=== PATIENT | female | born 1960 | race American Indian/Alaskan Native ===

== ENCOUNTER 2018-06-26 09:29 | Inpatient (IN) | payer OTHER ==
--- NOTE | 2018-06-26 09:53 | PDOC ---
History of Present Illness - General Chief Complaint: Weakness Stated Complaint: Weakness Time Seen by Provider: 06/26/18 09:53 - History of Present Illness Initial Comments: 06/26/18 12:12 Pt presents to the ED after sent in from [facility] for labile blood sugar and blood pressure and for SBP in the 90's this AM. Patient has no complaints except for feeling "tired". [facility] reports that the patient missed her last HD because she was "feeling feisty" and refused. 06/26/18 12:26 Past History - Past Medical History Allergies/Adverse Reactions: Allergies Allergy/AdvReac Type Severity Reaction Status Date / Time No Known Allergies Allergy Verified 06/26/18 09:54 Home Medications: Ambulatory Orders Acetaminophen 325 mg PO QID 06/26/18 Amlodipine Besylate 5 mg PO DAILY 06/26/18 Aspirin 81 mg PO DAILY 06/26/18 Donepezil HCl 5 mg PO HS 06/26/18 Dulaglutide [Trulicity] 0.75 mg SQ WEEKLY 06/26/18 Escitalopram Oxalate [Lexapro -] 20 mg PO DAILY 06/26/18 Famotidine 20 mg PO DAILY 06/26/18 Furosemide 80 mg PO DAILY 06/26/18 Gabapentin 100 mg PO HS 06/26/18 Gemfibrozil [Lopid] 600 mg PO BID 06/26/18 Isoniazid 300 mg PO DAILY 06/26/18 Metoprolol Tartrate 100 mg PO BID 06/26/18 Pyridoxine HCl (Vitamin B6) [Vitamin B-6] 100 mg PO DAILY 06/26/18 Quetiapine Fumarate [Seroquel -] 25 mg PO Q6H 06/26/18 Sevelamer Carbonate 800 mg PO TID 06/26/18 Thiamine Mononitrate [Vitamin B-1] 100 mg PO DAILY 06/26/18 Dementia: Yes Dialysis: Yes HTN: Yes Review of Systems - Review of Systems Able to Perform ROS?: No (dementia) Is the patient limited Citizen Of [place] proficient: No Constitutional: No: Symptoms Reported, See HPI, Chills, Diaphoresis, Fever, Loss of Appetite, Malaise, Night Sweats, Weakness, Weight Stable, Unintentional Wgt. Loss, Unexplained wgt Loss, Other Respiratory: No: Symptoms reported, See HPI, Cough, Orthopnea, Shortness of Breath, SOB with Exertion, SOB at Rest, Stridor, Wheezing, Productive cough, Hemoptysis, Other Cardiac (ROS): No: Symptoms Reported, See HPI, Chest Pain, Edema, Irregular Heart Rate, Lightheadedness, Palpitations, Syncope, Chest Tightness, Other ABD/GI: No: Symptoms Reported, See HPI, Abdominal Distended, Abd. Pain w/ defecation, Blood Streaked Bowels, Constipated, Diarrhea, Difficulty Swallowing , Nausea, Poor Appetite, Poor Fluid Intake, Rectal Bleeding, Vomiting, Indigestion, Abdominal cramping, Tarry Stools, Other : No: Symptoms Reported, See HPI, Burning, Dysuria, Discharge, Frequency, Flank Pain, Hematuria, Incontinence, Pain, Urgency, Testicular Mass, Testicular Swelling, Lesions, Testicular Pain, Other Musculoskeletal: No: Symptoms Reported, See HPI, Back Pain, Gout, Joint Pain, Joint Swelling, Muscle Pain, Muscle Weakness, Neck Pain, Joint Stiffness, Other *Physical Exam - Physical Exam General Appearance: Yes: Nourished, Appropriately Dressed HEENT: positive: Normal Voice Neck: positive: Rigid, Supple Respiratory/Chest: positive: Lungs Clear, Normal Breath Sounds Cardiovascular: positive: Regular Rhythm, Regular Rate, S1, S2 Gastrointestinal/Abdominal: positive: Normal Bowel Sounds, Flat, Soft Musculoskeletal: positive: Normal Inspection Integumentary: positive: Normal Color, Dry, Warm Neurologic: positive: charting clerk II-XII NML intact, Alert, Normal Mood/Affect ED Treatment Course - LABORATORY CBC & Chemistry Diagram: 06/26/18 11:19 06/26/18 12:54 Medical Decision Making - Medical Decision Making 06/26/18 12:33 Pt presents to the ED after sent in from [place] for labile blood pressure. Patient is demented, but has no complaints. Missed last HD. Differential includes electrolyte derrangement, dehydration. less likely ACS. Will check labs and cardiac enzymes, reassess. *DC/Admit/Observation/Transfer Diagnosis at time of Disposition: End stage renal disease - Discharge Dispostion Condition at time of disposition: Good Decision to Admit order: Yes - Referrals Referrals: Yousif Torres MD [Primary Care Provider] - - Patient Instructions - Post Discharge Activity
[2018-06-26 11:34] LABS: BASO % 0.4 % (0-2.0); EOS % 2.5 % (0-4.5); HEMATOCRIT 44.2 % (32.4-45.2); LYMPH % 22.2 % (8-40); MEAN CELL VOLUME 91.1 fl (80-96); MEAN PLT VOLUME 10.1 fl (7.5-11.1); MONO % 5.7 % (3.8-10.2); NEUT % 69.2 % (42.8-82.8); PLATELET COUNT 265 K/MM3 (134-434); RBC 4.85 M/mm3 (3.60-5.2); RDW 13.8 % (11.6-15.6); WHITE BLOOD COUNT 8.2 K/mm3 (4.0-10.0)
--- NOTE | 2018-06-26 11:56 | EKG ---
Test Reason : Blood Pressure : / mmHG Vent. Rate : 071 BPM Atrial Rate : 071 BPM P-R Int : 172 ms QRS Dur : 080 ms QT Int : 418 ms P-R-T Axes : 066 066 025 degrees QTc Int : 454 ms NORMAL SINUS RHYTHM ANTERIOR INFARCT , AGE UNDETERMINED ABNORMAL ECG NO PREVIOUS ECGS AVAILABLE Confirmed by ABIODUN PILLAI, PARAMJIT ([id number]) on 06/26/2018 11:56:34 AM Referred By: Confirmed By:PARAMJIT RASCON MD
[2018-06-26 14:23] LABS: ALBUMIN 3.2 g/dl (3.4-5.0); ALK PHOS 154 U/L (45-117); ANION GAP 17 MMOL/L (8-16); BILIRUBIN,TOTAL 0.6 mg/dL (0.2-1); CALCIUM 7.8 mg/dL (8.5-10.1); CHLORIDE 96 mmol/L (98-107); CO2 21 mmol/L (21-32); GLUCOSE,RANDOM 213 mg/dL (74-106); POTASSIUM 5.8 mmol/L (3.5-5.1); SGOT/AST 25 U/L (15-37); SGPT/ALT < 6 U/L (13-61); SODIUM 134 mmol/L (136-145); TOT PROT 6.5 g/dl (6.4-8.2)
[2018-06-26 14:43] LABS: BLOOD UREA NITROGEN 131 mg/dL (7-18)
[2018-06-26 14:44] LABS: CREATININE 13.9 mg/dL (0.55-1.3)
[2018-06-26] MEDS ORDERED: SODIUM BICARBONATE 4.2% 5 MEQ/10 ML DISP.SYRIN IVPUSH ONE ×2 (16:17→16:28)
[2018-06-26] MEDS ORDERED: INSULIN REGULAR HUMAN 100 UNITS/ML *VIAL IVPUSH ONE (16:17)
[2018-06-26] MEDS ORDERED: DEXTROSE 50%-WATER - 25 GM/50 ML VIAL IVPUSH ONE (16:17)
[2018-06-26] MEDS ORDERED: DEXTROSE 50%-WATER 25 GM/50 ML DISP.SYRIN ONE (16:26)
[2018-06-26] MEDS ORDERED: INSULIN REGULAR HUMAN 100 UNITS/ML *VIAL ONE (16:27)
--- NOTE | 2018-06-26 18:48 | CONSULT ---
Consult Consult Specialty:: Nephrology Reason for Consultation:: ESRD - History of Present Illness Chief Complaint: labile blood sugar and fatigue History of Present Illness: Pt is a 57 year old female with pmhx of ESRD who presents to the ER with labile blood sugar. She missed her last HD as she did not want to go. She says she feels well and has no complaints. The ER was actually trying to get her back to [facility] all day however she did not have a slot for HD so they then called me. She denies shortness of breath. She denies palpitations. She agrees to HD. - History Source History Provided By: Patient, Medical Record - Past Medical History Cardio/Vascular: Yes: HTN Renal/: Yes: Hemodialysis - Past Surgical History Past Surgical History: Yes: AV Fistula/Graft - Alcohol/Substance Use Hx Alcohol Use: No - Smoking History Smoking history: Unknown if ever smoked Have you smoked in the past 12 months: No Home Medications - Allergies Allergies/Adverse Reactions: Allergies Allergy/AdvReac Type Severity Reaction Status Date / Time No Known Allergies Allergy Verified 06/26/18 09:54 - Home Medications Home Medications: Ambulatory Orders Acetaminophen 325 mg PO QID 06/26/18 Amlodipine Besylate 5 mg PO DAILY 06/26/18 Aspirin 81 mg PO DAILY 06/26/18 Donepezil HCl 5 mg PO HS 06/26/18 Dulaglutide [Trulicity] 0.75 mg SQ WEEKLY 06/26/18 Escitalopram Oxalate [Lexapro -] 20 mg PO DAILY 06/26/18 Famotidine 20 mg PO DAILY 06/26/18 Furosemide 80 mg PO DAILY 06/26/18 Gabapentin 100 mg PO HS 06/26/18 Gemfibrozil [Lopid] 600 mg PO BID 06/26/18 Isoniazid 300 mg PO DAILY 06/26/18 Metoprolol Tartrate 100 mg PO BID 06/26/18 Pyridoxine HCl (Vitamin B6) [Vitamin B-6] 100 mg PO DAILY 06/26/18 Quetiapine Fumarate [Seroquel -] 25 mg PO Q6H 06/26/18 Sevelamer Carbonate 800 mg PO TID 06/26/18 Thiamine Mononitrate [Vitamin B-1] 100 mg PO DAILY 06/26/18 Family Disease History - Family Disease History Family History: Denies Review of Systems - Review of Systems Constitutional: reports: No Symptoms Eyes: reports: No Symptoms HENT: reports: No Symptoms Neck: reports: No Symptoms Cardiovascular: reports: No Symptoms Respiratory: reports: No Symptoms Gastrointestinal: reports: No Symptoms Genitourinary: reports: No Symptoms Musculoskeletal: reports: No Symptoms Integumentary: reports: No Symptoms Neurological: reports: No Symptoms Physical Exam Vital Signs: Vital Signs Temperature 97.6 F 06/26/18 09:30 Pulse Rate 70 06/26/18 14:49 Respiratory Rate 18 06/26/18 14:49 Blood Pressure 130/74 06/26/18 14:49 O2 Sat by Pulse Oximetry (%) 97 06/26/18 14:49 Constitutional: Yes: Calm Eyes: Yes: Conjunctiva Clear HENT: Yes: Atraumatic Neck: Yes: Supple Cardiovascular: Yes: S1, S2 Respiratory: Yes: CTA Bilaterally Gastrointestinal: Yes: Normal Bowel Sounds, Soft, Abdomen, Obese Renal/: Yes: WNL Musculoskeletal: Yes: WNL Extremities: Yes: Other (avf with thrill and bruit) Neurological: Yes: Oriented Psychiatric: Yes: Oriented Labs: CBC, BMP 06/26/18 11:19 06/26/18 12:54 Laboratory Tests 06/26/18 06/26/18 11:19 12:54 WBC 8.2 Hgb 15.0 Sodium 134 L Potassium 5.8 H BUN 131 H* Creatinine 13.9 H* Calcium 7.8 L Imaging - Results Chest X-ray: Report Reviewed Problem List - Problems (1) End stage renal disease Code(s): N18.6 - END STAGE RENAL DISEASE Assessment/Plan Impression 1. ESRD 2. hyperkalemia 3. HTN Plan - will arrange for HD today - bp is stable - pt agrees to HD - resume home meds - discussed with er - will follow Dr Marks
[2018-06-26] MEDS ORDERED: SODIUM CHLORIDE 250 ML IV PRN (18:51)
[2018-06-26 21:58] LABS: CREATININE 14.6 mg/dL (0.55-1.3)
[2018-06-27 00:41] LABS: CREATININE 4.5 mg/dL (0.55-1.3)
[2018-06-27] MEDS: DONEPEZIL HCL 5 MG TABLET (FP) PO SCH ×2 (07:14→21:46)
[2018-06-27] MEDS: SEVELAMER CARBONATE 800 MG TAB (FP) PO SCH ×4 (07:14→18:30)
[2018-06-27] MEDS: GEMFIBROZIL 600 MG TABLET (FP) PO SCH ×3 (07:14→16:58)
[2018-06-27] MEDS: METOPROLOL TARTRATE 50 MG TABLET (FP) PO SCH ×3 (07:14→21:45)
[2018-06-27] MEDS: ACETAMINOPHEN 325 MG TABLET (FP) PO SCH ×5 (07:15→21:46)
[2018-06-27] MEDS: QUEtiapine FUMARATE 25 MG TABLET (FP) PO SCH ×5 (07:15→21:46)
[2018-06-27] MEDS: GABAPENTIN 100 MG CAPSULE (FP) PO SCH ×2 (07:15→21:45)
[2018-06-27] MEDS ORDERED: ESCITALOPRAM OXALATE 10 MG TABLET (FP) ONE (10:24)
[2018-06-27] MEDS: amLODIPine BESYLATE 5 MG TABLET (FP) PO SCH (10:31)
[2018-06-27] MEDS: ASPIRIN 81 MG CHEWABLE TABLETS PO SCH (10:31)
[2018-06-27] MEDS: ESCITALOPRAM OXALATE 20 MG TABLET (FP) PO SCH (10:31)
[2018-06-27] MEDS: PYRIDOXINE HCL (B-6) 50 MG TABLET (FP) PO SCH (10:31)
[2018-06-27] MEDS: FUROSEMIDE 40 MG TABLET (FP) PO SCH (10:32)
[2018-06-27] MEDS: THIAMINE HCL 100 MG TABLET (FP) PO SCH (10:32)
--- NOTE | 2018-06-27 10:51 | HP ---
Admitting History and Physical - Primary Care Physician PCP: Aldair Mosquera - Admission History of Present Illness: pt seen/ examined chart reviewed er records reviewed Pt presents to the ED after sent in from skilled nursing for labile blood sugar and blood pressure and for SBP in the 90's this AM. Patient has no complaints except for feeling "tired". [facility] that [facility] her [facility] HD because she was "feeling feisty" and refused. pt admitted underwent dialysis pt seen / examined awake somewhat confused denies pain History Source: Patient, Medical Record Limitations to Obtaining History: Clinical Condition - Past Medical History Cardiovascular: Yes: HTN Renal/: Yes: Hemodialysis - Past Surgical History Past Surgical History: Yes: AV Fistula/Graft - Advance Directives Advance Directives: Yes: DNR, MOL - Smoking History Smoking history: Unknown if ever smoked Have you smoked in the past 12 months: No - Alcohol/Substance Use Hx Alcohol Use: No Home Medications - Allergies Allergies/Adverse Reactions: Allergies Allergy/AdvReac Type Severity Reaction Status Date / Time No Known Allergies Allergy Verified 06/26/18 09:54 - Home Medications Home Medications: Ambulatory Orders Acetaminophen 325 mg PO QID 06/26/18 Amlodipine Besylate 5 mg PO DAILY 06/26/18 Aspirin 81 mg PO DAILY 06/26/18 Donepezil HCl 5 mg PO HS 06/26/18 Dulaglutide [Trulicity] 0.75 mg SQ WEEKLY 06/26/18 Escitalopram Oxalate [Lexapro -] 20 mg PO DAILY 06/26/18 Famotidine 20 mg PO DAILY 06/26/18 Furosemide 80 mg PO DAILY 06/26/18 Gabapentin 100 mg PO HS 06/26/18 Gemfibrozil [Lopid] 600 mg PO BID 06/26/18 Isoniazid 300 mg PO DAILY 06/26/18 Metoprolol Tartrate 100 mg PO BID 06/26/18 Pyridoxine HCl (Vitamin B6) [Vitamin B-6] 100 mg PO DAILY 06/26/18 Quetiapine Fumarate [Seroquel -] 25 mg PO Q6H 06/26/18 Sevelamer Carbonate 800 mg PO TID 06/26/18 Thiamine Mononitrate [Vitamin B-1] 100 mg PO DAILY 06/26/18 Review of Systems Findings/Remarks: see yocha dehe Physical Examination Vital Signs: Vital Signs Temperature 98.7 F 06/27/18 00:35 Pulse Rate 63 06/27/18 08:07 Respiratory Rate 20 06/27/18 08:07 Blood Pressure 107/63 06/27/18 08:07 O2 Sat by Pulse Oximetry (%) 97 06/27/18 05:00 Constitutional: Yes: No Distress Eyes: Yes: Conjunctiva Clear Neck: Yes: Supple Cardiovascular: Yes: Regular Rate and Rhythm Respiratory: Yes: CTA Bilaterally, Diminished Gastrointestinal: Yes: Soft Edema: No Neurological: Yes: Alert, Tremors Labs: CBC, BMP 06/26/18 11:19 06/26/18 23:54 Imaging - Results Chest X-ray: Report Reviewed EKG: Report Reviewed Problem List - Problems (1) Toxic metabolic encephalopathy Code(s): G92 - TOXIC ENCEPHALOPATHY (2) Diabetes Code(s): E11.9 - TYPE 2 DIABETES MELLITUS WITHOUT COMPLICATIONS (3) ESRD (end stage renal disease) on dialysis Code(s): N18.6 - END STAGE RENAL DISEASE; Z99.2 - DEPENDENCE ON RENAL DIALYSIS Assessment/Plan Monitor today Labs ordered monitor bgm. send cultures neuro consult basic dementia work up will follow discussed with nursing staff also
[2018-06-27] MEDS: ISONIAZID 300 MG TABLET (FP) PO SCH (13:23)
[2018-06-27] MEDS ORDERED: SODIUM CHLORIDE 250 ML IV PRN (16:46)
--- NOTE | 2018-06-27 16:46 | PN ---
Progress Note, Physician History of Present Illness: Pt seen and examined at bedside. She is awake and appears comfortable. She is confused. - Current Medication List Current Medications: Active Medications Acetaminophen (Tylenol -) 325 mg PO QID [facility] Last Admin: 06/27/18 13:23 Dose: 325 mg Amlodipine Besylate (Norvasc -) 5 mg PO DAILY [facility] Last Admin: 06/27/18 10:31 Dose: 5 mg Aspirin (Asa -) 81 mg PO DAILY [facility] Last Admin: 06/27/18 10:31 Dose: 81 mg Donepezil HCl (Aricept -) 5 mg PO HS [facility] Last Admin: 06/27/18 07:14 Dose: Not Given Escitalopram Oxalate (Lexapro -) 20 mg PO DAILY [facility] Last Admin: 06/27/18 10:31 Dose: 20 mg Furosemide (Lasix -) 80 mg PO DAILY [facility] Last Admin: 06/27/18 10:32 Dose: 80 mg Gabapentin (Neurontin -) 100 mg PO HS [facility] Last Admin: 06/27/18 07:15 Dose: Not Given Gemfibrozil (Lopid -) 600 mg PO BIDAC [facility] Last Admin: 06/27/18 10:32 Dose: 600 mg Sodium Chloride (Normal Saline -) 250 mls @ 3,000 mls/hr IV PRN PRN PRN Reason: Hypotension during Dialysis Stop: 06/27/18 18:51 Insulin Aspart (Novolog Vial Sliding Scale -) 1 vial SQ BIDAC [facility]; Protocol Isoniazid (Inh -) 300 mg PO DAILY [facility] Last Admin: 06/27/18 13:23 Dose: 300 mg Metoprolol Tartrate (Lopressor -) 100 mg PO BID [facility] Last Admin: 06/27/18 10:31 Dose: 100 mg Pyridoxine HCl (Vitamin B6 -) 100 mg PO DAILY [facility] Last Admin: 06/27/18 10:31 Dose: 100 mg Quetiapine Fumarate (Seroquel -) 25 mg PO QID [facility] Last Admin: 06/27/18 13:23 Dose: 25 mg Sevelamer Carbonate (Renvela -) 800 mg PO TIDCM [facility] Last Admin: 06/27/18 13:23 Dose: 800 mg Thiamine HCl (Vitamin B1 -) 100 mg PO DAILY [facility] Last Admin: 06/27/18 10:32 Dose: 100 mg - Objective Vital Signs: Vital Signs Temperature 98.5 F 06/27/18 15:28 Pulse Rate 72 06/27/18 15:29 Respiratory Rate 20 06/27/18 15:28 Blood Pressure 114/49 L 06/27/18 15:28 O2 Sat by Pulse Oximetry (%) 95 06/27/18 09:00 Constitutional: Yes: Calm Eyes: Yes: Conjunctiva Clear HENT: Yes: Atraumatic Neck: Yes: Supple Cardiovascular: Yes: S1, S2 Respiratory: Yes: CTA Bilaterally Gastrointestinal: Yes: Normal Bowel Sounds, Soft Musculoskeletal: Yes: WNL Edema: No Neurological: Yes: Confusion Psychiatric: Yes: Oriented Labs: CBC, BMP 06/26/18 11:19 06/26/18 23:54 Problem List - Problems (1) End stage renal disease Code(s): N18.6 - END STAGE RENAL DISEASE Assessment/Plan Current Medications Generic Name Dose Route Start Last Admin Trade Name Freq PRN Reason Stop Dose Admin Acetaminophen 325 mg 06/26/18 22:00 06/27/18 13:23 Tylenol - PO 325 mg QID SARAHY Administration Amlodipine Besylate 5 mg 06/27/18 10:00 06/27/18 10:31 Norvasc - PO 5 mg DAILY SARAHY Administration Aspirin 81 mg 06/27/18 10:00 06/27/18 10:31 Asa - PO 81 mg DAILY SARAHY Administration Donepezil HCl 5 mg 06/26/18 22:00 06/27/18 07:14 Aricept - PO Not Given HS SARAHY Escitalopram Oxalate 20 mg 06/27/18 10:00 06/27/18 10:31 Lexapro - PO 20 mg DAILY SARAHY Administration Furosemide 80 mg 06/27/18 10:00 06/27/18 10:32 Lasix - PO 80 mg DAILY SARAHY Administration Gabapentin 100 mg 06/26/18 22:00 06/27/18 07:15 Neurontin - PO Not Given HS SARAHY Gemfibrozil 600 mg 06/26/18 19:15 06/27/18 10:32 Lopid - PO 600 mg BIDAC SARAHY Administration Sodium Chloride 250 mls @ 3,000 mls/hr 06/26/18 18:51 Normal Saline - IV 06/27/18 18:51 PRN PRN Hypotension during Dialysis Insulin Aspart 1 vial 06/27/18 16:30 Novolog Vial Sliding Scale - SQ BIDAC SARAHY Protocol Isoniazid 300 mg 06/27/18 10:00 06/27/18 13:23 Inh - PO 300 mg DAILY SARAHY Administration Metoprolol Tartrate 100 mg 06/26/18 22:00 06/27/18 10:31 Lopressor - PO 100 mg BID SARAHY Administration Pyridoxine HCl 100 mg 06/27/18 10:00 06/27/18 10:31 Vitamin B6 - PO 100 mg DAILY SARAHY Administration Quetiapine Fumarate 25 mg 06/26/18 22:00 06/27/18 13:23 Seroquel - PO 25 mg QID SARAHY Administration Sevelamer Carbonate 800 mg 06/26/18 19:15 06/27/18 13:23 Renvela - PO 800 mg TIDCM SARAHY Administration Thiamine HCl 100 mg 06/27/18 10:00 06/27/18 10:32 Vitamin B1 - PO 100 mg DAILY SARAHY Administration Impression 1. ESRD 2. hyperkalemia 3. HTN Plan - follow repeat labs - HD in am - discussed with medical team - resume home meds - will follow Dr Marks
[2018-06-27] MEDS: INSULIN SLIDING SCALE (NOVOLOG) 1 VIAL SQ SCH (16:50)
[2018-06-27 17:52] LABS: ANION GAP 15 MMOL/L (8-16); BLOOD UREA NITROGEN 70 mg/dL (7-18); CALCIUM 8.4 mg/dL (8.5-10.1); CHLORIDE 98 mmol/L (98-107); CO2 27 mmol/L (21-32); SODIUM 141 mmol/L (136-145)
[2018-06-27 17:55] LABS: GLUCOSE,RANDOM 45 mg/dL (74-106)
[2018-06-27 17:56] LABS: CREATININE 10.5 mg/dL (0.55-1.3)
[2018-06-28] MEDS ORDERED: GLUCAGON 1 MG KIT ONE (06:16)
[2018-06-28] MEDS ORDERED: DEXTROSE 50%-WATER 25 GM/50 ML DISP.SYRIN ONE (06:24)
[2018-06-28] MEDS ORDERED: DEXTROSE 50%-WATER - 25 GM/50 ML VIAL IVPUSH ONE ×2 (06:29→06:30)
--- NOTE | 2018-06-28 06:38 | RAPID ---
Physical Examination Vital Signs: Vital Signs Temperature 97.6 F 06/28/18 06:00 Pulse Rate 65 06/28/18 06:00 Respiratory Rate 18 06/28/18 06:00 Blood Pressure 100/60 06/28/18 06:00 O2 Sat by Pulse Oximetry (%) 95 06/27/18 21:00 rapid response was called for pt mentioned due to Glucose 32 d50 25 and 50 mg IV push was given pt became more responsive and her sugar improved to 392 bp 100/59, p 65 , AAOx3 , lungs clear, heart RRR pt is awake and respond to my questions Dr Bell and the floor team was at bed side. cbc cmp , stat Labs: CBC, BMP 06/26/18 11:19 06/27/18 15:30
[2018-06-28] MEDS: GEMFIBROZIL 600 MG TABLET (FP) PO SCH ×2 (06:41→17:01)
[2018-06-28] MEDS: INSULIN SLIDING SCALE (NOVOLOG) 1 VIAL SQ SCH ×2 (06:50→17:23)
[2018-06-28] MEDS ORDERED: GLUCAGON 1 MG KIT IM ONE (06:55)
[2018-06-28 07:51] LABS: BASO % 0.5 % (0-2.0); EOS % 4.5 % (0-4.5); HEMATOCRIT 44.5 % (32.4-45.2); HEMOGLOBIN 14.3 GM/dL (10.7-15.3); LYMPH % 32.5 % (8-40); MCH 29.6 pg (25.7-33.7); MCHC 32.2 g/dl (32.0-36.0); MEAN CELL VOLUME 92.1 fl (80-96); MEAN PLT VOLUME 9.7 fl (7.5-11.1); NEUT % 58.5 % (42.8-82.8); PLATELET COUNT 180 K/MM3 (134-434); RBC 4.83 M/mm3 (3.60-5.2); RDW 14.4 % (11.6-15.6)
[2018-06-28] MEDS ORDERED: PROCHLORPERAZINE INJECTION 10 MG/2 ML VIAL IVPB ONE (07:54)
[2018-06-28] MEDS: SEVELAMER CARBONATE 800 MG TAB (FP) PO SCH ×3 (08:33→17:00)
[2018-06-28 09:51] LABS: HEMATOCRIT 42.9 % (32.4-45.2); HEMOGLOBIN 14.6 GM/dL (10.7-15.3); MCH 30.9 pg (25.7-33.7); MEAN CELL VOLUME 90.8 fl (80-96); MEAN PLT VOLUME 9.8 fl (7.5-11.1); PLATELET COUNT 172 K/MM3 (134-434); RBC 4.72 M/mm3 (3.60-5.2); WHITE BLOOD COUNT 10.4 K/mm3 (4.0-10.0)
[2018-06-28 10:49] LABS: ANION GAP 16 MMOL/L (8-16); BLOOD UREA NITROGEN 77 mg/dL (7-18); CALCIUM 8.2 mg/dL (8.5-10.1); CHLORIDE 96 mmol/L (98-107); CO2 24 mmol/L (21-32); POTASSIUM 4.7 mmol/L (3.5-5.1); SODIUM 136 mmol/L (136-145)
[2018-06-28 10:54] LABS: CREATININE 11.6 mg/dL (0.55-1.3); GLUCOSE,RANDOM 426 mg/dL (74-106)
[2018-06-28 11:34] LABS: ANISOCYTOSIS 2+; MACROCYTOSIS 0; PLATELET ESTIMATE NORMAL
--- NOTE | 2018-06-28 12:11 | PN ---
Progress Note (short form) - Note Progress Note: pt seen/ examined during dialysis chart reviewed events noted/ discussed. episode of hypoglycemia -- pt not on diabetic meds-- i had held except coverage. Vital Signs Temp 97 F L 06/28/18 09:25 Pulse 65 06/28/18 12:01 Resp 18 06/28/18 12:01 BP 123/48 L 06/28/18 12:01 Pulse Ox 95 06/27/18 21:00 Intake & Output 06/27/18 06/28/18 06/28/18 23:59 11:59 23:59 Intake Total 100 Balance 100 Weight 129 lb 5 oz Intake: Oral 100 Other: Voiding Method Toilet # Unmeasured Voids Void 1 1 Bowel Movement No Yes # Bowel Movements 2 Weight Measurement Method Built in [facility] Active Medications Acetaminophen (Tylenol -) 325 mg PO QID [facility] Last Admin: 06/27/18 21:46 Dose: 325 mg Amlodipine Besylate (Norvasc -) 5 mg PO DAILY [facility] Last Admin: 06/27/18 10:31 Dose: 5 mg Aspirin (Asa -) 81 mg PO DAILY [facility] Last Admin: 06/27/18 10:31 Dose: 81 mg Donepezil HCl (Aricept -) 5 mg PO HS [facility] Last Admin: 06/27/18 21:46 Dose: 5 mg Escitalopram Oxalate (Lexapro -) 20 mg PO DAILY [facility] Last Admin: 06/27/18 10:31 Dose: 20 mg Furosemide (Lasix -) 80 mg PO DAILY [facility] Last Admin: 06/27/18 10:32 Dose: 80 mg Gabapentin (Neurontin -) 100 mg PO HS [facility] Last Admin: 06/27/18 21:45 Dose: 100 mg Gemfibrozil (Lopid -) 600 mg PO BIDAC [facility] Last Admin: 06/28/18 06:41 Dose: 600 mg Sodium Chloride (Normal Saline -) 250 mls @ 3,000 mls/hr IV PRN PRN PRN Reason: Hypotension during Dialysis Stop: 06/28/18 16:46 Insulin Aspart (Novolog Vial Sliding Scale -) 1 vial SQ BIDAC [facility]; Protocol Last Admin: 06/28/18 06:50 Dose: Not Given Isoniazid (Inh -) 300 mg PO DAILY [facility] Last Admin: 06/27/18 13:23 Dose: 300 mg Metoprolol Tartrate (Lopressor -) 100 mg PO BID [facility] Last Admin: 06/27/18 21:45 Dose: 100 mg Pyridoxine HCl (Vitamin B6 -) 100 mg PO DAILY [facility] Last Admin: 06/27/18 10:31 Dose: 100 mg Quetiapine Fumarate (Seroquel -) 25 mg PO QID [facility] Last Admin: 06/27/18 21:46 Dose: 25 mg Sevelamer Carbonate (Renvela -) 800 mg PO TIDCM [facility] Last Admin: 06/28/18 08:33 Dose: Not Given Thiamine HCl (Vitamin B1 -) 100 mg PO DAILY [facility] Last Admin: 06/27/18 10:32 Dose: 100 mg CBC, BMP 06/28/18 09:30 06/28/18 09:30 Physical Examination Constitutional: Yes: No Distress. comfortable Eyes: Yes: Conjunctiva Clear Neck: Yes: Supple Cardiovascular: Yes: Regular Rate and Rhythm Respiratory: Yes: CTA Bilaterally, Diminished Gastrointestinal: Yes: Soft Edema: No Neurological: Yes: Alert, Tremors Labs: Imaging - Results Chest X-ray: Report Reviewed EKG: Report Reviewed Problem List - Problems (1) Toxic metabolic encephalopathy Code(s): G92 - TOXIC ENCEPHALOPATHY (2) Diabetes Code(s): E11.9 - TYPE 2 DIABETES MELLITUS WITHOUT COMPLICATIONS (3) ESRD (end stage renal disease) on dialysis Code(s): N18.6 - END STAGE RENAL DISEASE; Z99.2 - DEPENDENCE ON RENAL DIALYSIS Assessment/Plan Monitor Labs noted monitor bgm. send cultures-- neuro consult basic dementia work up + RPR confirmatory test i/d consult will follow discussed with nursing staff also.
[2018-06-28 12:26] LABS: RPR REACTIVE 1:2 (NONREACTIVE)
[2018-06-28] MEDS ORDERED: ESCITALOPRAM OXALATE 10 MG TABLET (FP) ONE (14:58)
[2018-06-28] MEDS: METOPROLOL TARTRATE 50 MG TABLET (FP) PO SCH ×2 (15:00→22:19)
[2018-06-28] MEDS: FUROSEMIDE 40 MG TABLET (FP) PO SCH (15:00)
[2018-06-28] MEDS: THIAMINE HCL 100 MG TABLET (FP) PO SCH (15:01)
[2018-06-28] MEDS: ACETAMINOPHEN 325 MG TABLET (FP) PO SCH ×4 (15:01→22:18)
[2018-06-28] MEDS: QUEtiapine FUMARATE 25 MG TABLET (FP) PO SCH ×4 (15:01→22:18)
[2018-06-28] MEDS: PYRIDOXINE HCL (B-6) 50 MG TABLET (FP) PO SCH (15:02)
[2018-06-28] MEDS: amLODIPine BESYLATE 5 MG TABLET (FP) PO SCH (15:03)
[2018-06-28] MEDS: ASPIRIN 81 MG CHEWABLE TABLETS PO SCH (15:03)
[2018-06-28] MEDS: ESCITALOPRAM OXALATE 20 MG TABLET (FP) PO SCH (15:04)
[2018-06-28] MEDS ORDERED: PT OWN MED DRAWER 7, Y5N ONE (15:07)
--- NOTE | 2018-06-28 15:13 | CON.NEURO ---
Consult - Past Medical History Cardio/Vascular: Yes: HTN Renal/: Yes: Hemodialysis - Past Surgical History Past Surgical History: Yes: AV Fistula/Graft - Alcohol/Substance Use Hx Alcohol Use: No - Smoking History Smoking history: Unknown if ever smoked Have you smoked in the past 12 months: No Home Medications - Allergies Allergies/Adverse Reactions: Allergies Allergy/AdvReac Type Severity Reaction Status Date / Time No Known Allergies Allergy Verified 06/26/18 09:54 - Home Medications Home Medications: Ambulatory Orders Acetaminophen 325 mg PO QID 06/26/18 Amlodipine Besylate 5 mg PO DAILY 06/26/18 Aspirin 81 mg PO DAILY 06/26/18 Donepezil HCl 5 mg PO HS 06/26/18 Dulaglutide [Trulicity] 0.75 mg SQ WEEKLY 06/26/18 Escitalopram Oxalate [Lexapro -] 20 mg PO DAILY 06/26/18 Famotidine 20 mg PO DAILY 06/26/18 Furosemide 80 mg PO DAILY 06/26/18 Gabapentin 100 mg PO HS 06/26/18 Gemfibrozil [Lopid] 600 mg PO BID 06/26/18 Isoniazid 300 mg PO DAILY 06/26/18 Metoprolol Tartrate 100 mg PO BID 06/26/18 Pyridoxine HCl (Vitamin B6) [Vitamin B-6] 100 mg PO DAILY 06/26/18 Quetiapine Fumarate [Seroquel -] 25 mg PO Q6H 06/26/18 Sevelamer Carbonate 800 mg PO TID 06/26/18 Thiamine Mononitrate [Vitamin B-1] 100 mg PO DAILY 06/26/18 Physical Exam-Neuro Vital Signs: Vital Signs Temperature 97.5 F L 06/28/18 14:00 Pulse Rate 75 06/28/18 14:00 Respiratory Rate 20 06/28/18 14:00 Blood Pressure 128/74 06/28/18 14:00 O2 Sat by Pulse Oximetry (%) 95 06/27/18 21:00 Labs: CBC, BMP 06/28/18 09:30 06/28/18 09:30 Assessment/Plan cc Jerking motions HPI 57 year old female history of HTN, ESRD on HD, presented with labile sugar. patient has been having jerking motion in both hands and sometime around face. Shweta has history of depression and atypical antipsychotic medication. She has refused dialysis and is getting dialysis today. There is no headache , fever or generalized tonic clonic activity. There is no brain imaging done during admission. PMH HTN, ESRD NKDA PMH,Social History and ROS, FH, reviewd in chart Home Medicaitons Acetaminophen 325 mg PO QID 06/26/18 Amlodipine Besylate 5 mg PO DAILY 06/26/18 Aspirin 81 mg PO DAILY 06/26/18 Donepezil HCl 5 mg PO HS 06/26/18 Dulaglutide [Trulicity] 0.75 mg SQ WEEKLY 06/26/18 Escitalopram Oxalate [Lexapro -] 20 mg PO DAILY 06/26/18 Famotidine 20 mg PO DAILY 06/26/18 Furosemide 80 mg PO DAILY 06/26/18 Gabapentin 100 mg PO HS 06/26/18 Gemfibrozil [Lopid] 600 mg PO BID 06/26/18 Isoniazid 300 mg PO DAILY 06/26/18 Metoprolol Tartrate 100 mg PO BID 06/26/18 Pyridoxine HCl (Vitamin B6) [Vitamin B-6] 100 mg PO DAILY 06/26/18 Quetiapine Fumarate [Seroquel -] 25 mg PO Q6H 06/26/18 Sevelamer Carbonate 800 mg PO TID 06/26/18 Thiamine Mononitrate [Vitamin B-1] 100 mg PO DAILY 06/26/18 Neurological Examination Alert oriented x 1,follow command EOMI, Pupils reactive no face asymmetry Moving all extremity , 5/5 sensation is noraml reflex are diminisehd generalized Flapping tremors were seen as well No brain imaging during this hospital admission Assessment /Plan 1. Metabolic Encephalopathy secondary to Uremia , and Labile Sugar levels 2. Myoclonic jerks, secondary to uremia Plan: At this time , jerking seems to be not disabling and and it may subside after HD, I suggest to wait before starting Medication, suggest to do EEG and hold Keppra, if myoclonic jerking gets worse , consider starting keppra 250 mg bid. Thanking you so much Gerardo Christiansen md
--- NOTE | 2018-06-28 15:34 | PN ---
Progress Note (short form) - Note Progress Note: covering dr [place] 1. ESRD 2. hyperkalemia 3. HTN Active Medications Acetaminophen (Tylenol -) 325 mg PO QID [facility] Last Admin: 06/28/18 15:01 Dose: 325 mg Amlodipine Besylate (Norvasc -) 5 mg PO DAILY [facility] Last Admin: 06/28/18 15:03 Dose: 5 mg Aspirin (Asa -) 81 mg PO DAILY [facility] Last Admin: 06/28/18 15:03 Dose: 81 mg Donepezil HCl (Aricept -) 5 mg PO HS [facility] Last Admin: 06/27/18 21:46 Dose: 5 mg Escitalopram Oxalate (Lexapro -) 20 mg PO DAILY [facility] Last Admin: 06/28/18 15:04 Dose: 20 mg Furosemide (Lasix -) 80 mg PO DAILY [facility] Last Admin: 06/28/18 15:00 Dose: 80 mg Gabapentin (Neurontin -) 100 mg PO [facility] Last Admin: 06/27/18 21:45 Dose: 100 mg Gemfibrozil (Lopid -) 600 mg PO BIDAC [facility] Last Admin: 06/28/18 06:41 Dose: 600 mg Sodium Chloride (Normal Saline -) 250 mls @ 3,000 mls/hr IV PRN PRN PRN Reason: Hypotension during Dialysis Stop: 06/28/18 16:46 Insulin Aspart (Novolog Vial Sliding Scale -) 1 vial SQ BIDAC [facility]; Protocol Last Admin: 06/28/18 06:50 Dose: Not Given Isoniazid (Inh -) 300 mg PO DAILY [facility] Last Admin: 06/27/18 13:23 Dose: 300 mg Metoprolol Tartrate (Lopressor -) 100 mg PO BID [facility] Last Admin: 06/28/18 15:00 Dose: 100 mg Pyridoxine HCl (Vitamin B6 -) 100 mg PO DAILY [facility] Last Admin: 06/28/18 15:02 Dose: 100 mg Quetiapine Fumarate (Seroquel -) 25 mg PO QID [facility] Last Admin: 06/28/18 15:02 Dose: Not Given Sevelamer Carbonate (Renvela -) 800 mg PO TIDCM [facility] Last Admin: 06/28/18 15:03 Dose: 800 mg Thiamine HCl (Vitamin B1 -) 100 mg PO DAILY [facility] Last Admin: 06/28/18 15:01 Dose: 100 mg Last Vital Signs Temp Pulse Resp BP Pulse Ox 97.5 F L 75 20 128/74 95 06/28/18 14:00 06/28/18 14:00 06/28/18 14:00 06/28/18 14:00 06/27/18 21:00 CBC, BMP 06/28/18 09:30 06/28/18 09:30 IMP- ESRD stable on dialysis Plan - follow repeat labs - HD in am - discussed with medical team - resume home meds - will follow
[2018-06-28] MEDS: ISONIAZID 300 MG TABLET (FP) PO SCH (17:00)
[2018-06-28] MEDS: GABAPENTIN 100 MG CAPSULE (FP) PO SCH (22:18)
[2018-06-28] MEDS: DONEPEZIL HCL 5 MG TABLET (FP) PO SCH (22:18)
[2018-06-29 02:08] LABS: HBSAG SCREEN Negative (Negative); HEP A AB, IGM Negative (Negative); HEP B CORE AB, TOT Negative (Negative)
[2018-06-29] MEDS ORDERED: DEXTROSE 50%-WATER 25 GM/50 ML DISP.SYRIN ONE (06:41)
[2018-06-29] MEDS: INSULIN SLIDING SCALE (NOVOLOG) 1 VIAL SQ SCH ×2 (06:45→17:24)
[2018-06-29] MEDS: GEMFIBROZIL 600 MG TABLET (FP) PO SCH ×2 (06:58→17:24)
--- NOTE | 2018-06-29 06:58 | RAPID ---
Physical Examination Vital Signs: Vital Signs Temperature 98.6 F 06/29/18 04:19 Pulse Rate 71 06/29/18 04:19 Respiratory Rate 20 06/29/18 04:19 Blood Pressure 109/59 L 06/29/18 04:19 O2 Sat by Pulse Oximetry (%) 96 06/28/18 21:00 Labs: CBC, BMP 06/28/18 09:30 06/28/18 09:30 Rapid Response - Rapid Response Assessment: Rapid Response was called at 6:42am for Pt. found to be unresponsive in the AM. BGM were take at that time and Pt. was found to be hypoglycemic to 35. Immediate decision was made to give 1 amp d50, to good response. Pt. became more alert, eyes opened and Pt was able to move all limbs spontaneously and converse with attending, nursing staff and residents in attendance. On physical exam Pt. had normal S1, S2, RRR, Lungs were CTAB, Extremities had 2+ dorsal pedal pulses and left radial pulse. Pt. was able to life legs off bed and keep them up over 5 seconds for lower extremities and had 5/5 president practicing urologist strength bilaterally. We felt that the patient's unresponsiveness was due to hypoglycemia and no further workup was indicated at this time.
[2018-06-29] MEDS ORDERED: DEXTROSE 50%-WATER - 25 GM/50 ML VIAL IVPUSH ONE (07:34)
[2018-06-29] MEDS ORDERED: ESCITALOPRAM OXALATE 10 MG TABLET (FP) ONE (08:45)
[2018-06-29] MEDS ORDERED: PT OWN MED DRAWER 7, Y5N ONE ×2 (08:48→16:25)
[2018-06-29] MEDS: ASPIRIN 81 MG CHEWABLE TABLETS PO SCH (09:12)
[2018-06-29] MEDS: THIAMINE HCL 100 MG TABLET (FP) PO SCH (09:12)
[2018-06-29] MEDS: QUEtiapine FUMARATE 25 MG TABLET (FP) PO SCH ×4 (09:12→22:19)
[2018-06-29] MEDS: amLODIPine BESYLATE 5 MG TABLET (FP) PO SCH (09:12)
[2018-06-29] MEDS: METOPROLOL TARTRATE 50 MG TABLET (FP) PO SCH ×2 (09:12→22:18)
[2018-06-29] MEDS: FUROSEMIDE 40 MG TABLET (FP) PO SCH (09:13)
[2018-06-29] MEDS: ACETAMINOPHEN 325 MG TABLET (FP) PO SCH ×4 (09:13→22:19)
[2018-06-29] MEDS: SEVELAMER CARBONATE 800 MG TAB (FP) PO SCH ×3 (09:13→17:24)
[2018-06-29] MEDS: ISONIAZID 300 MG TABLET (FP) PO SCH (09:14)
[2018-06-29] MEDS: ESCITALOPRAM OXALATE 20 MG TABLET (FP) PO SCH (09:15)
[2018-06-29] MEDS: PYRIDOXINE HCL (B-6) 50 MG TABLET (FP) PO SCH (10:41)
[2018-06-29 11:47] LABS: TREPONEMA ANTIBODY REACTIVE (NONREACTIVE)
--- NOTE | 2018-06-29 11:48 | PN ---
Progress Note (short form) - Note Progress Note: comfortable. another episode of hypoglycemia today Vital Signs Temp 98.6 F 06/29/18 04:19 Pulse 65 06/29/18 09:19 Resp 18 06/29/18 09:19 BP 135/73 06/29/18 09:19 Pulse Ox 96 06/28/18 21:00 Intake & Output 06/28/18 06/28/18 06/29/18 11:59 23:59 11:59 Intake Total 830 0 Balance 830 0 Weight 129 lb 5 oz 132 lb 3.2 oz Intake: IVPB 50 Oral 780 0 Other: Voiding Method Incontinent Toilet Toilet # Unmeasured Voids Void 1 1 1 Bowel Movement Yes Yes # Bowel Movements 2 1 Weight Measurement Method Built in Bedscale Built in Bedscale Active Medications Acetaminophen (Tylenol -) 325 mg PO QID [facility] Last Admin: 06/29/18 09:13 Dose: 325 mg Amlodipine Besylate (Norvasc -) 5 mg PO DAILY [facility] Last Admin: 06/29/18 09:12 Dose: 5 mg Aspirin (Asa -) 81 mg PO DAILY [facility] Last Admin: 06/29/18 09:12 Dose: 81 mg Donepezil HCl (Aricept -) 5 mg PO [facility] Last Admin: 06/28/18 22:18 Dose: 5 mg Escitalopram Oxalate (Lexapro -) 20 mg PO DAILY [facility] Last Admin: 06/29/18 09:15 Dose: 20 mg Furosemide (Lasix -) 80 mg PO DAILY [facility] Last Admin: 06/29/18 09:13 Dose: 80 mg Gabapentin (Neurontin -) 100 mg PO HS [facility] Last Admin: 06/28/18 22:18 Dose: 100 mg Gemfibrozil (Lopid -) 600 mg PO BIDAC [facility] Last Admin: 06/29/18 06:58 Dose: 600 mg Sodium Chloride (Normal Saline -) 250 mls @ 3,000 mls/hr IV PRN PRN PRN Reason: Hypotension during Dialysis Stop: 06/28/18 16:46 Insulin Aspart (Novolog Vial Sliding Scale -) 1 vial SQ BIDAC [facility]; Protocol Last Admin: 06/29/18 06:45 Dose: Not Given Isoniazid (Inh -) 300 mg PO DAILY [facility] Last Admin: 06/29/18 09:14 Dose: 300 mg Metoprolol Tartrate (Lopressor -) 100 mg PO BID [facility] Last Admin: 06/29/18 09:12 Dose: 100 mg Pyridoxine HCl (Vitamin B6 -) 100 mg PO DAILY [facility] Last Admin: 06/29/18 10:41 Dose: 100 mg Quetiapine Fumarate (Seroquel -) 25 mg PO QID [facility] Last Admin: 06/29/18 09:12 Dose: 25 mg Sevelamer Carbonate (Renvela -) 800 mg PO TIDCM [facility] Last Admin: 06/29/18 09:13 Dose: 800 mg Thiamine HCl (Vitamin B1 -) 100 mg PO DAILY [facility] Last Admin: 06/29/18 09:12 Dose: 100 mg CBC, BMP 06/28/18 09:30 06/28/18 09:30 Microbiology 06/27/18 12:42 Blood Culture - Preliminary Blood - Peripheral Venous NO GROWTH OBTAINED AFTER 24 HOURS, INCUBATION TO CONTINUE FOR 4 DAYS. 06/27/18 12:42 Blood Culture - Preliminary Blood - Peripheral Venous NO GROWTH OBTAINED AFTER 24 HOURS, INCUBATION TO CONTINUE FOR 4 DAYS. Physical Examination Constitutional: Yes: No Distress. comfortable. Eyes: Yes: Conjunctiva Clear Neck: Yes: Supple Cardiovascular: Yes: Regular Rate and Rhythm Respiratory: Yes: CTA Bilaterally, Diminished Gastrointestinal: Yes: Soft Edema: No Neurological: Yes: Alert, Imaging - Results Chest X-ray: Report Reviewed EKG: Report Reviewed Problem List - Problems (1) Toxic metabolic encephalopathy Code(s): G92 - TOXIC ENCEPHALOPATHY (2) Diabetes Code(s): E11.9 - TYPE 2 DIABETES MELLITUS WITHOUT COMPLICATIONS (3) ESRD (end stage renal disease) on dialysis Code(s): N18.6 - END STAGE RENAL DISEASE; Z99.2 - DEPENDENCE ON RENAL DIALYSIS Assessment/Plan Monitor endo consult monitor bgm. send cultures-- -ve so far neuro consult noted i/d consult pending will follow discussed with nursing staff also
--- NOTE | 2018-06-29 13:05 | CONSULT ---
Consult Consult Specialty:: Endocrinology Referred by:: Dr Mosquera Reason for Consultation:: Hypoglycemia - History of Present Illness Chief Complaint: Fluctuating blood sugar History of Present Illness: This is a 57 year old female with h/o DM for many years, ESRD on HD who was transferred to ER from [facility] for "Altered mental status with jerky movements" . [facility] prison noted as 178 duirng transper. Pt was admiitted to the hospital for further management. Pt found unresponsive today morning with FS of 35 which was treated with IV Dextrose with improvement of symptoms. Had similarly hypoglycemia yesterday with FS of 32. Pt currently denies any complaints. Pt referred for evaluation of hypoglycemia. Review of [facility] medication list shows she is on Trulicity 0.75mg Q week on Wednesdays which would be 4 days ago. FS in the hospital has been fluctuating with up to 600 after D50. Review of chart and discussion with nursing staff shows that she didn 't get any Insulin since admission. Denies any polyuria, polydipsia or nocturia. Has Poor vision of rt eye. No paresthesia of feet. - History Source History Provided By: Patient, Medical Record - Past Medical History Cardio/Vascular: Yes: HTN Renal/: Yes: Hemodialysis Endocrine: Yes: Diabetes Mellitus - Past Surgical History Past Surgical History: Yes: AV Fistula/Graft - Alcohol/Substance Use Hx Alcohol Use: No - Smoking History Smoking history: Unknown if ever smoked Have you smoked in the past 12 months: No Home Medications - Allergies Allergies/Adverse Reactions: Allergies Allergy/AdvReac Type Severity Reaction Status Date / Time No Known Allergies Allergy Verified 06/26/18 09:54 - Home Medications Home Medications: Ambulatory Orders Acetaminophen 325 mg PO QID 06/26/18 Amlodipine Besylate 5 mg PO DAILY 06/26/18 Aspirin 81 mg PO DAILY 06/26/18 Donepezil HCl 5 mg PO HS 06/26/18 Dulaglutide [Trulicity] 0.75 mg SQ WEEKLY 06/26/18 Escitalopram Oxalate [Lexapro -] 20 mg PO DAILY 06/26/18 Famotidine 20 mg PO DAILY 06/26/18 Furosemide 80 mg PO DAILY 06/26/18 Gabapentin 100 mg PO HS 06/26/18 Gemfibrozil [Lopid] 600 mg PO BID 06/26/18 Isoniazid 300 mg PO DAILY 11/29/18 Metoprolol Tartrate 100 mg PO BID 06/26/18 Pyridoxine HCl (Vitamin B6) [Vitamin B-6] 100 mg PO DAILY 06/26/18 Quetiapine Fumarate [Seroquel -] 25 mg PO Q6H 06/26/18 Sevelamer Carbonate 800 mg PO TID 06/26/18 Thiamine Mononitrate [Vitamin B-1] 100 mg PO DAILY 06/26/18 Family Disease History - Family Disease History Family Disease History: Diabetes: Grandparent Review of Systems - Review of Systems Constitutional: reports: Loss of Appetite Eyes: reports: Other (Decrease vision rt eye) HENT: reports: No Symptoms Neck: reports: No Symptoms Cardiovascular: reports: No Symptoms Respiratory: reports: No Symptoms Gastrointestinal: reports: No Symptoms Genitourinary: reports: No Symptoms Musculoskeletal: reports: No Symptoms Integumentary: reports: No Symptoms Neurological: reports: Other (Alert, Oriented to year, says she is in the prison.) Physical Exam Vital Signs: Vital Signs Temperature 98.6 F 06/29/18 04:19 Pulse Rate 65 06/29/18 09:19 Respiratory Rate 18 06/29/18 09:19 Blood Pressure 135/73 06/29/18 09:19 O2 Sat by Pulse Oximetry (%) 96 06/28/18 21:00 Constitutional: Yes: No Distress, Calm Eyes: Yes: Conjunctiva Clear, EOM Intact HENT: Yes: Atraumatic, Normocephalic Neck: Yes: Supple, Trachea Midline Cardiovascular: Yes: Regular Rate and Rhythm Respiratory: Yes: Regular Gastrointestinal: Yes: Normal Bowel Sounds, Soft Extremities: Yes: WNL, Other (left elizabeth AV Fistula) Edema: No Neurological: Yes: Alert Labs: CBC, BMP 06/28/18 09:30 06/28/18 09:30 Assessment/Plan AP: T2DM Hypoglycemia: ? Secondary to Trulicity and poor food intake ESRD BGM Q4 hrs Novolog coverage BID when FS >300 for now To give snack of around 150 Kcal when FS drops to <120. T0 give half amp of D50 if pt unable or unwilling to eat Will F/U
--- NOTE | 2018-06-29 13:39 | CON.ID ---
Consult Consult Specialty:: infectious disease Referred by:: dr ny Reason for Consultation:: positive rpr - History of Present Illness Chief Complaint: 57 yo female NHR sent to ED for labile BS History of Present Illness: she is alert history of DM and ESRD/HD asked to see for +RPR patient is awake and alert no fevers knows she is in the hospital reports poor memory 2017 denies prior history of syphilis denies HIV from [facility] one son denies sexual activity since the of her denies syphilis treatment prior [facility]- reports HIV negative agreeable to retesting used to live in the [place] - History Source History Provided By: Patient, Medical Record Limitations to Obtaining History: Clinical Condition - Past Medical History Cardio/Vascular: Yes: HTN Gastrointestinal: Yes: GERD Renal/: Yes: Renal Failure, Hemodialysis Endocrine: Yes: Diabetes Mellitus - Past Surgical History Past Surgical History: Yes: AV Fistula/Graft - Alcohol/Substance Use Hx Alcohol Use: No - Smoking History Smoking history: Unknown if ever smoked Have you smoked in the past 12 months: No - Social History Usual Living Arrangement: Skilled Nursing ADL: Support Services Occupation: former [facility] Place of : Other ([facility]) History of Recent Travel: No Home Medications - Allergies Allergies/Adverse Reactions: Allergies Allergy/AdvReac Type Severity Reaction Status Date / Time No Known Allergies Allergy Verified 06/26/18 09:54 - Home Medications Home Medications: Ambulatory Orders Acetaminophen 325 mg PO QID 06/26/18 Amlodipine Besylate 5 mg PO DAILY 06/26/18 Aspirin 81 mg PO DAILY 06/26/18 Donepezil HCl 5 mg PO HS 06/26/18 Dulaglutide [Trulicity] 0.75 mg SQ WEEKLY 06/26/18 Escitalopram Oxalate [Lexapro -] 20 mg PO DAILY 06/26/18 Famotidine 20 mg PO DAILY 06/26/18 Furosemide 80 mg PO DAILY 06/26/18 Gabapentin 100 mg PO HS 06/26/18 Gemfibrozil [Lopid] 600 mg PO BID 06/26/18 Isoniazid 300 mg PO DAILY 06/26/18 Metoprolol Tartrate 100 mg PO BID 06/26/18 Pyridoxine HCl (Vitamin B6) [Vitamin B-6] 100 mg PO DAILY 06/26/18 Quetiapine Fumarate [Seroquel -] 25 mg PO Q6H 06/26/18 Sevelamer Carbonate 800 mg PO TID 06/26/18 Thiamine Mononitrate [Vitamin B-1] 100 mg PO DAILY 06/26/18 Family Disease History - Family Disease History Family Disease History: Diabetes: Grandparent Review of Systems - Review of Systems Constitutional: reports: No Symptoms Eyes: reports: No Symptoms HENT: reports: No Symptoms Neck: reports: No Symptoms Cardiovascular: reports: No Symptoms Respiratory: reports: No Symptoms Gastrointestinal: reports: No Symptoms Genitourinary: reports: No Symptoms Physical Exam Vital Signs: Vital Signs Temperature 98.6 F 06/29/18 04:19 Pulse Rate 65 06/29/18 09:19 Respiratory Rate 18 06/29/18 09:19 Blood Pressure 135/73 06/29/18 09:19 O2 Sat by Pulse Oximetry (%) 96 06/28/18 21:00 Constitutional: Yes: Well Nourished, No Distress, Calm Eyes: Yes: Conjunctiva Clear, EOM Intact HENT: Yes: Atraumatic, Normocephalic. No: Thrush Neck: Yes: Supple Cardiovascular: Yes: Regular Rate and Rhythm Respiratory: Yes: Regular, CTA Bilaterally Gastrointestinal: Yes: Normal Bowel Sounds, Soft ...Rectal Exam: Yes: Deferred Extremities: Yes: Other (left arm AVF) Edema: No Neurological: Yes: Alert Labs: CBC, BMP 06/28/18 09:30 06/28/18 09:30 Microbiology 06/27/18 12:42 Blood - Peripheral Venous Blood Culture - Preliminary NO GROWTH OBTAINED AFTER 48 HOURS, INCUBATION TO CONTINUE FOR 3 DAYS. 06/27/18 12:42 Blood - Peripheral Venous Blood Culture - Preliminary NO GROWTH OBTAINED AFTER 48 HOURS, INCUBATION TO CONTINUE FOR 3 DAYS. Problem List - Problems (1) Positive RPR test Code(s): A53.0 - LATENT SYPHILIS, UNSPECIFIED EARLY OR LATE (2) ESRD (end stage renal disease) on dialysis Code(s): N18.6 - END STAGE RENAL DISEASE; Z99.2 - DEPENDENCE ON RENAL DIALYSIS (3) Diabetes Code(s): E11.9 - TYPE 2 DIABETES MELLITUS WITHOUT COMPLICATIONS Assessment/Plan will f/u RPR with KAREY in am she consents to HIV testing will order for am
--- NOTE | 2018-06-29 19:57 | PN ---
Progress Note (short form) - Note Progress Note: covering dr [place] 1. ESRD 2. hyperkalemia 3. HTN Current Medications Acetaminophen (Tylenol -) 325 mg PO QID [facility] Last Admin: 06/29/18 18:17 Dose: 325 mg Amlodipine Besylate (Norvasc -) 5 mg PO DAILY [facility] Last Admin: 06/29/18 09:12 Dose: 5 mg Aspirin (Asa -) 81 mg PO DAILY [facility] Last Admin: 06/29/18 09:12 Dose: 81 mg Donepezil HCl (Aricept -) 5 mg PO [facility] Last Admin: 06/28/18 22:18 Dose: 5 mg Escitalopram Oxalate (Lexapro -) 20 mg PO DAILY [facility] Last Admin: 06/29/18 09:15 Dose: 20 mg Furosemide (Lasix -) 80 mg PO DAILY [facility] Last Admin: 06/29/18 09:13 Dose: 80 mg Gabapentin (Neurontin -) 100 mg PO [facility] Last Admin: 06/28/18 22:18 Dose: 100 mg Gemfibrozil (Lopid -) 600 mg PO BIDAC [facility] Last Admin: 06/29/18 17:24 Dose: 600 mg Sodium Chloride (Normal Saline -) 250 mls @ 3,000 mls/hr IV PRN PRN PRN Reason: Hypotension during Dialysis Stop: 06/28/18 16:46 Insulin Aspart (Novolog Vial Sliding Scale -) 1 vial SQ BIDAC [facility]; Protocol Last Admin: 06/29/18 17:24 Dose: 2 units Isoniazid (Inh -) 300 mg PO DAILY [facility] Last Admin: 06/29/18 09:14 Dose: 300 mg Metoprolol Tartrate (Lopressor -) 100 mg PO BID [facility] Last Admin: 06/29/18 09:12 Dose: 100 mg Pyridoxine HCl (Vitamin B6 -) 100 mg PO DAILY [facility] Last Admin: 06/29/18 10:41 Dose: 100 mg Quetiapine Fumarate (Seroquel -) 25 mg PO QID [facility] Last Admin: 06/29/18 18:17 Dose: 25 mg Sevelamer Carbonate (Renvela -) 800 mg PO TIDCM [facility] Last Admin: 06/29/18 17:24 Dose: 800 mg Thiamine HCl (Vitamin B1 -) 100 mg PO DAILY [facility] Last Admin: 06/29/18 09:12 Dose: 100 mg Last Vital Signs Temp Pulse Resp BP Pulse Ox 97.9 F 77 20 117/63 96 06/29/18 18:00 06/29/18 18:00 06/29/18 18:00 06/29/18 18:00 06/29/18 09:00 alert in nad Lungs clear Heart reg Abd soft nontender ext no edema IMP- ESRD stable on dialysis positive rpr noted ID eval noted Plan HD on Saturday
[2018-06-29] MEDS: GABAPENTIN 100 MG CAPSULE (FP) PO SCH (22:19)
[2018-06-29] MEDS: DONEPEZIL HCL 5 MG TABLET (FP) PO SCH (22:20)
[2018-06-30] MEDS ORDERED: PT OWN MED DRAWER 7, Y5N ONE ×4 (05:46→18:23)
[2018-06-30] MEDS: GEMFIBROZIL 600 MG TABLET (FP) PO SCH ×2 (06:13→18:25)
[2018-06-30] MEDS: INSULIN SLIDING SCALE (NOVOLOG) 1 VIAL SQ SCH ×2 (06:14→16:29)
[2018-06-30] MEDS: SEVELAMER CARBONATE 800 MG TAB (FP) PO SCH ×3 (07:59→18:25)
--- NOTE | 2018-06-30 11:48 | PN ---
Progress Note (short form) - Note Progress Note: Denies any complaints Apetite still poor Vital Signs Period Temp Pulse Resp BP Sys/Wesley Pulse Ox Last 24 Hr 97.9 F-98.5 F 65-77 18-20 117-126/58-66 95 PE: Awake, alert Neck: Supple, No JVD Lungs: CTA CVS: S1S2 ABD: benign Ext: no edema CMP Sodium 136 mmol/L (136-145) 06/28/18 09:30 Potassium 4.7 mmol/L (3.5-5.1) 06/28/18 09:30 Chloride 96 mmol/L (98-107) L 06/28/18 09:30 Carbon Dioxide 24 mmol/L (21-32) 06/28/18 09:30 Anion Gap 16 MMOL/L (8-16) 06/28/18 09:30 BUN 77 mg/dL (7-18) H 06/28/18 09:30 Creatinine 11.6 mg/dL (0.55-1.3) H* 06/28/18 09:30 Creat Clearance w eGFR 3.35 (>60) 06/28/18 09:30 POC Glucometer 74 UNITS (80-120) 06/30/18 10:21 Random Glucose 426 mg/dL (74-106) H* 06/28/18 09:30 Hemoglobin A1c % 7.0 % (4.2-6.3) H 06/28/18 06:40 Calcium 8.2 mg/dL (8.5-10.1) L 06/28/18 09:30 Total Bilirubin 0.6 mg/dL (0.2-1) 06/26/18 12:54 AST 25 U/L (15-37) 06/26/18 12:54 ALT < 6 U/L (13-61) L 06/26/18 12:54 Alkaline Phosphatase 154 U/L (45-117) H 06/26/18 12:54 Creatine Kinase 69 IU/L (26-192) 06/26/18 12:54 Troponin I 0.03 ng/ml (0.00-0.05) 06/26/18 12:54 Total Protein 6.5 g/dl (6.4-8.2) 06/26/18 12:54 Albumin 3.2 g/dl (3.4-5.0) L 06/26/18 12:54 TSH 1.73 uIU/ml (0.358-3.74) 06/28/18 09:30 Current Medications Generic Name Dose Route Start Last Admin Trade Name Freq PRN Reason Stop Dose Admin Acetaminophen 325 mg 06/26/18 22:00 06/29/18 22:19 Tylenol - PO 325 mg QID [facility] Administration Amlodipine Besylate 5 mg 06/27/18 10:00 06/29/18 09:12 Norvasc - PO 5 mg DAILY [facility] Administration Aspirin 81 mg 06/27/18 10:00 06/29/18 09:12 Asa - PO 81 mg DAILY [facility] Administration Donepezil HCl 5 mg 06/26/18 22:00 06/29/18 22:20 Aricept - PO 5 mg HS [facility] Administration Escitalopram Oxalate 20 mg 06/27/18 10:00 06/29/18 09:15 Lexapro - PO 20 mg DAILY [facility] Administration Furosemide 80 mg 06/27/18 10:00 06/29/18 09:13 Lasix - PO 80 mg DAILY [facility] Administration Gabapentin 100 mg 06/26/18 22:00 06/29/18 22:19 Neurontin - PO 100 mg HS [facility] Administration Gemfibrozil 600 mg 06/26/18 19:15 06/30/18 06:13 Lopid - PO 600 mg BIDAC [facility] Administration Sodium Chloride 250 mls @ 3,000 mls/hr 06/27/18 16:46 Normal Saline - IV 06/28/18 16:46 PRN PRN Hypotension during Dialysis Insulin Aspart 1 vial 06/29/18 12:55 06/30/18 06:14 Novolog Vial Sliding Scale - SQ Not Given BIDAC [facility] Protocol Isoniazid 300 mg 06/27/18 10:00 06/29/18 09:14 Inh - PO 300 mg DAILY [facility] Administration Metoprolol Tartrate 100 mg 06/26/18 22:00 06/29/18 22:18 Lopressor - PO 100 mg BID [facility] Administration Pyridoxine HCl 100 mg 06/27/18 10:00 06/29/18 10:41 Vitamin B6 - PO 100 mg DAILY [facility] Administration Quetiapine Fumarate 25 mg 06/26/18 22:00 06/29/18 22:19 Seroquel - PO 25 mg QID [facility] Administration Sevelamer Carbonate 800 mg 06/26/18 19:15 06/30/18 07:59 Renvela - PO 800 mg TIDCM [facility] Administration Thiamine HCl 100 mg 06/27/18 10:00 06/29/18 09:12 Vitamin B1 - PO 100 mg DAILY [facility] Administration AP: T2DM Hypoglycemia: ? Secondary to Trulicity and poor food intake. Blood sugar better today ESRD BGM Q4 hrs Novolog coverage BID when FS >300 for now To give snack of around 150 Kcal when FS drops to <120. T0 give half amp of D50 if pt unable or unwilling to eat Will F/U
[2018-06-30] MEDS ORDERED: ESCITALOPRAM OXALATE 10 MG TABLET (FP) ONE (12:00)
[2018-06-30] MEDS: FUROSEMIDE 40 MG TABLET (FP) PO SCH (12:04)
[2018-06-30] MEDS: ESCITALOPRAM OXALATE 20 MG TABLET (FP) PO SCH (12:05)
[2018-06-30] MEDS: QUEtiapine FUMARATE 25 MG TABLET (FP) PO SCH ×4 (12:05→21:33)
[2018-06-30] MEDS: METOPROLOL TARTRATE 50 MG TABLET (FP) PO SCH ×2 (12:05→21:33)
[2018-06-30] MEDS: amLODIPine BESYLATE 5 MG TABLET (FP) PO SCH (12:05)
[2018-06-30] MEDS: ASPIRIN 81 MG CHEWABLE TABLETS PO SCH (12:05)
[2018-06-30] MEDS: ACETAMINOPHEN 325 MG TABLET (FP) PO SCH ×4 (12:06→21:34)
[2018-06-30] MEDS: THIAMINE HCL 100 MG TABLET (FP) PO SCH (12:17)
--- NOTE | 2018-06-30 13:03 | PN ---
Progress Note (short form) - Note Progress Note: pt seen/ examined alert/awake comfortable Vital Signs Temp 98.3 F 06/30/18 06:14 Pulse 70 06/30/18 06:14 Resp 18 06/30/18 06:14 BP 126/58 L 06/30/18 06:14 Pulse Ox 95 06/29/18 21:00 Intake & Output 06/29/18 06/30/18 06/30/18 23:59 11:59 23:59 Intake Total 1300 Balance 1300 Weight 129 lb 6 oz Intake: Oral 1300 Other: Voiding Method Toilet Toilet # Unmeasured Voids Void 200 Bowel Movement No Weight Measurement Method Built in [facility] Active Medications Acetaminophen (Tylenol -) 325 mg PO QID [facility] Last Admin: 06/30/18 12:06 Dose: 325 mg Amlodipine Besylate (Norvasc -) 5 mg PO DAILY [facility] Last Admin: 06/30/18 12:05 Dose: 5 mg Aspirin (Asa -) 81 mg PO DAILY [facility] Last Admin: 06/30/18 12:05 Dose: 81 mg Donepezil HCl (Aricept -) [address] [facility] Last Admin: 06/29/18 22:20 Dose: 5 mg Escitalopram Oxalate (Lexapro -) 20 mg PO DAILY [facility] Last Admin: 06/30/18 12:05 Dose: 20 mg Furosemide (Lasix -) 80 mg PO DAILY [facility] Last Admin: 06/30/18 12:04 Dose: 80 mg Gabapentin (Neurontin -) [address] [facility] Last Admin: 06/29/18 22:19 Dose: 100 mg Gemfibrozil (Lopid -) 600 mg PO BIDAC [facility] Last Admin: 06/30/18 06:13 Dose: 600 mg Sodium Chloride (Normal Saline -) 250 mls @ 3,000 mls/hr IV PRN PRN PRN Reason: Hypotension during Dialysis Stop: 06/28/18 16:46 Insulin Aspart (Novolog Vial Sliding Scale -) 1 vial SQ BIDAC [facility]; Protocol Last Admin: 06/30/18 06:14 Dose: Not Given Isoniazid (Inh -) 300 mg PO DAILY [facility] Last Admin: 06/29/18 09:14 Dose: 300 mg Metoprolol Tartrate (Lopressor -) 100 mg PO BID [facility] Last Admin: 06/30/18 12:05 Dose: 100 mg Pyridoxine HCl (Vitamin B6 -) 100 mg PO DAILY [facility] Last Admin: 06/29/18 10:41 Dose: 100 mg Quetiapine Fumarate (Seroquel -) 25 mg PO QID [facility] Last Admin: 06/30/18 12:05 Dose: 25 mg Sevelamer Carbonate (Renvela -) 800 mg PO TIDCM [facility] Last Admin: 06/30/18 12:06 Dose: 800 mg Thiamine HCl (Vitamin B1 -) 100 mg PO DAILY [facility] Last Admin: 06/30/18 12:17 Dose: 100 mg CBC, BMP 06/28/18 09:30 06/28/18 09:30 Microbiology 06/27/18 12:42 Blood Culture - Preliminary Blood - Peripheral Venous NO GROWTH OBTAINED AFTER 48 HOURS, INCUBATION TO CONTINUE FOR 3 DAYS. 06/27/18 12:42 Blood Culture - Preliminary Blood - Peripheral Venous NO GROWTH OBTAINED AFTER 48 HOURS, INCUBATION TO CONTINUE FOR 3 DAYS. Physical Examination Constitutional: Yes: No Distress. comfortable. Eyes: Yes: Conjunctiva Clear Neck: Yes: Supple Cardiovascular: Yes: Regular Rate and Rhythm Respiratory: Yes: CTA Bilaterally, Diminished Gastrointestinal: Yes: Soft Edema: No Neurological: Yes: Alert,awake Imaging - Results Chest X-ray: Report Reviewed EKG: Report Reviewed Assessment/Plan Monitor endo consult appreciated monitor bgm. cultures negative so far discussed with ID--- regarding RPR----getting in touch with health Department will follow discussed with nursing staff also. dialysis as per renal will follow
--- NOTE | 2018-06-30 13:25 | PN ---
Progress Note, Physician History of Present Illness: Pt seen and examined at bedside. She is awake and appears comfortable. She denies shortness of breath. - Current Medication List Current Medications: Active Medications Acetaminophen (Tylenol -) 325 mg PO QID [facility] Last Admin: 06/30/18 12:06 Dose: 325 mg Amlodipine Besylate (Norvasc -) 5 mg PO DAILY [facility] Last Admin: 06/30/18 12:05 Dose: 5 mg Aspirin (Asa -) 81 mg PO DAILY [facility] Last Admin: 06/30/18 12:05 Dose: 81 mg Donepezil HCl (Aricept -) 5 mg PO HS [facility] Last Admin: 06/29/18 22:20 Dose: 5 mg Escitalopram Oxalate (Lexapro -) 20 mg PO DAILY [facility] Last Admin: 06/30/18 12:05 Dose: 20 mg Furosemide (Lasix -) 80 mg PO DAILY [facility] Last Admin: 06/30/18 12:04 Dose: 80 mg Gabapentin (Neurontin -) 100 mg PO [facility] Last Admin: 06/29/18 22:19 Dose: 100 mg Gemfibrozil (Lopid -) 600 mg PO BIDAC [facility] Last Admin: 06/30/18 06:13 Dose: 600 mg Sodium Chloride (Normal Saline -) 250 mls @ 3,000 mls/hr IV PRN PRN PRN Reason: Hypotension during Dialysis Stop: 06/28/18 16:46 Insulin Aspart (Novolog Vial Sliding Scale -) 1 vial SQ BIDAC [facility]; Protocol Last Admin: 06/30/18 06:14 Dose: Not Given Isoniazid (Inh -) 300 mg PO DAILY [facility] Last Admin: 06/29/18 09:14 Dose: 300 mg Metoprolol Tartrate (Lopressor -) 100 mg PO BID [facility] Last Admin: 06/30/18 12:05 Dose: 100 mg Pyridoxine HCl (Vitamin B6 -) 100 mg PO DAILY [facility] Last Admin: 06/29/18 10:41 Dose: 100 mg Quetiapine Fumarate (Seroquel -) 25 mg PO QID [facility] Last Admin: 06/30/18 12:05 Dose: 25 mg Sevelamer Carbonate (Renvela -) 800 mg PO TIDCM [facility] Last Admin: 06/30/18 12:06 Dose: 800 mg Thiamine HCl (Vitamin B1 -) 100 mg PO DAILY [facility] Last Admin: 06/30/18 12:17 Dose: 100 mg - Objective Vital Signs: Vital Signs Temperature 98.3 F 06/30/18 06:14 Pulse Rate 70 06/30/18 06:14 Respiratory Rate 18 06/30/18 06:14 Blood Pressure 126/58 L 06/30/18 06:14 O2 Sat by Pulse Oximetry (%) 95 06/29/18 21:00 Constitutional: Yes: Calm Eyes: Yes: Conjunctiva Clear HENT: Yes: Atraumatic Cardiovascular: Yes: S1, S2 Respiratory: Yes: CTA Bilaterally Gastrointestinal: Yes: Soft, Abdomen, Obese Musculoskeletal: Yes: WNL Edema: No Neurological: Yes: Oriented Labs: CBC, BMP 06/28/18 09:30 06/28/18 09:30 Problem List - Problems (1) End stage renal disease Code(s): N18.6 - END STAGE RENAL DISEASE Assessment/Plan Current Medications Generic Name Dose Route Start Last Admin Trade Name Freq PRN Reason Stop Dose Admin Acetaminophen 325 mg 06/26/18 22:00 06/30/18 12:06 Tylenol - PO 325 mg QID SARAHY Administration Amlodipine Besylate 5 mg 06/27/18 10:00 06/30/18 12:05 Norvasc - PO 5 mg DAILY SARAHY Administration Aspirin 81 mg 06/27/18 10:00 06/30/18 12:05 Asa - PO 81 mg DAILY SARAHY Administration Donepezil HCl 5 mg 06/26/18 22:00 06/29/18 22:20 Aricept - PO 5 mg HS SARAHY Administration Escitalopram Oxalate 20 mg 06/27/18 10:00 06/30/18 12:05 Lexapro - PO 20 mg DAILY SARAHY Administration Furosemide 80 mg 06/27/18 10:00 06/30/18 12:04 Lasix - PO 80 mg DAILY SARAHY Administration Gabapentin 100 mg 06/26/18 22:00 06/29/18 22:19 Neurontin - PO 100 mg HS SARAHY Administration Gemfibrozil 600 mg 06/26/18 19:15 06/30/18 06:13 Lopid - PO 600 mg BIDAC SARAHY Administration Sodium Chloride 250 mls @ 3,000 mls/hr 06/27/18 16:46 Normal Saline - IV 06/28/18 16:46 PRN PRN Hypotension during Dialysis Insulin Aspart 1 vial 06/29/18 12:55 06/30/18 06:14 Novolog Vial Sliding Scale - SQ Not Given BIDAC SARAHY Protocol Isoniazid 300 mg 06/27/18 10:00 06/29/18 09:14 Inh - PO 300 mg DAILY SARAHY Administration Metoprolol Tartrate 100 mg 06/26/18 22:00 06/30/18 12:05 Lopressor - PO 100 mg BID SARAHY Administration Pyridoxine HCl 100 mg 06/27/18 10:00 06/29/18 10:41 Vitamin B6 - PO 100 mg DAILY SARAHY Administration Quetiapine Fumarate 25 mg 06/26/18 22:00 06/30/18 12:05 Seroquel - PO 25 mg QID SARAHY Administration Sevelamer Carbonate 800 mg 06/26/18 19:15 06/30/18 12:06 Renvela - PO 800 mg TIDCM SARAHY Administration Thiamine HCl 100 mg 06/27/18 10:00 06/30/18 12:17 Vitamin B1 - PO 100 mg DAILY SARAHY Administration Impression 1. ESRD 2. hyperkalemia 3. HTN 4. DM 5. HLD Plan - HD in am - cont with renal diet - monitor bp - will follow Dr Marks
[2018-06-30] MEDS: ISONIAZID 300 MG TABLET (FP) PO SCH (14:08)
[2018-06-30] MEDS: PYRIDOXINE HCL (B-6) 50 MG TABLET (FP) PO SCH (14:08)
--- NOTE | 2018-06-30 15:33 | PN ---
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
[2018-06-30] MEDS: GABAPENTIN 100 MG CAPSULE (FP) PO SCH (21:33)
[2018-06-30] MEDS: DONEPEZIL HCL 5 MG TABLET (FP) PO SCH (21:37)
[2018-07-01] MEDS ORDERED: PT OWN MED DRAWER 7, Y5N ONE ×3 (05:57→18:07)
[2018-07-01] MEDS: GEMFIBROZIL 600 MG TABLET (FP) PO SCH ×2 (06:06→18:08)
[2018-07-01] MEDS: INSULIN SLIDING SCALE (NOVOLOG) 1 VIAL SQ SCH ×2 (06:06→17:37)
[2018-07-01] MEDS: SEVELAMER CARBONATE 800 MG TAB (FP) PO SCH ×3 (08:45→18:03)
[2018-07-01 08:47] LABS: HEMATOCRIT 36.8 % (32.4-45.2); HEMOGLOBIN 12.8 GM/dL (10.7-15.3); MCH 30.9 pg (25.7-33.7); MCHC 34.8 g/dl (32.0-36.0); MEAN CELL VOLUME 88.8 fl (80-96); MEAN PLT VOLUME 9.5 fl (7.5-11.1); PLATELET COUNT 157 K/MM3 (134-434); RBC 4.14 M/mm3 (3.60-5.2); RDW 13.5 % (11.6-15.6); WHITE BLOOD COUNT 6.2 K/mm3 (4.0-10.0)
--- NOTE | 2018-07-01 09:01 | PN ---
Progress Note (short form) - Note Progress Note: Denies any complaints Undergoing HD Vital Signs Period Temp Pulse Resp BP Sys/Wesley Pulse Ox Last 24 Hr 97.5 F-98.2 F 55-64 18-19 94-118/33-58 95 PE: Awake, alert Neck: Supple, No JVD Lungs: CTA CVS: S1S2 ABD: benign Ext: no edema CMP Sodium 136 mmol/L (136-145) 06/28/18 09:30 Potassium 4.7 mmol/L (3.5-5.1) 06/28/18 09:30 Chloride 96 mmol/L (98-107) L 06/28/18 09:30 Carbon Dioxide 24 mmol/L (21-32) 06/28/18 09:30 Anion Gap 16 MMOL/L (8-16) 06/28/18 09:30 BUN 77 mg/dL (7-18) H 06/28/18 09:30 Creatinine 11.6 mg/dL (0.55-1.3) H* 06/28/18 09:30 Creat Clearance w eGFR 3.35 (>60) 06/28/18 09:30 POC Glucometer 191 UNITS (80-120) 07/01/18 05:39 Random Glucose 426 mg/dL (74-106) H* 06/28/18 09:30 Hemoglobin A1c % 7.0 % (4.2-6.3) H 06/28/18 06:40 Calcium 8.2 mg/dL (8.5-10.1) L 06/28/18 09:30 Total Bilirubin 0.6 mg/dL (0.2-1) 06/26/18 12:54 AST 25 U/L (15-37) 06/26/18 12:54 ALT < 6 U/L (13-61) L 06/26/18 12:54 Alkaline Phosphatase 154 U/L (45-117) H 06/26/18 12:54 Creatine Kinase 69 IU/L (26-192) 06/26/18 12:54 Troponin I 0.03 ng/ml (0.00-0.05) 06/26/18 12:54 Total Protein 6.5 g/dl (6.4-8.2) 06/26/18 12:54 Albumin 3.2 g/dl (3.4-5.0) L 06/26/18 12:54 TSH 1.73 uIU/ml (0.358-3.74) 06/28/18 09:30 Current Medications Generic Name Dose Route Start Last Admin Trade Name Dominique PRN Reason Stop Dose Admin Acetaminophen 325 mg 06/26/18 22:00 06/30/18 21:34 Tylenol - PO 325 mg QID SARAHY Administration Amlodipine Besylate 5 mg 06/27/18 10:00 06/30/18 12:05 Norvasc - PO 5 mg DAILY SARAHY Administration Aspirin 81 mg 06/27/18 10:00 06/30/18 12:05 Asa - PO 81 mg DAILY SARAHY Administration Donepezil HCl 5 mg 06/26/18 22:00 06/30/18 21:37 Aricept - PO 5 mg HS SARAHY Administration Escitalopram Oxalate 20 mg 06/27/18 10:00 06/30/18 12:05 Lexapro - PO 20 mg DAILY SARAHY Administration Furosemide 80 mg 06/27/18 10:00 06/30/18 12:04 Lasix - PO 80 mg DAILY SARAHY Administration Gabapentin 100 mg 06/26/18 22:00 06/30/18 21:33 Neurontin - PO 100 mg HS SARAHY Administration Gemfibrozil 600 mg 06/26/18 19:15 07/01/18 06:06 Lopid - PO 600 mg BIDAC SARAHY Administration Sodium Chloride 250 mls @ 3,000 mls/hr 06/30/18 13:25 Normal Saline - IV 07/01/18 13:25 PRN PRN Hypotension during Dialysis Insulin Aspart 1 vial 06/29/18 12:55 07/01/18 06:06 Novolog Vial Sliding Scale - SQ Not Given BIDAC SARAHY Protocol Isoniazid 300 mg 06/27/18 10:00 06/30/18 14:08 Inh - PO 300 mg DAILY SARAHY Administration Metoprolol Tartrate 100 mg 06/26/18 22:00 06/30/18 21:33 Lopressor - PO 100 mg BID SARAHY Administration Pyridoxine HCl 100 mg 06/27/18 10:00 06/30/18 14:08 Vitamin B6 - PO 100 mg DAILY SARAHY Administration Quetiapine Fumarate 25 mg 06/26/18 22:00 06/30/18 21:33 Seroquel - PO 25 mg QID SARAHY Administration Sevelamer Carbonate 800 mg 06/26/18 19:15 06/30/18 18:25 Renvela - PO 800 mg TIDCM SARAHY Administration Thiamine HCl 100 mg 06/27/18 10:00 06/30/18 12:17 Vitamin B1 - PO 100 mg DAILY SARAHY Administration AP: T2DM Hypoglycemia: ? Secondary to Trulicity and poor food intake. Blood sugar better today ESRD BGM Q4 hrs Novolog coverage BID when FS >300 for now To give snack of around 150 Kcal when FS drops to <120. T0 give half amp of D50 if pt unable or unwilling to eat Pt should three regular meals with snacks between meals and at bedtime Will F/U
[2018-07-01 09:34] LABS: ANION GAP 15 MMOL/L (8-16); BLOOD UREA NITROGEN 74 mg/dL (7-18); CHLORIDE 101 mmol/L (98-107); CO2 22 mmol/L (21-32); GLUCOSE,RANDOM 90 mg/dL (74-106); POTASSIUM 4.1 mmol/L (3.5-5.1); SODIUM 138 mmol/L (136-145)
[2018-07-01 10:00] LABS: CALCIUM 6.6 mg/dL (8.5-10.1); CREATININE 11.3 mg/dL (0.55-1.3)
[2018-07-01] MEDS: ACETAMINOPHEN 325 MG TABLET (FP) PO SCH ×4 (10:00→21:57)
[2018-07-01] MEDS ORDERED: SODIUM CHLORIDE 250 ML IV PRN (10:33)
[2018-07-01] MEDS ORDERED: PARICALCITOL 5 MCG/ML VIAL IVPUSH ONE (10:45)
[2018-07-01] MEDS ORDERED: CALCIUM GLUCONATE 10% - 1,000 MG/10 ML VIAL IVPB ONE (11:15)
[2018-07-01] MEDS ORDERED: ESCITALOPRAM OXALATE 10 MG TABLET (FP) ONE (11:30)
[2018-07-01] MEDS: QUEtiapine FUMARATE 25 MG TABLET (FP) PO SCH ×4 (12:47→21:59)
[2018-07-01] MEDS: FUROSEMIDE 40 MG TABLET (FP) PO SCH (12:54)
[2018-07-01] MEDS: ISONIAZID 300 MG TABLET (FP) PO SCH (12:54)
[2018-07-01] MEDS: ASPIRIN 81 MG CHEWABLE TABLETS PO SCH (12:54)
[2018-07-01] MEDS: amLODIPine BESYLATE 5 MG TABLET (FP) PO SCH (12:55)
[2018-07-01] MEDS: CALCIUM 500MG/VIT-D 200 UNITS COMBO TABLET (FP) PO SCH (12:55)
[2018-07-01] MEDS: ESCITALOPRAM OXALATE 20 MG TABLET (FP) PO SCH (12:55)
[2018-07-01] MEDS: METOPROLOL TARTRATE 50 MG TABLET (FP) PO SCH ×2 (12:55→21:56)
[2018-07-01] MEDS: THIAMINE HCL 100 MG TABLET (FP) PO SCH (12:55)
[2018-07-01] MEDS: PYRIDOXINE HCL (B-6) 50 MG TABLET (FP) PO SCH (12:56)
[2018-07-01 13:04] LABS: PHOSPHOROUS 8.2 mg/dL (2.5-4.9)
[2018-07-01 13:22] LABS: CREATININE 2.8 mg/dL (0.55-1.3)
--- NOTE | 2018-07-01 13:24 | PN ---
Progress Note (short form) - Note Progress Note: Events noted no complaints seen in Dialysis No SOB forgetful Vital Signs - 24 hr 06/30/18 06/30/18 06/30/18 15:13 21:00 23:01 Temperature 97.7 F 97.5 F L Pulse Rate 63 64 Respiratory 18 19 19 Rate Blood Pressure 105/54 L 104/33 L O2 Sat by Pulse 95 Oximetry (%) 06/30/18 07/01/18 07/01/18 23:08 06:34 08:10 Temperature 98.2 F Pulse Rate 63 59 L 60 Respiratory 19 18 Rate Blood Pressure 102/51 L 118/58 L 99/48 L O2 Sat by Pulse Oximetry (%) 07/01/18 07/01/18 07/01/18 08:15 08:45 09:00 Temperature Pulse Rate 56 L 55 L 56 L Respiratory 18 18 18 Rate Blood Pressure 106/58 L 94/52 L 123/66 O2 Sat by Pulse 95 Oximetry (%) 07/01/18 07/01/18 07/01/18 09:15 09:45 10:15 Temperature Pulse Rate 56 L 56 L 56 L Respiratory 18 18 18 Rate Blood Pressure 112/57 L 100/61 123/66 O2 Sat by Pulse Oximetry (%) 07/01/18 07/01/18 07/01/18 10:45 11:15 11:45 Temperature Pulse Rate 56 L 62 60 Respiratory 18 18 18 Rate Blood Pressure 101/58 L 105/58 L 111/55 L O2 Sat by Pulse Oximetry (%) 07/01/18 11:50 Temperature Pulse Rate 61 Respiratory 18 Rate Blood Pressure 117/59 L O2 Sat by Pulse Oximetry (%) Current Medications Generic Name Dose Route Start Last Admin Trade Name Freq PRN Reason Stop Dose Admin Acetaminophen 325 mg 06/26/18 22:00 07/01/18 10:00 Tylenol - PO Not Given QID SARAHY Amlodipine Besylate 5 mg 06/27/18 10:00 07/01/18 12:55 Norvasc - PO 5 mg DAILY SARAHY Administration Aspirin 81 mg 06/27/18 10:00 07/01/18 12:54 Asa - PO 81 mg DAILY SARAHY Administration Calcium Carbonate/Cholecalciferol 2 tab 07/01/18 11:00 07/01/18 12:55 Os-Igor 500+D - PO 2 tab DAILY SARAHY Administration Donepezil HCl 5 mg 06/26/18 22:00 06/30/18 21:37 Aricept - PO 5 mg HS SARAHY Administration Escitalopram Oxalate 20 mg 06/27/18 10:00 07/01/18 12:55 Lexapro - PO 20 mg DAILY SARAHY Administration Furosemide 80 mg 06/27/18 10:00 07/01/18 12:54 Lasix - PO 80 mg DAILY SARAHY Administration Gabapentin 100 mg 06/26/18 22:00 06/30/18 21:33 Neurontin - PO 100 mg HS SARAHY Administration Gemfibrozil 600 mg 06/26/18 19:15 07/01/18 06:06 Lopid - PO 600 mg BIDAC SARAHY Administration Insulin Aspart 1 vial 06/29/18 12:55 07/01/18 06:06 Novolog Vial Sliding Scale - SQ Not Given BIDAC SARAHY Protocol Isoniazid 300 mg 06/27/18 10:00 07/01/18 12:54 Inh - PO 300 mg DAILY SARAHY Administration Metoprolol Tartrate 100 mg 06/26/18 22:00 07/01/18 12:55 Lopressor - PO 100 mg BID SARAHY Administration Pyridoxine HCl 100 mg 06/27/18 10:00 07/01/18 12:56 Vitamin B6 - PO Not Given DAILY SARAHY Quetiapine Fumarate 25 mg 06/26/18 22:00 07/01/18 12:47 Seroquel - PO Not Given QID SARAHY Sevelamer Carbonate 800 mg 06/26/18 19:15 07/01/18 12:53 Renvela - PO 800 mg TIDCM SARAHY Administration Thiamine HCl 100 mg 06/27/18 10:00 07/01/18 12:55 Vitamin B1 - PO 100 mg DAILY SARAHY Administration Laboratory Results - last 24 hr 06/30/18 06/30/18 06/30/18 14:11 16:28 21:28 WBC RBC Hgb Hct MCV MCH MCHC RDW Plt Count MPV Sodium Potassium Chloride Carbon Dioxide Anion Gap BUN Creatinine Creat Clearance w eGFR POC Glucometer 157 174 247 Random Glucose Calcium Phosphorus 07/01/18 07/01/18 07/01/18 01:30 04:05 05:39 WBC RBC Hgb Hct MCV MCH MCHC RDW Plt Count MPV Sodium Potassium Chloride Carbon Dioxide Anion Gap BUN Creatinine Creat Clearance w eGFR POC Glucometer 148 73 191 Random Glucose Calcium Phosphorus 07/01/18 07/01/18 07/01/18 08:44 08:44 11:45 WBC 6.2 RBC 4.14 Hgb 12.8 Hct 36.8 MCV 88.8 MCH 30.9 MCHC 34.8 RDW 13.5 Plt Count 157 MPV 9.5 Sodium 138 Potassium 4.1 Chloride 101 Carbon Dioxide 22 Anion Gap 15 BUN 74 H 13 Creatinine 11.3 H* 2.8 H Creat Clearance w eGFR 3.46 POC Glucometer Random Glucose 90 Calcium 6.6 L* Phosphorus 8.2 H 07/01/18 12:56 WBC RBC Hgb Hct MCV MCH MCHC RDW Plt Count MPV Sodium Potassium Chloride Carbon Dioxide Anion Gap BUN Creatinine Creat Clearance w eGFR POC Glucometer 65 Random Glucose Calcium Phosphorus S1 S2 RRR Lungs decreased Abd- soft, nT No edema PLAN FTA pending continue with meds has irregular BGM Endocrinology on the case ID angela noted HD per renal Problem List - Problems (1) Diabetes Code(s): E11.9 - TYPE 2 DIABETES MELLITUS WITHOUT COMPLICATIONS (2) ESRD (end stage renal disease) on dialysis Code(s): N18.6 - END STAGE RENAL DISEASE; Z99.2 - DEPENDENCE ON RENAL DIALYSIS (3) End stage renal disease Code(s): N18.6 - END STAGE RENAL DISEASE (4) Positive RPR test Code(s): A53.0 - LATENT SYPHILIS, UNSPECIFIED EARLY OR LATE (5) Toxic metabolic encephalopathy Code(s): G92 - TOXIC ENCEPHALOPATHY
--- NOTE | 2018-07-01 14:05 | PN ---
Progress Note, Physician History of Present Illness: Pt seen and examined at bedside. She is awake and alert. She denies shortness of breath. She tolerated HD today. - Current Medication List Current Medications: Active Medications Acetaminophen (Tylenol -) 325 mg PO QID [facility] Last Admin: 07/01/18 10:00 Dose: Not Given Amlodipine Besylate (Norvasc -) 5 mg PO DAILY [facility] Last Admin: 07/01/18 12:55 Dose: 5 mg Aspirin (Asa -) 81 mg PO DAILY [facility] Last Admin: 07/01/18 12:54 Dose: 81 mg Calcium Carbonate/Cholecalciferol (Os-Igor 500+D -) 2 tab PO DAILY [facility] Last Admin: 07/01/18 12:55 Dose: 2 tab Donepezil HCl (Aricept -) 5 mg PO HS [facility] Last Admin: 06/30/18 21:37 Dose: 5 mg Escitalopram Oxalate (Lexapro -) 20 mg PO DAILY [facility] Last Admin: 07/01/18 12:55 Dose: 20 mg Furosemide (Lasix -) 80 mg PO DAILY [facility] Last Admin: 07/01/18 12:54 Dose: 80 mg Gabapentin (Neurontin -) 100 mg PO HS [facility] Last Admin: 06/30/18 21:33 Dose: 100 mg Gemfibrozil (Lopid -) 600 mg PO BIDAC [facility] Last Admin: 07/01/18 06:06 Dose: 600 mg Insulin Aspart (Novolog Vial Sliding Scale -) 1 vial SQ BIDAC [facility]; Protocol Last Admin: 07/01/18 06:06 Dose: Not Given Isoniazid (Inh -) 300 mg PO DAILY [facility] Last Admin: 07/01/18 12:54 Dose: 300 mg Metoprolol Tartrate (Lopressor -) 100 mg PO BID [facility] Last Admin: 07/01/18 12:55 Dose: 100 mg Pyridoxine HCl (Vitamin B6 -) 100 mg PO DAILY [facility] Last Admin: 07/01/18 12:56 Dose: Not Given Quetiapine Fumarate (Seroquel -) 25 mg PO QID [facility] Last Admin: 07/01/18 12:47 Dose: Not Given Sevelamer Carbonate (Renvela -) 800 mg PO TIDCM [facility] Last Admin: 07/01/18 12:53 Dose: 800 mg Thiamine HCl (Vitamin B1 -) 100 mg PO DAILY [facility] Last Admin: 07/01/18 12:55 Dose: 100 mg - Objective Vital Signs: Vital Signs Temperature 98.2 F 07/01/18 08:10 Pulse Rate 61 07/01/18 11:50 Respiratory Rate 18 07/01/18 11:50 Blood Pressure 117/59 L 07/01/18 11:50 O2 Sat by Pulse Oximetry (%) 95 07/01/18 09:00 Constitutional: Yes: Calm Eyes: Yes: Conjunctiva Clear HENT: Yes: Atraumatic Neck: Yes: Supple Cardiovascular: Yes: S1, S2 Respiratory: Yes: CTA Bilaterally Gastrointestinal: Yes: Soft Genitourinary: Yes: WNL Musculoskeletal: Yes: WNL Edema: No Neurological: Yes: Oriented Psychiatric: Yes: Oriented Labs: CBC, BMP 07/01/18 08:44 07/01/18 11:45 Problem List - Problems (1) End stage renal disease Code(s): N18.6 - END STAGE RENAL DISEASE Assessment/Plan Current Medications Generic Name Dose Route Start Last Admin Trade Name Freq PRN Reason Stop Dose Admin Acetaminophen 325 mg 06/26/18 22:00 07/01/18 10:00 Tylenol - PO Not Given QID SARAHY Amlodipine Besylate 5 mg 06/27/18 10:00 07/01/18 12:55 Norvasc - PO 5 mg DAILY SARAHY Administration Aspirin 81 mg 06/27/18 10:00 07/01/18 12:54 Asa - PO 81 mg DAILY SARAHY Administration Calcium Carbonate/Cholecalciferol 2 tab 07/01/18 11:00 07/01/18 12:55 Os-Igor 500+D - PO 2 tab DAILY SARAHY Administration Donepezil HCl 5 mg 06/26/18 22:00 06/30/18 21:37 Aricept - PO 5 mg HS SARAHY Administration Escitalopram Oxalate 20 mg 06/27/18 10:00 07/01/18 12:55 Lexapro - PO 20 mg DAILY SARAHY Administration Furosemide 80 mg 06/27/18 10:00 07/01/18 12:54 Lasix - PO 80 mg DAILY SARAHY Administration Gabapentin 100 mg 06/26/18 22:00 06/30/18 21:33 Neurontin - PO 100 mg HS SARAHY Administration Gemfibrozil 600 mg 06/26/18 19:15 07/01/18 06:06 Lopid - PO 600 mg BIDAC SARAHY Administration Insulin Aspart 1 vial 12/02/18 12:55 07/01/18 06:06 Novolog Vial Sliding Scale - SQ Not Given BIDAC SARAHY Protocol Isoniazid 300 mg 06/27/18 10:00 07/01/18 12:54 Inh - PO 300 mg DAILY SARAHY Administration Metoprolol Tartrate 100 mg 06/26/18 22:00 07/01/18 12:55 Lopressor - PO 100 mg BID SARAHY Administration Pyridoxine HCl 100 mg 06/27/18 10:00 07/01/18 12:56 Vitamin B6 - PO Not Given DAILY SARAHY Quetiapine Fumarate 25 mg 06/26/18 22:00 07/01/18 12:47 Seroquel - PO Not Given QID SARAHY Sevelamer Carbonate 800 mg 06/26/18 19:15 07/01/18 12:53 Renvela - PO 800 mg TIDCM SARAHY Administration Thiamine HCl 100 mg 06/27/18 10:00 07/01/18 12:55 Vitamin B1 - PO 100 mg DAILY ASRAHY Administration Impression 1. ESRD 2. hyperkalemia 3. HTN 4. DM 5. HLD 6. hypocalcemia Plan - HD today, pt tolerated - replaced caclium IV and PO, also gave zemplar - cont with renal diet - monitor bp - repeat cmp in am to check albumin - will follow Dr Marks
[2018-07-01] MEDS: DONEPEZIL HCL 5 MG TABLET (FP) PO SCH (21:56)
[2018-07-01] MEDS: GABAPENTIN 100 MG CAPSULE (FP) PO SCH (21:57)
--- NOTE | 2018-07-01 22:03 | PN ---
Progress Note (short form) - Note Progress Note: cc Jerking motions HPI 57 year old female history of HTN, ESRD on HD, presented with labile sugar. patient has been having jerking motion in both hands and sometime around face. Patiyasmin has history of depression and atypical antipsychotic medication. She has refused dialysis and is getting dialysis today. She is feeling better, spoke to nurse, there is no myclonic jerks were seen. Neurological Examination Alert oriented x 2, EOMI, Pupils reactive no face asymmetry Moving all extremity , 5/5 sensation is noraml reflex are diminisehd generalized F No brain imaging during this hospital admission Assessment /Plan 1. Metabolic Encephalopathy secondary to Uremia , and Labile Sugar levels 2. Myoclonic jerks, secondary to uremia Plan: Myoclonic jerks has subsided, continue to observe. Please feel free to call us, if any question Thanking you so much Gerardo Christiansen md
[2018-07-02] MEDS ORDERED: PT OWN MED DRAWER 7, Y5N ONE (06:04)
[2018-07-02] MEDS: INSULIN SLIDING SCALE (NOVOLOG) 1 VIAL SQ SCH ×2 (06:05→16:06)
[2018-07-02] MEDS: GEMFIBROZIL 600 MG TABLET (FP) PO SCH ×2 (06:05→17:02)
[2018-07-02 08:07] LABS: ALBUMIN 3.7 g/dl (3.4-5.0); ALK PHOS 130 U/L (45-117); ANION GAP 13 MMOL/L (8-16); BILIRUBIN,TOTAL 0.4 mg/dL (0.2-1); BLOOD UREA NITROGEN 59 mg/dL (7-18); CHLORIDE 99 mmol/L (98-107); CO2 28 mmol/L (21-32); GLUCOSE,RANDOM 151 mg/dL (74-106); POTASSIUM 4.1 mmol/L (3.5-5.1); SGOT/AST 39 U/L (15-37); SGPT/ALT 13 U/L (13-61); SODIUM 140 mmol/L (136-145); TOT PROT 7.7 g/dl (6.4-8.2)
[2018-07-02 08:35] LABS: CREATININE 8.9 mg/dL (0.55-1.3)
[2018-07-02] MEDS ORDERED: ESCITALOPRAM OXALATE 10 MG TABLET (FP) ONE (09:43)
[2018-07-02] MEDS: FUROSEMIDE 40 MG TABLET (FP) PO SCH (10:34)
[2018-07-02] MEDS: SEVELAMER CARBONATE 800 MG TAB (FP) PO SCH ×3 (10:34→17:02)
[2018-07-02] MEDS: CALCIUM 500MG/VIT-D 200 UNITS COMBO TABLET (FP) PO SCH (10:34)
[2018-07-02] MEDS: ESCITALOPRAM OXALATE 20 MG TABLET (FP) PO SCH (10:34)
[2018-07-02] MEDS: METOPROLOL TARTRATE 50 MG TABLET (FP) PO SCH ×2 (10:34→21:36)
[2018-07-02] MEDS: ASPIRIN 81 MG CHEWABLE TABLETS PO SCH (10:34)
[2018-07-02] MEDS: ISONIAZID 300 MG TABLET (FP) PO SCH (10:34)
[2018-07-02] MEDS: amLODIPine BESYLATE 5 MG TABLET (FP) PO SCH (10:34)
[2018-07-02] MEDS: THIAMINE HCL 100 MG TABLET (FP) PO SCH (10:35)
[2018-07-02] MEDS: ACETAMINOPHEN 325 MG TABLET (FP) PO SCH ×4 (10:35→21:37)
[2018-07-02] MEDS: PYRIDOXINE HCL (B-6) 50 MG TABLET (FP) PO SCH (10:35)
[2018-07-02] MEDS: QUEtiapine FUMARATE 25 MG TABLET (FP) PO SCH ×4 (10:35→21:38)
--- NOTE | 2018-07-02 12:01 | PN ---
Progress Note (short form) - Note Progress Note: confused was agitated yesterday per staff forgetful Vital Signs - 24 hr 07/01/18 07/01/18 07/02/18 21:00 23:06 05:23 Temperature 97.0 F L 97.9 F Pulse Rate 82 73 Respiratory 20 20 21 H Rate Blood Pressure 120/70 108/53 L O2 Sat by Pulse 95 Oximetry (%) 07/02/18 07/02/18 07/02/18 09:00 10:08 16:00 Temperature 98.1 F 97.7 F Pulse Rate 65 70 Respiratory 20 18 Rate Blood Pressure 121/57 L 151/83 O2 Sat by Pulse 96 Oximetry (%) Current Medications Generic Name Dose Route Start Last Admin Trade Name Freq PRN Reason Stop Dose Admin Acetaminophen 325 mg 06/26/18 22:00 07/02/18 17:26 Tylenol - PO 325 mg QID SARAHY Administration Amlodipine Besylate 5 mg 06/27/18 10:00 07/02/18 10:34 Norvasc - PO Not Given DAILY SARAHY Aspirin 81 mg 06/27/18 10:00 07/02/18 10:34 Asa - PO Not Given DAILY SARAHY Calcium Carbonate/Cholecalciferol 2 tab 07/01/18 11:00 07/02/18 10:34 Os-Igor 500+D - PO Not Given DAILY SARAHY Donepezil HCl 5 mg 06/26/18 22:00 07/01/18 21:56 Aricept - PO 5 mg HS SARAHY Administration Escitalopram Oxalate 20 mg 06/27/18 10:00 07/02/18 10:34 Lexapro - PO Not Given DAILY SARAHY Furosemide 80 mg 06/27/18 10:00 07/02/18 10:34 Lasix - PO Not Given DAILY SARAHY Gabapentin 100 mg 06/26/18 22:00 07/01/18 21:57 Neurontin - PO 100 mg HS SARAHY Administration Gemfibrozil 600 mg 06/26/18 19:15 07/02/18 17:02 Lopid - PO 600 mg BIDAC SARAHY Administration Sodium Chloride 250 mls @ 3,000 mls/hr 07/02/18 13:04 Normal Saline - IV 07/03/18 13:04 PRN PRN Hypotension during Dialysis Insulin Aspart 1 vial 06/29/18 12:55 07/02/18 16:06 Novolog Vial Sliding Scale - SQ Not Given BIDAC [facility] Protocol Isoniazid 300 mg 06/27/18 10:00 07/02/18 10:34 Inh - PO Not Given DAILY SARAHY Metoprolol Tartrate 100 mg 06/26/18 22:00 07/02/18 10:34 Lopressor - PO Not Given BID SARAHY Pyridoxine HCl 100 mg 06/27/18 10:00 07/02/18 10:35 Vitamin B6 - PO Not Given DAILY SARAHY Quetiapine Fumarate 25 mg 06/26/18 22:00 07/02/18 17:26 Seroquel - PO 25 mg QID SARAHY Administration Sevelamer Carbonate 800 mg 06/26/18 19:15 07/02/18 17:02 Renvela - PO 800 mg TIDCM SARAHY Administration Thiamine HCl 100 mg 06/27/18 10:00 07/02/18 10:35 Vitamin B1 - PO Not Given DAILY [facility] Laboratory Results - last 24 hr 06/30/18 07/01/18 07/02/18 17:00 21:50 01:10 Sodium Potassium Chloride Carbon Dioxide Anion Gap BUN Creatinine Creat Clearance w eGFR POC Glucometer 222 195 Random Glucose Calcium Total Bilirubin AST ALT Alkaline Phosphatase Total Protein Albumin T.pallidum Ab (FTA-ABS) Non reactive 07/02/18 07/02/18 07/02/18 05:48 06:36 15:53 Sodium 140 Potassium 4.1 Chloride 99 Carbon Dioxide 28 Anion Gap 13 BUN 59 H Creatinine 8.9 H* Creat Clearance w eGFR 4.55 POC Glucometer 205 216 Random Glucose 151 H Calcium 8.0 L Total Bilirubin 0.4 AST 39 H ALT 13 Alkaline Phosphatase 130 H Total Protein 7.7 Albumin 3.7 T.pallidum Ab (FTA-ABS) S1 S2 RRR Lungs decreased Abd- soft, nT No edema PLAN FTA -ABS- negative, MHA positive, RPR positive spoke with ID-- no h/o treatment from [facility] spoke with Neurologist-- pt will need LP continue with meds has irregular BGM Endocrinology on the case ID angela noted HD per renal check INR /PT Problem List - Problems (1) Diabetes Code(s): E11.9 - TYPE 2 DIABETES MELLITUS WITHOUT COMPLICATIONS (2) ESRD (end stage renal disease) on dialysis Code(s): N18.6 - END STAGE RENAL DISEASE; Z99.2 - DEPENDENCE ON RENAL DIALYSIS (3) End stage renal disease Code(s): N18.6 - END STAGE RENAL DISEASE (4) Positive RPR test Code(s): A53.0 - LATENT SYPHILIS, UNSPECIFIED EARLY OR LATE (5) Toxic metabolic encephalopathy Code(s): G92 - TOXIC ENCEPHALOPATHY
[2018-07-02] MEDS ORDERED: SODIUM CHLORIDE 250 ML IV PRN (13:04)
--- NOTE | 2018-07-02 13:04 | PN ---
Progress Note, Physician History of Present Illness: Pt seen and examined at bedside. She is awake and alert. She is eager to go back to [facility]. She is asking for her dentures and glasses. - Current Medication List Current Medications: Active Medications Acetaminophen (Tylenol -) 325 mg PO QID [facility] Last Admin: 07/02/18 10:35 Dose: Not Given Amlodipine Besylate (Norvasc -) 5 mg PO DAILY [facility] Last Admin: 07/02/18 10:34 Dose: Not Given Aspirin (Asa -) 81 mg PO DAILY [facility] Last Admin: 07/02/18 10:34 Dose: Not Given Calcium Carbonate/Cholecalciferol (Os-Igor 500+D -) 2 tab PO DAILY [facility] Last Admin: 07/02/18 10:34 Dose: Not Given Donepezil HCl (Aricept -) 5 mg PO HS [facility] Last Admin: 07/01/18 21:56 Dose: 5 mg Escitalopram Oxalate (Lexapro -) 20 mg PO DAILY [facility] Last Admin: 07/02/18 10:34 Dose: Not Given Furosemide (Lasix -) 80 mg PO DAILY [facility] Last Admin: 07/02/18 10:34 Dose: Not Given Gabapentin (Neurontin -) 100 mg PO HS [facility] Last Admin: 07/01/18 21:57 Dose: 100 mg Gemfibrozil (Lopid -) 600 mg PO BIDAC [facility] Last Admin: 07/02/18 06:05 Dose: 600 mg Insulin Aspart (Novolog Vial Sliding Scale -) 1 vial SQ BIDAC [facility]; Protocol Last Admin: 07/02/18 06:05 Dose: Not Given Isoniazid (Inh -) 300 mg PO DAILY [facility] Last Admin: 07/02/18 10:34 Dose: Not Given Metoprolol Tartrate (Lopressor -) 100 mg PO BID [facility] Last Admin: 07/02/18 10:34 Dose: Not Given Pyridoxine HCl (Vitamin B6 -) 100 mg PO DAILY [facility] Last Admin: 07/02/18 10:35 Dose: Not Given Quetiapine Fumarate (Seroquel -) 25 mg PO QID [facility] Last Admin: 07/02/18 10:35 Dose: Not Given Sevelamer Carbonate (Renvela -) 800 mg PO TIDCM [facility] Last Admin: 07/02/18 11:36 Dose: Not Given Thiamine HCl (Vitamin B1 -) 100 mg PO DAILY [facility] Last Admin: 12/05/18 10:35 Dose: Not Given - Objective Vital Signs: Vital Signs Temperature 97.9 F 07/02/18 05:23 Pulse Rate 73 07/02/18 05:23 Respiratory Rate 21 H 07/02/18 05:23 Blood Pressure 108/53 L 07/02/18 05:23 O2 Sat by Pulse Oximetry (%) 96 07/02/18 09:00 Constitutional: Yes: Calm Eyes: Yes: Conjunctiva Clear HENT: Yes: Atraumatic Neck: Yes: Supple Cardiovascular: Yes: S1, S2 Respiratory: Yes: CTA Bilaterally Gastrointestinal: Yes: Soft Genitourinary: Yes: WNL Musculoskeletal: Yes: WNL Extremities: Yes: WNL Edema: No Neurological: Yes: Oriented Psychiatric: Yes: Oriented Labs: CBC, BMP 07/01/18 08:44 07/02/18 06:36 Problem List - Problems (1) End stage renal disease Code(s): N18.6 - END STAGE RENAL DISEASE Assessment/Plan Current Medications Generic Name Dose Route Start Last Admin Trade Name Dominique PRN Reason Stop Dose Admin Acetaminophen 325 mg 06/26/18 22:00 07/02/18 10:35 Tylenol - PO Not Given QID [facility] Amlodipine Besylate 5 mg 06/27/18 10:00 07/02/18 10:34 Norvasc - PO Not Given DAILY [facility] Aspirin 81 mg 06/27/18 10:00 07/02/18 10:34 Asa - PO Not Given DAILY [facility] Calcium Carbonate/Cholecalciferol 2 tab 07/01/18 11:00 07/02/18 10:34 Os-Igor 500+D - PO Not Given DAILY [facility] Donepezil HCl 5 mg 06/26/18 22:00 07/01/18 21:56 Aricept - PO 5 mg HS [facility] Administration Escitalopram Oxalate 20 mg 06/27/18 10:00 07/02/18 10:34 Lexapro - PO Not Given DAILY [facility] Furosemide 80 mg 06/27/18 10:00 07/02/18 10:34 Lasix - PO Not Given DAILY [facility] Gabapentin 100 mg 06/26/18 22:00 07/01/18 21:57 Neurontin - PO 100 mg HS [facility] Administration Gemfibrozil 600 mg 06/26/18 19:15 12/05/18 06:05 Lopid - PO 600 mg BIDAC [facility] Administration Insulin Aspart 1 vial 06/29/18 12:55 07/02/18 06:05 Novolog Vial Sliding Scale - SQ Not Given BIDAC [facility] Protocol Isoniazid 300 mg 06/27/18 10:00 07/02/18 10:34 Inh - PO Not Given DAILY [facility] Metoprolol Tartrate 100 mg 06/26/18 22:00 07/02/18 10:34 Lopressor - PO Not Given BID [facility] Pyridoxine HCl 100 mg 06/27/18 10:00 07/02/18 10:35 Vitamin B6 - PO Not Given DAILY [facility] Quetiapine Fumarate 25 mg 06/26/18 22:00 07/02/18 10:35 Seroquel - PO Not Given QID [facility] Sevelamer Carbonate 800 mg 06/26/18 19:15 07/02/18 11:36 Renvela - PO Not Given TIDCM [facility] Thiamine HCl 100 mg 06/27/18 10:00 07/02/18 10:35 Vitamin B1 - PO Not Given DAILY [facility] Laboratory Tests 07/02/18 06:36 Calcium 8.0 L Albumin 3.7 Impression 1. ESRD 2. hyperkalemia 3. HTN 4. DM 5. HLD 6. hypocalcemia Plan - calcium is improved from yesterday - cont supplements - HD tomorrow - repeat labs in am - pt has hd set up as outpt - renal diet - will follow Dr Marks
--- NOTE | 2018-07-02 14:09 | PN ---
Progress Note (short form) - Note Progress Note: Denies any complaints Wants to go back to [facility], says she her denture is there Vital Signs Period Temp Pulse Resp BP Sys/Wesley Pulse Ox Last 24 Hr 97.0 F-97.9 F 73-82 20-21 108-120/53-70 95-96 PE: Awake, alert Neck: Supple, No JVD Lungs: CTA CVS: S1S2 ABD: benign Ext: no edema CMP Sodium 140 mmol/L (136-145) 07/02/18 06:36 Potassium 4.1 mmol/L (3.5-5.1) 07/02/18 06:36 Chloride 99 mmol/L (98-107) 07/02/18 06:36 Carbon Dioxide 28 mmol/L (21-32) 07/02/18 06:36 Anion Gap 13 MMOL/L (8-16) 07/02/18 06:36 BUN 59 mg/dL (7-18) H 07/02/18 06:36 Creatinine 8.9 mg/dL (0.55-1.3) H* 07/02/18 06:36 Creat Clearance w eGFR 4.55 (>60) 07/02/18 06:36 POC Glucometer 205 UNITS (80-120) 07/02/18 05:48 Random Glucose 151 mg/dL (74-106) H 07/02/18 06:36 Hemoglobin A1c % 7.0 % (4.2-6.3) H 06/28/18 06:40 Calcium 8.0 mg/dL (8.5-10.1) L 07/02/18 06:36 Phosphorus 8.2 mg/dL (2.5-4.9) H 07/01/18 08:44 Total Bilirubin 0.4 mg/dL (0.2-1) 07/02/18 06:36 AST 39 U/L (15-37) H 07/02/18 06:36 ALT 13 U/L (13-61) 07/02/18 06:36 Alkaline Phosphatase 130 U/L (45-117) H 07/02/18 06:36 Creatine Kinase 69 IU/L (26-192) 06/26/18 12:54 Troponin I 0.03 ng/ml (0.00-0.05) 06/26/18 12:54 Total Protein 7.7 g/dl (6.4-8.2) 07/02/18 06:36 Albumin 3.7 g/dl (3.4-5.0) 07/02/18 06:36 TSH 1.73 uIU/ml (0.358-3.74) 06/28/18 09:30 Current Medications Generic Name Dose Route Start Last Admin Trade Name Freq PRN Reason Stop Dose Admin Acetaminophen 325 mg 06/26/18 22:00 07/02/18 10:35 Tylenol - PO Not Given QID [facility] Amlodipine Besylate 5 mg 06/27/18 10:00 07/02/18 10:34 Norvasc - PO Not Given DAILY [facility] Aspirin 81 mg 06/27/18 10:00 07/02/18 10:34 Asa - PO Not Given DAILY [facility] Calcium Carbonate/Cholecalciferol 2 tab 07/01/18 11:00 07/02/18 10:34 Os-Igor 500+D - PO Not Given DAILY [facility] Donepezil HCl 5 mg 06/26/18 22:00 07/01/18 21:56 Aricept - PO 5 mg HS [facility] Administration Escitalopram Oxalate 20 mg 06/27/18 10:00 07/02/18 10:34 Lexapro - PO Not Given DAILY [facility] Furosemide 80 mg 06/27/18 10:00 07/02/18 10:34 Lasix - PO Not Given DAILY [facility] Gabapentin 100 mg 06/26/18 22:00 07/01/18 21:57 Neurontin - PO 100 mg HS [facility] Administration Gemfibrozil 600 mg 06/26/18 19:15 07/02/18 06:05 Lopid - PO 600 mg BIDAC [facility] Administration Sodium Chloride 250 mls @ 3,000 mls/hr 07/02/18 13:04 Normal Saline - IV 07/03/18 13:04 PRN PRN Hypotension during Dialysis Insulin Aspart 1 vial 06/29/18 12:55 07/02/18 06:05 Novolog Vial Sliding Scale - SQ Not Given BIDAC [facility] Protocol Isoniazid 300 mg 06/27/18 10:00 07/02/18 10:34 Inh - PO Not Given DAILY [facility] Metoprolol Tartrate 100 mg 06/26/18 22:00 07/02/18 10:34 Lopressor - PO Not Given BID [facility] Pyridoxine HCl 100 mg 06/27/18 10:00 07/02/18 10:35 Vitamin B6 - PO Not Given DAILY [facility] Quetiapine Fumarate 25 mg 06/26/18 22:00 07/02/18 10:35 Seroquel - PO Not Given QID [facility] Sevelamer Carbonate 800 mg 06/26/18 19:15 07/02/18 11:36 Renvela - PO Not Given TIDCM [facility] Thiamine HCl 100 mg 06/27/18 10:00 07/02/18 10:35 Vitamin B1 - PO Not Given DAILY [facility] AP: T2DM Hypoglycemia: resolved ? Secondary to Trulicity and poor food intake. Blood sugar better today ESRD D/C Trulicity as outpatient Novolog SS starting at >250 will probably suffice for management of blood sugar in the [place]. If BGM is persistently high on this regimen, will consider adding basal Insulin starting at 5 units daily. BGM Q4 hrs Novolog coverage BID when FS >300 for now To give snack of around 150 Kcal when FS drops to <120. T0 give half amp of D50 if pt unable or unwilling to eat Pt should three regular meals with snacks between meals and at bedtime Will F/U
--- NOTE | 2018-07-02 14:29 | PN ---
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
[2018-07-02] MEDS: GABAPENTIN 100 MG CAPSULE (FP) PO SCH (21:37)
[2018-07-02] MEDS: DONEPEZIL HCL 5 MG TABLET (FP) PO SCH (21:38)
[2018-07-03] MEDS: INSULIN SLIDING SCALE (NOVOLOG) 1 VIAL SQ SCH ×2 (06:34→15:50)
[2018-07-03] MEDS: GEMFIBROZIL 600 MG TABLET (FP) PO SCH ×2 (06:34→15:51)
[2018-07-03] MEDS: SEVELAMER CARBONATE 800 MG TAB (FP) PO SCH ×3 (08:08→16:42)
[2018-07-03 08:35] LABS: INR 0.93 (0.83-1.09)
[2018-07-03] MEDS ORDERED: ESCITALOPRAM OXALATE 10 MG TABLET (FP) ONE (09:12)
[2018-07-03] MEDS: CALCIUM 500MG/VIT-D 200 UNITS COMBO TABLET (FP) PO SCH (09:13)
[2018-07-03] MEDS: ASPIRIN 81 MG CHEWABLE TABLETS PO SCH (09:13)
[2018-07-03] MEDS: ESCITALOPRAM OXALATE 20 MG TABLET (FP) PO SCH (09:13)
[2018-07-03] MEDS: THIAMINE HCL 100 MG TABLET (FP) PO SCH (09:13)
[2018-07-03] MEDS: amLODIPine BESYLATE 5 MG TABLET (FP) PO SCH (09:13)
[2018-07-03] MEDS: METOPROLOL TARTRATE 50 MG TABLET (FP) PO SCH ×2 (09:14→22:24)
[2018-07-03] MEDS: FUROSEMIDE 40 MG TABLET (FP) PO SCH (09:14)
[2018-07-03] MEDS: ACETAMINOPHEN 325 MG TABLET (FP) PO SCH ×4 (09:14→22:25)
[2018-07-03] MEDS: QUEtiapine FUMARATE 25 MG TABLET (FP) PO SCH ×4 (09:14→22:25)
[2018-07-03] MEDS: ISONIAZID 300 MG TABLET (FP) PO SCH (09:15)
[2018-07-03] MEDS: PYRIDOXINE HCL (B-6) 50 MG TABLET (FP) PO SCH (09:15)
--- NOTE | 2018-07-03 09:25 | PN ---
Progress Note (short form) - Note Progress Note: Denies any complaints Apetite good Vital Signs Period Temp Pulse Resp BP Sys/Wesley Pulse Ox Last 24 Hr 97.7 F-98.7 F 65-77 17-21 121-151/56-83 94 PE: Awake, alert Neck: Supple, No JVD Lungs: CTA CVS: S1S2 ABD: benign Ext: no edema CMP Sodium 140 mmol/L (136-145) 07/02/18 06:36 Potassium 4.1 mmol/L (3.5-5.1) 07/02/18 06:36 Chloride 99 mmol/L (98-107) 07/02/18 06:36 Carbon Dioxide 28 mmol/L (21-32) 07/02/18 06:36 Anion Gap 13 MMOL/L (8-16) 07/02/18 06:36 BUN 59 mg/dL (7-18) H 07/02/18 06:36 Creatinine 8.9 mg/dL (0.55-1.3) H* 07/02/18 06:36 Creat Clearance w eGFR 4.55 (>60) 07/02/18 06:36 POC Glucometer 169 UNITS (80-120) 07/03/18 05:14 Random Glucose 151 mg/dL (74-106) H 07/02/18 06:36 Hemoglobin A1c % 7.0 % (4.2-6.3) H 06/28/18 06:40 Calcium 8.0 mg/dL (8.5-10.1) L 07/02/18 06:36 Phosphorus 8.2 mg/dL (2.5-4.9) H 07/01/18 08:44 Total Bilirubin 0.4 mg/dL (0.2-1) 07/02/18 06:36 AST 39 U/L (15-37) H 07/02/18 06:36 ALT 13 U/L (13-61) 07/02/18 06:36 Alkaline Phosphatase 130 U/L (45-117) H 07/02/18 06:36 Creatine Kinase 69 IU/L (26-192) 06/26/18 12:54 Troponin I 0.03 ng/ml (0.00-0.05) 06/26/18 12:54 Total Protein 7.7 g/dl (6.4-8.2) 07/02/18 06:36 Albumin 3.7 g/dl (3.4-5.0) 07/02/18 06:36 TSH 1.73 uIU/ml (0.358-3.74) 06/28/18 09:30 Current Medications Generic Name Dose Route Start Last Admin Trade Name Freq PRN Reason Stop Dose Admin Acetaminophen 325 mg 06/26/18 22:00 07/03/18 09:14 Tylenol - PO 325 mg QID [facility] Administration Amlodipine Besylate 5 mg 06/27/18 10:00 07/03/18 09:13 Norvasc - PO 5 mg DAILY [facility] Administration Aspirin 81 mg 06/27/18 10:00 07/03/18 09:13 Asa - PO 81 mg DAILY [facility] Administration Calcium Carbonate/Cholecalciferol 2 tab 07/01/18 11:00 07/03/18 09:13 Os-Igor 500+D - PO 2 tab DAILY [facility] Administration Donepezil HCl 5 mg 06/26/18 22:00 07/02/18 21:38 Aricept - PO 5 mg HS [facility] Administration Escitalopram Oxalate 20 mg 06/27/18 10:00 07/03/18 09:13 Lexapro - PO 20 mg DAILY [facility] Administration Furosemide 80 mg 06/27/18 10:00 07/03/18 09:14 Lasix - PO 80 mg DAILY [facility] Administration Gabapentin 100 mg 06/26/18 22:00 07/02/18 21:37 Neurontin - PO 100 mg HS [facility] Administration Gemfibrozil 600 mg 06/26/18 19:15 07/03/18 06:34 Lopid - PO 600 mg BIDAC [facility] Administration Sodium Chloride 250 mls @ 3,000 mls/hr 07/02/18 13:04 Normal Saline - IV 07/03/18 13:04 PRN PRN Hypotension during Dialysis Insulin Aspart 1 vial 06/29/18 12:55 07/03/18 06:34 Novolog Vial Sliding Scale - SQ Not Given BIDAC [facility] Protocol Isoniazid 300 mg 06/27/18 10:00 07/03/18 09:15 Inh - PO 300 mg DAILY [facility] Administration Metoprolol Tartrate 100 mg 06/26/18 22:00 07/03/18 09:14 Lopressor - PO 100 mg BID [facility] Administration Pyridoxine HCl 100 mg 06/27/18 10:00 07/03/18 09:15 Vitamin B6 - PO 100 mg DAILY [facility] Administration Quetiapine Fumarate 25 mg 06/26/18 22:00 07/03/18 09:14 Seroquel - PO 25 mg QID [facility] Administration Sevelamer Carbonate 800 mg 06/26/18 19:15 07/03/18 08:08 Renvela - PO 800 mg TIDCM [facility] Administration Thiamine HCl 100 mg 06/27/18 10:00 07/03/18 09:13 Vitamin B1 - PO 100 mg DAILY [facility] Administration AP: T2DM Hypoglycemia: resolved ? Secondary to Trulicity and poor food intake. Blood sugar better today ESRD D/C Trulicity as outpatient Novolog SS starting at >250 will probably suffice for management of blood sugar in the [place]. If BGM is persistently high on this regimen, will consider adding basal Insulin starting at 5 units daily. BGM Q4 hrs Novolog coverage BID when FS >200 for now To give snack of around 150 Kcal when FS drops to <120. T0 give half amp of D50 if pt unable or unwilling to eat Pt should get three regular meals with snacks between meals and at bedtime Will F/U
[2018-07-03 11:53] LABS: HEMATOCRIT 36.7 % (32.4-45.2); HEMOGLOBIN 11.7 GM/dL (10.7-15.3); MCH 28.9 pg (25.7-33.7); MCHC 31.8 g/dl (32.0-36.0); MEAN CELL VOLUME 90.7 fl (80-96); MEAN PLT VOLUME 9.8 fl (7.5-11.1); PLATELET COUNT 149 K/MM3 (134-434); RBC 4.05 M/mm3 (3.60-5.2); RDW 13.5 % (11.6-15.6); WHITE BLOOD COUNT 7.5 K/mm3 (4.0-10.0)
--- NOTE | 2018-07-03 12:22 | PN ---
Progress Note (short form) - Note Progress Note: confused pt examined in HD no complaints says that she has a son-- who has not come here to visit her Vital Signs - 24 hr 07/02/18 07/02/18 07/02/18 16:00 20:51 21:00 Temperature 97.7 F 98.2 F Pulse Rate 70 74 Respiratory 18 20 17 Rate Blood Pressure 151/83 146/80 O2 Sat by Pulse 94 L Oximetry (%) 07/02/18 07/03/18 07/03/18 21:33 07:51 11:10 Temperature 98.4 F 98.7 F 97.5 F L Pulse Rate 77 72 67 Respiratory 17 21 H 18 Rate Blood Pressure 121/56 L 146/68 129/79 O2 Sat by Pulse Oximetry (%) 07/03/18 07/03/18 07/03/18 11:12 11:20 11:25 Temperature Pulse Rate 60 Respiratory 18 18 Rate Blood Pressure 136/67 O2 Sat by Pulse 95 Oximetry (%) 07/03/18 11:50 Temperature Pulse Rate 60 Respiratory 16 Rate Blood Pressure 93/52 L O2 Sat by Pulse Oximetry (%) Current Medications Generic Name Dose Route Start Last Admin Trade Name Freq PRN Reason Stop Dose Admin Acetaminophen 325 mg 06/26/18 22:00 07/03/18 09:14 Tylenol - PO 325 mg QID [facility] Administration Amlodipine Besylate 5 mg 06/27/18 10:00 07/03/18 09:13 Norvasc - PO 5 mg DAILY [facility] Administration Aspirin 81 mg 06/27/18 10:00 07/03/18 09:13 Asa - PO 81 mg DAILY [facility] Administration Calcium Carbonate/Cholecalciferol 2 tab 07/01/18 11:00 07/03/18 09:13 Os-Igor 500+D - PO 2 tab DAILY [facility] Administration Donepezil HCl 5 mg 06/26/18 22:00 07/02/18 21:38 Aricept - PO 5 mg HS [facility]Y Administration Escitalopram Oxalate 20 mg 06/27/18 10:00 07/03/18 09:13 Lexapro - PO 20 mg DAILY [facility] Administration Furosemide 80 mg 06/27/18 10:00 07/03/18 09:14 Lasix - PO 80 mg DAILY [facility] Administration Gabapentin 100 mg 06/26/18 22:00 07/02/18 21:37 Neurontin - PO 100 mg HS [facility]Y Administration Gemfibrozil 600 mg 06/26/18 19:15 07/03/18 06:34 Lopid - PO 600 mg BIDAC [facility] Administration Sodium Chloride 250 mls @ 3,000 mls/hr 07/02/18 13:04 Normal Saline - IV 07/03/18 13:04 PRN PRN Hypotension during Dialysis Insulin Aspart 1 vial 07/03/18 09:26 Novolog Vial Sliding Scale - SQ BIDAC [facility] Protocol Isoniazid 300 mg 06/27/18 10:00 07/03/18 09:15 Inh - PO 300 mg DAILY [facility] Administration Metoprolol Tartrate 100 mg 06/26/18 22:00 07/03/18 09:14 Lopressor - PO 100 mg BID [facility] Administration Pyridoxine HCl 100 mg 06/27/18 10:00 07/03/18 09:15 Vitamin B6 - PO 100 mg DAILY [facility] Administration Quetiapine Fumarate 25 mg 06/26/18 22:00 07/03/18 09:14 Seroquel - PO 25 mg QID [facility] Administration Sevelamer Carbonate 800 mg 06/26/18 19:15 07/03/18 12:00 Renvela - PO Not Given TIDCM [facility] Thiamine HCl 100 mg 06/27/18 10:00 07/03/18 09:13 Vitamin B1 - PO 100 mg DAILY [facility] Administration Laboratory Results - last 24 hr 06/30/18 07/02/18 07/02/18 17:00 15:53 20:47 WBC RBC Hgb Hct MCV MCH MCHC RDW Plt Count MPV PT with INR INR POC Glucometer 216 283 T.pallidum Ab (FTA-ABS) Non reactive 07/03/18 07/03/18 07/03/18 05:14 06:00 11:15 WBC 7.5 RBC 4.05 Hgb 11.7 Hct 36.7 MCV 90.7 MCH 28.9 MCHC 31.8 L RDW 13.5 Plt Count 149 MPV 9.8 PT with INR 11.00 INR 0.93 POC Glucometer 169 T.pallidum Ab (FTA-ABS) S1 S2 RRR Lungs decreased Abd- soft, nT No edema PLAN FTA -ABS- negative, MHA positive, RPR positive spoke with ID-- no h/o treatment from [facility] spoke with Neurologist-- pt will need LP dc ASA continue with meds has irregular BGM- no further hypoglycemic episodes Endocrinology on the case ID angela noted HD per renal Problem List - Problems (1) Diabetes Code(s): E11.9 - TYPE 2 DIABETES MELLITUS WITHOUT COMPLICATIONS (2) ESRD (end stage renal disease) on dialysis Code(s): N18.6 - END STAGE RENAL DISEASE; Z99.2 - DEPENDENCE ON RENAL DIALYSIS (3) End stage renal disease Code(s): N18.6 - END STAGE RENAL DISEASE (4) Positive RPR test Code(s): A53.0 - LATENT SYPHILIS, UNSPECIFIED EARLY OR LATE (5) Toxic metabolic encephalopathy Code(s): G92 - TOXIC ENCEPHALOPATHY
[2018-07-03 12:26] LABS: ALBUMIN 3.3 g/dl (3.4-5.0); ALK PHOS 104 U/L (45-117); ANION GAP 16 MMOL/L (8-16); BILIRUBIN,TOTAL 0.3 mg/dL (0.2-1); BLOOD UREA NITROGEN 91 mg/dL (7-18); CALCIUM 7.7 mg/dL (8.5-10.1); CHLORIDE 97 mmol/L (98-107); CO2 23 mmol/L (21-32); GLUCOSE,RANDOM 261 mg/dL (74-106); PHOSPHOROUS 6.1 mg/dL (2.5-4.9); POTASSIUM 4.5 mmol/L (3.5-5.1); SGOT/AST 30 U/L (15-37); SGPT/ALT 11 U/L (13-61); SODIUM 136 mmol/L (136-145)
[2018-07-03 12:33] LABS: CREATININE 10.4 mg/dL (0.55-1.3)
[2018-07-03] MEDS ORDERED: CALCIUM GLUCONATE 10% - 1,000 MG/10 ML VIAL IVPUSH ONE (14:30)
--- NOTE | 2018-07-03 15:32 | PN ---
Progress Note (short form) - Note Progress Note: cc Jerking motions HPI 57 year old female history of HTN, ESRD on HD, presented with labile sugar. patient has been having jerking motion in both hands and sometime around face. Patietn has history of depression and atypical antipsychotic medication. She has refused dialysis and is getting dialysis today. She is feeling better, confused though. her rpr was positive and fta-abs is negative. Neurological Examination Alert oriented x 2, EOMI, Pupils reactive no face asymmetry Moving all extremity , 5/5 sensation is noraml reflex are diminisehd generalized F No brain imaging during this hospital admission Assessment /Plan 1. Metabolic Encephalopathy secondary to Uremia , and Labile Sugar levels, she has improved and still confused . 2. Myoclonic jerks, secondary to uremia, improved markedly, no further treatment necessary 3. RPR positive, and FTA-ABS was negative, would speak to ID regarding spinal tap . Edward did get aspirin today and she is getting dialysis without heparin. It is not contraindication for spinal tap with baby aspirin. I will speak to Dr arevalo. Thanking you so much Gerardo Christiansen MD
[2018-07-03] MEDS ORDERED: CALCIUM GLUCONATE 10% - 1,000 MG/10 ML VIAL IVPB ONE (15:45)
[2018-07-03] MEDS ORDERED: CALCIUM (OYSTER SHELL) 500 MG TABLET (FP) PO ONE (15:47)
--- NOTE | 2018-07-03 15:50 | PN ---
Progress Note, Physician History of Present Illness: Pt seen and examined at bedside. She tolerated HD today. She denies shortness of breath. - Current Medication List Current Medications: Active Medications Acetaminophen (Tylenol -) 325 mg PO QID [facility] Last Admin: 07/03/18 14:19 Dose: Not Given Amlodipine Besylate (Norvasc -) 5 mg PO DAILY [facility] Last Admin: 07/03/18 09:13 Dose: 5 mg Calcium Carbonate/Cholecalciferol (Os-Igor 500+D -) 2 tab PO DAILY [facility] Last Admin: 07/03/18 09:13 Dose: 2 tab Donepezil HCl (Aricept -) 5 mg PO HS [facility] Last Admin: 07/02/18 21:38 Dose: 5 mg Escitalopram Oxalate (Lexapro -) 20 mg PO DAILY [facility] Last Admin: 07/03/18 09:13 Dose: 20 mg Furosemide (Lasix -) 80 mg PO DAILY [facility] Last Admin: 07/03/18 09:14 Dose: 80 mg Gabapentin (Neurontin -) 100 mg PO HS [facility] Last Admin: 07/02/18 21:37 Dose: 100 mg Gemfibrozil (Lopid -) 600 mg PO BIDAC [facility] Last Admin: 07/03/18 06:34 Dose: 600 mg Insulin Aspart (Novolog Vial Sliding Scale -) 1 vial SQ BIDAC [facility]; Protocol Isoniazid (Inh -) 300 mg PO DAILY [facility] Last Admin: 07/03/18 09:15 Dose: 300 mg Metoprolol Tartrate (Lopressor -) 100 mg PO BID [facility] Last Admin: 07/03/18 09:14 Dose: 100 mg Pyridoxine HCl (Vitamin B6 -) 100 mg PO DAILY [facility] Last Admin: 07/03/18 09:15 Dose: 100 mg Quetiapine Fumarate (Seroquel -) 25 mg PO QID [facility] Last Admin: 07/03/18 14:19 Dose: Not Given Sevelamer Carbonate (Renvela -) 800 mg PO TIDCM [facility] Last Admin: 07/03/18 12:00 Dose: Not Given Thiamine HCl (Vitamin B1 -) 100 mg PO DAILY [facility] Last Admin: 07/03/18 09:13 Dose: 100 mg - Objective Vital Signs: Vital Signs Temperature 98.1 F 07/03/18 14:50 Pulse Rate 62 07/03/18 15:00 Respiratory Rate 16 07/03/18 15:00 Blood Pressure 132/61 07/03/18 15:00 O2 Sat by Pulse Oximetry (%) 95 07/03/18 11:12 Constitutional: Yes: Calm Eyes: Yes: Conjunctiva Clear HENT: Yes: Atraumatic Cardiovascular: Yes: S1, S2 Respiratory: Yes: CTA Bilaterally Gastrointestinal: Yes: Normal Bowel Sounds, Soft Genitourinary: Yes: WNL Musculoskeletal: Yes: WNL Edema: No Neurological: Yes: Oriented Psychiatric: Yes: Oriented Labs: CBC, BMP 07/03/18 11:15 07/03/18 11:15 INR, PTT INR 0.93 (0.83-1.09) 07/03/18 06:00 Problem List - Problems (1) End stage renal disease Code(s): N18.6 - END STAGE RENAL DISEASE Assessment/Plan Current Medications Generic Name Dose Route Start Last Admin Trade Name Freq PRN Reason Stop Dose Admin Acetaminophen 325 mg 06/26/18 22:00 07/03/18 14:19 Tylenol - PO Not Given QID [facility] Amlodipine Besylate 5 mg 06/27/18 10:00 07/03/18 09:13 Norvasc - PO 5 mg DAILY [facility] Administration Calcium Carbonate 1,000 mg 07/03/18 15:47 Os-Igor 500mg - PO 07/03/18 15:48 ONCE ONE Calcium Carbonate/Cholecalciferol 2 tab 07/01/18 11:00 07/03/18 09:13 Os-Igor 500+D - PO 2 tab DAILY [facility] Administration Donepezil HCl 5 mg 06/26/18 22:00 07/02/18 21:38 Aricept - PO 5 mg HS [facility] Administration Escitalopram Oxalate 20 mg 06/27/18 10:00 07/03/18 09:13 Lexapro - PO 20 mg DAILY [facility] Administration Furosemide 80 mg 06/27/18 10:00 07/03/18 09:14 Lasix - PO 80 mg DAILY [facility] Administration Gabapentin 100 mg 06/26/18 22:00 07/02/18 21:37 Neurontin - PO 100 mg HS [facility] Administration Gemfibrozil 600 mg 06/26/18 19:15 07/03/18 06:34 Lopid - PO 600 mg BIDAC [facility] Administration Insulin Aspart 1 vial 07/03/18 09:26 Novolog Vial Sliding Scale - SQ BIDAC [facility] Protocol Isoniazid 300 mg 06/27/18 10:00 07/03/18 09:15 Inh - PO 300 mg DAILY [facility] Administration Metoprolol Tartrate 100 mg 06/26/18 22:00 07/03/18 09:14 Lopressor - PO 100 mg BID [facility] Administration Pyridoxine HCl 100 mg 06/27/18 10:00 07/03/18 09:15 Vitamin B6 - PO 100 mg DAILY [facility] Administration Quetiapine Fumarate 25 mg 06/26/18 22:00 07/03/18 14:19 Seroquel - PO Not Given QID [facility] Sevelamer Carbonate 800 mg 06/26/18 19:15 07/03/18 12:00 Renvela - PO Not Given TIDCM [facility] Thiamine HCl 100 mg 06/27/18 10:00 07/03/18 09:13 Vitamin B1 - PO 100 mg DAILY [facility] Administration Impression 1. ESRD 2. hyperkalemia 3. HTN 4. DM 5. HLD 6. hypocalcemia Plan - HD today - replace calcium and cont supplements - renal diet - next HD on Sat - pt has hd set up as outpt - will follow Dr Marks
[2018-07-03] MEDS: GABAPENTIN 100 MG CAPSULE (FP) PO SCH (22:24)
[2018-07-03] MEDS: DONEPEZIL HCL 5 MG TABLET (FP) PO SCH (22:25)
[2018-07-04] MEDS ORDERED: PT OWN MED DRAWER 7, Y5N ONE ×3 (05:40→16:29)
[2018-07-04] MEDS: INSULIN SLIDING SCALE (NOVOLOG) 1 VIAL SQ SCH ×2 (06:08→17:21)
[2018-07-04] MEDS: GEMFIBROZIL 600 MG TABLET (FP) PO SCH ×2 (06:40→16:35)
[2018-07-04] MEDS: SEVELAMER CARBONATE 800 MG TAB (FP) PO SCH ×3 (08:15→16:34)
[2018-07-04 08:37] LABS: ALBUMIN 3.3 g/dl (3.4-5.0); ALK PHOS 102 U/L (45-117); ANION GAP 12 MMOL/L (8-16); BILIRUBIN,TOTAL 0.4 mg/dL (0.2-1); BLOOD UREA NITROGEN 63 mg/dL (7-18); CALCIUM 8.4 mg/dL (8.5-10.1); CHLORIDE 100 mmol/L (98-107); CO2 26 mmol/L (21-32); GLUCOSE,RANDOM 156 mg/dL (74-106); POTASSIUM 4.3 mmol/L (3.5-5.1); SGOT/AST 29 U/L (15-37); SGPT/ALT 13 U/L (13-61); SODIUM 138 mmol/L (136-145)
[2018-07-04] MEDS ORDERED: ESCITALOPRAM OXALATE 10 MG TABLET (FP) ONE (09:33)
[2018-07-04] MEDS: FUROSEMIDE 40 MG TABLET (FP) PO SCH (09:55)
[2018-07-04] MEDS: CALCIUM 500MG/VIT-D 200 UNITS COMBO TABLET (FP) PO SCH (09:55)
[2018-07-04] MEDS: amLODIPine BESYLATE 5 MG TABLET (FP) PO SCH (09:56)
[2018-07-04] MEDS: QUEtiapine FUMARATE 25 MG TABLET (FP) PO SCH ×4 (09:56→21:29)
[2018-07-04] MEDS: THIAMINE HCL 100 MG TABLET (FP) PO SCH (09:56)
[2018-07-04] MEDS: ESCITALOPRAM OXALATE 20 MG TABLET (FP) PO SCH (09:57)
[2018-07-04] MEDS: ACETAMINOPHEN 325 MG TABLET (FP) PO SCH ×4 (09:57→21:30)
[2018-07-04] MEDS: ISONIAZID 300 MG TABLET (FP) PO SCH (10:00)
[2018-07-04] MEDS: PYRIDOXINE HCL (B-6) 50 MG TABLET (FP) PO SCH (10:01)
[2018-07-04] MEDS: METOPROLOL TARTRATE 50 MG TABLET (FP) PO SCH ×2 (10:05→21:29)
--- NOTE | 2018-07-04 10:50 | PN ---
Progress Note, Physician History of Present Illness: pt seen/ examined all f/u noted/ chart reviewed alert/ awake ambulating in [address] denies pain afebrile. - Current Medication List Current Medications: Active Medications Acetaminophen (Tylenol -) 325 mg PO QID [facility] Last Admin: 07/04/18 09:57 Dose: 325 mg Amlodipine Besylate (Norvasc -) 5 mg PO DAILY [facility] Last Admin: 07/04/18 09:56 Dose: 5 mg Calcium Carbonate/Cholecalciferol (Os-Igor 500+D -) 2 tab PO DAILY [facility] Last Admin: 07/04/18 09:55 Dose: 2 tab Donepezil HCl (Aricept -) 5 mg PO HS [facility] Last Admin: 07/03/18 22:25 Dose: 5 mg Escitalopram Oxalate (Lexapro -) 20 mg PO DAILY [facility] Last Admin: 07/04/18 09:57 Dose: 20 mg Furosemide (Lasix -) 80 mg PO DAILY [facility] Last Admin: 07/04/18 09:55 Dose: 80 mg Gabapentin (Neurontin -) 100 mg PO HS [facility] Last Admin: 07/03/18 22:24 Dose: 100 mg Gemfibrozil (Lopid -) 600 mg PO BIDAC [facility] Last Admin: 07/04/18 06:40 Dose: 600 mg Insulin Aspart (Novolog Vial Sliding Scale -) 1 vial SQ BIDAC [facility]; Protocol Last Admin: 07/04/18 06:08 Dose: Not Given Isoniazid (Inh -) 300 mg PO DAILY [facility] Last Admin: 07/04/18 10:00 Dose: 300 mg Metoprolol Tartrate (Lopressor -) 100 mg PO BID [facility] Last Admin: 07/04/18 10:05 Dose: 100 mg Pyridoxine HCl (Vitamin B6 -) 100 mg PO DAILY [facility] Last Admin: 07/04/18 10:01 Dose: 100 mg Quetiapine Fumarate (Seroquel -) 25 mg PO QID [facility] Last Admin: 07/04/18 09:56 Dose: 25 mg Sevelamer Carbonate (Renvela -) 800 mg PO TIDCM [facility] Last Admin: 07/04/18 08:15 Dose: 800 mg Thiamine HCl (Vitamin B1 -) 100 mg PO DAILY [facility] Last Admin: 07/04/18 09:56 Dose: 100 mg - Objective Vital Signs: Vital Signs Temperature 98 F 07/04/18 06:00 Pulse Rate 68 07/04/18 06:00 Respiratory Rate 20 07/04/18 08:57 Blood Pressure 144/68 07/04/18 06:00 O2 Sat by Pulse Oximetry (%) 95 07/04/18 08:57 Constitutional: Yes: No Distress, Calm Eyes: Yes: Conjunctiva Clear Neck: Yes: Supple Cardiovascular: Yes: Regular Rate and Rhythm Respiratory: Yes: CTA Bilaterally Gastrointestinal: Yes: Soft Edema: No Neurological: Yes: Alert Psychiatric: Yes: Alert Labs: CBC, BMP 07/03/18 11:15 07/04/18 07:00 INR, PTT INR 0.93 (0.83-1.09) 07/03/18 06:00 Problem List - Problems (1) Diabetes Code(s): E11.9 - TYPE 2 DIABETES MELLITUS WITHOUT COMPLICATIONS (2) ESRD (end stage renal disease) on dialysis Code(s): N18.6 - END STAGE RENAL DISEASE; Z99.2 - DEPENDENCE ON RENAL DIALYSIS (3) Positive RPR test Code(s): A53.0 - LATENT SYPHILIS, UNSPECIFIED EARLY OR LATE Assessment/Plan stable bgm ok mood stable neurology to follow-- Lp planned dialysis per renal will follow
[2018-07-04] MEDS ORDERED: INSULIN (NOVOLOG) ASPART 100 UNITS/ML 10ML VIAL ONE (12:19)
--- NOTE | 2018-07-04 17:15 | PN ---
Progress Note, Physician History of Present Illness: Pt seen and examined at bedside. She denies shortness of breath. - Current Medication List Current Medications: Active Medications Acetaminophen (Tylenol -) 325 mg PO QID [facility] Last Admin: 07/04/18 13:35 Dose: 325 mg Amlodipine Besylate (Norvasc -) 5 mg PO DAILY [facility] Last Admin: 07/04/18 09:56 Dose: 5 mg Calcium Carbonate/Cholecalciferol (Os-Igor 500+D -) 2 tab PO DAILY [facility] Last Admin: 07/04/18 09:55 Dose: 2 tab Donepezil HCl (Aricept -) 5 mg PO HS [facility] Last Admin: 07/03/18 22:25 Dose: 5 mg Escitalopram Oxalate (Lexapro -) 20 mg PO DAILY [facility] Last Admin: 07/04/18 09:57 Dose: 20 mg Furosemide (Lasix -) 80 mg PO DAILY [facility] Last Admin: 07/04/18 09:55 Dose: 80 mg Gabapentin (Neurontin -) 100 mg PO [facility] Last Admin: 07/03/18 22:24 Dose: 100 mg Gemfibrozil (Lopid -) 600 mg PO BIDAC [facility] Last Admin: 07/04/18 16:35 Dose: 600 mg Insulin Aspart (Novolog Vial Sliding Scale -) 1 vial SQ BIDAC [facility]; Protocol Last Admin: 07/04/18 06:08 Dose: Not Given Isoniazid (Inh -) 300 mg PO DAILY [facility] Last Admin: 07/04/18 10:00 Dose: 300 mg Metoprolol Tartrate (Lopressor -) 100 mg PO BID [facility] Last Admin: 07/04/18 10:05 Dose: 100 mg Pyridoxine HCl (Vitamin B6 -) 100 mg PO DAILY [facility] Last Admin: 07/04/18 10:01 Dose: 100 mg Quetiapine Fumarate (Seroquel -) 25 mg PO QID [facility] Last Admin: 07/04/18 13:35 Dose: 25 mg Sevelamer Carbonate (Renvela -) 800 mg PO TIDCM [facility] Last Admin: 07/04/18 16:34 Dose: 800 mg Thiamine HCl (Vitamin B1 -) 100 mg PO DAILY [facility] Last Admin: 07/04/18 09:56 Dose: 100 mg - Objective Vital Signs: Vital Signs Temperature 98.4 F 07/04/18 14:33 Pulse Rate 64 07/04/18 14:33 Respiratory Rate 18 07/04/18 14:33 Blood Pressure 130/73 07/04/18 14:33 O2 Sat by Pulse Oximetry (%) 95 07/04/18 08:57 Constitutional: Yes: Calm Eyes: Yes: Conjunctiva Clear HENT: Yes: Atraumatic Neck: Yes: Supple Cardiovascular: Yes: S1, S2 Respiratory: Yes: CTA Bilaterally Gastrointestinal: Yes: Soft Genitourinary: Yes: WNL Musculoskeletal: Yes: WNL Edema: No Neurological: Yes: Oriented Psychiatric: Yes: Oriented Labs: CBC, BMP 07/03/18 11:15 07/04/18 07:00 INR, PTT INR 0.93 (0.83-1.09) 07/03/18 06:00 Problem List - Problems (1) End stage renal disease Code(s): N18.6 - END STAGE RENAL DISEASE Assessment/Plan Current Medications Generic Name Dose Route Start Last Admin Trade Name Freq PRN Reason Stop Dose Admin Acetaminophen 325 mg 06/26/18 22:00 07/04/18 13:35 Tylenol - PO 325 mg QID [facility] Administration Amlodipine Besylate 5 mg 06/27/18 10:00 07/04/18 09:56 Norvasc - PO 5 mg DAILY [facility] Administration Calcium Carbonate/Cholecalciferol 2 tab 07/01/18 11:00 07/04/18 09:55 Os-Igor 500+D - PO 2 tab DAILY [facility] Administration Donepezil HCl 5 mg 06/26/18 22:00 07/03/18 22:25 Aricept - PO 5 mg HS [facility] Administration Escitalopram Oxalate 20 mg 06/27/18 10:00 07/04/18 09:57 Lexapro - PO 20 mg DAILY [facility] Administration Furosemide 80 mg 06/27/18 10:00 07/04/18 09:55 Lasix - PO 80 mg DAILY [facility] Administration Gabapentin 100 mg 06/26/18 22:00 07/03/18 22:24 Neurontin - PO 100 mg HS [facility] Administration Gemfibrozil 600 mg 06/26/18 19:15 07/04/18 16:35 Lopid - PO 600 mg BIDAC [facility] Administration Insulin Aspart 1 vial 07/03/18 09:26 07/04/18 06:08 Novolog Vial Sliding Scale - SQ Not Given BIDAC [facility] Protocol Isoniazid 300 mg 06/27/18 10:00 07/04/18 10:00 Inh - PO 300 mg DAILY [facility] Administration Metoprolol Tartrate 100 mg 06/26/18 22:00 07/04/18 10:05 Lopressor - PO 100 mg BID [facility] Administration Pyridoxine HCl 100 mg 06/27/18 10:00 07/04/18 10:01 Vitamin B6 - PO 100 mg DAILY [facility] Administration Quetiapine Fumarate 25 mg 06/26/18 22:00 07/04/18 13:35 Seroquel - PO 25 mg QID [facility] Administration Sevelamer Carbonate 800 mg 06/26/18 19:15 07/04/18 16:34 Renvela - PO 800 mg TIDCM [facility] Administration Thiamine HCl 100 mg 06/27/18 10:00 07/04/18 09:56 Vitamin B1 - PO 100 mg DAILY [facility] Administration Impression 1. ESRD 2. hyperkalemia 3. HTN 4. DM 5. HLD 6. hypocalcemia Plan - HD in am - orders written - cont calcium supplements - check phos - will add phoslo as last phos is 6.1 - renal diet - will follow Dr Marks
[2018-07-04] MEDS: CALCIUM ACETATE 667 MG CAPSULE (FP) PO SCH (19:08)
[2018-07-04] MEDS: GABAPENTIN 100 MG CAPSULE (FP) PO SCH (21:29)
[2018-07-04] MEDS: DONEPEZIL HCL 5 MG TABLET (FP) PO SCH (21:30)
[2018-07-05] MEDS ORDERED: PT OWN MED DRAWER 7, Y5N ONE (05:59)
[2018-07-05] MEDS: INSULIN SLIDING SCALE (NOVOLOG) 1 VIAL SQ SCH ×2 (06:19→16:04)
[2018-07-05] MEDS: GEMFIBROZIL 600 MG TABLET (FP) PO SCH ×2 (06:19→16:04)
[2018-07-05] MEDS ORDERED: SODIUM CHLORIDE 250 ML IV PRN (06:57)
[2018-07-05] MEDS: SEVELAMER CARBONATE 800 MG TAB (FP) PO SCH ×3 (08:30→17:47)
[2018-07-05] MEDS: CALCIUM ACETATE 667 MG CAPSULE (FP) PO SCH ×3 (08:30→17:47)
[2018-07-05] MEDS ORDERED: PARICALCITOL 5 MCG/ML VIAL IVPUSH ONE (09:00)
[2018-07-05 09:07] LABS: HEMATOCRIT 33.4 % (32.4-45.2); HEMOGLOBIN 11.5 GM/dL (10.7-15.3); MCH 30.7 pg (25.7-33.7); MCHC 34.5 g/dl (32.0-36.0); MEAN CELL VOLUME 88.7 fl (80-96); MEAN PLT VOLUME 9.9 fl (7.5-11.1); PLATELET COUNT 176 K/MM3 (134-434); RBC 3.76 M/mm3 (3.60-5.2); RDW 13.4 % (11.6-15.6); WHITE BLOOD COUNT 6.2 K/mm3 (4.0-10.0)
[2018-07-05 09:55] LABS: ANION GAP 15 MMOL/L (8-16); BLOOD UREA NITROGEN 80 mg/dL (7-18); CALCIUM 8.2 mg/dL (8.5-10.1); CHLORIDE 98 mmol/L (98-107); CO2 23 mmol/L (21-32); GLUCOSE,RANDOM 233 mg/dL (74-106); PHOSPHOROUS 5.1 mg/dL (2.5-4.9); POTASSIUM 4.7 mmol/L (3.5-5.1); SODIUM 136 mmol/L (136-145)
[2018-07-05 10:16] LABS: CREATININE 9.2 mg/dL (0.55-1.3)
[2018-07-05] MEDS ORDERED: ESCITALOPRAM OXALATE 10 MG TABLET (FP) ONE (12:42)
[2018-07-05] MEDS: FUROSEMIDE 40 MG TABLET (FP) PO SCH (12:47)
[2018-07-05] MEDS: CALCIUM 500MG/VIT-D 200 UNITS COMBO TABLET (FP) PO SCH (12:47)
[2018-07-05] MEDS: THIAMINE HCL 100 MG TABLET (FP) PO SCH (12:47)
[2018-07-05] MEDS: METOPROLOL TARTRATE 50 MG TABLET (FP) PO SCH ×2 (12:47→22:36)
[2018-07-05] MEDS: QUEtiapine FUMARATE 25 MG TABLET (FP) PO SCH ×4 (12:47→22:36)
[2018-07-05] MEDS: ISONIAZID 300 MG TABLET (FP) PO SCH (12:48)
[2018-07-05] MEDS: ESCITALOPRAM OXALATE 20 MG TABLET (FP) PO SCH (12:48)
[2018-07-05] MEDS: ACETAMINOPHEN 325 MG TABLET (FP) PO SCH ×4 (12:49→22:35)
[2018-07-05] MEDS: amLODIPine BESYLATE 5 MG TABLET (FP) PO SCH (12:51)
[2018-07-05] MEDS: PYRIDOXINE HCL (B-6) 50 MG TABLET (FP) PO SCH (12:51)
[2018-07-05] MEDS ORDERED: LIDOCAINE HCL 1%, 10 MG/ML (20ML VIAL) ONE (13:13)
--- NOTE | 2018-07-05 14:09 | PN ---
Progress Note (short form) - Note Progress Note: \57 year old female history of HTN, ESRD on HD, presented with labile sugar. patient has been having jerking motion in both hands and sometime around face. Patietn has history of depression and atypical antipsychotic medication. She is feeling better, confused though. her rpr was positive and fta-abs is negative. Spoke to Dr Azar coronado as one time titre were positive and given her young age , decided to do Spinal tap. Neurological Examination Alert oriented x 2, EOMI, Pupils reactive no face asymmetry Moving all extremity , 5/5 sensation is noraml reflex are diminisehd generalized \ No brain imaging during this hospital admission Assessment /Plan 1. Metabolic Encephalopathy secondary to Uremia , and Labile Sugar levels, she has improved and still confused . 2. Myoclonic jerks, secondary to uremia, improved markedly, no further treatment necessary 3. RPR positive, and FTA-ABS was negative, spoke to Dr Stovall on saturday, would proceed with spinal tap. Consent left at chart, and Dr Sherrie Hua to sign and would do spinal tap tomorrow Thanking you so much Gerardo Christiansen MD
--- NOTE | 2018-07-05 14:54 | PN ---
Progress Note (short form) - Note Progress Note: confused pt examined in HD no complaints 2 Vital Signs - 24 hr 07/04/18 07/04/18 07/05/18 18:30 21:00 05:55 Temperature 98.5 F 98.1 F Pulse Rate 71 63 Respiratory 18 18 17 Rate Blood Pressure 109/65 129/51 L O2 Sat by Pulse 96 Oximetry (%) 07/05/18 07/05/18 07/05/18 08:30 08:35 08:40 Temperature 98.0 F 98.4 F Pulse Rate 64 65 67 Respiratory 20 18 18 Rate Blood Pressure 139/70 143/63 125/70 O2 Sat by Pulse 95 Oximetry (%) 07/05/18 07/05/18 07/05/18 09:10 09:40 10:10 Temperature Pulse Rate 65 63 65 Respiratory 18 18 18 Rate Blood Pressure 126/64 118/66 130/63 O2 Sat by Pulse Oximetry (%) 07/05/18 07/05/18 07/05/18 10:40 11:10 11:40 Temperature Pulse Rate 67 66 70 Respiratory 18 18 18 Rate Blood Pressure 121/67 122/63 114/46 L O2 Sat by Pulse Oximetry (%) 07/05/18 07/05/18 07/05/18 11:55 12:00 12:57 Temperature Pulse Rate 75 61 82 Respiratory 18 18 Rate Blood Pressure 114/65 128/79 132/77 O2 Sat by Pulse Oximetry (%) Current Medications Generic Name Dose Route Start Last Admin Trade Name Freq PRN Reason Stop Dose Admin Acetaminophen 325 mg 06/26/18 22:00 07/05/18 14:02 Tylenol - PO Not Given QID [facility] Amlodipine Besylate 5 mg 06/27/18 10:00 07/05/18 12:51 Norvasc - PO 5 mg DAILY [facility] Administration Calcium Acetate 667 mg 07/04/18 17:30 07/05/18 12:47 Phoslo - PO 667 mg TIDCM [facility] Administration Calcium Carbonate/Cholecalciferol 2 tab 07/01/18 11:00 07/05/18 12:47 Os-Igor 500+D - PO 2 tab DAILY [facility] Administration Donepezil HCl 5 mg 06/26/18 22:00 07/04/18 21:30 Aricept - PO 5 mg HS [facility] Administration Escitalopram Oxalate 20 mg 06/27/18 10:00 07/05/18 12:48 Lexapro - PO 20 mg DAILY [facility] Administration Furosemide 80 mg 06/27/18 10:00 07/05/18 12:47 Lasix - PO 80 mg DAILY [facility] Administration Gabapentin 100 mg 06/26/18 22:00 07/04/18 21:29 Neurontin - PO 100 mg HS [facility] Administration Gemfibrozil 600 mg 06/26/18 19:15 07/05/18 06:19 Lopid - PO 600 mg BIDAC [facility] Administration Sodium Chloride 250 mls @ 3,000 mls/hr 07/05/18 06:57 Normal Saline - IV 07/05/18 19:00 PRN PRN Hypotension during Dialysis Insulin Aspart 1 vial 07/03/18 09:26 07/05/18 06:19 Novolog Vial Sliding Scale - SQ Not Given BIDAC [facility] Protocol Isoniazid 300 mg 06/27/18 10:00 07/05/18 12:48 Inh - PO 300 mg DAILY [facility] Administration Metoprolol Tartrate 100 mg 06/26/18 22:00 07/05/18 12:47 Lopressor - PO 100 mg BID [facility] Administration Pyridoxine HCl 100 mg 06/27/18 10:00 07/05/18 12:51 Vitamin B6 - PO 100 mg DAILY [facility] Administration Quetiapine Fumarate 25 mg 06/26/18 22:00 07/05/18 14:02 Seroquel - PO Not Given QID [facility] Sevelamer Carbonate 800 mg 06/26/18 19:15 07/05/18 12:47 Renvela - PO 800 mg TIDCM [facility] Administration Thiamine HCl 100 mg 06/27/18 10:00 07/05/18 12:47 Vitamin B1 - PO 100 mg DAILY [facility] Administration Laboratory Results - last 24 hr 07/04/18 07/04/18 07/05/18 17:08 21:28 01:31 WBC RBC Hgb Hct MCV MCH MCHC RDW Plt Count MPV Sodium Potassium Chloride Carbon Dioxide Anion Gap BUN Creatinine Creat Clearance w eGFR POC Glucometer 123 275 272 Random Glucose Calcium Phosphorus 07/05/18 07/05/18 07/05/18 06:13 08:40 08:40 WBC 6.2 RBC 3.76 Hgb 11.5 Hct 33.4 MCV 88.7 MCH 30.7 MCHC 34.5 RDW 13.4 Plt Count 176 MPV 9.9 Sodium 136 Potassium 4.7 Chloride 98 Carbon Dioxide 23 Anion Gap 15 BUN 80 H Creatinine 9.2 H* Creat Clearance w eGFR 4.38 POC Glucometer 168 Random Glucose 233 H Calcium 8.2 L Phosphorus 5.1 H S1 S2 RRR Lungs decreased Abd- soft, nT No edema PLAN FTA -ABS- negative, MHA positive, RPR positive spoke with ID-- no h/o treatment from [facility] spoke with Neurologist-- pt will need LP dc ASA continue with meds has irregular BGM- no further hypoglycemic episodes for LP on Saturday HD per renal Problem List - Problems (1) Diabetes Code(s): E11.9 - TYPE 2 DIABETES MELLITUS WITHOUT COMPLICATIONS (2) ESRD (end stage renal disease) on dialysis Code(s): N18.6 - END STAGE RENAL DISEASE; Z99.2 - DEPENDENCE ON RENAL DIALYSIS (3) End stage renal disease Code(s): N18.6 - END STAGE RENAL DISEASE (4) Positive RPR test Code(s): A53.0 - LATENT SYPHILIS, UNSPECIFIED EARLY OR LATE (5) Toxic metabolic encephalopathy Code(s): G92 - TOXIC ENCEPHALOPATHY
--- NOTE | 2018-07-05 19:58 | PN ---
Progress Note, Physician History of Present Illness: Pt seen and examined at bedside. She is awake and alert. She denies shortness of breath. She tolerated HD. - Current Medication List Current Medications: Active Medications Acetaminophen (Tylenol -) 325 mg PO QID [facility] Last Admin: 07/05/18 17:50 Dose: 325 mg Amlodipine Besylate (Norvasc -) 5 mg PO DAILY [facility] Last Admin: 07/05/18 12:51 Dose: 5 mg Calcium Acetate (Phoslo -) 667 mg PO TIDCM [facility] Last Admin: 07/05/18 17:47 Dose: 667 mg Calcium Carbonate/Cholecalciferol (Os-Igor 500+D -) 2 tab PO DAILY [facility] Last Admin: 07/05/18 12:47 Dose: 2 tab Donepezil HCl (Aricept -) 5 mg PO HS [facility] Last Admin: 07/04/18 21:30 Dose: 5 mg Escitalopram Oxalate (Lexapro -) 20 mg PO DAILY [facility] Last Admin: 07/05/18 12:48 Dose: 20 mg Furosemide (Lasix -) 80 mg PO DAILY [facility] Last Admin: 07/05/18 12:47 Dose: 80 mg Gabapentin (Neurontin -) 100 mg PO HS [facility] Last Admin: 07/04/18 21:29 Dose: 100 mg Gemfibrozil (Lopid -) 600 mg PO BIDAC [facility] Last Admin: 07/05/18 16:04 Dose: Not Given Insulin Aspart (Novolog Vial Sliding Scale -) 1 vial SQ BIDAC [facility]; Protocol Last Admin: 07/05/18 16:04 Dose: Not Given Isoniazid (Inh -) 300 mg PO DAILY [facility] Last Admin: 07/05/18 12:48 Dose: 300 mg Metoprolol Tartrate (Lopressor -) 100 mg PO BID [facility] Last Admin: 07/05/18 12:47 Dose: 100 mg Pyridoxine HCl (Vitamin B6 -) 100 mg PO DAILY [facility] Last Admin: 07/05/18 12:51 Dose: 100 mg Quetiapine Fumarate (Seroquel -) 25 mg PO QID [facility] Last Admin: 07/05/18 17:50 Dose: 25 mg Sevelamer Carbonate (Renvela -) 800 mg PO TIDCM [facility] Last Admin: 07/05/18 17:47 Dose: 800 mg Thiamine HCl (Vitamin B1 -) 100 mg PO DAILY [facility] Last Admin: 07/05/18 12:47 Dose: 100 mg - Objective Vital Signs: Vital Signs Temperature 98.6 F 07/05/18 15:35 Pulse Rate 80 07/05/18 15:35 Respiratory Rate 18 07/05/18 15:35 Blood Pressure 117/63 07/05/18 15:35 O2 Sat by Pulse Oximetry (%) 95 07/05/18 08:30 Constitutional: Yes: Calm Eyes: Yes: Conjunctiva Clear HENT: Yes: Atraumatic Neck: Yes: Supple Cardiovascular: Yes: S1, S2 Respiratory: Yes: CTA Bilaterally Gastrointestinal: Yes: Soft Genitourinary: Yes: WNL Musculoskeletal: Yes: WNL Edema: No Neurological: Yes: Oriented Psychiatric: Yes: Oriented Labs: CBC, BMP 07/05/18 08:40 07/05/18 08:40 INR, PTT INR 0.93 (0.83-1.09) 07/03/18 06:00 Problem List - Problems (1) End stage renal disease Code(s): N18.6 - END STAGE RENAL DISEASE Assessment/Plan Current Medications Generic Name Dose Route Start Last Admin Trade Name Dominique PRN Reason Stop Dose Admin Acetaminophen 325 mg 06/26/18 22:00 07/05/18 17:50 Tylenol - PO 325 mg QID [facility] Administration Amlodipine Besylate 5 mg 06/27/18 10:00 07/05/18 12:51 Norvasc - PO 5 mg DAILY [facility] Administration Calcium Acetate 667 mg 07/04/18 17:30 07/05/18 17:47 Phoslo - PO 667 mg TIDCM [facility] Administration Calcium Carbonate/Cholecalciferol 2 tab 07/01/18 11:00 07/05/18 12:47 Os-Igor 500+D - PO 2 tab DAILY [facility] Administration Donepezil HCl 5 mg 06/26/18 22:00 07/04/18 21:30 Aricept - PO 5 mg HS [facility] Administration Escitalopram Oxalate 20 mg 06/27/18 10:00 07/05/18 12:48 Lexapro - PO 20 mg DAILY [facility] Administration Furosemide 80 mg 06/27/18 10:00 07/05/18 12:47 Lasix - PO 80 mg DAILY [facility] Administration Gabapentin 100 mg 06/26/18 22:00 07/04/18 21:29 Neurontin - PO 100 mg HS [facility] Administration Gemfibrozil 600 mg 06/26/18 19:15 07/05/18 16:04 Lopid - PO Not Given BIDAC [facility] Insulin Aspart 1 vial 07/03/18 09:26 07/05/18 16:04 Novolog Vial Sliding Scale - SQ Not Given BIDAC [facility] Protocol Isoniazid 300 mg 06/27/18 10:00 07/05/18 12:48 Inh - PO 300 mg DAILY [facility] Administration Metoprolol Tartrate 100 mg 06/26/18 22:00 07/05/18 12:47 Lopressor - PO 100 mg BID [facility] Administration Pyridoxine HCl 100 mg 06/27/18 10:00 07/05/18 12:51 Vitamin B6 - PO 100 mg DAILY [facility] Administration Quetiapine Fumarate 25 mg 06/26/18 22:00 07/05/18 17:50 Seroquel - PO 25 mg QID [facility] Administration Sevelamer Carbonate 800 mg 06/26/18 19:15 07/05/18 17:47 Renvela - PO 800 mg TIDCM [facility] Administration Thiamine HCl 100 mg 06/27/18 10:00 07/05/18 12:47 Vitamin B1 - PO 100 mg DAILY [facility] Administration Laboratory Tests 07/05/18 08:40 Phosphorus 5.1 H Impression 1. ESRD 2. hyperkalemia 3. HTN 4. DM 5. HLD 6. hypocalcemia Plan - HD today - cont phos binders - renal diet - cont calcium supplements - will follow Dr Marks
[2018-07-05] MEDS: DONEPEZIL HCL 5 MG TABLET (FP) PO SCH (22:36)
[2018-07-05] MEDS: GABAPENTIN 100 MG CAPSULE (FP) PO SCH (22:36)
[2018-07-06] MEDS ORDERED: PT OWN MED DRAWER 7, Y5N ONE (06:06)
[2018-07-06] MEDS: INSULIN SLIDING SCALE (NOVOLOG) 1 VIAL SQ SCH ×2 (06:37→16:21)
[2018-07-06] MEDS: GEMFIBROZIL 600 MG TABLET (FP) PO SCH ×2 (06:38→16:22)
[2018-07-06] MEDS: CALCIUM ACETATE 667 MG CAPSULE (FP) PO SCH ×3 (07:49→17:28)
[2018-07-06] MEDS: SEVELAMER CARBONATE 800 MG TAB (FP) PO SCH ×3 (07:49→17:28)
--- NOTE | 2018-07-06 09:36 | PN ---
Progress Note (short form) - Note Progress Note: confused pt examined no complaints Vital Signs - 24 hr 07/05/18 07/06/18 07/06/18 21:00 05:43 09:00 Temperature 98.2 F Pulse Rate 66 Respiratory 20 Rate Blood Pressure 131/67 O2 Sat by Pulse 97 95 Oximetry (%) Current Medications Generic Name Dose Route Start Last Admin Trade Name Estevanq PRN Reason Stop Dose Admin Acetaminophen 325 mg 06/26/18 22:00 07/06/18 13:42 Tylenol - PO 325 mg QID [facility] Administration Amlodipine Besylate 5 mg 06/27/18 10:00 07/06/18 10:18 Norvasc - PO 5 mg DAILY [facility] Administration Calcium Acetate 667 mg 07/04/18 17:30 07/06/18 12:23 Phoslo - PO 667 mg TIDCM [facility] Administration Calcium Carbonate/Cholecalciferol 2 tab 07/01/18 11:00 07/06/18 10:17 Os-Igor 500+D - PO 2 tab DAILY [facility] Administration Donepezil HCl 5 mg 06/26/18 22:00 07/05/18 22:36 Aricept - PO 5 mg HS [facility] Administration Escitalopram Oxalate 20 mg 06/27/18 10:00 07/06/18 10:18 Lexapro - PO 20 mg DAILY [facility] Administration Furosemide 80 mg 06/27/18 10:00 07/06/18 10:18 Lasix - PO 80 mg DAILY [facility] Administration Gabapentin 100 mg 06/26/18 22:00 07/05/18 22:36 Neurontin - PO 100 mg HS [facility] Administration Gemfibrozil 600 mg 06/26/18 19:15 07/06/18 16:22 Lopid - PO 600 mg BIDAC [facility] Administration Insulin Aspart 1 vial 07/03/18 09:26 07/06/18 16:21 Novolog Vial Sliding Scale - SQ Not Given BIDAC [facility] Protocol Isoniazid 300 mg 06/27/18 10:00 07/06/18 10:19 Inh - PO 300 mg DAILY [facility] Administration Metoprolol Tartrate 100 mg 06/26/18 22:00 07/06/18 10:18 Lopressor - PO 100 mg BID [facility] Administration Pyridoxine HCl 100 mg 06/27/18 10:00 07/06/18 10:20 Vitamin B6 - PO 100 mg DAILY [facility] Administration Quetiapine Fumarate 25 mg 06/26/18 22:00 07/06/18 13:42 Seroquel - PO 25 mg QID [facility] Administration Sevelamer Carbonate 800 mg 06/26/18 19:15 07/06/18 12:23 Renvela - PO 800 mg TIDCM [facility] Administration Thiamine HCl 100 mg 06/27/18 10:00 07/06/18 10:18 Vitamin B1 - PO 100 mg DAILY [facility] Administration S1 S2 RRR Lungs decreased Abd- soft, nT No edema PLAN FTA -ABS- negative, MHA positive, RPR positive spoke with ID-- no h/o treatment from [facility] spoke with Neurologist-- pt will need LP - today pt has an aunt- Malcolm Robins- spoke to Neurologist to contact her as well dc ASA continue with meds 2 physician consent signed for LP has irregular BGM- no further hypoglycemic episodes HD per renal Problem List - Problems (1) Diabetes Code(s): E11.9 - TYPE 2 DIABETES MELLITUS WITHOUT COMPLICATIONS (2) ESRD (end stage renal disease) on dialysis Code(s): N18.6 - END STAGE RENAL DISEASE; Z99.2 - DEPENDENCE ON RENAL DIALYSIS (3) End stage renal disease Code(s): N18.6 - END STAGE RENAL DISEASE (4) Positive RPR test Code(s): A53.0 - LATENT SYPHILIS, UNSPECIFIED EARLY OR LATE (5) Toxic metabolic encephalopathy Code(s): G92 - TOXIC ENCEPHALOPATHY
--- NOTE | 2018-07-06 09:47 | PN ---
Progress Note (short form) - Note Progress Note: 57 year old female history of HTN, ESRD on HD, presented with labile sugar. patient has been having jerking motion in both hands and sometime around face. Patietn has history of depression and atypical antipsychotic medication. She is feeling better, confused though. her rpr was positive and fta-abs is negative. Patient condition is unchanged, and she remains confused, I trie to call her aunt-baby haniff [phone] Neurological Examination Alert oriented x 2, EOMI, Pupils reactive no face asymmetry Moving all extremity , 5/5 sensation is noraml reflex are diminisehd generalized \ No brain imaging during this hospital admission Assessment /Plan 1. Metabolic Encephalopathy secondary to Uremia , and Labile Sugar levels, she has improved and still confused . 2. Myoclonic jerks, secondary to uremia, resolved 3. RPR positive, and FTA-ABS was negative, spoke to Dr Stovall on saturday, will proceed with spinal tap Thanking you so much Gerardo Christiansen MD
[2018-07-06] MEDS: CALCIUM 500MG/VIT-D 200 UNITS COMBO TABLET (FP) PO SCH (10:17)
[2018-07-06] MEDS ORDERED: ESCITALOPRAM OXALATE 10 MG TABLET (FP) ONE (10:17)
[2018-07-06] MEDS: QUEtiapine FUMARATE 25 MG TABLET (FP) PO SCH ×4 (10:18→21:18)
[2018-07-06] MEDS: THIAMINE HCL 100 MG TABLET (FP) PO SCH (10:18)
[2018-07-06] MEDS: ESCITALOPRAM OXALATE 20 MG TABLET (FP) PO SCH (10:18)
[2018-07-06] MEDS: METOPROLOL TARTRATE 50 MG TABLET (FP) PO SCH ×2 (10:18→21:18)
[2018-07-06] MEDS: amLODIPine BESYLATE 5 MG TABLET (FP) PO SCH (10:18)
[2018-07-06] MEDS: FUROSEMIDE 40 MG TABLET (FP) PO SCH (10:18)
[2018-07-06] MEDS: ACETAMINOPHEN 325 MG TABLET (FP) PO SCH ×4 (10:19→21:18)
[2018-07-06] MEDS: ISONIAZID 300 MG TABLET (FP) PO SCH (10:19)
[2018-07-06] MEDS: PYRIDOXINE HCL (B-6) 50 MG TABLET (FP) PO SCH (10:20)
[2018-07-06 11:12] LABS: CSF APPEARANCE CLEAR; CSF COLOR COLORLESS; CSF WBC 1
[2018-07-06 11:35] LABS: BF GLUCOSE (CSF ONLY) 113 mg/dL (40-70)
--- NOTE | 2018-07-06 16:45 | PN ---
Progress Note, Physician History of Present Illness: Pt seen and examined at bedside. She is awake and alert. She denies shortness of breath. - Current Medication List Current Medications: Active Medications Acetaminophen (Tylenol -) 325 mg PO QID [facility] Last Admin: 07/06/18 13:42 Dose: 325 mg Amlodipine Besylate (Norvasc -) 5 mg PO DAILY [facility] Last Admin: 07/06/18 10:18 Dose: 5 mg Calcium Acetate (Phoslo -) 667 mg PO TIDCM [facility] Last Admin: 07/06/18 12:23 Dose: 667 mg Calcium Carbonate/Cholecalciferol (Os-Igor 500+D -) 2 tab PO DAILY [facility] Last Admin: 07/06/18 10:17 Dose: 2 tab Donepezil HCl (Aricept -) 5 mg PO HS [facility] Last Admin: 07/05/18 22:36 Dose: 5 mg Escitalopram Oxalate (Lexapro -) 20 mg PO DAILY [facility] Last Admin: 07/06/18 10:18 Dose: 20 mg Furosemide (Lasix -) 80 mg PO DAILY [facility] Last Admin: 07/06/18 10:18 Dose: 80 mg Gabapentin (Neurontin -) 100 mg PO HS [facility] Last Admin: 07/05/18 22:36 Dose: 100 mg Gemfibrozil (Lopid -) 600 mg PO BIDAC [facility] Last Admin: 07/06/18 16:22 Dose: 600 mg Insulin Aspart (Novolog Vial Sliding Scale -) 1 vial SQ BIDAC [facility]; Protocol Last Admin: 07/06/18 16:21 Dose: Not Given Isoniazid (Inh -) 300 mg PO DAILY [facility] Last Admin: 07/06/18 10:19 Dose: 300 mg Metoprolol Tartrate (Lopressor -) 100 mg PO BID [facility] Last Admin: 07/06/18 10:18 Dose: 100 mg Pyridoxine HCl (Vitamin B6 -) 100 mg PO DAILY [facility] Last Admin: 07/06/18 10:20 Dose: 100 mg Quetiapine Fumarate (Seroquel -) 25 mg PO QID [facility] Last Admin: 07/06/18 13:42 Dose: 25 mg Sevelamer Carbonate (Renvela -) 800 mg PO TIDCM [facility] Last Admin: 07/06/18 12:23 Dose: 800 mg Thiamine HCl (Vitamin B1 -) 100 mg PO DAILY [facility] Last Admin: 07/06/18 10:18 Dose: 100 mg - Objective Vital Signs: Vital Signs Temperature 98.2 F 07/06/18 15:16 Pulse Rate 64 07/06/18 15:16 Respiratory Rate 20 07/06/18 15:16 Blood Pressure 121/68 07/06/18 15:16 O2 Sat by Pulse Oximetry (%) 95 07/06/18 09:00 Constitutional: Yes: Calm Eyes: Yes: Conjunctiva Clear HENT: Yes: Atraumatic Cardiovascular: Yes: S1, S2 Respiratory: Yes: CTA Bilaterally Gastrointestinal: Yes: Soft Genitourinary: Yes: WNL Breast(s): Yes: WNL Extremities: Yes: WNL Edema: No Neurological: Yes: Oriented Psychiatric: Yes: Oriented Labs: CBC, BMP 07/05/18 08:40 07/05/18 08:40 INR, PTT INR 0.93 (0.83-1.09) 07/03/18 06:00 Problem List - Problems (1) End stage renal disease Code(s): N18.6 - END STAGE RENAL DISEASE Assessment/Plan Current Medications Generic Name Dose Route Start Last Admin Trade Name Dominique PRN Reason Stop Dose Admin Acetaminophen 325 mg 06/26/18 22:00 07/06/18 13:42 Tylenol - PO 325 mg QID [facility] Administration Amlodipine Besylate 5 mg 06/27/18 10:00 07/06/18 10:18 Norvasc - PO 5 mg DAILY [facility] Administration Calcium Acetate 667 mg 07/04/18 17:30 07/06/18 12:23 Phoslo - PO 667 mg TIDCM [facility] Administration Calcium Carbonate/Cholecalciferol 2 tab 07/01/18 11:00 07/06/18 10:17 Os-Igor 500+D - PO 2 tab DAILY [facility] Administration Donepezil HCl 5 mg 06/26/18 22:00 07/05/18 22:36 Aricept - PO 5 mg HS [facility] Administration Escitalopram Oxalate 20 mg 06/27/18 10:00 07/06/18 10:18 Lexapro - PO 20 mg DAILY [facility] Administration Furosemide 80 mg 06/27/18 10:00 07/06/18 10:18 Lasix - PO 80 mg DAILY [facility] Administration Gabapentin 100 mg 06/26/18 22:00 07/05/18 22:36 Neurontin - PO 100 mg HS [facility] Administration Gemfibrozil 600 mg 06/26/18 19:15 07/06/18 16:22 Lopid - PO 600 mg BIDAC [facility] Administration Insulin Aspart 1 vial 07/03/18 09:26 07/06/18 16:21 Novolog Vial Sliding Scale - SQ Not Given BIDAC [facility] Protocol Isoniazid 300 mg 06/27/18 10:00 07/06/18 10:19 Inh - PO 300 mg DAILY [facility] Administration Metoprolol Tartrate 100 mg 06/26/18 22:00 07/06/18 10:18 Lopressor - PO 100 mg BID [facility] Administration Pyridoxine HCl 100 mg 06/27/18 10:00 07/06/18 10:20 Vitamin B6 - PO 100 mg DAILY [facility] Administration Quetiapine Fumarate 25 mg 06/26/18 22:00 07/06/18 13:42 Seroquel - PO 25 mg QID [facility] Administration Sevelamer Carbonate 800 mg 06/26/18 19:15 07/06/18 12:23 Renvela - PO 800 mg TIDCM [facility] Administration Thiamine HCl 100 mg 06/27/18 10:00 07/06/18 10:18 Vitamin B1 - PO 100 mg DAILY [facility] Administration Impression 1. ESRD 2. hyperkalemia 3. HTN 4. DM 5. HLD 6. hypocalcemia Plan - cont calcium supplements - cont phos binders - next hd on Saturday - renal diet - neuro follow up - will follow Dr Marks
[2018-07-06] MEDS: DONEPEZIL HCL 5 MG TABLET (FP) PO SCH (21:17)
[2018-07-06] MEDS: GABAPENTIN 100 MG CAPSULE (FP) PO SCH (21:18)
[2018-07-07] MEDS ORDERED: PT OWN MED DRAWER 7, Y5N ONE ×2 (05:55→17:05)
[2018-07-07] MEDS: INSULIN SLIDING SCALE (NOVOLOG) 1 VIAL SQ SCH ×2 (06:13→17:10)
[2018-07-07] MEDS: GEMFIBROZIL 600 MG TABLET (FP) PO SCH ×2 (06:13→17:09)
[2018-07-07] MEDS: CALCIUM ACETATE 667 MG CAPSULE (FP) PO SCH ×3 (08:45→17:09)
[2018-07-07] MEDS: SEVELAMER CARBONATE 800 MG TAB (FP) PO SCH ×3 (08:45→17:09)
--- NOTE | 2018-07-07 09:15 | PN ---
Progress Note (short form) - Note Progress Note: 57 year old female history of HTN, ESRD on HD, presented with labile sugar. patient has been having jerking motion in both hands and sometime around face. Patietn has history of depression and atypical antipsychotic medication. She is feeling better, confused though. her rpr was positive and fta-abs is negative. Patient is sitting in chair and denies any headache or any new symptoms Neurological Examination Alert oriented x 2, EOMI, Pupils reactive no face asymmetry Moving all extremity , 5/5 sensation is noraml reflex are diminisehd generalized \ No brain imaging during this hospital admission csf wbc 1 and protein is 89 Assessment /Plan 1. Metabolic Encephalopathy secondary to Uremia , and Labile Sugar levels, she has improved and still confused . 2. Myoclonic jerks, secondary to uremia, resolved 3. RPR positive, and FTA-ABS was negative, , csf has been benign so far, waiting for csf vdrl Thanking you so much Gerardo Christiansen MD
[2018-07-07] MEDS ORDERED: ESCITALOPRAM OXALATE 10 MG TABLET (FP) ONE (09:53)
[2018-07-07] MEDS: ACETAMINOPHEN 325 MG TABLET (FP) PO SCH ×4 (10:11→21:22)
[2018-07-07] MEDS: FUROSEMIDE 40 MG TABLET (FP) PO SCH (10:13)
[2018-07-07] MEDS: ESCITALOPRAM OXALATE 20 MG TABLET (FP) PO SCH (10:13)
[2018-07-07] MEDS: THIAMINE HCL 100 MG TABLET (FP) PO SCH (10:13)
[2018-07-07] MEDS: PYRIDOXINE HCL (B-6) 50 MG TABLET (FP) PO SCH (10:14)
[2018-07-07] MEDS: METOPROLOL TARTRATE 50 MG TABLET (FP) PO SCH ×2 (10:14→21:21)
[2018-07-07] MEDS: amLODIPine BESYLATE 5 MG TABLET (FP) PO SCH (10:15)
[2018-07-07] MEDS: CALCIUM 500MG/VIT-D 200 UNITS COMBO TABLET (FP) PO SCH (10:15)
[2018-07-07] MEDS: QUEtiapine FUMARATE 25 MG TABLET (FP) PO SCH ×4 (10:15→21:21)
[2018-07-07] MEDS: ISONIAZID 300 MG TABLET (FP) PO SCH (10:27)
--- NOTE | 2018-07-07 12:10 | PN ---
Progress Note (short form) - Note Progress Note: pt seen/ examined all f/u noted no complains feels ok forgetful s/p LP denies pain Vital Signs Temp 98.3 F 07/07/18 10:09 Pulse 65 07/07/18 10:09 Resp 20 07/07/18 10:09 BP 127/75 07/07/18 10:09 Pulse Ox 97 07/06/18 21:00 Intake & Output 07/06/18 07/07/18 07/07/18 23:59 11:59 23:59 Intake Total 600 100 Balance 600 100 Weight 134 lb 6 oz Intake: Oral 600 100 Other: Voiding Method Toilet # Unmeasured Voids Void 1 1 Bowel Movement Yes # Bowel Movements 1 Weight Measurement Method Built in [facility] Active Medications Acetaminophen (Tylenol -) 325 mg PO QID [facility] Last Admin: 07/07/18 10:11 Dose: 325 mg Amlodipine Besylate (Norvasc -) 5 mg PO DAILY [facility] Last Admin: 07/07/18 10:15 Dose: 5 mg Calcium Acetate (Phoslo -) 667 mg PO TIDCM [facility] Last Admin: 07/07/18 08:45 Dose: 667 mg Calcium Carbonate/Cholecalciferol (Os-Igor 500+D -) 2 tab PO DAILY [facility] Last Admin: 07/07/18 10:15 Dose: 2 tab Donepezil HCl (Aricept -) 5 mg PO HS [facility] Last Admin: 07/06/18 21:17 Dose: 5 mg Escitalopram Oxalate (Lexapro -) 20 mg PO DAILY [facility] Last Admin: 07/07/18 10:13 Dose: 20 mg Furosemide (Lasix -) 80 mg PO DAILY [facility] Last Admin: 07/07/18 10:13 Dose: 80 mg Gabapentin (Neurontin -) 100 mg PO HS [facility] Last Admin: 07/06/18 21:18 Dose: 100 mg Gemfibrozil (Lopid -) 600 mg PO BIDAC [facility] Last Admin: 07/07/18 06:13 Dose: 600 mg Insulin Aspart (Novolog Vial Sliding Scale -) 1 vial SQ BIDAC [facility]; Protocol Last Admin: 07/07/18 06:13 Dose: Not Given Isoniazid (Inh -) 300 mg PO DAILY [facility] Last Admin: 07/07/18 10:27 Dose: 300 mg Metoprolol Tartrate (Lopressor -) 100 mg PO BID [facility] Last Admin: 07/07/18 10:14 Dose: 100 mg Pyridoxine HCl (Vitamin B6 -) 100 mg PO DAILY [facility] Last Admin: 07/07/18 10:14 Dose: 100 mg Quetiapine Fumarate (Seroquel -) 25 mg PO QID [facility] Last Admin: 07/07/18 10:15 Dose: 25 mg Sevelamer Carbonate (Renvela -) 800 mg PO TIDCM [facility] Last Admin: 07/07/18 08:45 Dose: 800 mg Thiamine HCl (Vitamin B1 -) 100 mg PO DAILY [facility] Last Admin: 07/07/18 10:13 Dose: 100 mg CBC, BMP 07/05/18 08:40 07/05/18 08:40 Microbiology 07/06/18 10:18 Gram Stain - Final Cerebral Spinal Fluid - Lumbar Puncture CSF Culture - Preliminary Physical Exam. Constitutional: Yes: No Distress, Comfortable Eyes: Yes: Conjunctiva Clear Neck: Yes: Supple Cardiovascular: Yes: Regular Rate and Rhythm Respiratory: Yes: CTA Bilaterally Gastrointestinal: Yes: Soft/ non tender . bs + Edema: No Neurological: Yes: Alert Psychiatric: Yes: Alert but forgetful Assessment/Plan stable bgm ok mood stable neurology f/u noted Awaiting CSF studies will order ct head also dialysis per renal will follow Problem List - Problems (1) Diabetes Code(s): E11.9 - TYPE 2 DIABETES MELLITUS WITHOUT COMPLICATIONS (2) ESRD (end stage renal disease) on dialysis Code(s): N18.6 - END STAGE RENAL DISEASE; Z99.2 - DEPENDENCE ON RENAL DIALYSIS (3) Positive RPR test Code(s): A53.0 - LATENT SYPHILIS, UNSPECIFIED EARLY OR LATE
--- NOTE | 2018-07-07 14:48 | PN ---
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
[2018-07-07] MEDS ORDERED: SODIUM CHLORIDE 250 ML IV PRN (15:57)
--- NOTE | 2018-07-07 15:58 | PN ---
Progress Note, Physician History of Present Illness: Pt seen and examined at bedside. She is awake and alert. She denies shortness of breath. - Current Medication List Current Medications: Active Medications Acetaminophen (Tylenol -) 325 mg PO QID [facility] Last Admin: 07/07/18 14:17 Dose: Not Given Amlodipine Besylate (Norvasc -) 5 mg PO DAILY [facility] Last Admin: 07/07/18 10:15 Dose: 5 mg Calcium Acetate (Phoslo -) 667 mg PO TIDCM [facility] Last Admin: 07/07/18 12:12 Dose: 667 mg Calcium Carbonate/Cholecalciferol (Os-Igor 500+D -) 2 tab PO DAILY [facility] Last Admin: 07/07/18 10:15 Dose: 2 tab Donepezil HCl (Aricept -) 5 mg PO HS [facility] Last Admin: 07/06/18 21:17 Dose: 5 mg Escitalopram Oxalate (Lexapro -) 20 mg PO DAILY [facility] Last Admin: 07/07/18 10:13 Dose: 20 mg Furosemide (Lasix -) 80 mg PO DAILY [facility] Last Admin: 07/07/18 10:13 Dose: 80 mg Gabapentin (Neurontin -) 100 mg PO HS [facility] Last Admin: 07/06/18 21:18 Dose: 100 mg Gemfibrozil (Lopid -) 600 mg PO BIDAC [facility] Last Admin: 07/07/18 06:13 Dose: 600 mg Insulin Aspart (Novolog Vial Sliding Scale -) 1 vial SQ BIDAC [facility]; Protocol Last Admin: 07/07/18 06:13 Dose: Not Given Isoniazid (Inh -) 300 mg PO DAILY [facility] Last Admin: 07/07/18 10:27 Dose: 300 mg Metoprolol Tartrate (Lopressor -) 100 mg PO BID [facility] Last Admin: 07/07/18 10:14 Dose: 100 mg Pyridoxine HCl (Vitamin B6 -) 100 mg PO DAILY [facility] Last Admin: 07/07/18 10:14 Dose: 100 mg Quetiapine Fumarate (Seroquel -) 25 mg PO QID [facility] Last Admin: 07/07/18 14:17 Dose: 25 mg Sevelamer Carbonate (Renvela -) 800 mg PO TIDCM [facility] Last Admin: 07/07/18 12:11 Dose: 800 mg Thiamine HCl (Vitamin B1 -) 100 mg PO DAILY [facility] Last Admin: 07/07/18 10:13 Dose: 100 mg - Objective Vital Signs: Vital Signs Temperature 98.3 F 07/07/18 10:09 Pulse Rate 65 07/07/18 10:09 Respiratory Rate 20 07/07/18 10:09 Blood Pressure 127/75 07/07/18 10:09 O2 Sat by Pulse Oximetry (%) 97 07/07/18 09:00 Constitutional: Yes: Calm Eyes: Yes: Conjunctiva Clear HENT: Yes: Atraumatic Neck: Yes: Supple Cardiovascular: Yes: S1, S2 Respiratory: Yes: CTA Bilaterally Gastrointestinal: Yes: Normal Bowel Sounds, Soft Genitourinary: Yes: WNL Musculoskeletal: Yes: WNL Edema: No Neurological: Yes: Oriented Psychiatric: Yes: Oriented Labs: CBC, BMP 07/05/18 08:40 07/05/18 08:40 INR, PTT INR 0.93 (0.83-1.09) 07/03/18 06:00 Problem List - Problems (1) End stage renal disease Code(s): N18.6 - END STAGE RENAL DISEASE Assessment/Plan Current Medications Generic Name Dose Route Start Last Admin Trade Name Dominique PRN Reason Stop Dose Admin Acetaminophen 325 mg 06/26/18 22:00 07/07/18 14:17 Tylenol - PO Not Given QID [facility] Amlodipine Besylate 5 mg 06/27/18 10:00 07/07/18 10:15 Norvasc - PO 5 mg DAILY [facility] Administration Calcium Acetate 667 mg 07/04/18 17:30 07/07/18 12:12 Phoslo - PO 667 mg TIDCM [facility] Administration Calcium Carbonate/Cholecalciferol 2 tab 07/01/18 11:00 07/07/18 10:15 Os-Igor 500+D - PO 2 tab DAILY [facility] Administration Donepezil HCl 5 mg 06/26/18 22:00 07/06/18 21:17 Aricept - PO 5 mg HS [facility] Administration Escitalopram Oxalate 20 mg 06/27/18 10:00 07/07/18 10:13 Lexapro - PO 20 mg DAILY [facility] Administration Furosemide 80 mg 06/27/18 10:00 07/07/18 10:13 Lasix - PO 80 mg DAILY [facility] Administration Gabapentin 100 mg 06/26/18 22:00 07/06/18 21:18 Neurontin - PO 100 mg HS [facility] Administration Gemfibrozil 600 mg 06/26/18 19:15 07/07/18 06:13 Lopid - PO 600 mg BIDAC [facility] Administration Insulin Aspart 1 vial 07/03/18 09:26 07/07/18 06:13 Novolog Vial Sliding Scale - SQ Not Given BIDAC [facility] Protocol Isoniazid 300 mg 06/27/18 10:00 07/07/18 10:27 Inh - PO 300 mg DAILY [facility] Administration Metoprolol Tartrate 100 mg 06/26/18 22:00 07/07/18 10:14 Lopressor - PO 100 mg BID [facility] Administration Pyridoxine HCl 100 mg 06/27/18 10:00 07/07/18 10:14 Vitamin B6 - PO 100 mg DAILY [facility] Administration Quetiapine Fumarate 25 mg 06/26/18 22:00 07/07/18 14:17 Seroquel - PO 25 mg QID [facility] Administration Sevelamer Carbonate 800 mg 06/26/18 19:15 07/07/18 12:11 Renvela - PO 800 mg TIDCM [facility] Administration Thiamine HCl 100 mg 06/27/18 10:00 07/07/18 10:13 Vitamin B1 - PO 100 mg DAILY [facility] Administration Impression 1. ESRD 2. hyperkalemia 3. HTN 4. DM 5. HLD 6. hypocalcemia 7. positive rpr Plan - HD in am - ID input appreciated - cont calcium supplements - cont phos binders - renal diet - will follow Dr Marks
[2018-07-07] MEDS: DONEPEZIL HCL 5 MG TABLET (FP) PO SCH (21:21)
[2018-07-07] MEDS: GABAPENTIN 100 MG CAPSULE (FP) PO SCH (21:22)
[2018-07-08] MEDS ORDERED: PT OWN MED DRAWER 7, Y5N ONE (05:39)
[2018-07-08] MEDS: GEMFIBROZIL 600 MG TABLET (FP) PO SCH ×2 (06:07→17:27)
[2018-07-08] MEDS: INSULIN SLIDING SCALE (NOVOLOG) 1 VIAL SQ SCH ×2 (06:07→17:28)
[2018-07-08 08:08] LABS: HEMATOCRIT 33.1 % (32.4-45.2); HEMOGLOBIN 11.4 GM/dL (10.7-15.3); MCH 30.4 pg (25.7-33.7); MCHC 34.4 g/dl (32.0-36.0); MEAN CELL VOLUME 88.4 fl (80-96); MEAN PLT VOLUME 9.3 fl (7.5-11.1); PLATELET COUNT 201 K/MM3 (134-434); RBC 3.74 M/mm3 (3.60-5.2); RDW 13.3 % (11.6-15.6); WHITE BLOOD COUNT 7.3 K/mm3 (4.0-10.0)
[2018-07-08 08:30] LABS: ALBUMIN 3.4 g/dl (3.4-5.0); ALK PHOS 134 U/L (45-117); ANION GAP 14 MMOL/L (8-16); BILIRUBIN,TOTAL 0.3 mg/dL (0.2-1); BLOOD UREA NITROGEN 100 mg/dL (7-18); CALCIUM 8.2 mg/dL (8.5-10.1); CHLORIDE 96 mmol/L (98-107); CO2 22 mmol/L (21-32); GLUCOSE,RANDOM 264 mg/dL (74-106); MAGNESIUM 3.2 mg/dL (1.8-2.4); PHOSPHOROUS 5.6 mg/dL (2.5-4.9); POTASSIUM 5.1 mmol/L (3.5-5.1); SGOT/AST 32 U/L (15-37); SGPT/ALT 10 U/L (13-61); SODIUM 132 mmol/L (136-145); TOT PROT 6.9 g/dl (6.4-8.2)
[2018-07-08] MEDS: SEVELAMER CARBONATE 800 MG TAB (FP) PO SCH ×3 (08:45→17:27)
[2018-07-08] MEDS: CALCIUM ACETATE 667 MG CAPSULE (FP) PO SCH ×3 (08:45→17:27)
[2018-07-08] MEDS ORDERED: PARICALCITOL 5 MCG/ML VIAL IVPUSH ONE (10:00)
--- NOTE | 2018-07-08 11:25 | PN ---
Progress Note (short form) - Note Progress Note: confused pt examined in HD no complaints Selected Entries 07/08/18 09:05 Temperature 97.4 F L Pulse Rate 68 Respiratory 18 Rate Blood Pressure 148/70 Laboratory Tests 07/08/18 07/08/18 07:43 07:43 WBC 7.3 RBC 3.74 Hgb 11.4 Hct 33.1 MCV 88.4 MCH 30.4 MCHC 34.4 RDW 13.3 Plt Count 201 Sodium 132 L Potassium 5.1 Chloride 96 L Carbon Dioxide 22 Anion Gap 14 BUN 100 H Creatinine 10.0 H* Random Glucose 264 H Calcium 8.2 L Phosphorus 5.6 H AST 32 Alkaline Phosphatase 134 H Total Protein 6.9 Albumin 3.4 S1 S2 RRR Lungs decreased Abd- soft, nT No edema PLAN FTA -ABS- negative, MHA positive, RPR positive spoke with ID-- no h/o treatment from [facility] CSF VDRL pending continue with meds HD per renal Problem List - Problems (1) Diabetes Code(s): E11.9 - TYPE 2 DIABETES MELLITUS WITHOUT COMPLICATIONS (2) ESRD (end stage renal disease) on dialysis Code(s): N18.6 - END STAGE RENAL DISEASE; Z99.2 - DEPENDENCE ON RENAL DIALYSIS (3) End stage renal disease Code(s): N18.6 - END STAGE RENAL DISEASE (4) Positive RPR test Code(s): A53.0 - LATENT SYPHILIS, UNSPECIFIED EARLY OR LATE (5) Toxic metabolic encephalopathy Code(s): G92 - TOXIC ENCEPHALOPATHY
--- NOTE | 2018-07-08 13:40 | PN ---
Progress Note, Physician History of Present Illness: Pt seen and examined at bedside. She tolerated HD. She feels well today. - Current Medication List Current Medications: Active Medications Acetaminophen (Tylenol -) 325 mg PO QID [facility] Last Admin: 07/07/18 21:22 Dose: 325 mg Amlodipine Besylate (Norvasc -) 5 mg PO DAILY [facility] Last Admin: 07/07/18 10:15 Dose: 5 mg Calcium Acetate (Phoslo -) 667 mg PO TIDCM [facility] Last Admin: 07/08/18 08:45 Dose: 667 mg Calcium Carbonate/Cholecalciferol (Os-Igor 500+D -) 2 tab PO DAILY [facility] Last Admin: 07/07/18 10:15 Dose: 2 tab Donepezil HCl (Aricept -) 5 mg PO HS [facility] Last Admin: 07/07/18 21:21 Dose: 5 mg Escitalopram Oxalate (Lexapro -) 20 mg PO DAILY [facility] Last Admin: 07/07/18 10:13 Dose: 20 mg Furosemide (Lasix -) 80 mg PO DAILY [facility] Last Admin: 07/07/18 10:13 Dose: 80 mg Gabapentin (Neurontin -) 100 mg PO HS [facility] Last Admin: 07/07/18 21:22 Dose: 100 mg Gemfibrozil (Lopid -) 600 mg PO BIDAC [facility] Last Admin: 07/08/18 06:07 Dose: 600 mg Sodium Chloride (Normal Saline -) 250 mls @ 3,000 mls/hr IV PRN PRN PRN Reason: Hypotension during Dialysis Stop: 07/08/18 15:58 Insulin Aspart (Novolog Vial Sliding Scale -) 1 vial SQ BIDAC [facility]; Protocol Last Admin: 07/08/18 06:07 Dose: Not Given Isoniazid (Inh -) 300 mg PO DAILY [facility] Last Admin: 07/07/18 10:27 Dose: 300 mg Metoprolol Tartrate (Lopressor -) 100 mg PO BID [facility] Last Admin: 07/07/18 21:21 Dose: 100 mg Pyridoxine HCl (Vitamin B6 -) 100 mg PO DAILY [facility] Last Admin: 07/07/18 10:14 Dose: 100 mg Quetiapine Fumarate (Seroquel -) 25 mg PO QID [facility] Last Admin: 07/07/18 21:21 Dose: 25 mg Sevelamer Carbonate (Renvela -) 800 mg PO TIDCM [facility] Last Admin: 07/08/18 08:45 Dose: 800 mg Thiamine HCl (Vitamin B1 -) 100 mg PO DAILY [facility] Last Admin: 07/07/18 10:13 Dose: 100 mg - Objective Vital Signs: Vital Signs Temperature 97.4 F L 07/08/18 09:05 Pulse Rate 80 07/08/18 12:49 Respiratory Rate 18 07/08/18 12:49 Blood Pressure 145/72 07/08/18 12:49 O2 Sat by Pulse Oximetry (%) 96 07/08/18 09:00 Constitutional: Yes: Calm Eyes: Yes: Conjunctiva Clear HENT: Yes: Atraumatic Neck: Yes: Supple Cardiovascular: Yes: S1, S2 Respiratory: Yes: CTA Bilaterally Gastrointestinal: Yes: Soft Genitourinary: Yes: WNL Musculoskeletal: Yes: WNL Edema: No Neurological: Yes: Oriented Psychiatric: Yes: Oriented Labs: CBC, BMP 07/08/18 07:43 07/08/18 07:43 INR, PTT INR 0.93 (0.83-1.09) 07/03/18 06:00 Problem List - Problems (1) End stage renal disease Code(s): N18.6 - END STAGE RENAL DISEASE Assessment/Plan Current Medications Generic Name Dose Route Start Last Admin Trade Name Estevanq PRN Reason Stop Dose Admin Acetaminophen 325 mg 06/26/18 22:00 07/07/18 21:22 Tylenol - PO 325 mg QID [facility] Administration Amlodipine Besylate 5 mg 06/27/18 10:00 07/07/18 10:15 Norvasc - PO 5 mg DAILY [facility] Administration Calcium Acetate 667 mg 07/04/18 17:30 07/08/18 08:45 Phoslo - PO 667 mg TIDCM [facility] Administration Calcium Carbonate/Cholecalciferol 2 tab 07/01/18 11:00 07/07/18 10:15 Os-Igor 500+D - PO 2 tab DAILY [facility] Administration Donepezil HCl 5 mg 06/26/18 22:00 07/07/18 21:21 Aricept - PO 5 mg HS [facility] Administration Escitalopram Oxalate 20 mg 06/27/18 10:00 07/07/18 10:13 Lexapro - PO 20 mg DAILY [facility] Administration Furosemide 80 mg 06/27/18 10:00 07/07/18 10:13 Lasix - PO 80 mg DAILY [facility] Administration Gabapentin 100 mg 06/26/18 22:00 07/07/18 21:22 Neurontin - PO 100 mg HS [facility] Administration Gemfibrozil 600 mg 06/26/18 19:15 07/08/18 06:07 Lopid - PO 600 mg BIDAC [facility] Administration Sodium Chloride 250 mls @ 3,000 mls/hr 07/07/18 15:57 Normal Saline - IV 07/08/18 15:58 PRN PRN Hypotension during Dialysis Insulin Aspart 1 vial 07/03/18 09:26 07/08/18 06:07 Novolog Vial Sliding Scale - SQ Not Given BIDAC [facility] Protocol Isoniazid 300 mg 06/27/18 10:00 07/07/18 10:27 Inh - PO 300 mg DAILY [facility] Administration Metoprolol Tartrate 100 mg 06/26/18 22:00 07/07/18 21:21 Lopressor - PO 100 mg BID [facility] Administration Pyridoxine HCl 100 mg 06/27/18 10:00 07/07/18 10:14 Vitamin B6 - PO 100 mg DAILY [facility] Administration Quetiapine Fumarate 25 mg 06/26/18 22:00 07/07/18 21:21 Seroquel - PO 25 mg QID [facility] Administration Sevelamer Carbonate 800 mg 06/26/18 19:15 07/08/18 08:45 Renvela - PO 800 mg TIDCM [facility] Administration Thiamine HCl 100 mg 06/27/18 10:00 07/07/18 10:13 Vitamin B1 - PO 100 mg DAILY [facility] Administration Impression 1. ESRD 2. hyperkalemia 3. HTN 4. DM 5. HLD 6. hypocalcemia 7. positive rpr Plan - HD today - cont calcium supplements - HD in am - cont phos binders - renal diet - will follow Dr Marks
[2018-07-08] MEDS: ESCITALOPRAM OXALATE 20 MG TABLET (FP) PO SCH (14:18)
[2018-07-08] MEDS: QUEtiapine FUMARATE 25 MG TABLET (FP) PO SCH ×4 (14:18→21:40)
[2018-07-08] MEDS: ISONIAZID 300 MG TABLET (FP) PO SCH (14:18)
[2018-07-08] MEDS: ACETAMINOPHEN 325 MG TABLET (FP) PO SCH ×4 (14:20→21:40)
[2018-07-08] MEDS ORDERED: ESCITALOPRAM OXALATE 10 MG TABLET (FP) ONE (14:23)
[2018-07-08] MEDS: METOPROLOL TARTRATE 50 MG TABLET (FP) PO SCH ×2 (14:25→21:40)
[2018-07-08] MEDS: FUROSEMIDE 40 MG TABLET (FP) PO SCH (14:25)
[2018-07-08] MEDS: amLODIPine BESYLATE 5 MG TABLET (FP) PO SCH (14:26)
[2018-07-08] MEDS: CALCIUM 500MG/VIT-D 200 UNITS COMBO TABLET (FP) PO SCH (14:26)
[2018-07-08] MEDS: PYRIDOXINE HCL (B-6) 50 MG TABLET (FP) PO SCH (14:27)
[2018-07-08] MEDS: THIAMINE HCL 100 MG TABLET (FP) PO SCH (14:27)
--- NOTE | 2018-07-08 15:23 | PN ---
Progress Note (short form) - Note Progress Note: Denies any complaints Feels good Eager to go back to [place] Apetite good Vital Signs Period Temp Pulse Resp BP Sys/Wesley Pulse Ox Last 24 Hr 97.4 F-98.3 F 62-88 16-22 102-155/52-82 96-97 PE: Awake, alert Neck: Supple, No JVD Lungs: CTA CVS: S1S2 ABD: benign Ext: no edema CMP Sodium 132 mmol/L (136-145) L 07/08/18 07:43 Potassium 5.1 mmol/L (3.5-5.1) 07/08/18 07:43 Chloride 96 mmol/L (98-107) L 07/08/18 07:43 Carbon Dioxide 22 mmol/L (21-32) 07/08/18 07:43 Anion Gap 14 MMOL/L (8-16) 07/08/18 07:43 BUN 100 mg/dL (7-18) H 07/08/18 07:43 Creatinine 10.0 mg/dL (0.55-1.3) H* 07/08/18 07:43 Creat Clearance w eGFR 3.98 (>60) 07/08/18 07:43 POC Glucometer 166 UNITS (80-120) 07/08/18 05:30 Random Glucose 264 mg/dL (74-106) H 07/08/18 07:43 Hemoglobin A1c % 7.0 % (4.2-6.3) H 06/28/18 06:40 Calcium 8.2 mg/dL (8.5-10.1) L 07/08/18 07:43 Phosphorus 5.6 mg/dL (2.5-4.9) H 07/08/18 07:43 Magnesium 3.2 mg/dL (1.8-2.4) H 07/08/18 07:43 Total Bilirubin 0.3 mg/dL (0.2-1) 07/08/18 07:43 AST 32 U/L (15-37) 07/08/18 07:43 ALT 10 U/L (13-61) L 07/08/18 07:43 Alkaline Phosphatase 134 U/L (45-117) H 07/08/18 07:43 Creatine Kinase 69 IU/L (26-192) 06/26/18 12:54 Troponin I 0.03 ng/ml (0.00-0.05) 06/26/18 12:54 Total Protein 6.9 g/dl (6.4-8.2) 07/08/18 07:43 Albumin 3.4 g/dl (3.4-5.0) 07/08/18 07:43 TSH 1.73 uIU/ml (0.358-3.74) 06/28/18 09:30 Current Medications Generic Name Dose Route Start Last Admin Trade Name Freq PRN Reason Stop Dose Admin Acetaminophen 325 mg 06/26/18 22:00 07/08/18 14:21 Tylenol - PO Not Given QID [facility] Amlodipine Besylate 5 mg 06/27/18 10:00 07/08/18 14:26 Norvasc - PO 5 mg DAILY [facility] Administration Calcium Acetate 667 mg 07/04/18 17:30 07/08/18 14:21 Phoslo - PO Not Given TIDCM [facility] Calcium Carbonate/Cholecalciferol 2 tab 07/01/18 11:00 07/08/18 14:26 Os-Igor 500+D - PO 2 tab DAILY [facility] Administration Donepezil HCl 5 mg 06/26/18 22:00 07/07/18 21:21 Aricept - PO 5 mg HS [facility] Administration Escitalopram Oxalate 20 mg 06/27/18 10:00 07/08/18 14:18 Lexapro - PO 20 mg DAILY [facility] Administration Furosemide 80 mg 06/27/18 10:00 07/08/18 14:25 Lasix - PO 80 mg DAILY [facility] Administration Gabapentin 100 mg 06/26/18 22:00 07/07/18 21:22 Neurontin - PO 100 mg HS [facility] Administration Gemfibrozil 600 mg 06/26/18 19:15 07/08/18 06:07 Lopid - PO 600 mg BIDAC [facility] Administration Sodium Chloride 250 mls @ 3,000 mls/hr 07/07/18 15:57 Normal Saline - IV 07/08/18 15:58 PRN PRN Hypotension during Dialysis Insulin Aspart 1 vial 07/03/18 09:26 07/08/18 06:07 Novolog Vial Sliding Scale - SQ Not Given BIDAC SARAHY Protocol Isoniazid 300 mg 06/27/18 10:00 07/08/18 14:18 Inh - PO 300 mg DAILY SARAHY Administration Metoprolol Tartrate 100 mg 06/26/18 22:00 07/08/18 14:25 Lopressor - PO 100 mg BID SARAHY Administration Pyridoxine HCl 100 mg 06/27/18 10:00 07/08/18 14:27 Vitamin B6 - PO 100 mg DAILY SARAHY Administration Quetiapine Fumarate 25 mg 06/26/18 22:00 07/08/18 14:19 Seroquel - PO Not Given QID SARAHY Sevelamer Carbonate 800 mg 06/26/18 19:15 07/08/18 14:19 Renvela - PO Not Given TIDCM SARAHY Thiamine HCl 100 mg 06/27/18 10:00 07/08/18 14:27 Vitamin B1 - PO 100 mg DAILY SARAHY Administration AP: T2DM Hypoglycemia: resolved ? Secondary to Trulicity and poor food intake. Blood sugar better today ESRD D/C Trulicity as outpatient Novolog SS starting at >150 TID BGM QACHS To give snack of around 150 Kcal when FS drops to <120. T0 give half amp of D50 if pt unable or unwilling to eat Pt should get three regular meals with snacks between meals and at bedtime Will F/U
[2018-07-08] MEDS: DONEPEZIL HCL 5 MG TABLET (FP) PO SCH (21:40)
[2018-07-08] MEDS: GABAPENTIN 100 MG CAPSULE (FP) PO SCH (21:40)
[2018-07-08 22:42] VITALS: BMI 26.5
[2018-07-09] MEDS ORDERED: PT OWN MED DRAWER 7, Y5N ONE (05:57)
[2018-07-09] MEDS: GEMFIBROZIL 600 MG TABLET (FP) PO SCH ×2 (06:10→17:18)
[2018-07-09] MEDS: INSULIN SLIDING SCALE (NOVOLOG) 1 VIAL SQ SCH ×3 (06:11→17:18)
[2018-07-09] MEDS ORDERED: ESCITALOPRAM OXALATE 10 MG TABLET (FP) ONE (08:41)
[2018-07-09] MEDS: SEVELAMER CARBONATE 800 MG TAB (FP) PO SCH ×3 (08:58→17:18)
[2018-07-09] MEDS: CALCIUM ACETATE 667 MG CAPSULE (FP) PO SCH ×3 (08:58→17:17)
[2018-07-09] MEDS: QUEtiapine FUMARATE 25 MG TABLET (FP) PO SCH ×4 (09:04→21:55)
[2018-07-09] MEDS: PYRIDOXINE HCL (B-6) 50 MG TABLET (FP) PO SCH (09:04)
[2018-07-09] MEDS: METOPROLOL TARTRATE 50 MG TABLET (FP) PO SCH ×2 (09:04→21:55)
[2018-07-09] MEDS: THIAMINE HCL 100 MG TABLET (FP) PO SCH (09:04)
[2018-07-09] MEDS: FUROSEMIDE 40 MG TABLET (FP) PO SCH (09:05)
[2018-07-09] MEDS: amLODIPine BESYLATE 5 MG TABLET (FP) PO SCH (09:05)
[2018-07-09] MEDS: CALCIUM 500MG/VIT-D 200 UNITS COMBO TABLET (FP) PO SCH (09:05)
[2018-07-09] MEDS: ESCITALOPRAM OXALATE 20 MG TABLET (FP) PO SCH (09:05)
[2018-07-09] MEDS: ACETAMINOPHEN 325 MG TABLET (FP) PO SCH ×4 (09:06→21:55)
[2018-07-09] MEDS: ISONIAZID 300 MG TABLET (FP) PO SCH (09:06)
[2018-07-09] MEDS ORDERED: PENICILLIN G POTASSIUM 20,000,000 (20Mm) UNITS VIAL IVPB SCH (11:00)
--- NOTE | 2018-07-09 11:37 | PN ---
Progress Note (short form) - Note Progress Note: no complaints Vital Signs Period Temp Pulse Resp BP Sys/Wesley Pulse Ox Last 24 Hr 98.2 F-98.8 F 64-88 17-22 111-147/52-82 96-99 cor-rrr lungs clear abd soft,nt ext no edema CBC, BMP 07/08/18 07:43 07/08/18 07:43 Microbiology 07/06/18 10:18 Cerebral Spinal Fluid - Lumbar Puncture Gram Stain - Final 07/06/18 10:18 Cerebral Spinal Fluid - Lumbar Puncture CSF Culture - Final 06/27/18 12:42 Blood - Peripheral Venous Blood Culture - Final NO GROWTH AFTER 5 DAYS INCUBATION 06/27/18 12:42 Blood - Peripheral Venous Blood Culture - Final NO GROWTH AFTER 5 DAYS INCUBATION a/p spoke with KAREY 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:1, fta Negative 02/2011 rpr 1:1, MHAtp negative 2012 rpr 1:2, fta negative has never been treated for syphilis-now with 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 s/p LP with elevated csf protein, csf vdrl still pending given her confusion- ?dementia and abnl csf with +MHATP and +RPR would treat for neurosyphilis with penicillin 2 million units every 6 hours iv for 14 days she should have her volume status and electrolytes monitored carefully while on the penicillin doses have been adjusted for ESRD/HD Problem List - Problems (1) Positive RPR test Code(s): A53.0 - LATENT SYPHILIS, UNSPECIFIED EARLY OR LATE (2) ESRD (end stage renal disease) on dialysis Code(s): N18.6 - END STAGE RENAL DISEASE; Z99.2 - DEPENDENCE ON RENAL DIALYSIS (3) Diabetes Code(s): E11.9 - TYPE 2 DIABETES MELLITUS WITHOUT COMPLICATIONS
--- NOTE | 2018-07-09 12:12 | PN ---
Progress Note, Physician History of Present Illness: Pt seen and examined at bedside. She is awake and alert. She denies shortness of breath. - Current Medication List Current Medications: Active Medications Acetaminophen (Tylenol -) 325 mg PO QID [facility] Last Admin: 07/09/18 09:06 Dose: 325 mg Amlodipine Besylate (Norvasc -) 5 mg PO DAILY [facility] Last Admin: 07/09/18 09:05 Dose: 5 mg Calcium Acetate (Phoslo -) 667 mg PO TIDCM [facility] Last Admin: 07/09/18 08:58 Dose: 667 mg Calcium Carbonate/Cholecalciferol (Os-Igor 500+D -) 2 tab PO DAILY [facility] Last Admin: 07/09/18 09:05 Dose: 2 tab Donepezil HCl (Aricept -) 5 mg PO HS [facility] Last Admin: 07/08/18 21:40 Dose: 5 mg Escitalopram Oxalate (Lexapro -) 20 mg PO DAILY [facility] Last Admin: 07/09/18 09:05 Dose: 20 mg Furosemide (Lasix -) 80 mg PO DAILY [facility] Last Admin: 07/09/18 09:05 Dose: 80 mg Gabapentin (Neurontin -) 100 mg PO HS [facility] Last Admin: 07/08/18 21:40 Dose: 100 mg Gemfibrozil (Lopid -) 600 mg PO BIDAC [facility] Last Admin: 07/09/18 06:10 Dose: Not Given Penicillin G Potassium 2,000, (000 unit/ Dextrose) 100 mls @ 100 mls/hr IVPB Q6H [facility] Insulin Aspart (Novolog Vial Sliding Scale -) 1 vial SQ TIDAC [facility]; Protocol Last Admin: 07/09/18 06:11 Dose: Not Given Isoniazid (Inh -) 300 mg PO DAILY [facility] Last Admin: 07/09/18 09:06 Dose: 300 mg Metoprolol Tartrate (Lopressor -) 100 mg PO BID [facility] Last Admin: 07/09/18 09:04 Dose: 100 mg Pyridoxine HCl (Vitamin B6 -) 100 mg PO DAILY [facility] Last Admin: 07/09/18 09:04 Dose: 100 mg Quetiapine Fumarate (Seroquel -) 25 mg PO QID [facility] Last Admin: 07/09/18 09:04 Dose: 25 mg Sevelamer Carbonate (Renvela -) 800 mg PO TIDCM [facility] Last Admin: 07/09/18 08:58 Dose: 800 mg Thiamine HCl (Vitamin B1 -) 100 mg PO DAILY [facility] Last Admin: 07/09/18 09:04 Dose: 100 mg - Objective Vital Signs: Vital Signs Temperature 98.2 F 07/09/18 06:00 Pulse Rate 64 07/09/18 06:00 Respiratory Rate 17 07/09/18 09:00 Blood Pressure 111/56 L 07/09/18 06:00 O2 Sat by Pulse Oximetry (%) 99 07/09/18 09:00 Constitutional: Yes: Calm Eyes: Yes: Conjunctiva Clear HENT: Yes: Atraumatic Neck: Yes: Supple Cardiovascular: Yes: S1, S2 Respiratory: Yes: CTA Bilaterally Gastrointestinal: Yes: Normal Bowel Sounds, Soft, Abdomen, Obese Genitourinary: Yes: WNL Musculoskeletal: Yes: WNL Edema: No Neurological: Yes: Oriented Psychiatric: Yes: Oriented Labs: CBC, BMP 07/08/18 07:43 07/08/18 07:43 INR, PTT INR 0.93 (0.83-1.09) 07/03/18 06:00 Problem List - Problems (1) End stage renal disease Code(s): N18.6 - END STAGE RENAL DISEASE Assessment/Plan Current Medications Generic Name Dose Route Start Last Admin Trade Name Dominique PRN Reason Stop Dose Admin Acetaminophen 325 mg 06/26/18 22:00 07/09/18 09:06 Tylenol - PO 325 mg QID [facility] Administration Amlodipine Besylate 5 mg 06/27/18 10:00 07/09/18 09:05 Norvasc - PO 5 mg DAILY [facility] Administration Calcium Acetate 667 mg 07/04/18 17:30 07/09/18 08:58 Phoslo - PO 667 mg TIDCM [facility] Administration Calcium Carbonate/Cholecalciferol 2 tab 07/01/18 11:00 07/09/18 09:05 Os-Igor 500+D - PO 2 tab DAILY [facility] Administration Donepezil HCl 5 mg 06/26/18 22:00 07/08/18 21:40 Aricept - PO 5 mg HS [facility] Administration Escitalopram Oxalate 20 mg 06/27/18 10:00 07/09/18 09:05 Lexapro - PO 20 mg DAILY [facility] Administration Furosemide 80 mg 06/27/18 10:00 07/09/18 09:05 Lasix - PO 80 mg DAILY [facility] Administration Gabapentin 100 mg 06/26/18 22:00 07/08/18 21:40 Neurontin - PO 100 mg HS [facility] Administration Gemfibrozil 600 mg 06/26/18 19:15 07/09/18 06:10 Lopid - PO Not Given BIDAC [facility] Penicillin G Potassium 2,000, 100 mls @ 100 mls/hr 07/09/18 11:30 000 unit/ Dextrose IVPB Q6H [facility] Insulin Aspart 1 vial 07/09/18 07:00 07/09/18 06:11 Novolog Vial Sliding Scale - SQ Not Given TIDAC [facility] Protocol Isoniazid 300 mg 06/27/18 10:00 07/09/18 09:06 Inh - PO 300 mg DAILY [facility] Administration Metoprolol Tartrate 100 mg 06/26/18 22:00 07/09/18 09:04 Lopressor - PO 100 mg BID [facility] Administration Pyridoxine HCl 100 mg 06/27/18 10:00 07/09/18 09:04 Vitamin B6 - PO 100 mg DAILY [facility] Administration Quetiapine Fumarate 25 mg 06/26/18 22:00 07/09/18 09:04 Seroquel - PO 25 mg QID [facility] Administration Sevelamer Carbonate 800 mg 06/26/18 19:15 07/09/18 08:58 Renvela - PO 800 mg TIDCM [facility] Administration Thiamine HCl 100 mg 06/27/18 10:00 07/09/18 09:04 Vitamin B1 - PO 100 mg DAILY [facility] Administration Impression 1. ESRD 2. hyperkalemia 3. HTN 4. DM 5. HLD 6. hypocalcemia 7. positive rpr Plan - pt to start pcn - will increase hd time to 3 45 - monitor potassium levels and cont renal diet - of K elevated will increase time further - HD in am - cont calcium supplements - cont phos binders - will follow Dr Marks
[2018-07-09] MEDS ORDERED: INSULIN (NOVOLOG) ASPART 100 UNITS/ML 10ML VIAL ONE (12:13)
[2018-07-09] MEDS: DEXTROSE 5% IVPB SCH ×2 (12:16→18:41)
[2018-07-09] MEDS: WATER IVPB SCH ×2 (12:16→18:41)
[2018-07-09] MEDS: PENICILLIN POTASSIUM IVPB SCH ×2 (12:16→18:41)
--- NOTE | 2018-07-09 12:24 | DS ---
Physical Examination Vital Signs: Vital Signs Temperature 98.2 F 07/09/18 06:00 Pulse Rate 64 07/09/18 06:00 Respiratory Rate 17 07/09/18 09:00 Blood Pressure 111/56 L 07/09/18 06:00 O2 Sat by Pulse Oximetry (%) 99 07/09/18 09:00 Constitutional: Yes: No Distress, Calm Cardiovascular: Yes: Regular Rate and Rhythm Respiratory: Yes: CTA Bilaterally Gastrointestinal: Yes: Normal Bowel Sounds, Soft. No: Tenderness Edema: No Labs: CBC, BMP 07/08/18 07:43 07/08/18 07:43 Discharge Summary Reason For Visit: UREMIC ENCEPHALOPATHY/END STAGE RENAL DISEASE Current Active Problems Diabetes (Acute) ESRD (end stage renal disease) on dialysis (Acute) End stage renal disease (Acute) Positive RPR test (Acute) Toxic metabolic encephalopathy (Acute) Hospital Course: Admitted for AMS, volume overload Seen by Renal ,Neurology , ID as RPR was positive Pt has dementia pt worked up for Neurosyphillis LP done-- CSF VDRL pending , but has elevated protein - decision made to treat her with IV penicillin for 14 days tunneled catheter to be placed for iv antibiotics HD per renal no further interventions after completion of antibiotics Condition: Good - Instructions Diet, Activity, Other Instructions: 14 days of Penicillin 2 million units iv Q6H Referrals: Yousif Torres MD [Primary Care Provider] - Disposition: [facility] FACILITY - Home Medications Comprehensive Discharge Medication List: Ambulatory Orders Acetaminophen 325 mg PO QID 06/26/18 Amlodipine Besylate 5 mg PO DAILY 06/26/18 Aspirin 81 mg PO DAILY 06/26/18 Donepezil HCl 5 mg PO HS 06/26/18 Dulaglutide [Trulicity] 0.75 mg SQ WEEKLY 06/26/18 Escitalopram Oxalate [Lexapro -] 20 mg PO DAILY 06/26/18 Famotidine 20 mg PO DAILY 06/26/18 Furosemide 80 mg PO DAILY 06/26/18 Gabapentin 100 mg PO HS 06/26/18 Gemfibrozil [Lopid] 600 mg PO BID 06/26/18 Isoniazid 300 mg PO DAILY 06/26/18 Metoprolol Tartrate 100 mg PO BID 06/26/18 Pyridoxine HCl (Vitamin B6) [Vitamin B-6] 100 mg PO DAILY 06/26/18 Quetiapine Fumarate [Seroquel -] 25 mg PO Q6H 06/26/18 Sevelamer Carbonate 800 mg PO TID 06/26/18 Thiamine Mononitrate [Vitamin B-1] 100 mg PO DAILY 06/26/18 Penicillin G Potassium [Pfizerpen -] 2,000,000 unit IVPB Q6H 14 Days vial 07/09
[2018-07-09] MEDS: DONEPEZIL HCL 5 MG TABLET (FP) PO SCH (21:55)
[2018-07-09] MEDS: GABAPENTIN 100 MG CAPSULE (FP) PO SCH (21:55)
[2018-07-10] MEDS: WATER IVPB SCH ×3 (00:51→11:15)
[2018-07-10] MEDS: DEXTROSE 5% IVPB SCH ×3 (00:51→11:15)
[2018-07-10] MEDS: PENICILLIN POTASSIUM IVPB SCH ×3 (00:51→11:15)
[2018-07-10] MEDS: GEMFIBROZIL 600 MG TABLET (FP) PO SCH ×2 (06:12→17:17)
[2018-07-10] MEDS: INSULIN SLIDING SCALE (NOVOLOG) 1 VIAL SQ SCH ×3 (06:12→17:26)
[2018-07-10] MEDS ORDERED: PT OWN MED DRAWER 7, Y5N ONE (07:25)
[2018-07-10] MEDS: SEVELAMER CARBONATE 800 MG TAB (FP) PO SCH ×3 (08:00→17:16)
[2018-07-10] MEDS: CALCIUM ACETATE 667 MG CAPSULE (FP) PO SCH ×3 (08:00→17:16)
[2018-07-10] MEDS ORDERED: PARICALCITOL 5 MCG/ML VIAL IVPUSH ONE (08:15)
[2018-07-10 08:53] LABS: HEMATOCRIT 34.4 % (32.4-45.2); HEMOGLOBIN 11.9 GM/dL (10.7-15.3); MCH 30.6 pg (25.7-33.7); MCHC 34.6 g/dl (32.0-36.0); MEAN CELL VOLUME 88.3 fl (80-96); MEAN PLT VOLUME 9.3 fl (7.5-11.1); PLATELET COUNT 209 K/MM3 (134-434); RBC 3.89 M/mm3 (3.60-5.2); RDW 13.4 % (11.6-15.6); WHITE BLOOD COUNT 6.6 K/mm3 (4.0-10.0)
[2018-07-10] MEDS ORDERED: SODIUM CHLORIDE 250 ML IV PRN (09:00)
[2018-07-10] MEDS ORDERED: ESCITALOPRAM OXALATE 10 MG TABLET (FP) ONE (09:04)
[2018-07-10] MEDS: FUROSEMIDE 40 MG TABLET (FP) PO SCH (09:22)
[2018-07-10] MEDS: amLODIPine BESYLATE 5 MG TABLET (FP) PO SCH (09:22)
[2018-07-10] MEDS: CALCIUM 500MG/VIT-D 200 UNITS COMBO TABLET (FP) PO SCH (09:22)
[2018-07-10] MEDS: ACETAMINOPHEN 325 MG TABLET (FP) PO SCH ×4 (09:22→21:59)
[2018-07-10] MEDS: QUEtiapine FUMARATE 25 MG TABLET (FP) PO SCH ×4 (09:22→21:59)
[2018-07-10] MEDS: METOPROLOL TARTRATE 50 MG TABLET (FP) PO SCH ×2 (09:22→21:59)
[2018-07-10] MEDS: ESCITALOPRAM OXALATE 20 MG TABLET (FP) PO SCH (09:23)
[2018-07-10] MEDS: ISONIAZID 300 MG TABLET (FP) PO SCH (09:23)
[2018-07-10] MEDS: THIAMINE HCL 100 MG TABLET (FP) PO SCH (09:24)
[2018-07-10] MEDS: PYRIDOXINE HCL (B-6) 50 MG TABLET (FP) PO SCH (09:24)
[2018-07-10 09:57] LABS: ALBUMIN 3.4 g/dl (3.4-5.0); ALK PHOS 151 U/L (45-117); ANION GAP 13 MMOL/L (8-16); BILIRUBIN,TOTAL 0.4 mg/dL (0.2-1); BLOOD UREA NITROGEN 89 mg/dL (7-18); CALCIUM 8.3 mg/dL (8.5-10.1); CHLORIDE 96 mmol/L (98-107); CO2 23 mmol/L (21-32); GLUCOSE,RANDOM 213 mg/dL (74-106); PHOSPHOROUS 6.5 mg/dL (2.5-4.9); POTASSIUM 5.7 mmol/L (3.5-5.1); SGOT/AST 43 U/L (15-37); SGPT/ALT 11 U/L (13-61); SODIUM 133 mmol/L (136-145); TOT PROT 7.4 g/dl (6.4-8.2)
[2018-07-10 10:00] LABS: CREATININE 8.9 mg/dL (0.55-1.3)
[2018-07-10] MEDS ORDERED: INSULIN (NOVOLOG) ASPART 100 UNITS/ML 10ML VIAL ONE (11:09)
--- NOTE | 2018-07-10 11:45 | PN ---
Progress Note (short form) - Note Progress Note: calm and pleasant refusing to go to HD today but willing for tunneled catheter placement Vital Signs - 24 hr 07/09/18 07/09/18 07/09/18 16:08 18:00 21:00 Temperature 97.8 F 98.4 F Pulse Rate 74 67 Respiratory 20 20 20 Rate Blood Pressure 770/73 H 154/86 O2 Sat by Pulse 99 Oximetry (%) 07/10/18 07/10/18 07/10/18 05:54 09:00 10:00 Temperature 97.8 F 98.1 F Pulse Rate 64 62 Respiratory 20 18 Rate Blood Pressure 119/75 132/67 O2 Sat by Pulse 95 Oximetry (%) Current Medications Generic Name Dose Route Start Last Admin Trade Name Freq PRN Reason Stop Dose Admin Acetaminophen 325 mg 06/26/18 22:00 07/10/18 09:22 Tylenol - PO 325 mg QID [facility] Administration Amlodipine Besylate 5 mg 06/27/18 10:00 07/10/18 09:22 Norvasc - PO 5 mg DAILY [facility] Administration Calcium Acetate 667 mg 07/04/18 17:30 07/10/18 08:00 Phoslo - PO 667 mg TIDCM [facility] Administration Calcium Carbonate/Cholecalciferol 2 tab 07/01/18 11:00 07/10/18 09:22 Os-Igor 500+D - PO 2 tab DAILY [facility] Administration Donepezil HCl 5 mg 06/26/18 22:00 07/09/18 21:55 Aricept - PO 5 mg HS [facility] Administration Escitalopram Oxalate 20 mg 06/27/18 10:00 07/10/18 09:23 Lexapro - PO 20 mg DAILY [facility] Administration Furosemide 80 mg 06/27/18 10:00 07/10/18 09:22 Lasix - PO 80 mg DAILY [facility] Administration Gabapentin 100 mg 06/26/18 22:00 07/09/18 21:55 Neurontin - PO 100 mg HS [facility] Administration Gemfibrozil 600 mg 06/26/18 19:15 07/10/18 06:12 Lopid - PO 600 mg BIDAC [facility] Administration Penicillin G Potassium 2,000, 100 mls @ 100 mls/hr 07/09/18 11:30 07/10/18 11 :15 000 unit/ Dextrose IVPB 100 mls/hr Q6H [facility] Administration Insulin Aspart 1 vial 07/09/18 07:00 07/10/18 11:13 Novolog Vial Sliding Scale - SQ 3 units TIDAC [facility] Administration Protocol Isoniazid 300 mg 06/27/18 10:00 07/10/18 09:23 Inh - PO 300 mg DAILY [facility] Administration Metoprolol Tartrate 100 mg 06/26/18 22:00 07/10/18 09:22 Lopressor - PO 100 mg BID [facility] Administration Pyridoxine HCl 100 mg 06/27/18 10:00 07/10/18 09:24 Vitamin B6 - PO 100 mg DAILY [facility] Administration Quetiapine Fumarate 25 mg 06/26/18 22:00 07/10/18 09:22 Seroquel - PO 25 mg QID [facility] Administration Sevelamer Carbonate 800 mg 06/26/18 19:15 07/10/18 08:00 Renvela - PO 800 mg TIDCM [facility] Administration Thiamine HCl 100 mg 06/27/18 10:00 07/10/18 09:24 Vitamin B1 - PO 100 mg DAILY [facility] Administration Laboratory Results - last 24 hr 07/06/18 07/09/18 07/09/18 10:18 12:11 17:16 WBC RBC Hgb Hct MCV MCH MCHC RDW Plt Count MPV Sodium Potassium Chloride Carbon Dioxide Anion Gap BUN Creatinine Creat Clearance w eGFR POC Glucometer 285 125 Random Glucose Calcium Phosphorus Total Bilirubin AST ALT Alkaline Phosphatase Total Protein Albumin CSF VDRL Non reactive 07/09/18 07/10/18 07/10/18 21:54 06:11 08:40 WBC 6.6 RBC 3.89 Hgb 11.9 Hct 34.4 MCV 88.3 MCH 30.6 MCHC 34.6 RDW 13.4 Plt Count 209 MPV 9.3 Sodium Potassium Chloride Carbon Dioxide Anion Gap BUN Creatinine Creat Clearance w eGFR POC Glucometer 195 122 Random Glucose Calcium Phosphorus Total Bilirubin AST ALT Alkaline Phosphatase Total Protein Albumin CSF VDRL 07/10/18 07/10/18 08:40 11:03 WBC RBC Hgb Hct MCV MCH MCHC RDW Plt Count MPV Sodium 133 L Potassium 5.7 H Chloride 96 L Carbon Dioxide 23 Anion Gap 13 BUN 89 H Creatinine 8.9 H* Creat Clearance w eGFR 4.55 POC Glucometer 346 Random Glucose 213 H Calcium 8.3 L Phosphorus 6.5 H Total Bilirubin 0.4 AST 43 H ALT 11 L Alkaline Phosphatase 151 H Total Protein 7.4 Albumin 3.4 CSF VDRL S1 S2 RRR Lungs decreased Abd- soft, nT No edema PLAN FTA -ABS- negative, MHA positive, RPR positive spoke with ID-- no h/o treatment from [facility] CSF VDRL nonreactive continue with meds HD per renal Problem List - Problems (1) Diabetes Code(s): E11.9 - TYPE 2 DIABETES MELLITUS WITHOUT COMPLICATIONS (2) ESRD (end stage renal disease) on dialysis Code(s): N18.6 - END STAGE RENAL DISEASE; Z99.2 - DEPENDENCE ON RENAL DIALYSIS (3) End stage renal disease Code(s): N18.6 - END STAGE RENAL DISEASE (4) Positive RPR test Code(s): A53.0 - LATENT SYPHILIS, UNSPECIFIED EARLY OR LATE (5) Toxic metabolic encephalopathy Code(s): G92 - TOXIC ENCEPHALOPATHY
--- NOTE | 2018-07-10 14:05 | PN ---
Progress Note, Physician History of Present Illness: Pt seen and examined at bedside. She refused to go to HD this morning. She now agrees to go to HD. - Current Medication List Current Medications: Active Medications Acetaminophen (Tylenol -) 325 mg PO QID [facility] Last Admin: 07/10/18 13:44 Dose: Not Given Amlodipine Besylate (Norvasc -) 5 mg PO DAILY [facility] Last Admin: 07/10/18 09:22 Dose: 5 mg Calcium Acetate (Phoslo -) 667 mg PO TIDCM [facility] Last Admin: 07/10/18 12:42 Dose: Not Given Calcium Carbonate/Cholecalciferol (Os-Igor 500+D -) 2 tab PO DAILY [facility] Last Admin: 07/10/18 09:22 Dose: 2 tab Donepezil HCl (Aricept -) 5 mg PO HS [facility] Last Admin: 07/09/18 21:55 Dose: 5 mg Escitalopram Oxalate (Lexapro -) 20 mg PO DAILY [facility] Last Admin: 07/10/18 09:23 Dose: 20 mg Furosemide (Lasix -) 80 mg PO DAILY [facility] Last Admin: 07/10/18 09:22 Dose: 80 mg Gabapentin (Neurontin -) 100 mg PO HS [facility] Last Admin: 07/09/18 21:55 Dose: 100 mg Gemfibrozil (Lopid -) 600 mg PO BIDAC [facility] Last Admin: 07/10/18 06:12 Dose: 600 mg Penicillin G Potassium 2,000, (000 unit/ Dextrose) 100 mls @ 100 mls/hr IVPB Q6H [facility] Last Admin: 07/10/18 11:15 Dose: 100 mls/hr Insulin Aspart (Novolog Vial Sliding Scale -) 1 vial SQ TIDAC [facility]; Protocol Last Admin: 07/10/18 11:13 Dose: 3 units Isoniazid (Inh -) 300 mg PO DAILY [facility] Last Admin: 07/10/18 09:23 Dose: 300 mg Metoprolol Tartrate (Lopressor -) 100 mg PO BID [facility] Last Admin: 07/10/18 09:22 Dose: 100 mg Pyridoxine HCl (Vitamin B6 -) 100 mg PO DAILY [facility] Last Admin: 07/10/18 09:24 Dose: 100 mg Quetiapine Fumarate (Seroquel -) 25 mg PO QID [facility] Last Admin: 07/10/18 13:44 Dose: Not Given Sevelamer Carbonate (Renvela -) 800 mg PO TIDCM [facility] Last Admin: 07/10/18 12:42 Dose: Not Given Thiamine HCl (Vitamin B1 -) 100 mg PO DAILY [facility] Last Admin: 07/10/18 09:24 Dose: 100 mg - Objective Vital Signs: Vital Signs Temperature 98.1 F 07/10/18 10:00 Pulse Rate 60 07/10/18 13:20 Respiratory Rate 18 07/10/18 13:20 Blood Pressure 139/73 07/10/18 13:20 O2 Sat by Pulse Oximetry (%) 95 07/10/18 09:00 Constitutional: Yes: Calm Eyes: Yes: Conjunctiva Clear HENT: Yes: Atraumatic Cardiovascular: Yes: S1, S2 Respiratory: Yes: CTA Bilaterally Gastrointestinal: Yes: Normal Bowel Sounds, Soft Genitourinary: Yes: WNL Musculoskeletal: Yes: WNL Edema: No Neurological: Yes: Oriented Psychiatric: Yes: Oriented Labs: CBC, BMP 07/10/18 08:40 07/10/18 08:40 INR, PTT INR 0.93 (0.83-1.09) 07/03/18 06:00 Problem List - Problems (1) End stage renal disease Code(s): N18.6 - END STAGE RENAL DISEASE Assessment/Plan Current Medications Generic Name Dose Route Start Last Admin Trade Name Dominique PRN Reason Stop Dose Admin Acetaminophen 325 mg 06/26/18 22:00 07/10/18 13:44 Tylenol - PO Not Given QID [facility] Amlodipine Besylate 5 mg 06/27/18 10:00 07/10/18 09:22 Norvasc - PO 5 mg DAILY [facility] Administration Calcium Acetate 667 mg 07/04/18 17:30 07/10/18 12:42 Phoslo - PO Not Given TIDCM [facility] Calcium Carbonate/Cholecalciferol 2 tab 07/01/18 11:00 07/10/18 09:22 Os-Igor 500+D - PO 2 tab DAILY [facility] Administration Donepezil HCl 5 mg 06/26/18 22:00 07/09/18 21:55 Aricept - PO 5 mg HS [facility] Administration Escitalopram Oxalate 20 mg 06/27/18 10:00 07/10/18 09:23 Lexapro - PO 20 mg DAILY [facility] Administration Furosemide 80 mg 06/27/18 10:00 07/10/18 09:22 Lasix - PO 80 mg DAILY [facility] Administration Gabapentin 100 mg 06/26/18 22:00 07/09/18 21:55 Neurontin - PO 100 mg HS [facility] Administration Gemfibrozil 600 mg 06/26/18 19:15 07/10/18 06:12 Lopid - PO 600 mg BIDAC [facility] Administration Penicillin G Potassium 2,000, 100 mls @ 100 mls/hr 07/09/18 11:30 07/10/18 11 :15 000 unit/ Dextrose IVPB 100 mls/hr Q6H [facility] Administration Insulin Aspart 1 vial 07/09/18 07:00 07/10/18 11:13 Novolog Vial Sliding Scale - SQ 3 units TIDAC [facility] Administration Protocol Isoniazid 300 mg 06/27/18 10:00 07/10/18 09:23 Inh - PO 300 mg DAILY [facility] Administration Metoprolol Tartrate 100 mg 06/26/18 22:00 07/10/18 09:22 Lopressor - PO 100 mg BID [facility] Administration Pyridoxine HCl 100 mg 06/27/18 10:00 07/10/18 09:24 Vitamin B6 - PO 100 mg DAILY [facility] Administration Quetiapine Fumarate 25 mg 06/26/18 22:00 07/10/18 13:44 Seroquel - PO Not Given QID [facility] Sevelamer Carbonate 800 mg 06/26/18 19:15 07/10/18 12:42 Renvela - PO Not Given TIDCM [facility] Thiamine HCl 100 mg 06/27/18 10:00 07/10/18 09:24 Vitamin B1 - PO 100 mg DAILY [facility] Administration Impression 1. ESRD 2. hyperkalemia 3. HTN 4. DM 5. HLD 6. hypocalcemia 7. positive rpr Plan - potassium has been elevated - discussed with ID, will recommend choosing an alternate agent as pcn is delivering a high potassium load - she refused increased HD time to help with hyperkalemia - cont calcium supplements - cont phos binders - will follow Dr Marks
--- NOTE | 2018-07-10 15:59 | PN ---
Progress Note (short form) - Note Progress Note: no complaints on HD Vital Signs Period Temp Pulse Resp BP Sys/Wesley Pulse Ox Last 24 Hr 97.8 F-98.4 F 60-74 18-20 119-770/67-86 95-99 cor-rrr lungs- clear abd soft, nt ext- no edema CBC, BMP 07/10/18 08:40 07/10/18 08:40 a/p spoke with KAREY 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:1, fta Negative 02/2011 rpr 1:1, MHAtp negative 2012 rpr 1:2, fta negative has never been treated for syphilis-now with 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 s/p LP with elevated csf protein, csf vdrl still pending given her confusion- ?dementia and abnl csf with +MHATP and +RPR 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
[2018-07-10] MEDS ORDERED: DEXTROSE 5%-WATER 100 ML IVPB ONE (17:16)
[2018-07-10] MEDS: CEFTRIAXONE 2 GM in DEXTROSE 5%-WATER 100 ML IVPB SCH (17:17)
[2018-07-10] MEDS: GABAPENTIN 100 MG CAPSULE (FP) PO SCH (21:59)
[2018-07-10] MEDS: DONEPEZIL HCL 5 MG TABLET (FP) PO SCH (22:00)
[2018-07-11] MEDS ORDERED: PT OWN MED DRAWER 7, Y5N ONE ×4 (05:58→09:34)
[2018-07-11 06:09] LABS: ALBUMIN 3.2 g/dl (3.4-5.0); ALK PHOS 144 U/L (45-117); ANION GAP 11 MMOL/L (8-16); BILIRUBIN,TOTAL 0.3 mg/dL (0.2-1); BLOOD UREA NITROGEN 61 mg/dL (7-18); CALCIUM 8.1 mg/dL (8.5-10.1); CHLORIDE 99 mmol/L (98-107); CO2 25 mmol/L (21-32); CREATININE 6.8 mg/dL (0.55-1.3); GLUCOSE,RANDOM 127 mg/dL (74-106); POTASSIUM 4.7 mmol/L (3.5-5.1); SGOT/AST 34 U/L (15-37); SGPT/ALT 11 U/L (13-61); SODIUM 135 mmol/L (136-145)
[2018-07-11] MEDS: INSULIN SLIDING SCALE (NOVOLOG) 1 VIAL SQ SCH ×2 (06:21→12:14)
[2018-07-11] MEDS: GEMFIBROZIL 600 MG TABLET (FP) PO SCH (06:29)
[2018-07-11 06:34] VITALS: TEMP 98.4
[2018-07-11] MEDS: SEVELAMER CARBONATE 800 MG TAB (FP) PO SCH ×2 (08:13→12:41)
[2018-07-11] MEDS: CALCIUM ACETATE 667 MG CAPSULE (FP) PO SCH ×2 (08:13→12:00)
[2018-07-11] MEDS ORDERED: ESCITALOPRAM OXALATE 10 MG TABLET (FP) ONE (09:33)
[2018-07-11] MEDS: FUROSEMIDE 40 MG TABLET (FP) PO SCH (09:37)
[2018-07-11] MEDS: THIAMINE HCL 100 MG TABLET (FP) PO SCH (09:37)
[2018-07-11] MEDS: amLODIPine BESYLATE 5 MG TABLET (FP) PO SCH (09:37)
[2018-07-11] MEDS: METOPROLOL TARTRATE 50 MG TABLET (FP) PO SCH (09:37)
[2018-07-11] MEDS: QUEtiapine FUMARATE 25 MG TABLET (FP) PO SCH ×2 (09:38→14:06)
[2018-07-11] MEDS: CALCIUM 500MG/VIT-D 200 UNITS COMBO TABLET (FP) PO SCH (09:38)
[2018-07-11] MEDS: ISONIAZID 300 MG TABLET (FP) PO SCH (09:38)
[2018-07-11] MEDS: PYRIDOXINE HCL (B-6) 50 MG TABLET (FP) PO SCH (09:39)
[2018-07-11] MEDS: ACETAMINOPHEN 325 MG TABLET (FP) PO SCH ×2 (09:39→14:05)
[2018-07-11] MEDS: ESCITALOPRAM OXALATE 20 MG TABLET (FP) PO SCH (09:40)
--- NOTE | 2018-07-11 11:15 | PN ---
Progress Note (short form) - Note Progress Note: pt seen/ examined chart reviewed just came back from catheter insertion comfortable Vital Signs Temp 98.4 F 07/11/18 06:00 Pulse 62 07/11/18 11:14 Resp 12 07/11/18 11:14 BP 150/72 07/11/18 11:14 Pulse Ox 100 07/11/18 11:14 Intake & Output 07/10/18 07/10/18 07/11/18 11:59 23:59 11:59 Intake Total 200 700 Balance 200 700 Weight 135 lb 4 oz 132 lb 6.4 oz Intake: IV 200 s/l 200 IVPB 100 Oral 600 Other: Voiding Method Toilet Toilet # Unmeasured Voids Void 0 Bowel Movement No # Bowel Movements 0 Weight Measurement Method Built in Bedscale Built in Bedscale Active Medications Acetaminophen (Tylenol -) 325 mg PO QID [facility] Last Admin: 07/11/18 09:39 Dose: 325 mg Amlodipine Besylate (Norvasc -) 5 mg PO DAILY [facility] Last Admin: 07/11/18 09:37 Dose: 5 mg Calcium Acetate (Phoslo -) 667 mg PO TIDCM [facility] Last Admin: 07/11/18 08:13 Dose: 667 mg Calcium Carbonate/Cholecalciferol (Os-Igor 500+D -) 2 tab PO DAILY [facility] Last Admin: 07/11/18 09:38 Dose: 2 tab Donepezil HCl (Aricept -) 5 mg PO HS [facility] Last Admin: 07/10/18 22:00 Dose: 5 mg Escitalopram Oxalate (Lexapro -) 20 mg PO DAILY [facility] Last Admin: 07/11/18 09:40 Dose: 20 mg Furosemide (Lasix -) 80 mg PO DAILY [facility] Last Admin: 07/11/18 09:37 Dose: 80 mg Gabapentin (Neurontin -) 100 mg PO HS [facility] Last Admin: 07/10/18 21:59 Dose: 100 mg Gemfibrozil (Lopid -) 600 mg PO BIDAC [facility] Last Admin: 07/11/18 06:29 Dose: 600 mg Ceftriaxone Sodium 2 gm/ (Dextrose) 100 mls @ 200 mls/hr IVPB DAILY [facility]; Protocol Last Admin: 07/10/18 17:17 Dose: 200 mls/hr Insulin Aspart (Novolog Vial Sliding Scale -) 1 vial SQ TIDAC [facility]; Protocol Last Admin: 07/11/18 06:21 Dose: Not Given Isoniazid (Inh -) 300 mg PO DAILY [facility] Last Admin: 07/11/18 09:38 Dose: 300 mg Metoprolol Tartrate (Lopressor -) 100 mg PO BID [facility] Last Admin: 07/11/18 09:37 Dose: 100 mg Pyridoxine HCl (Vitamin B6 -) 100 mg PO DAILY [facility] Last Admin: 07/11/18 09:39 Dose: 100 mg Quetiapine Fumarate (Seroquel -) 25 mg PO QID [facility] Last Admin: 07/11/18 09:38 Dose: 25 mg Sevelamer Carbonate (Renvela -) 800 mg PO TIDCM [facility] Last Admin: 07/11/18 08:13 Dose: 800 mg Thiamine HCl (Vitamin B1 -) 100 mg PO DAILY [facility] Last Admin: 07/11/18 09:37 Dose: 100 mg CBC, BMP 07/10/18 08:40 07/11/18 05:20 Physical S1 S2 RRR Lungs decreased Abd- soft, No edema alert/ awake a/p stable d/c today Abx -- recephin 2 gm daily x 14 days discussed with [employer] as well as Dr. Lin also today Problem List - Problems (1) Diabetes Code(s): E11.9 - TYPE 2 DIABETES MELLITUS WITHOUT COMPLICATIONS (2) ESRD (end stage renal disease) on dialysis Code(s): N18.6 - END STAGE RENAL DISEASE; Z99.2 - DEPENDENCE ON RENAL DIALYSIS (3) Positive RPR test Code(s): A53.0 - LATENT SYPHILIS, UNSPECIFIED EARLY OR LATE
[2018-07-11 11:19] VITALS: BP 163/79; PULSE 65
[2018-07-11] MEDS ORDERED: SODIUM CHLORIDE 250 ML IV PRN (11:35)
--- NOTE | 2018-07-11 11:35 | PN ---
Progress Note, Physician History of Present Illness: Pt seen and examined at bedside. She is being discharged today. She has no complaints. - Current Medication List Current Medications: Active Medications Acetaminophen (Tylenol -) 325 mg PO QID [facility] Last Admin: 07/11/18 09:39 Dose: 325 mg Amlodipine Besylate (Norvasc -) 5 mg PO DAILY [facility] Last Admin: 07/11/18 09:37 Dose: 5 mg Calcium Acetate (Phoslo -) 667 mg PO TIDCM [facility] Last Admin: 07/11/18 08:13 Dose: 667 mg Calcium Carbonate/Cholecalciferol (Os-Igor 500+D -) 2 tab PO DAILY [facility] Last Admin: 07/11/18 09:38 Dose: 2 tab Donepezil HCl (Aricept -) 5 mg PO HS [facility] Last Admin: 07/10/18 22:00 Dose: 5 mg Escitalopram Oxalate (Lexapro -) 20 mg PO DAILY [facility] Last Admin: 07/11/18 09:40 Dose: 20 mg Furosemide (Lasix -) 80 mg PO DAILY [facility] Last Admin: 07/11/18 09:37 Dose: 80 mg Gabapentin (Neurontin -) 100 mg PO HS [facility] Last Admin: 07/10/18 21:59 Dose: 100 mg Gemfibrozil (Lopid -) 600 mg PO BIDAC [facility] Last Admin: 07/11/18 06:29 Dose: 600 mg Ceftriaxone Sodium 2 gm/ (Dextrose) 100 mls @ 200 mls/hr IVPB DAILY [facility]; Protocol Last Admin: 07/10/18 17:17 Dose: 200 mls/hr Insulin Aspart (Novolog Vial Sliding Scale -) 1 vial SQ TIDAC [facility]; Protocol Last Admin: 07/11/18 06:21 Dose: Not Given Isoniazid (Inh -) 300 mg PO DAILY [facility] Last Admin: 07/11/18 09:38 Dose: 300 mg Metoprolol Tartrate (Lopressor -) 100 mg PO BID [facility] Last Admin: 07/11/18 09:37 Dose: 100 mg Pyridoxine HCl (Vitamin B6 -) 100 mg PO DAILY [facility] Last Admin: 07/11/18 09:39 Dose: 100 mg Quetiapine Fumarate (Seroquel -) 25 mg PO QID [facility] Last Admin: 07/11/18 09:38 Dose: 25 mg Sevelamer Carbonate (Renvela -) 800 mg PO TIDCM [facility] Last Admin: 07/11/18 08:13 Dose: 800 mg Thiamine HCl (Vitamin B1 -) 100 mg PO DAILY [facility] Last Admin: 07/11/18 09:37 Dose: 100 mg - Objective Vital Signs: Vital Signs Temperature 98.4 F 07/11/18 06:00 Pulse Rate 65 07/11/18 11:18 Respiratory Rate 12 07/11/18 11:18 Blood Pressure 163/79 07/11/18 11:18 O2 Sat by Pulse Oximetry (%) 100 07/11/18 11:18 Constitutional: Yes: Calm Eyes: Yes: Conjunctiva Clear HENT: Yes: Atraumatic Cardiovascular: Yes: S1, S2 Respiratory: Yes: CTA Bilaterally Gastrointestinal: Yes: Normal Bowel Sounds, Soft Musculoskeletal: Yes: WNL Edema: No Neurological: Yes: Oriented Psychiatric: Yes: Oriented Labs: CBC, BMP 07/10/18 08:40 07/11/18 05:20 INR, PTT INR 0.93 (0.83-1.09) 07/03/18 06:00 Problem List - Problems (1) End stage renal disease Code(s): N18.6 - END STAGE RENAL DISEASE Assessment/Plan Current Medications Generic Name Dose Route Start Last Admin Trade Name Freq PRN Reason Stop Dose Admin Acetaminophen 325 mg 06/26/18 22:00 07/11/18 09:39 Tylenol - PO 325 mg QID [facility] Administration Amlodipine Besylate 5 mg 06/27/18 10:00 07/11/18 09:37 Norvasc - PO 5 mg DAILY [facility] Administration Calcium Acetate 667 mg 07/04/18 17:30 07/11/18 08:13 Phoslo - PO 667 mg TIDCM [facility] Administration Calcium Carbonate/Cholecalciferol 2 tab 07/01/18 11:00 07/11/18 09:38 Os-Igor 500+D - PO 2 tab DAILY [facility] Administration Donepezil HCl 5 mg 06/26/18 22:00 07/10/18 22:00 Aricept - PO 5 mg HS [facility] Administration Escitalopram Oxalate 20 mg 06/27/18 10:00 07/11/18 09:40 Lexapro - PO 20 mg DAILY [facility] Administration Furosemide 80 mg 06/27/18 10:00 07/11/18 09:37 Lasix - PO 80 mg DAILY [facility] Administration Gabapentin 100 mg 06/26/18 22:00 07/10/18 21:59 Neurontin - PO 100 mg HS [facility] Administration Gemfibrozil 600 mg 06/26/18 19:15 07/11/18 06:29 Lopid - PO 600 mg BIDAC [facility] Administration Ceftriaxone Sodium 2 gm/ 100 mls @ 200 mls/hr 07/10/18 16:30 07/10/18 17:17 Dextrose IVPB 200 mls/hr DAILY [facility] Administration Protocol Insulin Aspart 1 vial 07/09/18 07:00 07/11/18 06:21 Novolog Vial Sliding Scale - SQ Not Given TIDAC [facility] Protocol Isoniazid 300 mg 06/27/18 10:00 07/11/18 09:38 Inh - PO 300 mg DAILY [facility] Administration Metoprolol Tartrate 100 mg 06/26/18 22:00 07/11/18 09:37 Lopressor - PO 100 mg BID [facility] Administration Pyridoxine HCl 100 mg 06/27/18 10:00 07/11/18 09:39 Vitamin B6 - PO 100 mg DAILY [facility] Administration Quetiapine Fumarate 25 mg 06/26/18 22:00 07/11/18 09:38 Seroquel - PO 25 mg QID [facility] Administration Sevelamer Carbonate 800 mg 06/26/18 19:15 07/11/18 08:13 Renvela - PO 800 mg TIDCM [facility] Administration Thiamine HCl 100 mg 06/27/18 10:00 07/11/18 09:37 Vitamin B1 - PO 100 mg DAILY [facility] Administration Impression 1. ESRD 2. hyperkalemia 3. HTN 4. DM 5. HLD 6. hypocalcemia 7. positive rpr Plan - pt has HD set up as outpt - abx changed to ceftriaxone - potassium stabilized - discussed with medical team - cont calcium supplements - cont phos binders - will follow Dr Marks
[2018-07-11] MEDS ORDERED: DEXTROSE 5%-WATER 100 ML IVPB ONE ×2 (11:46→11:47)
[2018-07-11] MEDS: CEFTRIAXONE 2 GM in DEXTROSE 5%-WATER 100 ML IVPB SCH (11:58)
== END 2018-07-11 15:45 | DRG 673 ==
LOC: JER 09:29 → JERBED 16:08 → J6S 23:51
PROVIDERS: ADMIT Internal Medicine; ATTEND Internal Medicine
PROC: 0JH63XZ Insertion of Tunneled Vascular Access Device into Chest Subcutaneous Tissue and Fascia, Percutaneous Approach (ICD-10-PCS; principal; 2018-06-26)
PROC: 5A1D70Z Performance of Urinary Filtration, Intermittent, Less than 6 Hours Per Day (ICD-10-PCS; 2018-06-26)
PROC: 5A1D70Z Performance of Urinary Filtration, Intermittent, Less than 6 Hours Per Day (ICD-10-PCS; 2018-07-01)
PROC: 009U3ZX Drainage of Spinal Canal, Percutaneous Approach, Diagnostic (ICD-10-PCS; 2018-07-06)
DX: I12.0 Hypertensive chronic kidney disease with stage 5 chronic kidney disease or end stage renal disease (principal); N18.6 End stage renal disease; G92 Toxic encephalopathy; E11.649 Type 2 diabetes mellitus with hypoglycemia without coma; E87.5 Hyperkalemia; Z66 Do not resuscitate; Z99.2 Dependence on renal dialysis; A53.0 Latent syphilis, unspecified as early or late
CPT/HCPCS: 36415; 36558; 70450-TC; 71045-TC-FY; 77001-TC-FY; 80048; 80053; 82550; 82565; 82945; 82962; 83036; 83735; 84100; 84157; 84443; 84484; 84520; 85025; 85027; 85610; 86592; 86593; 86704; 86706; 86708; 86780; 86803; 87040; 87070; 87205; 87340; 87389; 93005; 93010; 95816; 99285-25; C1751

== ENCOUNTER 2018-08-01 15:45 | Inpatient (IN) | payer OTHER ==
--- NOTE | 2018-08-01 15:58 | PDOC ---
History of Present Illness - General Chief Complaint: Lethargy Stated Complaint: AMS Time Seen by Provider: 08/01/18 15:49 History Source: Unavil. due to pt. cond. Exam Limitations: Clinical Condition - History of Present Illness Initial Comments: 08/01/18 16:08 Patient is a 57 year old female with a PMHx of HTN, ESRD on Dialysis, Depression /Anxiety, NIDDMII, HLD, recent diagnosis of neurosyphillis completed 14 days of ceftriaxone who was BIBEMS from [facility] for altered mental status. According to nursing records, patient has baseline AMS but today she was more lethargic than usual. Patient refused dialysis this morning and therefore missed her Saturday session. Patient unable to provide history due to clinical condition. PMHx: HTN ESRD on Dialysis Depression NIDDMII HLD Recent diagnosis of neurosyphillis PSHx: Unable to obtain Social Hx: Unable to obtain Past History - Past Medical History Allergies/Adverse Reactions: Allergies Allergy/AdvReac Type Severity Reaction Status Date / Time No Known Allergies Allergy Verified 08/01/18 17:37 Home Medications: Ambulatory Orders Acetaminophen 325 mg PO QID 06/26/18 Amlodipine Besylate 5 mg PO DAILY 06/26/18 Aspirin 81 mg PO DAILY 06/26/18 Donepezil HCl 10 mg PO HS 06/26/18 Dulaglutide [Trulicity] 0.75 mg SQ WEEKLY 06/26/18 Escitalopram Oxalate [Lexapro -] 20 mg PO DAILY 06/26/18 Famotidine 20 mg PO DAILY 06/26/18 Furosemide 80 mg PO DAILY 06/26/18 Gabapentin 100 mg PO HS 06/26/18 Gemfibrozil [Lopid] 600 mg PO BID 06/26/18 Isoniazid 300 mg PO DAILY 06/26/18 Metoprolol Tartrate 100 mg PO BID 06/26/18 Pyridoxine HCl (Vitamin B6) [Vitamin B-6] 100 mg PO DAILY 06/26/18 Quetiapine Fumarate [Seroquel -] 25 mg PO TID 06/26/18 Sevelamer Carbonate 800 mg PO TID 06/26/18 Thiamine Mononitrate [Vitamin B-1] 100 mg PO DAILY 06/26/18 Ceftriaxone 2 gm-D5w Bag 2 gm IV DAILY #14 dose 07/10/18 Dulaglutide [Trulicity] 0.75 mg SQ WEEKLY 08/01/18 COPD: No CHF: No Dementia: Yes Diabetes: Yes Dialysis: Yes GI Disorders: Yes (gerd) Disorders: Yes (end stage renal ds dialysis) HTN: Yes Hypercholesterolemia: Yes - Suicide/Smoking/Psychosocial Hx Smoking History: Unknown if ever smoked Have you smoked in the past 12 months: No Hx Alcohol Use: No Drug/Substance Use Hx: No Substance Use Type: None Review of Systems - Review of Systems Able to Perform ROS?: No *Physical Exam - Vital Signs Last Vital Signs Temp Pulse Resp BP Pulse Ox 98.7 F 78 12 163/86 99 08/01/18 15:54 08/01/18 15:54 08/01/18 15:54 08/01/18 15:54 08/01/18 15:54 - Physical Exam General Appearance: Yes: Other (Awake, responds to name, altered ) HEENT: positive: Other (Moist mucous membranes. (+) Anisocoria but both reactive to light ) Neck: negative: Carotid bruit, Decreased range of motion, Lymphadenopathy (R), Lymphadenopathy (L) Respiratory/Chest: positive: Lungs Clear, Normal Breath Sounds. negative: Respiratory Distress, Accessory Muscle Use, Crackles, Rhonchi, Wheezing Cardiovascular: positive: Regular Rhythm, Regular Rate, S1, S2. negative: Edema , JVD Vascular Pulses: Dorsalis-Pedis (R): 2+, Doralis-Pedis (L): 2+ Gastrointestinal/Abdominal: positive: Other (Soft, nontender, nondistended, normoactive bowel sounds ) Extremity: positive: Normal Range of Motion. negative: Normal Capillary Refill , Normal Inspection Integumentary: positive: Normal Color, Dry, Warm Neurologic: positive: Responsive, Confused, Disoriented, Other (Patient uncooperative. No asterixis) Moderate Sedation - Procedure Monitoring Vital Signs: Procedure Monitoring Vital Signs Temperature 98.7 F 08/01/18 15:54 Pulse Rate 78 08/01/18 15:54 Respiratory Rate 12 08/01/18 15:54 Blood Pressure 163/86 08/01/18 15:54 O2 Sat by Pulse Oximetry (%) 99 08/01/18 15:54 ED Treatment Course - LABORATORY CBC & Chemistry Diagram: 08/01/18 16:00 08/01/18 16:00 - RADIOLOGY Radiology Studies Ordered: Category Date Time Status HEAD CT WITHOUT CONTRAST [CT] Stat CT Scan 08/01/18 15:54 Ordered Medical Decision Making - Medical Decision Making 08/01/18 16:51 Patient is a 57 year old female who presented here for lethargy and AMS. Differential diagnosis include but not limited to Neurological etiology including stroke and sezures, ACS, infectious etiology, metabolic derangement -CBC, CMP, Ammonia, Cardiac profile -Head CT, EKG, CXR -U/A and urine culture 08/01/18 17:36 -Lactulose 115 -CMP revealed Potassium 5.7 with Creatinine >10 -Lactulose ordered 08/01/18 18:14 -Spoke to [address], Dr. Marks, who wants to dialyze patient -Head CT revealed no acute pathology -Microblog sent out to hospitalist 08/01/18 18:33 -Patient accepted by [facility] and will have dialysis *DC/Admit/Observation/Transfer Diagnosis at time of Disposition: Toxic metabolic encephalopathy, End stage renal disease - Discharge Dispostion Decision to Admit order: Yes - Referrals - Patient Instructions - Post Discharge Activity
[2018-08-01 16:30] LABS: BASO % 1.3 % (0-2.0); EOS % 3.7 % (0-4.5); HEMOGLOBIN 11.4 GM/dL (10.7-15.3); LYMPH % 25.4 % (8-40); MCH 30.7 pg (25.7-33.7); MCHC 35.5 g/dl (32.0-36.0); MEAN CELL VOLUME 86.5 fl (80-96); MEAN PLT VOLUME 8.4 fl (7.5-11.1); MONO % 8.4 % (3.8-10.2); NEUT % 61.2 % (42.8-82.8); PLATELET COUNT 297 K/MM3 (134-434); RDW 14.4 % (11.6-15.6); WHITE BLOOD COUNT 6.5 K/mm3 (4.0-10.0)
[2018-08-01 16:42] LABS: ARTERIAL BLD GAS O2 SATURATION 95.6 % (90-98.9); ARTERIAL BLOOD GAS BASE EXCESS -2.1 meq/l (-2-2); ARTERIAL BLOOD GAS PCO2 40.7 mmHg (35-45); ARTERIAL BLOOD GAS pH 7.36 (7.35-7.45)
[2018-08-01 16:57] LABS: INR 1.26 (0.83-1.09); PROTHROMBIN TIME (PATIENT) 14.9 SEC (9.7-13.0)
--- NOTE | 2018-08-01 17:00 | CONSULT ---
Consult Consult Specialty:: Nephrology Reason for Consultation:: ESRD - History of Present Illness Chief Complaint: change in mental status History of Present Illness: Pt is a 57 year old female with pmhx of ESRD, HTN, DM, HLD, depression and recently treated neurosyphillis who presents to the ER with a change in mental status. She is lethargic and not able to give much history. She was due for HD today however did not get dialyzed. She is not answering questions. I was able to wake her up with difficulty. Chart was reviewed and I discussed her case with ER team. Called her HD unit at [facility] and she was last dialyzed on Saturday. 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 Cardio/Vascular: Yes: HTN Gastrointestinal: Yes: GERD Renal/: Yes: Hemodialysis Endocrine: Yes: Diabetes Mellitus - Past Surgical History Past Surgical History: Yes: AV Fistula/Graft - Alcohol/Substance Use Hx Alcohol Use: No - Smoking History Smoking history: Unknown if ever smoked Have you smoked in the past 12 months: No - Social History Usual Living Arrangement: Senior Living ADL: Support Services Occupation: former [employer] History of Recent Travel: No Home Medications - Allergies Allergies/Adverse Reactions: Allergies Allergy/AdvReac Type Severity Reaction Status Date / Time No Known Allergies Allergy Verified 06/26/18 09:54 - Home Medications Home Medications: Ambulatory Orders Acetaminophen 325 mg PO QID 06/26/18 Amlodipine Besylate 5 mg PO DAILY 06/26/18 Aspirin 81 mg PO DAILY 06/26/18 Donepezil HCl 10 mg PO HS 06/26/18 Dulaglutide [Trulicity] 0.75 mg SQ WEEKLY 06/26/18 Escitalopram Oxalate [Lexapro -] 20 mg PO DAILY 06/26/18 Famotidine 20 mg PO DAILY 06/26/18 Furosemide 80 mg PO DAILY 06/26/18 Gabapentin 100 mg PO HS 06/26/18 Gemfibrozil [Lopid] 600 mg PO BID 06/26/18 Isoniazid 300 mg PO DAILY 06/26/18 Metoprolol Tartrate 100 mg PO BID 06/26/18 Pyridoxine HCl (Vitamin B6) [Vitamin B-6] 100 mg PO DAILY 06/26/18 Quetiapine Fumarate [Seroquel -] 25 mg PO TID 06/26/18 Sevelamer Carbonate 800 mg PO TID 06/26/18 Thiamine Mononitrate [Vitamin B-1] 100 mg PO DAILY 06/26/18 Ceftriaxone 2 gm-D5w Bag 2 gm IV DAILY #14 dose 07/10/18 Dulaglutide [Trulicity] 0.75 mg SQ WEEKLY 08/01/18 Family Disease History - Family Disease History Family Disease History: Diabetes: Grandparent Review of Systems Unable to obtain ROS, reason: pt lethargic Findings/Remarks: pt is lethargic and unable to answer questions Physical Exam Vital Signs: Vital Signs Temperature 98.7 F 08/01/18 15:54 Pulse Rate 78 08/01/18 15:54 Respiratory Rate 12 08/01/18 15:54 Blood Pressure 163/86 08/01/18 15:54 O2 Sat by Pulse Oximetry (%) 99 08/01/18 15:54 Constitutional: Yes: No Distress, Calm Eyes: Yes: Conjunctiva Clear HENT: Yes: Atraumatic Cardiovascular: Yes: S1, S2 Respiratory: Yes: CTA Bilaterally Gastrointestinal: Yes: Soft Renal/: Yes: WNL Musculoskeletal: Yes: Muscle Weakness Edema: No Neurological: Yes: Lethargy Labs: CBC, BMP 08/01/18 16:00 Imaging - Results Chest X-ray: Report Reviewed Problem List - Problems (1) Diabetes Code(s): E11.9 - TYPE 2 DIABETES MELLITUS WITHOUT COMPLICATIONS (2) ESRD (end stage renal disease) on dialysis Code(s): N18.6 - END STAGE RENAL DISEASE; Z99.2 - DEPENDENCE ON RENAL DIALYSIS (3) End stage renal disease Code(s): N18.6 - END STAGE RENAL DISEASE (4) Positive RPR test Code(s): A53.0 - LATENT SYPHILIS, UNSPECIFIED EARLY OR LATE Assessment/Plan Impression 1. ESRD 2. change in mental status 3. HTN 4. DM 5. HLD 6. hypocalcemia 7. positive rpr s/p treatment with ceftriaxone 8. hyperkalemia Plan - will arrange for HD - will hold heparin - perhaps HD may help with mental status - volume status is stable - AVF, 3:30, 2 k bath, heparin 1000 bolus and 500 maintenance, abf 450 - discussed with ER - will follow Dr Marks
[2018-08-01 17:05] LABS: URINE APPEARANCE CLEAR; URINE BILIRUBIN NEGATIVE (<2.0 mg/dL); URINE COLOR STRAW; URINE GLUCOSE (UA) NEGATIVE (NEGATIVE); URINE KETONE NEGATIVE (NEGATIVE); URINE LEUK ESTERASE NEGATIVE (NEGATIVE); URINE NITRITE NEGATIVE (NEGATIVE); URINE PROTEIN 2+ (NEGATIVE); URINE UROBILINOGEN NEGATIVE mg/dL (0.2-1.0)
[2018-08-01 17:09] LABS: URINE HYALINE CAST 1 /lpf; URINE MUCUS RARE
[2018-08-01 17:30] LABS: ALBUMIN 3.3 g/dl (3.4-5.0); ALK PHOS 205 U/L (45-117); ANION GAP 13 MMOL/L (8-16); BILIRUBIN,TOTAL 0.3 mg/dL (0.2-1); BLOOD UREA NITROGEN 56 mg/dL (7-18); CALCIUM 8.5 mg/dL (8.5-10.1); CHLORIDE 98 mmol/L (98-107); CO2 23 mmol/L (21-32); GLUCOSE,RANDOM 150 mg/dL (74-106); PHOSPHOROUS 6.1 mg/dL (2.5-4.9); POTASSIUM 5.7 mmol/L (3.5-5.1); SGOT/AST 11 U/L (15-37); SGPT/ALT 8 U/L (13-61); SODIUM 134 mmol/L (136-145); TOT PROT 7.5 g/dl (6.4-8.2)
[2018-08-01 17:32] LABS: CREATININE 10.3 mg/dL (0.55-1.3)
[2018-08-01] MEDS ORDERED: LACTULOSE 20 GM/30 ML UDC (FOR RECTAL USE ONLY) PR ONE (17:32)
--- NOTE | 2018-08-01 18:12 | PDOC ---
Attending Attestation - Resident Resident Name: Stefany Schultz - ED Attending Attestation I have performed the following: I have examined & evaluated the patient, The case was reviewed & discussed with the resident, I agree w/resident's findings & plan, Exceptions are as noted - Physicial Exam PE: 08/01/18 18:12 Patient is awake, nonresponsive, withdraws to pain; patient is afebrile and normotensive. Normocephalic, atraumatic Mild anisocoria with a right pupil measuring 2 mm and a left pupil measuring 3.5 mm; the reactive bilaterally; No JVD CTA RRR abd-soft, nt, nd pelvis is stable withdraws to painfull stimuli - Medical Decision Making 08/01/18 18:17 Patient is a 57-year-old female with multiple comorbidities, end-stage renal disease (on hemodialysis Saturday/Saturday/Saturday) brought in from [facility] for altered mental status with agitation and decreased level of alertness. Patient missed her dialysis. In the ER, patient is awake but nonverbal, does not follow commands and withdraws to pain. Patient is afebrile and normotensive. CT of head shows no evidence of acute intracranial pathology. Chronic findings and noted. Chest x-ray reveals no evidence of infiltrate or effusion. CBC is unchanged without evidence of leukocytosis. CMP reveals significant hyperamonimia Likely responsible for the patient's metabolic encephalopathy. will administer lactulose. will consult renal. will obtain emergenct hd. will admit. <Gerald Cortez - Last Filed: 08/01/18 18:12> - HPI HPI: 08/01/18 18:21 The patient is a 57 year old female with a past medical history significant for baseline AMS, hypertension, ESRD on Dialysis, Depression/Anxiety, NIDDM II, hyperlipidemia, recently completed 14 days of ceftriaxone for recent diagnosis of neurosyphilis, who presents to the emergency department via ems from [facility] for increase of altered mental status and lethargy today as per nursing staff. Allergies: NKDA Documentation prepared by Traci Arechiga, acting as back office medical assistant for Gerald Cortez MD <Traci Arechiga - Last Filed: 08/01/18 18:22>
[2018-08-01] MEDS ORDERED: SODIUM CHLORIDE 250 ML IV PRN (19:13)
--- NOTE | 2018-08-01 19:40 | HP ---
Admitting History and Physical - Primary Care Physician PCP: Aldair Mosquera - Admission Chief Complaint: AMS, Lethargy History of Present Illness: This is a 57 y/o woman from [facility] with a past medical history of ESRD (HD- M/W/F), HTN< NIDDM, Neurosyphilis (completed Ceftriaxone, 14 days), Depression, Anxiety. Who presents to the ED for AMS and lethargy. Per the ED records, the DC staff noted patient to be altered not at baseline, patient refused her dialysis treatment today. Patient's labs: BUN 56, Cr 10.3, Ammonia 115- Lactulose given in ED, K 5.7. Patient will be admitted to M/S for Acute Metabolic Encephalopathy and receive dialysis tonight. 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: Yes: Dementia Cardiovascular: Yes: HTN Gastrointestinal: Yes: GERD Renal/: Yes: Hemodialysis Endocrine: Yes: Diabetes Mellitus - Past Surgical History Past Surgical History: Yes: AV Fistula/Graft - Advance Directives Advance Directives: Yes: DNR (DNI), MOLST - Smoking History Smoking history: Unknown if ever smoked Have you smoked in the past 12 months: No - Alcohol/Substance Use Hx Alcohol Use: No History of Substance Use: reports: None - Social History Usual Living Arrangement: Yes: Senior Living ADL: Support Services Occupation: former [employer] History of Recent Travel: No Home Medications - Allergies Allergies/Adverse Reactions: Allergies Allergy/AdvReac Type Severity Reaction Status Date / Time No Known Allergies Allergy Verified 08/01/18 17:37 - Home Medications Home Medications: Ambulatory Orders Acetaminophen 325 mg PO QID 06/26/18 Amlodipine Besylate 5 mg PO DAILY 06/26/18 Aspirin 81 mg PO DAILY 06/26/18 Donepezil HCl 10 mg PO HS 06/26/18 Dulaglutide [Trulicity] 0.75 mg SQ WEEKLY 06/26/18 Escitalopram Oxalate [Lexapro -] 20 mg PO DAILY 06/26/18 Famotidine 20 mg PO DAILY 06/26/18 Furosemide 80 mg PO DAILY 06/26/18 Gabapentin 100 mg PO HS 06/26/18 Gemfibrozil [Lopid] 600 mg PO BID 06/26/18 Isoniazid 300 mg PO DAILY 06/26/18 Metoprolol Tartrate 100 mg PO BID 06/26/18 Pyridoxine HCl (Vitamin B6) [Vitamin B-6] 100 mg PO DAILY 06/26/18 Quetiapine Fumarate [Seroquel -] 25 mg PO TID 06/26/18 Sevelamer Carbonate 800 mg PO TID 06/26/18 Thiamine Mononitrate [Vitamin B-1] 100 mg PO DAILY 06/26/18 Ceftriaxone 2 gm-D5w Bag 2 gm IV DAILY #14 dose 07/10/18 Dulaglutide [Trulicity] 0.75 mg SQ WEEKLY 08/01/18 Family Disease History - Family Disease History Family Disease History: Diabetes: Grandparent Review of Systems Unable to obtain ROS, reason: Dementia Physical Examination Vital Signs: Vital Signs Temperature 98.5 F 08/01/18 18:15 Pulse Rate 68 08/01/18 18:50 Respiratory Rate 18 08/01/18 18:50 Blood Pressure 160/62 08/01/18 18:50 O2 Sat by Pulse Oximetry (%) 100 08/01/18 17:39 Constitutional: Yes: No Distress, Calm Eyes: Yes: WNL, Conjunctiva Clear, EOM Intact, PERRL HENT: Yes: WNL, Atraumatic, Normocephalic Neck: Yes: WNL, Supple, Trachea Midline Cardiovascular: Yes: WNL, Regular Rate and Rhythm, S1, S2, Other (single port cath to RCW) Respiratory: Yes: WNL, Regular, CTA Bilaterally Gastrointestinal: Yes: WNL, Normal Bowel Sounds, Soft Breast(s): Yes: WNL Musculoskeletal: Yes: WNL Extremities: Yes: WNL, Other (AV Fistula to LUE- +bruit/thrill) Edema: No Peripheral Pulses WNL: Yes Neurological: Yes: Confusion, Lethargy Labs: CBC, BMP 08/01/18 16:00 08/01/18 16:00 Laboratory Results - last 24 hr 08/01/18 08/01/18 08/01/18 16:00 16:00 16:00 WBC 6.5 RBC 3.70 Hgb 11.4 Hct 32.0 L MCV 86.5 MCH 30.7 MCHC 35.5 RDW 14.4 Plt Count 297 D MPV 8.4 Absolute Neuts (auto) 4.0 Neutrophils % 61.2 Lymphocytes % 25.4 D Monocytes % 8.4 D Eosinophils % 3.7 Basophils % 1.3 Nucleated RBC % 0 PT with INR INR Anticoagulation Therapy No Result Required. Puncture Site No Result Required. ABG pH 7.36 ABG pCO2 at Pt Temp 40.7 ABG pO2 at Pt Temp 105.0 H ABG HCO3 22.6 ABG O2 Sat (Measured) 95.6 ABG O2 Content 15.4 ABG Base Excess -2.1 L David Test No Result Required. Carboxyhemoglobin 0.0 L Methemoglobin 0.1 L O2 Delivery Device No Result Required. Oxygen Flow Rate No Result Required. Vent Mode No Result Required. Vent Rate No Result Required. Mechanical Rate No Result Required. Pressure Support Vent No Result Required. Sodium 134 L Potassium 5.7 H Chloride 98 Carbon Dioxide 23 Anion Gap 13 BUN 56 H Creatinine 10.3 H* Creat Clearance w eGFR 3.85 POC Glucometer Random Glucose 150 H Lactic Acid Calcium 8.5 Phosphorus 6.1 H Magnesium 3.0 H Total Bilirubin 0.3 AST 11 L ALT 8 L Alkaline Phosphatase 205 H Ammonia Creatine Kinase 44 Troponin I < 0.02 Total Protein 7.5 Albumin 3.3 L TSH 1.35 Urine Color Urine Appearance Urine pH Ur Specific [place] Urine Protein Urine Glucose (UA) Urine Ketones Urine Blood Urine Nitrite Urine Bilirubin Urine Urobilinogen Ur Leukocyte Esterase Urine WBC (Auto) Urine RBC (Auto) Hyaline Casts Urine Mucus 08/01/18 08/01/18 08/01/18 16:00 16:00 16:00 WBC RBC Hgb Hct MCV MCH MCHC RDW Plt Count MPV Absolute Neuts (auto) Neutrophils % Lymphocytes % Monocytes % Eosinophils % Basophils % Nucleated RBC % PT with INR 14.90 H INR 1.26 H Anticoagulation Therapy Puncture Site ABG pH ABG pCO2 at Pt Temp ABG pO2 at Pt Temp ABG HCO3 ABG O2 Sat (Measured) ABG O2 Content ABG Base Excess David Test Carboxyhemoglobin Methemoglobin O2 Delivery Device Oxygen Flow Rate Vent Mode Vent Rate Mechanical Rate Pressure Support Vent Sodium Potassium Chloride Carbon Dioxide Anion Gap BUN Creatinine Creat Clearance w eGFR POC Glucometer Random Glucose Lactic Acid 2.0 Calcium Phosphorus Magnesium Total Bilirubin AST ALT Alkaline Phosphatase Ammonia 115.40 H Creatine Kinase Troponin I Total Protein Albumin TSH Urine Color Urine Appearance Urine pH Ur Specific [place] Urine Protein Urine Glucose (UA) Urine Ketones Urine Blood Urine Nitrite Urine Bilirubin Urine Urobilinogen Ur Leukocyte Esterase Urine WBC (Auto) Urine RBC (Auto) Hyaline Casts Urine Mucus 08/01/18 08/01/18 16:23 16:40 WBC RBC Hgb Hct MCV MCH MCHC RDW Plt Count MPV Absolute Neuts (auto) Neutrophils % Lymphocytes % Monocytes % Eosinophils % Basophils % Nucleated RBC % PT with INR INR Anticoagulation Therapy Puncture Site ABG pH ABG pCO2 at Pt Temp ABG pO2 at Pt Temp ABG HCO3 ABG O2 Sat (Measured) ABG O2 Content ABG Base Excess David Test Carboxyhemoglobin Methemoglobin O2 Delivery Device Oxygen Flow Rate Vent Mode Vent Rate Mechanical Rate Pressure Support Vent Sodium Potassium Chloride Carbon Dioxide Anion Gap BUN Creatinine Creat Clearance w eGFR POC Glucometer [id number] Random Glucose Lactic Acid Calcium Phosphorus Magnesium Total Bilirubin AST ALT Alkaline Phosphatase Ammonia Creatine Kinase Troponin I Total Protein Albumin TSH Urine Color Straw Urine Appearance Clear Urine pH 7.0 Ur Specific [place] 1.008 L Urine Protein 2+ H Urine Glucose (UA) Negative Urine Ketones Negative Urine Blood Negative Urine Nitrite Negative Urine Bilirubin Negative Urine Urobilinogen Negative Ur Leukocyte Esterase Negative Urine WBC (Auto) <1 Urine RBC (Auto) <1 Hyaline Casts 1 Urine Mucus Rare Intake & Output 07/29/18 07/30/18 07/31/18 08/01/18 23:59 23:59 23:59 23:59 Weight 58.151 kg Imaging - Results Chest X-ray: Report Reviewed, Image Reviewed Cat Scan: Report Reviewed, Image Reviewed EKG: Pending Problem List - Problems (1) Toxic metabolic encephalopathy Assessment/Plan: Likely secondary to Hyperammonemia Ammonia level [address]- no ICH, chronic right cerbellar infarct Neuro checks Fall precautions Code(s): G92 - TOXIC ENCEPHALOPATHY (2) Hyperammonemia Assessment/Plan: Ammonia level 115 Lactulose given in ED Continue neurochecks Monitor vitals Fall Precautions Seizure Precautions Code(s): E72.20 - DISORDER OF UREA CYCLE METABOLISM, UNSPECIFIED (3) ESRD (end stage renal disease) on dialysis Assessment/Plan: HD (M,W,F) Nephrology following Dialysis tonight Continue home meds when more alert to baseline Code(s): N18.6 - END STAGE RENAL DISEASE; Z99.2 - DEPENDENCE ON RENAL DIALYSIS (4) HTN (hypertension) Assessment/Plan: suboptimal Monitor BP Will continue home meds when patient is more alert to baseline Consider BB IV if unable to tolerate PO meds Code(s): I10 - ESSENTIAL (PRIMARY) HYPERTENSION (5) GERD (gastroesophageal reflux disease) Assessment/Plan: stable Continue PPI Code(s): K21.9 - GASTRO-ESOPHAGEAL REFLUX DISEASE WITHOUT ESOPHAGITIS (6) Anxiety and depression Assessment/Plan: Will continue to monitor and treat with interventions accordingly Will hold meds for now secondary to lethargy and AMS Code(s): F41.9 - ANXIETY DISORDER, UNSPECIFIED; F32.9 - MAJOR DEPRESSIVE DISORDER, SINGLE EPISODE, UNSPECIFIED (7) Diabetes Assessment/Plan: Stable BGMs ISS, when diet resumed Code(s): E11.9 - TYPE 2 DIABETES MELLITUS WITHOUT COMPLICATIONS Assessment/Plan This is a 57 y/o woman admitted for Acute Metabolic Encephalopathy, Hyperammonemia, ESRD for further evaluation of their emergent condition. Plan: FEN Fluid Restriction 1L Replete lytes prn NPO DVT ppx OOB SCDs Heparin SQ Code Status: DNR/DNI, MOLST Dispo: Requires Inpatient Care Visit type - Emergency Visit Emergency Visit: Yes ED Registration Date: 08/01/18 Care time: The patient presented to the Emergency Department on the above date and was hospitalized for further evaluation of their emergent condition. - New Patient This patient is new to me today: Yes Date on this admission: 08/01/18 - Critical Care Critical Care patient: No
[2018-08-01 23:03] VITALS: BMI 25.9
[2018-08-02 06:45] LABS: BASO % 2.2 % (0-2.0); EOS % 4.2 % (0-4.5); HEMATOCRIT 31.5 % (32.4-45.2); LYMPH % 39.3 % (8-40); MCH 30.4 pg (25.7-33.7); MCHC 34.9 g/dl (32.0-36.0); MEAN PLT VOLUME 8.8 fl (7.5-11.1); MONO % 9.6 % (3.8-10.2); NEUT % 44.7 % (42.8-82.8); PLATELET COUNT 277 K/MM3 (134-434); RBC 3.62 M/mm3 (3.60-5.2); RDW 14.3 % (11.6-15.6); WHITE BLOOD COUNT 6.2 K/mm3 (4.0-10.0)
[2018-08-02 07:37] LABS: ALK PHOS 193 U/L (45-117); ANION GAP 12 MMOL/L (8-16); BILIRUBIN,TOTAL 0.4 mg/dL (0.2-1); BLOOD UREA NITROGEN 44 mg/dL (7-18); CALCIUM 8.3 mg/dL (8.5-10.1); CHLORIDE 100 mmol/L (98-107); CO2 25 mmol/L (21-32); GLUCOSE,RANDOM 86 mg/dL (74-106); POTASSIUM 4.9 mmol/L (3.5-5.1); SGOT/AST 13 U/L (15-37); SGPT/ALT 6 U/L (13-61); SODIUM 137 mmol/L (136-145)
[2018-08-02 08:45] LABS: CREATININE 8.7 mg/dL (0.55-1.3)
[2018-08-02] MEDS ORDERED: LACTULOSE 20 GM/30 ML UDC (FOR ORAL USE ONLY) PO PRN (11:49)
--- NOTE | 2018-08-02 12:02 | PN ---
Progress Note (short form) - Note Progress Note: Pt seen/ examined chart reviewed. awake/ confused denies pain afebrile Vital Signs Temp 98.6 F 08/02/18 09:49 Pulse 72 08/02/18 09:49 Resp 18 08/02/18 09:49 BP 117/65 08/02/18 09:49 Pulse Ox 100 08/01/18 22:43 Intake & Output 08/01/18 08/02/18 08/02/18 23:59 11:59 23:59 Weight 133 lb 133 lb Other: Voiding Method Diaper Incontinent Bowel Movement Yes No Height 5 ft Body Mass Index (BMI) 25.9 Weight Measurement Method Patient Lift Scale Standing Scale Active Medications Amlodipine Besylate (Norvasc -) 5 mg PO DAILY [facility] Aspirin (Asa -) 81 mg PO DAILY [facility] Donepezil HCl (Aricept -) 10 mg PO HS [facility] Escitalopram Oxalate (Lexapro -) 20 mg PO DAILY [facility] Gemfibrozil (Lopid -) 600 mg PO BIDAC [facility] Sodium Chloride (Normal Saline -) 250 mls @ 3,000 mls/hr IV PRN PRN PRN Reason: Hypotension during Dialysis Stop: 08/02/18 19:12 Lactulose (Cephulac (Oral Use)) 20 gm PO Q8H PRN PRN Reason: constipation Metoprolol Tartrate (Lopressor -) 100 mg PO BID [facility] Non-Formulary Medication (Thiamine Mononitrate [Vitamin B-1]) 100 mg PO DAILY [facility] Pyridoxine HCl (Vitamin B6 -) 100 mg PO DAILY [facility] Quetiapine Fumarate (Seroquel -) 25 mg PO TID [facility] Sevelamer Carbonate (Renvela -) 800 mg PO TID [facility] CBC, BMP 08/02/18 06:20 08/02/18 06:20 CBC,CMP WBC 6.2 K/mm3 (4.0-10.0) 08/02/18 06:20 RBC 3.62 M/mm3 (3.60-5.2) 08/02/18 06:20 Hgb 11.0 GM/dL (10.7-15.3) 08/02/18 06:20 Hct 31.5 % (32.4-45.2) L 08/02/18 06:20 MCV 87.0 fl (80-96) 08/02/18 06:20 MCH 30.4 pg (25.7-33.7) 08/02/18 06:20 MCHC 34.9 g/dl (32.0-36.0) 08/02/18 06:20 RDW 14.3 % (11.6-15.6) 08/02/18 06:20 Plt Count 277 K/MM3 (134-434) 08/02/18 06:20 MPV 8.8 fl (7.5-11.1) 08/02/18 06:20 Absolute Neuts (auto) 2.8 K/mm3 (1.5-8.0) 08/02/18 06:20 Neutrophils % 44.7 % (42.8-82.8) D 08/02/18 06:20 Lymphocytes % 39.3 % (8-40) D 08/02/18 06:20 Monocytes % 9.6 % (3.8-10.2) 08/02/18 06:20 Eosinophils % 4.2 % (0-4.5) 08/02/18 06:20 Basophils % 2.2 % (0-2.0) H 08/02/18 06:20 Nucleated RBC % 0 % (0-0) 08/02/18 06:20 Sodium 137 mmol/L (136-145) 08/02/18 06:20 Potassium 4.9 mmol/L (3.5-5.1) 08/02/18 06:20 Chloride 100 mmol/L (98-107) 08/02/18 06:20 Carbon Dioxide 25 mmol/L (21-32) 08/02/18 06:20 Anion Gap 12 MMOL/L (8-16) 08/02/18 06:20 BUN 44 mg/dL (7-18) H 08/02/18 06:20 Creatinine 8.7 mg/dL (0.55-1.3) H* 08/02/18 06:20 Creat Clearance w eGFR 4.67 (>60) 08/02/18 06:20 POC Glucometer 92 UNITS (80-120) 08/02/18 11:09 Random Glucose 86 mg/dL (74-106) 08/02/18 06:20 Lactic Acid 2.0 mmol/L (0.4-2.0) 08/01/18 16:00 Calcium 8.3 mg/dL (8.5-10.1) L 08/02/18 06:20 Phosphorus 6.1 mg/dL (2.5-4.9) H 08/01/18 16:00 Magnesium 3.0 mg/dL (1.8-2.4) H 08/01/18 16:00 Total Bilirubin 0.4 mg/dL (0.2-1) 08/02/18 06:20 AST 13 U/L (15-37) L 08/02/18 06:20 ALT 6 U/L (13-61) L 08/02/18 06:20 Alkaline Phosphatase 193 U/L (45-117) H 08/02/18 06:20 Ammonia 115.40 umol/L (11-32) H 08/01/18 16:00 Creatine Kinase 44 IU/L (26-192) 08/01/18 16:00 Troponin I < 0.02 ng/ml (0.00-0.05) 08/01/18 16:00 Total Protein 7.0 g/dl (6.4-8.2) 08/02/18 06:20 Albumin 3.0 g/dl (3.4-5.0) L 08/02/18 06:20 TSH 1.35 uIU/ml (0.358-3.74) 08/01/18 16:00 Abnormal Lab Results 08/01/18 08/01/18 08/01/18 16:00 16:00 16:00 Hct 32.0 L Basophils % PT with INR INR ABG pO2 at Pt Temp 105.0 H ABG Base Excess -2.1 L Carboxyhemoglobin 0.0 L Methemoglobin 0.1 L Sodium 134 L Potassium 5.7 H BUN 56 H Creatinine 10.3 H* Random Glucose 150 H Calcium Phosphorus 6.1 H Magnesium 3.0 H AST 11 L ALT 8 L Alkaline Phosphatase 205 H Ammonia Albumin 3.3 L Ur Specific [place] Urine Protein 08/01/18 08/01/18 08/01/18 16:00 16:00 16:40 Hct Basophils % PT with INR 14.90 H INR 1.26 H ABG pO2 at Pt Temp ABG Base Excess Carboxyhemoglobin Methemoglobin Sodium Potassium BUN Creatinine Random Glucose Calcium Phosphorus Magnesium AST ALT Alkaline Phosphatase Ammonia 115.40 H Albumin Ur Specific [place] 1.008 L Urine Protein 2+ H 08/02/18 08/02/18 06:20 06:20 Hct 31.5 L Basophils % 2.2 H PT with INR INR ABG pO2 at Pt Temp ABG Base Excess Carboxyhemoglobin Methemoglobin Sodium Potassium BUN 44 H Creatinine 8.7 H* Random Glucose Calcium 8.3 L Phosphorus Magnesium AST 13 L ALT 6 L Alkaline Phosphatase 193 H Ammonia Albumin 3.0 L Ur Specific [place] Urine Protein Physical Exam Awake/ confused heent- no jvd Lungs- Cleat cvs- s1, s2 rrr Abd - soft ext- no edema neuro- awake/ confused/ non focal a/p ams metabolic encephalopathy esrd- hd elevated ammonia level lactulose monitor ammonia level check u/s liver continue other meds orders written s/p treatment for + rpr discussed with nursing staff will follow Problem List - Problems (1) Toxic metabolic encephalopathy Code(s): G92 - TOXIC ENCEPHALOPATHY (2) Diabetes Code(s): E11.9 - TYPE 2 DIABETES MELLITUS WITHOUT COMPLICATIONS (3) ESRD (end stage renal disease) on dialysis Code(s): N18.6 - END STAGE RENAL DISEASE; Z99.2 - DEPENDENCE ON RENAL DIALYSIS
--- NOTE | 2018-08-02 12:52 | EKG ---
Test Reason : Blood Pressure : / mmHG Vent. Rate : 073 BPM Atrial Rate : 073 BPM P-R Int : 168 ms QRS Dur : 078 ms QT Int : 396 ms P-R-T Axes : 048 040 071 degrees QTc Int : 436 ms NORMAL SINUS RHYTHM WITH SINUS ARRHYTHMIA LEFT ATRIAL ENLARGEMENT POSSIBLE ANTERIOR INFARCT (CITED ON OR BEFORE 26-JUN-2018) ABNORMAL ECG Confirmed by MD FROILAN, ANYI ([id number]) on 08/02/2018 12:52:01 PM Referred By: Confirmed By:ANYI MCGOVERN MD
[2018-08-02] MEDS ORDERED: PNEUMOC 13-VAL CONJ-DIP CRM/PF 0.5 ML DISP.SYRIN IM ONE (14:44)
[2018-08-02] MEDS: QUEtiapine FUMARATE 25 MG TABLET (FP) PO SCH ×2 (15:07→21:49)
[2018-08-02] MEDS: GEMFIBROZIL 600 MG TABLET (FP) PO SCH (17:00)
[2018-08-02] MEDS ORDERED: PT OWN MED DRAWER 7, Y5N ONE (17:10)
[2018-08-02] MEDS: SEVELAMER CARBONATE 800 MG TAB (FP) PO SCH (17:46)
--- NOTE | 2018-08-02 19:13 | PN ---
Progress Note (short form) - Note Progress Note: feels weak poor appetite affect is down started on nepro Problems 1. ESRD 2. change in mental status 3. HTN 4. DM 5. HLD 6. hypocalcemia 7. positive rpr s/p treatment with ceftriaxone 8. hyperkalemia Current Medications Amlodipine Besylate (Norvasc -) 5 mg PO DAILY [facility] Aspirin (Asa -) 81 mg PO DAILY [facility] Donepezil HCl (Aricept -) 10 mg PO HS [facility] Escitalopram Oxalate (Lexapro -) 20 mg PO DAILY [facility] Furosemide (Lasix -) 80 mg PO DAILY [facility] Gemfibrozil (Lopid -) 600 mg PO BIDAC [facility] Last Admin: 08/02/18 17:00 Dose: 600 mg Isoniazid (Inh -) 300 mg PO DAILY [facility] Lactulose (Cephulac (Oral Use)) 20 gm PO Q8H PRN PRN Reason: constipation Metoprolol Tartrate (Lopressor -) 100 mg PO BID [facility] Pyridoxine HCl (Vitamin B6 -) 100 mg PO DAILY [facility] Quetiapine Fumarate (Seroquel -) 25 mg PO TID [facility] Last Admin: 08/02/18 15:07 Dose: 25 mg Ranitidine HCl (Zantac -) 150 mg PO DAILY [facility] Sevelamer Carbonate (Renvela -) 800 mg PO TIDCM [facility] Last Admin: 08/02/18 17:46 Dose: 800 mg Thiamine HCl (Vitamin B1 -) 100 mg PO DAILY [facility] Last Vital Signs Temp Pulse Resp BP Pulse Ox 98.5 F 75 20 127/67 95 08/02/18 14:22 08/02/18 14:22 08/02/18 14:22 08/02/18 14:22 08/02/18 09:00 Lungs clear heart reg abd soft nontender ext no edema CBC, BMP 08/02/18 06:20 08/02/18 06:20 Imp 1. ESRD 2. change in mental status 3. HTN 4. DM 5. HLD 6. hypocalcemia 7. positive rpr s/p treatment with ceftriaxone 8. hyperkalemia of note, she made a lot of urine earlier will monitor renal function to r/o any sign of renal recovery
[2018-08-02] MEDS: DONEPEZIL HCL 5 MG TABLET (FP) PO SCH (21:49)
[2018-08-02] MEDS: METOPROLOL TARTRATE 50 MG TABLET (FP) PO SCH (21:49)
[2018-08-03] MEDS: QUEtiapine FUMARATE 25 MG TABLET (FP) PO SCH ×3 (07:08→21:46)
[2018-08-03] MEDS: GEMFIBROZIL 600 MG TABLET (FP) PO SCH ×2 (07:08→17:34)
[2018-08-03] MEDS ORDERED: PT OWN MED DRAWER 7, Y5N ONE (08:20)
[2018-08-03] MEDS: SEVELAMER CARBONATE 800 MG TAB (FP) PO SCH ×3 (09:21→17:34)
[2018-08-03] MEDS: ESCITALOPRAM OXALATE 20 MG TABLET (FP) PO SCH (10:10)
[2018-08-03] MEDS: ASPIRIN 81 MG CHEWABLE TABLETS PO SCH (10:11)
[2018-08-03] MEDS: FUROSEMIDE 40 MG TABLET (FP) PO SCH (10:11)
[2018-08-03] MEDS: amLODIPine BESYLATE 5 MG TABLET (FP) PO SCH (10:12)
[2018-08-03] MEDS: RANITIDINE HCL 150 MG TABLET (FP) PO SCH (10:12)
[2018-08-03] MEDS: THIAMINE HCL 100 MG TABLET (FP) PO SCH (10:12)
[2018-08-03] MEDS: ISONIAZID 300 MG TABLET (FP) PO SCH (10:13)
[2018-08-03] MEDS: METOPROLOL TARTRATE 50 MG TABLET (FP) PO SCH ×2 (10:13→21:46)
[2018-08-03] MEDS: PYRIDOXINE HCL (B-6) 50 MG TABLET (FP) PO SCH (10:14)
--- NOTE | 2018-08-03 11:24 | PN ---
Progress Note (short form) - Note Progress Note: pt seen/ examined awake/ comfortable more alert/ awake Ammonia level coming down Vital Signs Temp 98.2 F 08/03/18 06:00 Pulse 90 08/03/18 06:00 Resp 20 08/03/18 06:00 BP 117/70 08/03/18 06:00 Pulse Ox 96 08/02/18 21:00 Intake & Output 08/02/18 08/02/18 08/03/18 11:59 23:59 11:59 Intake Total 700 100 Balance 700 100 Weight 133 lb Intake: Oral 700 100 Other: Voiding Method Incontinent Toilet # Unmeasured Voids Void 3 2 Bowel Movement No Yes Yes # Bowel Movements 1 1 Weight Measurement Method Standing Scale Active Medications Amlodipine Besylate (Norvasc -) 5 mg PO DAILY [facility] Last Admin: 08/03/18 10:12 Dose: 5 mg Aspirin (Asa -) 81 mg PO DAILY [facility] Last Admin: 08/03/18 10:11 Dose: 81 mg Donepezil HCl (Aricept -) 10 mg PO HS [facility] Last Admin: 08/02/18 21:49 Dose: 10 mg Escitalopram Oxalate (Lexapro -) 20 mg PO DAILY [facility] Last Admin: 08/03/18 10:10 Dose: 20 mg Furosemide (Lasix -) 80 mg PO DAILY [facility] Last Admin: 08/03/18 10:11 Dose: 80 mg Gemfibrozil (Lopid -) 600 mg PO BIDAC [facility] Last Admin: 08/03/18 07:08 Dose: 600 mg Isoniazid (Inh -) 300 mg PO DAILY [facility] Last Admin: 08/03/18 10:13 Dose: 300 mg Lactulose (Cephulac (Oral Use)) 20 gm PO Q8H PRN PRN Reason: constipation Metoprolol Tartrate (Lopressor -) 100 mg PO BID [facility] Last Admin: 08/03/18 10:13 Dose: 100 mg Pyridoxine HCl (Vitamin B6 -) 100 mg PO DAILY [facility] Last Admin: 08/03/18 10:14 Dose: 100 mg Quetiapine Fumarate (Seroquel -) 25 mg PO TID [facility] Last Admin: 08/03/18 07:08 Dose: 25 mg Ranitidine HCl (Zantac -) 150 mg PO DAILY [facility] Last Admin: 08/03/18 10:12 Dose: 150 mg Sevelamer Carbonate (Renvela -) 800 mg PO TIDCM [facility] Last Admin: 08/03/18 09:21 Dose: 800 mg Thiamine HCl (Vitamin B1 -) 100 mg PO DAILY [facility] Last Admin: 08/03/18 10:12 Dose: 100 mg CBC,CMP WBC 6.2 K/mm3 (4.0-10.0) 08/02/18 06:20 RBC 3.62 M/mm3 (3.60-5.2) 08/02/18 06:20 Hgb 11.0 GM/dL (10.7-15.3) 08/02/18 06:20 Hct 31.5 % (32.4-45.2) L 08/02/18 06:20 MCV 87.0 fl (80-96) 08/02/18 06:20 MCH 30.4 pg (25.7-33.7) 08/02/18 06:20 MCHC 34.9 g/dl (32.0-36.0) 08/02/18 06:20 RDW 14.3 % (11.6-15.6) 08/02/18 06:20 Plt Count 277 K/MM3 (134-434) 08/02/18 06:20 MPV 8.8 fl (7.5-11.1) 08/02/18 06:20 Absolute Neuts (auto) 2.8 K/mm3 (1.5-8.0) 08/02/18 06:20 Neutrophils % 44.7 % (42.8-82.8) D 08/02/18 06:20 Lymphocytes % 39.3 % (8-40) D 08/02/18 06:20 Monocytes % 9.6 % (3.8-10.2) 08/02/18 06:20 Eosinophils % 4.2 % (0-4.5) 08/02/18 06:20 Basophils % 2.2 % (0-2.0) H 08/02/18 06:20 Nucleated RBC % 0 % (0-0) 08/02/18 06:20 Sodium 137 mmol/L (136-145) 08/02/18 06:20 Potassium 4.9 mmol/L (3.5-5.1) 08/02/18 06:20 Chloride 100 mmol/L (98-107) 08/02/18 06:20 Carbon Dioxide 25 mmol/L (21-32) 08/02/18 06:20 Anion Gap 12 MMOL/L (8-16) 08/02/18 06:20 BUN 44 mg/dL (7-18) H 08/02/18 06:20 Creatinine 8.7 mg/dL (0.55-1.3) H* 08/02/18 06:20 Creat Clearance w eGFR 4.67 (>60) 08/02/18 06:20 POC Glucometer 111 UNITS (80-120) 08/03/18 07:11 Random Glucose 86 mg/dL (74-106) 08/02/18 06:20 Lactic Acid 2.0 mmol/L (0.4-2.0) 08/01/18 16:00 Calcium 8.3 mg/dL (8.5-10.1) L 08/02/18 06:20 Phosphorus 6.1 mg/dL (2.5-4.9) H 08/01/18 16:00 Magnesium 3.0 mg/dL (1.8-2.4) H 08/01/18 16:00 Total Bilirubin 0.4 mg/dL (0.2-1) 08/02/18 06:20 GGT Cancelled 08/03/18 06:35 AST 13 U/L (15-37) L 08/02/18 06:20 ALT 6 U/L (13-61) L 08/02/18 06:20 Alkaline Phosphatase 193 U/L (45-117) H 08/02/18 06:20 Ammonia 64.7 umol/L (11-32) H 08/03/18 07:38 Creatine Kinase 44 IU/L (26-192) 08/01/18 16:00 Troponin I < 0.02 ng/ml (0.00-0.05) 08/01/18 16:00 Total Protein 7.0 g/dl (6.4-8.2) 08/02/18 06:20 Albumin 3.0 g/dl (3.4-5.0) L 08/02/18 06:20 TSH 1.35 uIU/ml (0.358-3.74) 08/01/18 16:00 u/s -- liver - noted Physical Exam Awake/ comfortable heent- no jvd Lungs- Clear cvs- s1, s2 rrr Abd - soft ext- no edema neuro- awake/ a/p ams-- better metabolic encephalopathy esrd- hd elevated ammonia level lactulose monitor ammonia level- better check u/s liver- continue other meds orders written s/p treatment for + rpr discussed with nursing staff also will consult gi also will follow Problem List - Problems (1) Toxic metabolic encephalopathy Code(s): G92 - TOXIC ENCEPHALOPATHY (2) Diabetes Code(s): E11.9 - TYPE 2 DIABETES MELLITUS WITHOUT COMPLICATIONS (3) ESRD (end stage renal disease) on dialysis Code(s): N18.6 - END STAGE RENAL DISEASE; Z99.2 - DEPENDENCE ON RENAL DIALYSIS
[2018-08-03 12:32] LABS: ALBUMIN 3.2 g/dl (3.4-5.0); ALK PHOS 217 U/L (45-117); ANION GAP 15 MMOL/L (8-16); BILIRUBIN,TOTAL 0.4 mg/dL (0.2-1); BLOOD UREA NITROGEN 62 mg/dL (7-18); CALCIUM 8.4 mg/dL (8.5-10.1); CHLORIDE 102 mmol/L (98-107); CO2 22 mmol/L (21-32); GLUCOSE,RANDOM 104 mg/dL (74-106); POTASSIUM 5.1 mmol/L (3.5-5.1); SGOT/AST 11 U/L (15-37); SGPT/ALT < 6 U/L (13-61); SODIUM 139 mmol/L (136-145); TOT PROT 7.3 g/dl (6.4-8.2)
[2018-08-03 13:33] LABS: CREATININE 11.3 mg/dL (0.55-1.3)
[2018-08-03 14:01] LABS: BASO % 1.1 % (0-2.0); EOS % 1.9 % (0-4.5); HEMATOCRIT 36.3 % (32.4-45.2); HEMOGLOBIN 11.4 GM/dL (10.7-15.3); LYMPH % 20.4 % (8-40); MCHC 31.4 g/dl (32.0-36.0); MEAN CELL VOLUME 89.3 fl (80-96); MONO % 6.9 % (3.8-10.2); NEUT % 69.7 % (42.8-82.8); PLATELET COUNT 286 K/MM3 (134-434); RBC 4.06 M/mm3 (3.60-5.2); RDW 14.5 % (11.6-15.6); WHITE BLOOD COUNT 12.1 K/mm3 (4.0-10.0)
[2018-08-03 15:04] LABS: GAMMA GLUTAMYL TRANSPEPTIDASE 23 U/L (5-85)
[2018-08-03] MEDS ORDERED: INSULIN (NOVOLOG) ASPART 100 UNITS/ML 10ML VIAL SQ STA (17:24)
--- NOTE | 2018-08-03 21:39 | PN ---
Progress Note (short form) - Note Progress Note: feels weak poor appetite affect is down started on nepro Problems 1. ESRD 2. change in mental status 3. HTN 4. DM 5. HLD 6. hypocalcemia 7. positive rpr s/p treatment with ceftriaxone 8. hyperkalemia Current Medications Amlodipine Besylate (Norvasc -) 5 mg PO DAILY [facility] Last Admin: 08/03/18 10:12 Dose: 5 mg Aspirin (Asa -) 81 mg PO DAILY [facility] Last Admin: 08/03/18 10:11 Dose: 81 mg Donepezil HCl (Aricept -) 10 mg PO HS [facility] Last Admin: 08/02/18 21:49 Dose: 10 mg Escitalopram Oxalate (Lexapro -) 20 mg PO DAILY [facility] Last Admin: 08/03/18 10:10 Dose: 20 mg Furosemide (Lasix -) 80 mg PO DAILY [facility] Last Admin: 08/03/18 10:11 Dose: 80 mg Gemfibrozil (Lopid -) 600 mg PO BIDAC [facility] Last Admin: 08/03/18 17:34 Dose: 600 mg Isoniazid (Inh -) 300 mg PO DAILY [facility] Last Admin: 08/03/18 10:13 Dose: 300 mg Lactulose (Cephulac (Oral Use)) 20 gm PO Q8H PRN PRN Reason: constipation Metoprolol Tartrate (Lopressor -) 100 mg PO BID [facility] Last Admin: 08/03/18 10:13 Dose: 100 mg Pyridoxine HCl (Vitamin B6 -) 100 mg PO DAILY [facility] Last Admin: 08/03/18 10:14 Dose: 100 mg Quetiapine Fumarate (Seroquel -) 25 mg PO TID [facility] Last Admin: 08/03/18 14:53 Dose: 25 mg Ranitidine HCl (Zantac -) 150 mg PO DAILY [facility] Last Admin: 08/03/18 10:12 Dose: 150 mg Sevelamer Carbonate (Renvela -) 800 mg PO TIDCM [facility] Last Admin: 08/03/18 17:34 Dose: 800 mg Thiamine HCl (Vitamin B1 -) 100 mg PO DAILY [facility] Last Admin: 08/03/18 10:12 Dose: 100 mg Last Vital Signs Temp Pulse Resp BP Pulse Ox 99.1 F 83 20 126/69 96 08/03/18 18:00 08/03/18 18:00 08/03/18 18:00 08/03/18 18:00 08/03/18 09:00 Lungs clear heart reg abd soft nontender ext no edema CBC, BMP 08/03/18 06:35 08/03/18 06:35 Imp 1. ESRD 2. change in mental status 3. HTN 4. DM 5. HLD 6. hypocalcemia 7. positive rpr s/p treatment with ceftriaxone 8. hyperkalemia of note, she made a lot of urine earlier will monitor renal function to r/o any sign of renal recovery
[2018-08-03] MEDS ORDERED: SODIUM CHLORIDE 250 ML IV PRN (21:41)
[2018-08-03] MEDS: DONEPEZIL HCL 5 MG TABLET (FP) PO SCH (21:47)
[2018-08-04] MEDS: GEMFIBROZIL 600 MG TABLET (FP) PO SCH ×2 (06:39→17:06)
[2018-08-04] MEDS: QUEtiapine FUMARATE 25 MG TABLET (FP) PO SCH ×2 (06:39→14:24)
[2018-08-04] MEDS: SEVELAMER CARBONATE 800 MG TAB (FP) PO SCH ×3 (09:11→17:06)
--- NOTE | 2018-08-04 12:01 | PN ---
Progress Note (short form) - Note Progress Note: pt seen/ examined in dialysis awake/ comfortable. no complains Vital Signs Temp 98.2 F 08/04/18 09:10 Pulse 86 08/04/18 11:15 Resp 18 08/04/18 11:15 BP 100/59 L 08/04/18 11:15 Pulse Ox 95 08/03/18 21:00 Intake & Output 08/03/18 08/04/18 08/04/18 23:59 11:59 23:59 Intake Total 1335 0 Balance 1335 0 Weight 133 lb 2 oz Intake: Oral 1335 0 Other: Voiding Method Toilet Toilet # Unmeasured Voids Void 2 0 Bowel Movement Yes Yes # Bowel Movements 2 Weight Measurement Method Patient Lift Scale Active Medications Amlodipine Besylate (Norvasc -) 5 mg PO DAILY [facility] Last Admin: 08/03/18 10:12 Dose: 5 mg Aspirin (Asa -) 81 mg PO DAILY [facility] Last Admin: 08/03/18 10:11 Dose: 81 mg Donepezil HCl (Aricept -) 10 mg PO HS [facility] Last Admin: 08/03/18 21:47 Dose: 10 mg Escitalopram Oxalate (Lexapro -) 20 mg PO DAILY [facility] Last Admin: 08/03/18 10:10 Dose: 20 mg Furosemide (Lasix -) 80 mg PO DAILY [facility] Last Admin: 08/03/18 10:11 Dose: 80 mg Gemfibrozil (Lopid -) 600 mg PO BIDAC [facility] Last Admin: 08/04/18 06:39 Dose: 600 mg Sodium Chloride (Normal Saline -) 250 mls @ 3,000 mls/hr IV PRN PRN PRN Reason: Hypotension during Dialysis Stop: 08/04/18 21:41 Isoniazid (Inh -) 300 mg PO DAILY [facility] Last Admin: 08/03/18 10:13 Dose: 300 mg Lactulose (Cephulac (Oral Use)) 20 gm PO Q8H PRN PRN Reason: constipation Metoprolol Tartrate (Lopressor -) 100 mg PO BID [facility] Last Admin: 08/03/18 21:46 Dose: 100 mg Pyridoxine HCl (Vitamin B6 -) 100 mg PO DAILY [facility] Last Admin: 08/03/18 10:14 Dose: 100 mg Quetiapine Fumarate (Seroquel -) 25 mg PO TID [facility] Last Admin: 08/04/18 06:39 Dose: 25 mg Ranitidine HCl (Zantac -) 150 mg PO DAILY [facility] Last Admin: 08/03/18 10:12 Dose: 150 mg Sevelamer Carbonate (Renvela -) 800 mg PO TIDCM [facility] Last Admin: 08/04/18 09:11 Dose: Not Given Thiamine HCl (Vitamin B1 -) 100 mg PO DAILY [facility] Last Admin: 08/03/18 10:12 Dose: 100 mg CBC, BMP 08/03/18 06:35 08/03/18 06:35 Abnormal Lab Results 08/03/18 08/03/18 08/03/18 06:35 06:35 07:38 WBC 12.1 H MCHC 31.4 L Absolute Neuts (auto) 8.4 H BUN 62 H Creatinine 11.3 H* Calcium 8.4 L AST 11 L ALT < 6 L Alkaline Phosphatase 217 H Ammonia 64.70 H Albumin 3.2 L Ammonia level- Ordered. Physical Exam Awake/ comfortable heent- no jvd Lungs- Clear cvs- s1, s2 rrr Abd - soft ext- no edema neuro- awake/ a/p ams-- better metabolic encephalopathy esrd- hd elevated ammonia level lactulose monitor ammonia level- ordered for today overal better Attempt to decrease Hepatotoxic meds-- orders written s/p treatment for + rpr discussed with nursing staff also gi consult pending overall stable-- anticipate d/c later today or tomorrow will follow Problem List - Problems (1) Toxic metabolic encephalopathy Code(s): G92 - TOXIC ENCEPHALOPATHY (2) Diabetes Code(s): E11.9 - TYPE 2 DIABETES MELLITUS WITHOUT COMPLICATIONS (3) ESRD (end stage renal disease) on dialysis Code(s): N18.6 - END STAGE RENAL DISEASE; Z99.2 - DEPENDENCE ON RENAL DIALYSIS
[2018-08-04] MEDS ORDERED: PT OWN MED DRAWER 7, Y5N ONE (13:07)
--- NOTE | 2018-08-04 13:09 | PN ---
Progress Note, Physician History of Present Illness: Pt seen and examined at bedside. She is tolerating HD. She denies shortness of breath. - Current Medication List Current Medications: Active Medications Amlodipine Besylate (Norvasc -) 5 mg PO DAILY [facility] Last Admin: 08/03/18 10:12 Dose: 5 mg Aspirin (Asa -) 81 mg PO DAILY [facility] Last Admin: 08/03/18 10:11 Dose: 81 mg Donepezil HCl (Aricept -) 10 mg PO HS [facility] Last Admin: 08/03/18 21:47 Dose: 10 mg Escitalopram Oxalate (Lexapro -) 20 mg PO DAILY [facility] Last Admin: 08/03/18 10:10 Dose: 20 mg Furosemide (Lasix -) 80 mg PO DAILY [facility] Last Admin: 08/03/18 10:11 Dose: 80 mg Gemfibrozil (Lopid -) 600 mg PO BIDAC [facility] Last Admin: 08/04/18 06:39 Dose: 600 mg Sodium Chloride (Normal Saline -) 250 mls @ 3,000 mls/hr IV PRN PRN PRN Reason: Hypotension during Dialysis Stop: 08/04/18 21:41 Isoniazid (Inh -) 300 mg PO DAILY [facility] Last Admin: 08/03/18 10:13 Dose: 300 mg Lactulose (Cephulac (Oral Use)) 20 gm PO Q8H PRN PRN Reason: constipation Metoprolol Tartrate (Lopressor -) 100 mg PO BID [facility] Last Admin: 08/03/18 21:46 Dose: 100 mg Pyridoxine HCl (Vitamin B6 -) 100 mg PO DAILY [facility] Last Admin: 08/03/18 10:14 Dose: 100 mg Quetiapine Fumarate (Seroquel -) 25 mg PO TID [facility] Last Admin: 08/04/18 06:39 Dose: 25 mg Ranitidine HCl (Zantac -) 150 mg PO DAILY [facility] Last Admin: 08/03/18 10:12 Dose: 150 mg Sevelamer Carbonate (Renvela -) 800 mg PO TIDCM [facility] Last Admin: 08/04/18 09:11 Dose: Not Given Thiamine HCl (Vitamin B1 -) 100 mg PO DAILY [facility] Last Admin: 08/03/18 10:12 Dose: 100 mg - Objective Vital Signs: Vital Signs Temperature 98.2 F 08/04/18 09:10 Pulse Rate 86 08/04/18 11:15 Respiratory Rate 18 08/04/18 11:15 Blood Pressure 100/59 L 08/04/18 11:15 O2 Sat by Pulse Oximetry (%) 95 08/03/18 21:00 Constitutional: Yes: Calm Eyes: Yes: Conjunctiva Clear HENT: Yes: Atraumatic Cardiovascular: Yes: S1, S2 Respiratory: Yes: CTA Bilaterally Gastrointestinal: Yes: Soft Genitourinary: Yes: WNL Musculoskeletal: Yes: WNL Edema: No Neurological: Yes: Oriented Psychiatric: Yes: Oriented Labs: CBC, BMP 08/03/18 06:35 08/03/18 06:35 INR, PTT INR 1.26 (0.83-1.09) H 08/01/18 16:00 Problem List - Problems (1) Diabetes Code(s): E11.9 - TYPE 2 DIABETES MELLITUS WITHOUT COMPLICATIONS (2) ESRD (end stage renal disease) on dialysis Code(s): N18.6 - END STAGE RENAL DISEASE; Z99.2 - DEPENDENCE ON RENAL DIALYSIS (3) End stage renal disease Code(s): N18.6 - END STAGE RENAL DISEASE (4) Positive RPR test Code(s): A53.0 - LATENT SYPHILIS, UNSPECIFIED EARLY OR LATE Assessment/Plan Current Medications Generic Name Dose Route Start Last Admin Trade Name Dominique PRN Reason Stop Dose Admin Amlodipine Besylate 5 mg 08/03/18 10:00 08/03/18 10:12 Norvasc - PO 5 mg DAILY [facility] Administration Aspirin 81 mg 08/03/18 10:00 08/03/18 10:11 Asa - PO 81 mg DAILY [facility] Administration Donepezil HCl 10 mg 08/02/18 22:00 08/03/18 21:47 Aricept - PO 10 mg HS [facility] Administration Escitalopram Oxalate 20 mg 08/03/18 10:00 08/03/18 10:10 Lexapro - PO 20 mg DAILY [facility] Administration Furosemide 80 mg 08/03/18 10:00 08/03/18 10:11 Lasix - PO 80 mg DAILY [facility] Administration Gemfibrozil 600 mg 08/02/18 16:30 08/04/18 06:39 Lopid - PO 600 mg BIDAC [facility] Administration Sodium Chloride 250 mls @ 3,000 mls/hr 08/03/18 21:41 Normal Saline - IV 08/04/18 21:41 PRN PRN Hypotension during Dialysis Isoniazid 300 mg 08/03/18 10:00 08/03/18 10:13 Inh - PO 300 mg DAILY [facility] Administration Lactulose 20 gm 08/02/18 11:49 Cephulac (Oral Use) PO Q8H PRN constipation Metoprolol Tartrate 100 mg 08/02/18 22:00 08/03/18 21:46 Lopressor - PO 100 mg BID [facility] Administration Pyridoxine HCl 100 mg 08/03/18 10:00 08/03/18 10:14 Vitamin B6 - PO 100 mg DAILY [facility] Administration Quetiapine Fumarate 25 mg 08/02/18 14:00 08/04/18 06:39 Seroquel - PO 25 mg TID [facility] Administration Ranitidine HCl 150 mg 08/03/18 10:00 08/03/18 10:12 Zantac - PO 150 mg DAILY [facility] Administration Sevelamer Carbonate 800 mg 08/02/18 17:30 08/04/18 09:11 Renvela - PO Not Given TIDCM [facility] Thiamine HCl 100 mg 08/03/18 10:00 08/03/18 10:12 Vitamin B1 - PO 100 mg DAILY [facility] Administration Impression 1. ESRD 2. change in mental status 3. HTN 4. DM 5. HLD 6. hypocalcemia 7. positive rpr s/p treatment with ceftriaxone 8. hyperkalemia Plan - pt tolerating HD today - her mental status is improved, she says that she remembered all the events that occurred on Saturday however just "didnt feel like talking" - volume status is stable - AVF, 3:30, 2 k bath, heparin 1000 bolus and 500 maintenance, abf 450 - will follow Dr Marks
--- NOTE | 2018-08-04 14:02 | CON.GI ---
Consult Consult Specialty:: GI Referred by:: medicine Reason for Consultation:: high ammonia - History of Present Illness Chief Complaint: AMS History of Present Illness: 57F with h/o ESRD on HD, neurosyphilis, presenting for evaluation of AMS. Refused HD prior to admission. GI consulted for high ammonia level. Seen while on HD. No known history of liver disease. Patient denies h/o liver disease. Denies ETOH use. Denies h/o cirrhosis complications - no abdominal swelling, hematemesis, day/ night sleep reversal. Denies abdominal pain. No N/V. Moving bowels. - History Source History Provided By: Patient Limitations to Obtaining History: Poor Historian - Past Medical History CURBER: Yes: Dementia Cardio/Vascular: Yes: HTN Gastrointestinal: Yes: GERD Renal/: Yes: Hemodialysis ...: No Endocrine: Yes: Diabetes Mellitus - Past Surgical History Past Surgical History: Yes: AV Fistula/Graft - Alcohol/Substance Use Hx Alcohol Use: No History of Substance Use: reports: None - Smoking History Smoking history: Unknown if ever smoked Have you smoked in the past 12 months: No - Social History Usual Living Arrangement: Care Home ADL: Support Services Occupation: former [employer] History of Recent Travel: No Home Medications - Allergies Allergies/Adverse Reactions: Allergies Allergy/AdvReac Type Severity Reaction Status Date / Time No Known Allergies Allergy Verified 08/01/18 17:37 - Home Medications Home Medications: Ambulatory Orders Acetaminophen 325 mg PO QID 06/26/18 Amlodipine Besylate 5 mg PO DAILY 06/26/18 Aspirin 81 mg PO DAILY 06/26/18 Donepezil HCl 10 mg PO HS 06/26/18 Dulaglutide [Trulicity] 0.75 mg SQ WEEKLY 06/26/18 Escitalopram Oxalate [Lexapro -] 20 mg PO DAILY 06/26/18 Famotidine 20 mg PO DAILY 06/26/18 Furosemide 80 mg PO DAILY 06/26/18 Gabapentin 100 mg PO HS 06/26/18 Gemfibrozil [Lopid] 600 mg PO BID 06/26/18 Isoniazid 300 mg PO DAILY 06/26/18 Metoprolol Tartrate 100 mg PO BID 06/26/18 Pyridoxine HCl (Vitamin B6) [Vitamin B-6] 100 mg PO DAILY 06/26/18 Quetiapine Fumarate [Seroquel -] 25 mg PO TID 06/26/18 Sevelamer Carbonate 800 mg PO TID 06/26/18 Thiamine Mononitrate [Vitamin B-1] 100 mg PO DAILY 06/26/18 Ceftriaxone 2 gm-D5w Bag 2 gm IV DAILY #14 dose 07/10/18 Dulaglutide [Trulicity] 0.75 mg SQ WEEKLY 08/01/18 Family Disease History - Family Disease History Family Disease History: Diabetes: Grandparent Review of Systems - Review of Systems Constitutional: reports: No Symptoms Eyes: reports: No Symptoms HENT: reports: No Symptoms Cardiovascular: reports: No Symptoms Respiratory: reports: No Symptoms Gastrointestinal: reports: No Symptoms Musculoskeletal: reports: No Symptoms Neurological: reports: No Symptoms Psychiatric: reports: No Symptoms Physical Exam-GI Vital Signs: Vital Signs Temperature 98.2 F 08/04/18 09:10 Pulse Rate 81 08/04/18 12:15 Respiratory Rate 18 08/04/18 12:15 Blood Pressure 101/63 08/04/18 12:15 O2 Sat by Pulse Oximetry (%) 95 08/03/18 21:00 Constitutional: Yes: Well Nourished, No Distress, Calm Eyes: Yes: WNL Cardiovascular: Yes: Regular Rate and Rhythm Respiratory: Yes: CTA Bilaterally ...Auscultate: Yes: Normoactive Bowel Sounds ...Palpate: Yes: Soft, Tenderness ...Rectal Exam: Yes: Deferred Extremities: Yes: WNL Neurological: Yes: WNL Labs: CBC, BMP 08/03/18 06:35 08/03/18 06:35 INR, PTT INR 1.26 (0.83-1.09) H 08/01/18 16:00 Imaging - Results Ultrasound: Report Reviewed (Gallstones 6mm CBD slightly coarse echotexture) Assessment/Plan Hyperammonemia - in and of itself, is not an indicator of decompensated liver disease. In a patient with compromised renal function, would suspect more related to impaired excretion. Normal liver tests and no evidence of portal hypertension based on labs or imaging. Very unlikely to be an inborn error of metabolism in the liver at this age. Would defer further work up at this time.
[2018-08-04] MEDS: FUROSEMIDE 40 MG TABLET (FP) PO SCH (14:21)
[2018-08-04] MEDS: amLODIPine BESYLATE 5 MG TABLET (FP) PO SCH (14:22)
[2018-08-04] MEDS: METOPROLOL TARTRATE 50 MG TABLET (FP) PO SCH (14:22)
[2018-08-04] MEDS: ASPIRIN 81 MG CHEWABLE TABLETS PO SCH (14:22)
[2018-08-04] MEDS: THIAMINE HCL 100 MG TABLET (FP) PO SCH (14:22)
[2018-08-04] MEDS: ESCITALOPRAM OXALATE 20 MG TABLET (FP) PO SCH (14:23)
[2018-08-04] MEDS: ISONIAZID 300 MG TABLET (FP) PO SCH (14:23)
[2018-08-04] MEDS: PYRIDOXINE HCL (B-6) 50 MG TABLET (FP) PO SCH (14:23)
[2018-08-04] MEDS: RANITIDINE HCL 150 MG TABLET (FP) PO SCH (14:26)
--- NOTE | 2018-08-04 15:49 | DS ---
Physical Examination Vital Signs: Vital Signs Temperature 98.1 F 08/04/18 14:01 Pulse Rate 81 08/04/18 14:01 Respiratory Rate 18 08/04/18 14:01 Blood Pressure 137/63 08/04/18 14:01 O2 Sat by Pulse Oximetry (%) 95 08/03/18 21:00 Findings/Remarks: see today's progress note Labs: CBC, BMP 08/03/18 06:35 08/03/18 06:35 Discharge Summary Reason For Visit: TOXIC METABOLIC ENCEPHALOPATHY Current Active Problems Anxiety and depression (Acute) End stage renal disease (Acute) GERD (gastroesophageal reflux disease) (Acute) HTN (hypertension) (Acute) Hyperammonemia (Acute) Toxic metabolic encephalopathy (Acute) Hospital Course: patient admitted for altered mental status Workup significant for elevated ammonia level Ultrasound liver also done- GI consultation also taken Started on left to low-dose Much better Stable for discharge back to longterm Avoid hepatotoxic medications --as much as possible Discussed with nursing staff - Instructions Referrals: [facility] [Outside] Aldair Mosquera MD [Staff Physician] - Disposition: CARE HOME FACILITY - Home Medications Comprehensive Discharge Medication List: Ambulatory Orders Amlodipine Besylate 5 mg PO DAILY 06/26/18 Aspirin 81 mg PO DAILY 06/26/18 Donepezil HCl 10 mg PO HS 06/26/18 Dulaglutide [Trulicity] 0.75 mg SQ WEEKLY 06/26/18 Escitalopram Oxalate [Lexapro -] 20 mg PO DAILY 06/26/18 Famotidine 20 mg PO DAILY 06/26/18 Furosemide 80 mg PO DAILY 06/26/18 Gabapentin 100 mg PO HS 06/26/18 Gemfibrozil [Lopid] 600 mg PO BID 06/26/18 Isoniazid 300 mg PO DAILY 06/26/18 Metoprolol Tartrate 100 mg PO BID 06/26/18 Pyridoxine HCl (Vitamin B6) [Vitamin B-6] 100 mg PO DAILY 06/26/18 Quetiapine Fumarate [Seroquel -] 25 mg PO TID 06/26/18 Sevelamer Carbonate 800 mg PO TID 06/26/18 Thiamine Mononitrate [Vitamin B-1] 100 mg PO DAILY 06/26/18 Lactulose (Oral Use) [Cephulac -] 20 gm PO Q8H PRN udc 08/04/18
[2018-08-04 17:03] VITALS: BP 103/57; PULSE 80; TEMP 98.3
[2018-08-05 22:08] LABS: HBSAG SCREEN Negative (Negative); HEP A AB, IGM Negative (Negative); HEP B CORE AB, TOT Positive (Negative)
== END 2018-08-04 18:41 | DRG 91 ==
LOC: JER 15:45 → JERBED 18:33 → J5S 21:39
PROVIDERS: ADMIT Internal Medicine; ATTEND Internal Medicine
PROC: 5A1D70Z Performance of Urinary Filtration, Intermittent, Less than 6 Hours Per Day (ICD-10-PCS; principal; 2018-08-01)
DX: G92 Toxic encephalopathy (principal); N18.6 End stage renal disease; I12.0 Hypertensive chronic kidney disease with stage 5 chronic kidney disease or end stage renal disease; E72.20 Disorder of urea cycle metabolism, unspecified; E11.22 Type 2 diabetes mellitus with diabetic chronic kidney disease; Z99.2 Dependence on renal dialysis; F32.9 Major depressive disorder, single episode, unspecified; F41.9 Anxiety disorder, unspecified; E78.5 Hyperlipidemia, unspecified; E83.51 Hypocalcemia; E87.5 Hyperkalemia; K21.9 Gastro-esophageal reflux disease without esophagitis; Z66 Do not resuscitate; A53.0 Latent syphilis, unspecified as early or late
CPT/HCPCS: 36415; 36600; 70450-TC; 71045-TC-FY; 76705-TC; 80053; 81003; 81015; 82140; 82375; 82550; 82803; 82962; 82977; 83050; 83605; 83735; 84100; 84443; 84484; 85025; 85610; 86704; 86706; 86708; 86803; 87086; 87340; 90670; 93005; 93010; 99284-25

== ENCOUNTER 2018-08-13 15:10 | Inpatient (IN) | payer OTHER ==
--- NOTE | 2018-08-13 16:40 | PDOC ---
Attending Attestation - Physicial Exam PE: Ext: LUE av fistula, right permacath 08/13/18 19:28 <Char Flores - Last Filed: 08/13/18 19:28> - Resident Resident Name: Moshe Vidales - ED Attending Attestation I have performed the following: I have examined & evaluated the patient, The case was reviewed & discussed with the resident, I agree w/resident's findings & plan, Exceptions are as noted - HPI HPI: 08/13/18 17:03 57yo female from HD for eval of altered MS and hypotension. Pt is confused to time and date. Pt alert to person and place. Pt unable to explain why she was sent from HD. Pt with hx of toxic metabolic encephalopathy, hx of uremia, is ESRD on HD m/w/. Pt had a full HD today. Pt unable to provide a complete hx. Pt with recent hyperammonemia. Now at a NH. - Physicial Exam PE: 08/13/18 17:05 gen: awake, alert, oriented to person and place. confused on date and reason for visit heent: EOMI, PERRL, mmm neck: supple, no jvd heart: +s1s2 reg lungs: cta b/l abd: soft, nt/nd +bs ext: no c/c/e, no rash neuro: cn ii-xii grossly intact, confused, disoriented, altered - Medical Decision Making 08/13/18 16:40 I, Dr. Terra Neves, DO, attest that this document has been prepared under my direction and personally reviewed by me in its entirety. I further attest, that it accurately reflects all work, treatment, procedures and medical decision -making performed by me. 08/13/18 17:07 a/p: 57yo female from HD for eval of altered MS and hypotension -suspect electrolyte abnl vs increased ammonia, vs infectious, vs intracranial hemorrhage -will send labs, ekg, cxr, ua, cultures, ammonia, lactate, head ct -will place on clinical research monitor -will need admission -will straight cath for UA -will continue to monitor 08/13/18 18:[address] without acute findings 08/13/18 18:27 labs reviewed ammonia normal bun/cr elevated, but no elevated K pending ua 08/13/18 21:28 pt with elevated lactate pt with uti abx ordered will repeat lactate ivf hydraiton running resident discussed the case with NAVEED who accepts pt to service <Terra Neves - Last Filed: 08/13/18 21:29> Heart Score/ECG Review - ECG Intrepretation Comment:: 08/13/18 17:07 sinus at 70, nl axis, poor r wave progression, low voltage, no acute st/t wave findings, abnl ekg <Terra Neves - Last Filed: 08/13/18 21:29>
[2018-08-13 17:35] LABS: BASO % 1.3 % (0-2.0); EOS % 3.2 % (0-4.5); HEMATOCRIT 31.9 % (32.4-45.2); LYMPH % 24.6 % (8-40); MCH 30.2 pg (25.7-33.7); MCHC 34.4 g/dl (32.0-36.0); MEAN CELL VOLUME 87.7 fl (80-96); MEAN PLT VOLUME 9.1 fl (7.5-11.1); MONO % 5.4 % (3.8-10.2); NEUT % 65.5 % (42.8-82.8); PLATELET COUNT 346 K/MM3 (134-434); RBC 3.63 M/mm3 (3.60-5.2); RDW 14.7 % (11.6-15.6); WHITE BLOOD COUNT 8.2 K/mm3 (4.0-10.0)
--- NOTE | 2018-08-13 17:36 | PDOC ---
History of Present Illness - General Chief Complaint: Altered Mental Status Stated Complaint: Altered Mental Status Time Seen by Provider: 08/13/18 16:07 History Source: Patient Exam Limitations: Clinical Condition - History of Present Illness Initial Comments: 08/13/18 20:20 57 yo F with a hx of IDDM, neurosyphillis, ESRD (MWF), and recent admission with elevated ammonia and AMS presents to the emergency department from [facility] for AMS and low potassium. Per the patient, she is unaware as to why she is in the department. She states she has no pain complaints and denies the following: fevers, chills, nausea, vomiting, chest pain, SOB, abdominal pain, dysuria, hematuria, diarrhea, and leg pain/swelling. Past History - Past Medical History Allergies/Adverse Reactions: Allergies Allergy/AdvReac Type Severity Reaction Status Date / Time No Known Allergies Allergy Verified 08/01/18 17:37 Home Medications: Ambulatory Orders Amlodipine Besylate 5 mg PO DAILY 06/26/18 Aspirin 81 mg PO DAILY 06/26/18 Donepezil HCl 10 mg PO HS 06/26/18 Dulaglutide [Trulicity] 0.75 mg SQ WEEKLY 06/26/18 Escitalopram Oxalate [Lexapro -] 20 mg PO DAILY 06/26/18 Famotidine 20 mg PO DAILY 06/26/18 Furosemide 80 mg PO DAILY 06/26/18 Gabapentin 100 mg PO HS 06/26/18 Gemfibrozil [Lopid] 600 mg PO BID 06/26/18 Isoniazid 300 mg PO DAILY 06/26/18 Metoprolol Tartrate 100 mg PO BID 06/26/18 Pyridoxine HCl (Vitamin B6) [Vitamin B-6] 100 mg PO DAILY 06/26/18 Quetiapine Fumarate [Seroquel -] 25 mg PO TID 06/26/18 Sevelamer Carbonate 800 mg PO TID 06/26/18 Thiamine Mononitrate [Vitamin B-1] 100 mg PO DAILY 06/26/18 Lactulose (Oral Use) [Cephulac -] 20 gm PO Q8H PRN udc 08/04/18 Anemia: No Asthma: No Cancer: No Cardiac Disorders: No CVA: No COPD: No CHF: No Dementia: Yes Diabetes: Yes Dialysis: Yes GI Disorders: Yes (gerd) Disorders: Yes (end stage renal ds dialysis) HTN: Yes Hypercholesterolemia: Yes Liver Disease: No Seizures: No Thyroid Disease: No - Suicide/Smoking/Psychosocial Hx Smoking History: Unknown if ever smoked Have you smoked in the past 12 months: No Hx Alcohol Use: No Drug/Substance Use Hx: No Substance Use Type: None Hx Substance Use Treatment: No Review of Systems - Review of Systems Able to Perform ROS?: No (AMS) *Physical Exam - Vital Signs Last Vital Signs Temp Pulse Resp BP Pulse Ox 98.1 F 71 14 96/61 100 08/13/18 15:26 08/13/18 17:05 08/13/18 17:28 08/13/18 17:05 08/13/18 17:28 - Physical Exam General Appearance: Yes: Nourished, Appropriately Dressed, Other. No: Apparent Distress, Intoxicated HEENT: positive: EOMI, FABIÁN, Normal Voice, Symmetrical, Hearing Grossly Normal. negative: Pale Conjunctivae, Scleral Icterus (R), Scleral Icterus (L), Muffled /Hoarse voice, Nasal Congestion, Rhinorrhea, Sinus Tenderness, Excessive drooling Neck: positive: Trachea midline, Supple. negative: Tender, Lymphadenopathy (R) , Lymphadenopathy (L), Tender lateral, Tender midline Respiratory/Chest: positive: Lungs Clear, Normal Breath Sounds. negative: Chest Tender, Respiratory Distress, Accessory Muscle Use, Crackles, Rales, Rhonchi, Stridor, Wheezing Cardiovascular: positive: Regular Rhythm, Regular Rate, S1, S2. negative: Systolic Murmur Gastrointestinal/Abdominal: positive: Normal Bowel Sounds, Flat, Soft. negative : Tender, Distended, Guarding, Hernia Lymphatic: negative: Adenopathy Musculoskeletal: positive: Normal Inspection. negative: CVA Tenderness (R), CVA Tenderness (L), Vertebral Tenderness Extremity: positive: Normal Capillary Refill, Normal Range of Motion, Other (AV fistula present on left arm). negative: Normal Inspection, Tender Integumentary: positive: Normal Color, Dry, Warm. negative: Rash, Swelling Neurologic: positive: hand straightener II-XII NML intact, Alert, Normal Mood/Affect, Motor Strength 5/5. negative: Fully Oriented (oriented to self only. not to place and date), Normal Response (confused), EOM Palsy, Facial Droop, Sensory Deficit Moderate Sedation - Procedure Monitoring Vital Signs: Procedure Monitoring Vital Signs Temperature 98.1 F 08/13/18 15:26 Pulse Rate 71 08/13/18 17:05 Respiratory Rate 14 08/13/18 17:28 Blood Pressure 96/61 08/13/18 17:05 O2 Sat by Pulse Oximetry (%) 100 08/13/18 17:28 Heart Score/ECG Review - ECG Intrepretation Comment:: ventricular rate is 70. no acute ST elevations or depressions. Sinus rhythm. low voltage and poor R wave progression. ED Treatment Course - LABORATORY CBC & Chemistry Diagram: 08/14/18 08:37 08/13/18 16:58 - RADIOLOGY Radiology Studies Ordered: Category Date Time Status HEAD CT WITHOUT CONTRAST [CT] Stat CT Scan 08/13/18 17:09 Ordered CHEST X-RAY PORTABLE* [RAD] Stat Radiology 08/13/18 16:51 Ordered Medical Decision Making - Medical Decision Making 57 yo F with a hx of IDDM, neurosyphillis, ESRD (MWF), and recent admission with elevated ammonia and AMS presents to the emergency department from [facility] for AMS and low potassium. Initial vitals: Initial Vital Signs Temp Pulse Resp BP Pulse Ox 98.1 F 74 20 84/65 L 97 08/13/18 15:26 08/13/18 15:26 08/13/18 15:26 08/13/18 15:26 08/13/18 15:26 Work up ddx: AMS etiology (infectious vs ammonia vs intracranial vs electrolyte abnormality) cbc, cmp, ammonia, blood cultures, ua, urine culture, trops, lactate, head ct, CXR Laboratory Tests 08/13/18 08/13/18 08/13/18 16:58 16:58 16:58 WBC 8.2 RBC 3.63 Hgb 11.0 Hct 31.9 L MCV 87.7 MCH 30.2 MCHC 34.4 RDW 14.7 Plt Count 346 D MPV 9.1 Absolute Neuts (auto) 5.4 Neutrophils % 65.5 Neutrophils % (Manual) 69.0 Lymphocytes % 24.6 D Lymphocytes % (Manual) 22.0 Monocytes % 5.4 Monocytes % (Manual) 7 Eosinophils % 3.2 Eosinophils % (Manual) 2.0 Basophils % 1.3 Nucleated RBC % 0 Hypochromia 1+ Platelet Estimate Adequate Platelet Comment No clumping noted VBG pH 7.35 POC VBG pCO2 47.0 POC VBG pO2 24.0 L Mixed VBG HCO3 25.2 H Sodium 137 Potassium 5.0 Chloride 95 L Carbon Dioxide 26 Anion Gap 17 H BUN 45 H Creatinine 9.1 H* Creat Clearance w eGFR 4.44 Random Glucose 111 H Lactic Acid Calcium 9.2 Total Bilirubin 0.3 AST 15 ALT < 6 L Alkaline Phosphatase 231 H Ammonia Creatine Kinase 77 Troponin I < 0.02 Total Protein 8.9 H Albumin 3.7 Urine Color Urine Appearance Urine pH Ur Specific [place] Urine Protein Urine Glucose (UA) Urine Ketones Urine Blood Urine Nitrite Urine Bilirubin Urine Urobilinogen Ur Leukocyte Esterase Urine WBC (Auto) Urine RBC (Auto) Blood Type Antibody Screen Antibody Identification Antigen Identification 08/13/18 08/13/18 08/13/18 16:58 17:13 17:13 WBC RBC Hgb Hct MCV MCH MCHC RDW Plt Count MPV Absolute Neuts (auto) Neutrophils % Neutrophils % (Manual) Lymphocytes % Lymphocytes % (Manual) Monocytes % Monocytes % (Manual) Eosinophils % Eosinophils % (Manual) Basophils % Nucleated RBC % Hypochromia Platelet Estimate Platelet Comment VBG pH POC VBG pCO2 POC VBG pO2 Mixed VBG HCO3 Sodium Potassium Chloride Carbon Dioxide Anion Gap BUN Creatinine Creat Clearance w eGFR Random Glucose Lactic Acid 3.7 H* Calcium Total Bilirubin AST ALT Alkaline Phosphatase Ammonia 18.47 Creatine Kinase Troponin I Total Protein Albumin Urine Color Urine Appearance Urine pH Ur Specific [place] Urine Protein Urine Glucose (UA) Urine Ketones Urine Blood Urine Nitrite Urine Bilirubin Urine Urobilinogen Ur Leukocyte Esterase Urine WBC (Auto) Urine RBC (Auto) Blood Type A NEGATIVE Antibody Screen Positive H Antibody Identification Anti-d Antigen Identification No Result Required. 08/13/18 19:42 WBC RBC Hgb Hct MCV MCH MCHC RDW Plt Count MPV Absolute Neuts (auto) Neutrophils % Neutrophils % (Manual) Lymphocytes % Lymphocytes % (Manual) Monocytes % Monocytes % (Manual) Eosinophils % Eosinophils % (Manual) Basophils % Nucleated RBC % Hypochromia Platelet Estimate Platelet Comment VBG pH POC VBG pCO2 POC VBG pO2 Mixed VBG HCO3 Sodium Potassium Chloride Carbon Dioxide Anion Gap BUN Creatinine Creat Clearance w eGFR Random Glucose Lactic Acid Calcium Total Bilirubin AST ALT Alkaline Phosphatase Ammonia Creatine Kinase Troponin I Total Protein Albumin Urine Color Yellow Urine Appearance Turbid Urine pH 6.0 Ur Specific [place] 1.013 Urine Protein 2+ H Urine Glucose (UA) Negative Urine Ketones Negative Urine Blood 1+ H Urine Nitrite Negative Urine Bilirubin Negative Urine Urobilinogen Negative Ur Leukocyte Esterase 2+ H Urine WBC (Auto) 3898 Urine RBC (Auto) 6 Blood Type Antibody Screen Antibody Identification Antigen Identification labs show elevated lactic acid, with normal wbc and ammonia. UA shows 2+ leuk esterase with [address] was negative, cxr was negative for acute processes. started the patient on 500 cc NS bolus with ceftriaxone 1 gram. patient was accepted for admission for ams/UTI. Dispo: Admit *DC/Admit/Observation/Transfer Diagnosis at time of Disposition: ESRD (end stage renal disease) on dialysis Altered mental status Qualifiers: Altered mental status type: unspecified Qualified Code(s): R41.82 - Altered mental status, unspecified UTI (urinary tract infection) Qualifiers: Urinary tract infection type: site unspecified Hematuria presence: without hematuria Qualified Code(s): N39.0 - Urinary tract infection, site not specified - Referrals - Patient Instructions - Post Discharge Activity
[2018-08-13 18:13] LABS: VENOUS PH 7.35 (7.32-7.42)
[2018-08-13 18:21] LABS: ALBUMIN 3.7 g/dl (3.4-5.0); ALK PHOS 231 U/L (45-117); ANION GAP 17 MMOL/L (8-16); BILIRUBIN,TOTAL 0.3 mg/dL (0.2-1); BLOOD UREA NITROGEN 45 mg/dL (7-18); CALCIUM 9.2 mg/dL (8.5-10.1); CHLORIDE 95 mmol/L (98-107); CO2 26 mmol/L (21-32); GLUCOSE,RANDOM 111 mg/dL (74-106); SGOT/AST 15 U/L (15-37); SGPT/ALT < 6 U/L (13-61); SODIUM 137 mmol/L (136-145); TOT PROT 8.9 g/dl (6.4-8.2)
[2018-08-13 18:24] LABS: CREATININE 9.1 mg/dL (0.55-1.3)
[2018-08-13 18:45] LABS: PLATELET ESTIMATE ADEQUATE
[2018-08-13] MEDS ORDERED: SODIUM CHLORIDE 0.9% 1000 ML INFUS.BAG IV ONE (19:06)
[2018-08-13 19:57] LABS: URINE APPEARANCE TURBID; URINE BILIRUBIN NEGATIVE (<2.0 mg/dL); URINE COLOR YELLOW; URINE GLUCOSE (UA) NEGATIVE (NEGATIVE); URINE KETONE NEGATIVE (NEGATIVE); URINE LEUK ESTERASE 2+ (NEGATIVE); URINE NITRITE NEGATIVE (NEGATIVE); URINE PROTEIN 2+ (NEGATIVE); URINE UROBILINOGEN NEGATIVE mg/dL (0.2-1.0)
[2018-08-13] MEDS ORDERED: CEFTRIAXONE 1,000 MG in DEXTROSE 5%-WATER - 50 ML IVPB ONE (20:16)
[2018-08-13] MEDS ORDERED: CEFTRIAXONE 1 GM/50 ML BAG ONE (20:40)
[2018-08-13] MEDS ORDERED: LACTULOSE 20 GM/30 ML UDC (FOR ORAL USE ONLY) PO PRN (21:41)
--- NOTE | 2018-08-13 21:43 | HP ---
CHIEF COMPLAINT: altered mental status PCP: Dr. Vidales HISTORY OF PRESENT ILLNESS: 57 year old female with history of ESRD on hemodialysis M-W-F, last dialyzed today(nephrology -Dr. Cortes), IDDM and neurosphyllis who presented with an altered mental status. She was found to have mild hyperkalemia, elevated lactic acid of 3.7, normal WBC and urinalysis was abnormal with 2+ leukoesterase and WBC's 39,000 . She was given one dosage of IV Rocephin and IV fluids as she was hypotensive on presentation which has improved with systolic bp of 96. She is currently afebrile. Patient is a poor historian and unable to obtain an accurate history. Recent Travel:Denies PAST MEDICAL HISTORY: ESRD IDDM Neurosphyllis PAST SURGICAL HISTORY: Social History: Smoking:Denies Alcohol:Denies Drugs: Denies Family History: Allergies No Known Allergies Allergy (Verified 08/01/18 17:37) HOME MEDICATIONS: Home Medications Medication Instructions Recorded Amlodipine Besylate 5 mg PO DAILY 06/26/18 Aspirin 81 mg PO DAILY 06/26/18 Donepezil HCl 10 mg PO HS 06/26/18 Dulaglutide [Trulicity] 0.75 mg SQ WEEKLY 06/26/18 Escitalopram Oxalate [Lexapro -] 20 mg PO DAILY 06/26/18 Famotidine 20 mg PO DAILY 06/26/18 Furosemide 80 mg PO DAILY 06/26/18 Gabapentin 100 mg PO HS 06/26/18 Gemfibrozil [Lopid] 600 mg PO BID 06/26/18 Isoniazid 300 mg PO DAILY 06/26/18 Metoprolol Tartrate 100 mg PO BID 06/26/18 Pyridoxine HCl (Vitamin B6) 100 mg PO DAILY 06/26/18 [Vitamin B-6] Quetiapine Fumarate [Seroquel -] 25 mg PO TID 06/26/18 Sevelamer Carbonate 800 mg PO TID 06/26/18 Thiamine Mononitrate [Vitamin B-1] 100 mg PO DAILY 06/26/18 Lactulose (Oral Use) [Cephulac -] 20 gm PO Q8H PRN udc 08/04/18 REVIEW OF SYSTEMS CONSTITUTIONAL: Absent: fever, chills, diaphoresis, generalized weakness, malaise, loss of appetite, weight change, altered mental status HEENT: Absent: rhinorrhea, nasal congestion, throat pain, throat swelling, difficulty swallowing, mouth swelling, ear pain, eye pain, visual changes CARDIOVASCULAR: Absent: chest pain, syncope, palpitations, irregular heart rate, lightheadedness , peripheral edema RESPIRATORY: Absent: cough, shortness of breath, dyspnea with exertion, orthopnea, wheezing, stridor, hemoptysis GASTROINTESTINAL: Absent: abdominal pain, abdominal distension, nausea, vomiting, diarrhea, constipation, melena, hematochezia GENITOURINARY: Absent: dysuria, frequency, urgency, hesitancy, hematuria, flank pain, genital pain MUSCULOSKELETAL: Absent: myalgia, arthralgia, joint swelling, back pain, neck pain SKIN: Absent: rash, itching, pallor HEMATOLOGIC/IMMUNOLOGIC: Absent: easy bleeding, easy bruising, lymphadenopathy, frequent infections ENDOCRINE: Absent: unexplained weight gain, unexplained weight loss, heat intolerance, cold intolerance NEUROLOGIC: Absent: headache, focal weakness or paresthesias, dizziness, unsteady gait, seizure, mental status changes, bladder or bowel incontinence PSYCHIATRIC: Absent: anxiety, depression, suicidal or homicidal ideation, hallucinations. PHYSICAL EXAMINATION Vital Signs - 24 hr 08/13/18 08/13/18 08/13/18 15:26 15:33 17:05 Temperature 98.1 F Pulse Rate 74 Pulse Rate [ 70 71 Apical] Respiratory 20 14 14 Rate Blood Pressure 84/65 L Blood Pressure 85/61 L 96/61 [Right Arm] O2 Sat by Pulse 97 100 100 Oximetry (%) 08/13/18 17:28 Temperature Pulse Rate Pulse Rate [ Apical] Respiratory 14 Rate Blood Pressure Blood Pressure [Right Arm] O2 Sat by Pulse 100 Oximetry (%) GENERAL: Awake, alert, and fully oriented, in no acute distress. HEAD: Normal with no signs of trauma. EYES: Pupils equal, round and reactive to light, extraocular movements intact, sclera anicteric, conjunctiva clear. No lid lag. EARS, NOSE, THROAT: Ears normal, nares patent, oropharynx clear without exudates. Moist mucous membranes. NECK: Normal range of motion, supple without lymphadenopathy, JVD, or masses. LUNGS: Breath sounds equal, clear to auscultation bilaterally. No wheezes, and no crackles. No accessory muscle use. HEART: Regular rate and rhythm, normal S1 and S2 without murmur, rub or gallop. ABDOMEN: Soft, nontender, not distended, normoactive bowel sounds, no guarding, no rebound, no masses. MUSCULOSKELETAL: Normal range of motion at all joints. No bony deformities or tenderness. No CVA tenderness. UPPER EXTREMITIES: 2+ pulses, warm, well-perfused. No cyanosis. No clubbing. No peripheral edema, left upper extremity AV fistula LOWER EXTREMITIES: 2+ pulses, warm, well-perfused. No calf tenderness. No peripheral edema. NEUROLOGICAL: Normal speech. Normal gait. PSYCHIATRIC: Cooperative. Good eye contact. Appropriate mood and affect. SKIN: Warm, dry, normal turgor, no rashes or lesions noted, normal capillary refill. Laboratory Results - last 24 hr 08/13/18 08/13/18 08/13/18 16:58 16:58 16:58 WBC 8.2 RBC 3.63 Hgb 11.0 Hct 31.9 L MCV 87.7 MCH 30.2 MCHC 34.4 RDW 14.7 Plt Count 346 D MPV 9.1 Absolute Neuts (auto) 5.4 Neutrophils % 65.5 Neutrophils % (Manual) 69.0 Lymphocytes % 24.6 D Lymphocytes % (Manual) 22.0 Monocytes % 5.4 Monocytes % (Manual) 7 Eosinophils % 3.2 Eosinophils % (Manual) 2.0 Basophils % 1.3 Nucleated RBC % 0 Hypochromia 1+ Platelet Estimate Adequate Platelet Comment No clumping noted VBG pH 7.35 POC VBG pCO2 47.0 POC VBG pO2 24.0 L Mixed VBG HCO3 25.2 H Sodium 137 Potassium 5.0 Chloride 95 L Carbon Dioxide 26 Anion Gap 17 H BUN 45 H Creatinine 9.1 H* Creat Clearance w eGFR 4.44 Random Glucose 111 H Lactic Acid Calcium 9.2 Total Bilirubin 0.3 AST 15 ALT < 6 L Alkaline Phosphatase 231 H Ammonia Creatine Kinase 77 Troponin I < 0.02 Total Protein 8.9 H Albumin 3.7 Urine Color Urine Appearance Urine pH Ur Specific [place] Urine Protein Urine Glucose (UA) Urine Ketones Urine Blood Urine Nitrite Urine Bilirubin Urine Urobilinogen Ur Leukocyte Esterase Urine WBC (Auto) Urine RBC (Auto) Blood Type Antibody Screen 08/13/18 08/13/18 08/13/18 16:58 17:13 17:13 WBC RBC Hgb Hct MCV MCH MCHC RDW Plt Count MPV Absolute Neuts (auto) Neutrophils % Neutrophils % (Manual) Lymphocytes % Lymphocytes % (Manual) Monocytes % Monocytes % (Manual) Eosinophils % Eosinophils % (Manual) Basophils % Nucleated RBC % Hypochromia Platelet Estimate Platelet Comment VBG pH POC VBG pCO2 POC VBG pO2 Mixed VBG HCO3 Sodium Potassium Chloride Carbon Dioxide Anion Gap BUN Creatinine Creat Clearance w eGFR Random Glucose Lactic Acid 3.7 H* Calcium Total Bilirubin AST ALT Alkaline Phosphatase Ammonia 18.47 Creatine Kinase Troponin I Total Protein Albumin Urine Color Urine Appearance Urine pH Ur Specific [place] Urine Protein Urine Glucose (UA) Urine Ketones Urine Blood Urine Nitrite Urine Bilirubin Urine Urobilinogen Ur Leukocyte Esterase Urine WBC (Auto) Urine RBC (Auto) Blood Type A NEGATIVE Antibody Screen Positive H 08/13/18 19:42 WBC RBC Hgb Hct MCV MCH MCHC RDW Plt Count MPV Absolute Neuts (auto) Neutrophils % Neutrophils % (Manual) Lymphocytes % Lymphocytes % (Manual) Monocytes % Monocytes % (Manual) Eosinophils % Eosinophils % (Manual) Basophils % Nucleated RBC % Hypochromia Platelet Estimate Platelet Comment VBG pH POC VBG pCO2 POC VBG pO2 Mixed VBG HCO3 Sodium Potassium Chloride Carbon Dioxide Anion Gap BUN Creatinine Creat Clearance w eGFR Random Glucose Lactic Acid Calcium Total Bilirubin AST ALT Alkaline Phosphatase Ammonia Creatine Kinase Troponin I Total Protein Albumin Urine Color Yellow Urine Appearance Turbid Urine pH 6.0 Ur Specific [place] 1.013 Urine Protein 2+ H Urine Glucose (UA) Negative Urine Ketones Negative Urine Blood 1+ H Urine Nitrite Negative Urine Bilirubin Negative Urine Urobilinogen Negative Ur Leukocyte Esterase 2+ H Urine WBC (Auto) 3898 Urine RBC (Auto) 6 Blood Type Antibody Screen ASSESSMENT/PLAN: [facility] *LIVE* History&Physical-Symphony(tmp) Patient Name: ELIEZER PINEDO Date of : 1960 Patient Status: Inpatient Attending Provider: Aldair Mosquera Date: 08/13/18 21:43 Initialization Date: 08/13/18 21:43 CHIEF COMPLAINT: altered mental status PCP: Dr. Vidales HISTORY OF PRESENT ILLNESS: 57 year old female with history of ESRD on hemodialysis M-W-, last dialyzed today(nephrology -Dr. Cortes), IDDM, hypertension, hyperlipidemia, and neurosphyllis who presented from a [place] with an altered mental status. She was found to have mild hyperkalemia, an elevated lactic acid of 3.7, normal WBC and urinalysis was abnormal with 2+ leukoesterase and WBC's 39,000 . She was given one dosage of IV Rocephin and IV fluids as she was hypotensive on presentation which has improved with systolic bp of 96. She is currently afebrile. Patient is a poor historian and unable to obtain an accurate history. Recent Travel:Denies PAST MEDICAL HISTORY: ESRD IDDM Neurosphyllis PAST SURGICAL HISTORY: Social History: Smoking:Denies Alcohol:Denies Drugs: Denies Family History: Allergies No Known Allergies Allergy (Verified 08/01/18 17:37) HOME MEDICATIONS: Home Medications Medication Instructions Recorded Amlodipine Besylate 5 mg PO DAILY 06/26/18 Aspirin 81 mg PO DAILY 06/26/18 Donepezil HCl 10 mg PO HS 06/26/18 Dulaglutide [Trulicity] 0.75 mg SQ WEEKLY 06/26/18 Escitalopram Oxalate [Lexapro -] 20 mg PO DAILY 06/26/18 Famotidine 20 mg PO DAILY 06/26/18 Furosemide 80 mg PO DAILY 06/26/18 Gabapentin 100 mg PO HS 06/26/18 Gemfibrozil [Lopid] 600 mg PO BID 06/26/18 Isoniazid 300 mg PO DAILY 06/26/18 Metoprolol Tartrate 100 mg PO BID 06/26/18 Pyridoxine HCl (Vitamin B6) 100 mg PO DAILY 06/26/18 [Vitamin B-6] Quetiapine Fumarate [Seroquel -] 25 mg PO TID 06/26/18 Sevelamer Carbonate 800 mg PO TID 06/26/18 Thiamine Mononitrate [Vitamin B-1] 100 mg PO DAILY 06/26/18 Lactulose (Oral Use) [Cephulac -] 20 gm PO Q8H PRN udc 08/04/18 REVIEW OF SYSTEMS CONSTITUTIONAL: Absent: fever, chills, diaphoresis, generalized weakness, malaise, loss of appetite, weight change, altered mental status HEENT: Absent: rhinorrhea, nasal congestion, throat pain, throat swelling, difficulty swallowing, mouth swelling, ear pain, eye pain, visual changes CARDIOVASCULAR: Absent: chest pain, syncope, palpitations, irregular heart rate, lightheadedness , peripheral edema RESPIRATORY: Absent: cough, shortness of breath, dyspnea with exertion, orthopnea, wheezing, stridor, hemoptysis GASTROINTESTINAL: Absent: abdominal pain, abdominal distension, nausea, vomiting, diarrhea, constipation, melena, hematochezia GENITOURINARY: Absent: dysuria, frequency, urgency, hesitancy, hematuria, flank pain, genital pain MUSCULOSKELETAL: Absent: myalgia, arthralgia, joint swelling, back pain, neck pain SKIN: Absent: rash, itching, pallor HEMATOLOGIC/IMMUNOLOGIC: Absent: easy bleeding, easy bruising, lymphadenopathy, frequent infections ENDOCRINE: Absent: unexplained weight gain, unexplained weight loss, heat intolerance, cold intolerance NEUROLOGIC: Absent: headache, focal weakness or paresthesias, dizziness, unsteady gait, seizure, mental status changes, bladder or bowel incontinence PSYCHIATRIC: Absent: anxiety, depression, suicidal or homicidal ideation, hallucinations. PHYSICAL EXAMINATION Vital Signs - 24 hr 08/13/18 08/13/18 08/13/18 15:26 15:33 17:05 Temperature 98.1 F Pulse Rate 74 Pulse Rate [ 70 71 Apical] Respiratory 20 14 14 Rate Blood Pressure 84/65 L Blood Pressure 85/61 L 96/61 [Right Arm] O2 Sat by Pulse 97 100 100 Oximetry (%) 08/13/18 17:28 Temperature Pulse Rate Pulse Rate [ Apical] Respiratory 14 Rate Blood Pressure Blood Pressure [Right Arm] O2 Sat by Pulse 100 Oximetry (%) GENERAL: Awake, alert, and fully oriented, in no acute distress. HEAD: Normal with no signs of trauma. EYES: Pupils equal, round and reactive to light, extraocular movements intact, sclera anicteric, conjunctiva clear. No lid lag. EARS, NOSE, THROAT: Ears normal, nares patent, oropharynx clear without exudates. Moist mucous membranes. NECK: Normal range of motion, supple without lymphadenopathy, JVD, or masses. LUNGS: Breath sounds equal, clear to auscultation bilaterally. No wheezes, and no crackles. No accessory muscle use. HEART: Regular rate and rhythm, normal S1 and S2 without murmur, rub or gallop. ABDOMEN: Soft, nontender, not distended, normoactive bowel sounds, no guarding, no rebound, no masses. MUSCULOSKELETAL: Normal range of motion at all joints. No bony deformities or tenderness. No CVA tenderness. UPPER EXTREMITIES: 2+ pulses, warm, well-perfused. No cyanosis. No clubbing. No peripheral edema, left upper extremity AV fistula LOWER EXTREMITIES: 2+ pulses, warm, well-perfused. No calf tenderness. No peripheral edema. NEUROLOGICAL: Normal speech. Normal gait. PSYCHIATRIC: Cooperative. Good eye contact. Appropriate mood and affect. SKIN: Warm, dry, normal turgor, no rashes or lesions noted, normal capillary refill. Laboratory Results - last 24 hr 08/13/18 08/13/18 08/13/18 16:58 16:58 16:58 WBC 8.2 RBC 3.63 Hgb 11.0 Hct 31.9 L MCV 87.7 MCH 30.2 MCHC 34.4 RDW 14.7 Plt Count 346 D MPV 9.1 Absolute Neuts (auto) 5.4 Neutrophils % 65.5 Neutrophils % (Manual) 69.0 Lymphocytes % 24.6 D Lymphocytes % (Manual) 22.0 Monocytes % 5.4 Monocytes % (Manual) 7 Eosinophils % 3.2 Eosinophils % (Manual) 2.0 Basophils % 1.3 Nucleated RBC % 0 Hypochromia 1+ Platelet Estimate Adequate Platelet Comment No clumping noted VBG pH 7.35 POC VBG pCO2 47.0 POC VBG pO2 24.0 L Mixed VBG HCO3 25.2 H Sodium 137 Potassium 5.0 Chloride 95 L Carbon Dioxide 26 Anion Gap 17 H BUN 45 H Creatinine 9.1 H* Creat Clearance w eGFR 4.44 Random Glucose 111 H Lactic Acid Calcium 9.2 Total Bilirubin 0.3 AST 15 ALT < 6 L Alkaline Phosphatase 231 H Ammonia Creatine Kinase 77 Troponin I < 0.02 Total Protein 8.9 H Albumin 3.7 Urine Color Urine Appearance Urine pH Ur Specific [place] Urine Protein Urine Glucose (UA) Urine Ketones Urine Blood Urine Nitrite Urine Bilirubin Urine Urobilinogen Ur Leukocyte Esterase Urine WBC (Auto) Urine RBC (Auto) Blood Type Antibody Screen 08/13/18 08/13/18 08/13/18 16:58 17:13 17:13 WBC RBC Hgb Hct MCV MCH MCHC RDW Plt Count MPV Absolute Neuts (auto) Neutrophils % Neutrophils % (Manual) Lymphocytes % Lymphocytes % (Manual) Monocytes % Monocytes % (Manual) Eosinophils % Eosinophils % (Manual) Basophils % Nucleated RBC % Hypochromia Platelet Estimate Platelet Comment VBG pH POC VBG pCO2 POC VBG pO2 Mixed VBG HCO3 Sodium Potassium Chloride Carbon Dioxide Anion Gap BUN Creatinine Creat Clearance w eGFR Random Glucose Lactic Acid 3.7 H* Calcium Total Bilirubin AST ALT Alkaline Phosphatase Ammonia 18.47 Creatine Kinase Troponin I Total Protein Albumin Urine Color Urine Appearance Urine pH Ur Specific [place] Urine Protein Urine Glucose (UA) Urine Ketones Urine Blood Urine Nitrite Urine Bilirubin Urine Urobilinogen Ur Leukocyte Esterase Urine WBC (Auto) Urine RBC (Auto) Blood Type A NEGATIVE Antibody Screen Positive H 08/13/18 19:42 WBC RBC Hgb Hct MCV MCH MCHC RDW Plt Count MPV Absolute Neuts (auto) Neutrophils % Neutrophils % (Manual) Lymphocytes % Lymphocytes % (Manual) Monocytes % Monocytes % (Manual) Eosinophils % Eosinophils % (Manual) Basophils % Nucleated RBC % Hypochromia Platelet Estimate Platelet Comment VBG pH POC VBG pCO2 POC VBG pO2 Mixed VBG HCO3 Sodium Potassium Chloride Carbon Dioxide Anion Gap BUN Creatinine Creat Clearance w eGFR Random Glucose Lactic Acid Calcium Total Bilirubin AST ALT Alkaline Phosphatase Ammonia Creatine Kinase Troponin I Total Protein Albumin Urine Color Yellow Urine Appearance Turbid Urine pH 6.0 Ur Specific [place] 1.013 Urine Protein 2+ H Urine Glucose (UA) Negative Urine Ketones Negative Urine Blood 1+ H Urine Nitrite Negative Urine Bilirubin Negative Urine Urobilinogen Negative Ur Leukocyte Esterase 2+ H Urine WBC (Auto) 3898 Urine RBC (Auto) 6 Blood Type Antibody Screen ASSESSMENT/PLAN: [facility] *LIVE* History&Physical-Symphony(tmp) Patient Name: ELIEZER PINEDO Date of : 1960 Patient Status: Inpatient Attending Provider: Aldair Mosquera Date: 08/13/18 21:43 Initialization Date: 08/13/18 21:43 CHIEF COMPLAINT: altered mental status PCP: Dr. Vidales HISTORY OF PRESENT ILLNESS: 57 year old female with history of ESRD on hemodialysis , last dialyzed today, IDDM and neurosphyllis who presented with an altered mental status. She was found to have mild hyperkalemia, elevated lactic acid of 3.7, normal WBC and urinalysis was abnormal with 2+ leukoesterase and WBC's 39,000 . She was given one dosage of IV Rocephin and IV fluids as she was hypotensive on presentation with SBP in the 80's which has improved a bit with systolic bp of 96. She is currently afebrile. Patient is a poor historian and unable to obtain an accurate history. Recent Travel:Denies PAST MEDICAL HISTORY: ESRD IDDM Neurosphyllis PAST SURGICAL HISTORY: Social History: Smoking:Denies Alcohol:Denies Drugs: Denies Family History: Allergies No Known Allergies Allergy (Verified 08/01/18 17:37) HOME MEDICATIONS: Home Medications Medication Instructions Recorded Amlodipine Besylate 5 mg PO DAILY 06/26/18 Aspirin 81 mg PO DAILY 06/26/18 Donepezil HCl 10 mg PO HS 06/26/18 Dulaglutide [Trulicity] 0.75 mg SQ WEEKLY 06/26/18 Escitalopram Oxalate [Lexapro -] 20 mg PO DAILY 06/26/18 Famotidine 20 mg PO DAILY 06/26/18 Furosemide 80 mg PO DAILY 06/26/18 Gabapentin 100 mg PO HS 06/26/18 Gemfibrozil [Lopid] 600 mg PO BID 06/26/18 Isoniazid 300 mg PO DAILY 06/26/18 Metoprolol Tartrate 100 mg PO BID 06/26/18 Pyridoxine HCl (Vitamin B6) 100 mg PO DAILY 06/26/18 [Vitamin B-6] Quetiapine Fumarate [Seroquel -] 25 mg PO TID 06/26/18 Sevelamer Carbonate 800 mg PO TID 06/26/18 Thiamine Mononitrate [Vitamin B-1] 100 mg PO DAILY 06/26/18 Lactulose (Oral Use) [Cephulac -] 20 gm PO Q8H PRN udc 08/04/18 REVIEW OF SYSTEMS Unable to accurate accurate ROS due to patient mental status. CONSTITUTIONAL: Absent: fever, chills, diaphoresis, generalized weakness, malaise, loss of appetite, weight change, altered mental status HEENT: Absent: rhinorrhea, nasal congestion, throat pain, throat swelling, difficulty swallowing, mouth swelling, ear pain, eye pain, visual changes CARDIOVASCULAR: Absent: chest pain, syncope, palpitations, irregular heart rate, lightheadedness , peripheral edema RESPIRATORY: Absent: cough, shortness of breath, dyspnea with exertion, orthopnea, wheezing, stridor, hemoptysis GASTROINTESTINAL: Absent: abdominal pain, abdominal distension, nausea, vomiting, diarrhea, constipation, melena, hematochezia GENITOURINARY: Absent: dysuria, frequency, urgency, hesitancy, hematuria, flank pain, genital pain MUSCULOSKELETAL: Absent: myalgia, arthralgia, joint swelling, back pain, neck pain SKIN: Absent: rash, itching, pallor HEMATOLOGIC/IMMUNOLOGIC: Absent: easy bleeding, easy bruising, lymphadenopathy, frequent infections ENDOCRINE: Absent: unexplained weight gain, unexplained weight loss, heat intolerance, cold intolerance NEUROLOGIC: Absent: headache, focal weakness or paresthesias, dizziness, unsteady gait, seizure, mental status changes, bladder or bowel incontinence PSYCHIATRIC: Absent: anxiety, depression, suicidal or homicidal ideation, hallucinations. PHYSICAL EXAMINATION Vital Signs - 24 hr 08/13/18 08/13/18 08/13/18 15:26 15:33 17:05 Temperature 98.1 F Pulse Rate 74 Pulse Rate [ 70 71 Apical] Respiratory 20 14 14 Rate Blood Pressure 84/65 L Blood Pressure 85/61 L 96/61 [Right Arm] O2 Sat by Pulse 97 100 100 Oximetry (%) 08/13/18 17:28 Temperature Pulse Rate Pulse Rate [ Apical] Respiratory 14 Rate Blood Pressure Blood Pressure [Right Arm] O2 Sat by Pulse 100 Oximetry (%) GENERAL: Awake, alert, and able to tell me where she is HEAD: Normal with no signs of trauma. EYES: Pupils equal, round and reactive to light Moist mucous membranes. NECK: supple LUNGS: Breath sounds equal, clear to auscultation bilaterally. No wheezes, and no crackles. No accessory muscle use HEART: Regular rate and rhythm, normal S1 and S2 without murmur ABDOMEN: Soft, nontender, not distended, normoactive bowel sounds, no guarding, no rebound, no masses. MUSCULOSKELETAL: No bony deformities or tenderness. UPPER EXTREMITIES: 2+ pulses, warm, well-perfused. No cyanosis. No peripheral edema, left upper extremity AV fistula LOWER EXTREMITIES: 2+ pulses, warm, well-perfused. No calf tenderness. No peripheral edema. NEUROLOGICAL: Normal speech. Normal gait. PSYCHIATRIC: Cooperative. SKIN: Warm, dry, normal turgor, no rashes or lesions noted, normal capillary refill. Laboratory Results - last 24 hr 08/13/18 08/13/18 08/13/18 16:58 16:58 16:58 WBC 8.2 RBC 3.63 Hgb 11.0 Hct 31.9 L MCV 87.7 MCH 30.2 MCHC 34.4 RDW 14.7 Plt Count 346 D MPV 9.1 Absolute Neuts (auto) 5.4 Neutrophils % 65.5 Neutrophils % (Manual) 69.0 Lymphocytes % 24.6 D Lymphocytes % (Manual) 22.0 Monocytes % 5.4 Monocytes % (Manual) 7 Eosinophils % 3.2 Eosinophils % (Manual) 2.0 Basophils % 1.3 Nucleated RBC % 0 Hypochromia 1+ Platelet Estimate Adequate Platelet Comment No clumping noted VBG pH 7.35 POC VBG pCO2 47.0 POC VBG pO2 24.0 L Mixed VBG HCO3 25.2 H Sodium 137 Potassium 5.0 Chloride 95 L Carbon Dioxide 26 Anion Gap 17 H BUN 45 H Creatinine 9.1 H* Creat Clearance w eGFR 4.44 Random Glucose 111 H Lactic Acid Calcium 9.2 Total Bilirubin 0.3 AST 15 ALT < 6 L Alkaline Phosphatase 231 H Ammonia Creatine Kinase 77 Troponin I < 0.02 Total Protein 8.9 H Albumin 3.7 Urine Color Urine Appearance Urine pH Ur Specific [place] Urine Protein Urine Glucose (UA) Urine Ketones Urine Blood Urine Nitrite Urine Bilirubin Urine Urobilinogen Ur Leukocyte Esterase Urine WBC (Auto) Urine RBC (Auto) Blood Type Antibody Screen 08/13/18 08/13/18 08/13/18 16:58 17:13 17:13 WBC RBC Hgb Hct MCV MCH MCHC RDW Plt Count MPV Absolute Neuts (auto) Neutrophils % Neutrophils % (Manual) Lymphocytes % Lymphocytes % (Manual) Monocytes % Monocytes % (Manual) Eosinophils % Eosinophils % (Manual) Basophils % Nucleated RBC % Hypochromia Platelet Estimate Platelet Comment VBG pH POC VBG pCO2 POC VBG pO2 Mixed VBG HCO3 Sodium Potassium Chloride Carbon Dioxide Anion Gap BUN Creatinine Creat Clearance w eGFR Random Glucose Lactic Acid 3.7 H* Calcium Total Bilirubin AST ALT Alkaline Phosphatase Ammonia 18.47 Creatine Kinase Troponin I Total Protein Albumin Urine Color Urine Appearance Urine pH Ur Specific [place] Urine Protein Urine Glucose (UA) Urine Ketones Urine Blood Urine Nitrite Urine Bilirubin Urine Urobilinogen Ur Leukocyte Esterase Urine WBC (Auto) Urine RBC (Auto) Blood Type A NEGATIVE Antibody Screen Positive H 08/13/18 19:42 WBC RBC Hgb Hct MCV MCH MCHC RDW Plt Count MPV Absolute Neuts (auto) Neutrophils % Neutrophils % (Manual) Lymphocytes % Lymphocytes % (Manual) Monocytes % Monocytes % (Manual) Eosinophils % Eosinophils % (Manual) Basophils % Nucleated RBC % Hypochromia Platelet Estimate Platelet Comment VBG pH POC VBG pCO2 POC VBG pO2 Mixed VBG HCO3 Sodium Potassium Chloride Carbon Dioxide Anion Gap BUN Creatinine Creat Clearance w eGFR Random Glucose Lactic Acid Calcium Total Bilirubin AST ALT Alkaline Phosphatase Ammonia Creatine Kinase Troponin I Total Protein Albumin Urine Color Yellow Urine Appearance Turbid Urine pH 6.0 Ur Specific [place] 1.013 Urine Protein 2+ H Urine Glucose (UA) Negative Urine Ketones Negative Urine Blood 1+ H Urine Nitrite Negative Urine Bilirubin Negative Urine Urobilinogen Negative Ur Leukocyte Esterase 2+ H Urine WBC (Auto) 3898 Urine RBC (Auto) 6 Blood Type Antibody Screen ASSESSMENT/PLAN: 57 year old female with history of ESRD on HD, IDDM and neurosphyllis who presented with an altered mental status, mild hyperkalemia .UA is abnormal and has an elevated lactic acid level of 3.7. Altered Mental Status in setting of UTI UA with negative nitrite, + leukoesterase and WBC 's almost 39,000. She received one dosage of Rocephin IV on admission. She is currently afebrile and WBC is normal. She has an elevated lactic acid level.May need additional IV antibiotics and ID consulted, pending urine culture and sensitivity. Repeat lactic acid elevated at 2.7. Ammonia level is normal. Continue lactulose. ESRD/Mild Hyperkalmeia Continue with hemodialysis as per schedule. Check BMP in am. IDDM Accucheks before meals and at bedtime. Hypertension Continue amlodipine and metoprolol if blood pressure tolerates. FEN Renal, low sodium diet, monitor electrolytes closely. Visit type - Emergency Visit Emergency Visit: Yes ED Registration Date: 08/13/18 Care time: The patient presented to the Emergency Department on the above date and was hospitalized for further evaluation of their emergent condition. - New Patient This patient is new to me today: Yes Date on this admission: 08/14/18 - Critical Care Critical Care patient: No
[2018-08-13] MEDS ORDERED: PATIENT'S OWN MEDICATION (NON-FORMULARY) (Dulaglutide [Trulicity] 0.75 MG) SQ SCH (21:45)
[2018-08-13] MEDS ORDERED: DONEPEZIL HCL 5 MG TABLET (FP) PO SCH (22:00)
[2018-08-14] MEDS ORDERED: METOPROLOL TARTRATE 50 MG TABLET (FP) ONE
[2018-08-14] MEDS ORDERED: QUEtiapine FUMARATE 25 MG TABLET (FP) ONE
[2018-08-14] MEDS ORDERED: GABAPENTIN 100 MG CAPSULE (FP) ONE (00:01)
[2018-08-14] MEDS ORDERED: DONEPEZIL HCL 5 MG TABLET (FP) ONE (00:01)
[2018-08-14] MEDS: METOPROLOL TARTRATE 50 MG TABLET (FP) PO SCH ×3 (00:10→21:17)
[2018-08-14] MEDS: GABAPENTIN 100 MG CAPSULE (FP) PO SCH ×2 (00:10→21:17)
[2018-08-14] MEDS: QUEtiapine FUMARATE 25 MG TABLET (FP) PO SCH ×4 (00:11→21:18)
[2018-08-14 05:47] VITALS: BMI 26.2
[2018-08-14] MEDS: GEMFIBROZIL 600 MG TABLET (FP) PO SCH ×2 (06:45→16:39)
[2018-08-14] MEDS ORDERED: PT OWN MED DRAWER 7, Y5N ONE ×3 (08:47→17:04)
[2018-08-14 09:14] LABS: BASO % 1.3 % (0-2.0); EOS % 4.2 % (0-4.5); HEMATOCRIT 28.8 % (32.4-45.2); LYMPH % 32.5 % (8-40); MCH 30.6 pg (25.7-33.7); MCHC 34.6 g/dl (32.0-36.0); MEAN CELL VOLUME 88.6 fl (80-96); MEAN PLT VOLUME 8.8 fl (7.5-11.1); MONO % 7.3 % (3.8-10.2); NEUT % 54.7 % (42.8-82.8); PLATELET COUNT 298 K/MM3 (134-434); RBC 3.25 M/mm3 (3.60-5.2); RDW 14.7 % (11.6-15.6); WHITE BLOOD COUNT 6.8 K/mm3 (4.0-10.0)
[2018-08-14] MEDS: SEVELAMER CARBONATE 800 MG TAB (FP) PO SCH ×4 (09:39→17:06)
[2018-08-14] MEDS: HEPARIN NA (PORCINE) 5,000 UNITS/ML 1ML VIAL SQ SCH ×2 (09:39→21:18)
[2018-08-14] MEDS: ESCITALOPRAM OXALATE 20 MG TABLET (FP) PO SCH (09:40)
[2018-08-14] MEDS: RANITIDINE HCL 150 MG TABLET (FP) PO SCH (09:40)
[2018-08-14] MEDS: THIAMINE HCL 100 MG TABLET (FP) PO SCH (09:40)
[2018-08-14] MEDS: PYRIDOXINE HCL (B-6) 50 MG TABLET (FP) PO SCH (09:40)
[2018-08-14] MEDS: ASPIRIN 81 MG CHEWABLE TABLETS PO SCH (09:41)
[2018-08-14] MEDS: ISONIAZID 300 MG TABLET (FP) PO SCH (09:41)
[2018-08-14] MEDS: amLODIPine BESYLATE 5 MG TABLET (FP) PO SCH (09:43)
[2018-08-14] MEDS: FUROSEMIDE 40 MG TABLET (FP) PO SCH (09:43)
[2018-08-14 11:38] LABS: ACANTHOCYTES 0; ANISOCYTOSIS 0; HELMET CELLS 0; HOWELL-JOLLY BODIES 0; MACROCYTOSIS 0; OVALOCYTE 0; PLATELET ESTIMATE NORMAL; ROULEAU 0; SICKELED CELLS 0; TARGET CELLS 0; TEAR DROP CELLS 0; TOXIC GRANULATION 0
[2018-08-14] MEDS ORDERED: VANCOMYCIN 1 GRAM (PRE-DOCKED) 1,000 MG/250 ML BAG IVPB ONE (11:45)
--- NOTE | 2018-08-14 11:54 | PN ---
Progress Note (short form) - Note Progress Note: Feels OK no chest pain , SOB, diarrhea, abd pain No chills feels tired events noted Vital Signs - 24 hr 08/13/18 08/13/18 08/13/18 15:26 15:33 17:05 Temperature 98.1 F Pulse Rate 74 Pulse Rate [ 70 71 Apical] Respiratory 20 14 14 Rate Blood Pressure 84/65 L Blood Pressure 85/61 L 96/61 [Right Arm] O2 Sat by Pulse 97 100 100 Oximetry (%) 08/13/18 08/13/18 08/14/18 17:28 20:39 03:20 Temperature 97.8 F 97.2 F L Pulse Rate 62 Pulse Rate [ 62 Apical] Respiratory 14 20 16 Rate Blood Pressure 124/77 Blood Pressure 80/54 L [Right Arm] O2 Sat by Pulse 100 100 97 Oximetry (%) 08/14/18 09:00 Temperature 97.3 F L Pulse Rate 60 Pulse Rate [ Apical] Respiratory 16 Rate Blood Pressure 106/60 Blood Pressure [Right Arm] O2 Sat by Pulse 97 Oximetry (%) Current Medications Generic Name Dose Route Start Last Admin Trade Name Freq PRN Reason Stop Dose Admin Amlodipine Besylate 5 mg 08/14/18 10:00 08/14/18 09:43 Norvasc - PO Not Given DAILY SARAHY Aspirin 81 mg 08/14/18 10:00 08/14/18 09:41 Asa - PO 81 mg DAILY SARAHY Administration Donepezil HCl 10 mg 08/14/18 22:00 Aricept - PO HS SARAHY Escitalopram Oxalate 20 mg 08/14/18 10:00 08/14/18 09:40 Lexapro - PO 20 mg DAILY SARAHY Administration Furosemide 80 mg 08/14/18 10:00 08/14/18 09:43 Lasix - PO Not Given DAILY SARAHY Gabapentin 100 mg 08/13/18 22:00 08/14/18 00:10 Neurontin - PO 100 mg HS SARAHY Administration Gemfibrozil 600 mg 08/14/18 07:00 08/14/18 06:45 Lopid - PO Not Given BIDAC SARAHY Heparin Sodium (Porcine) 5,000 unit 08/14/18 10:00 08/14/18 09:39 Heparin - SQ 5,000 unit BID SARAHY Administration Ceftriaxone Sodium 1 gm/ 50 mls @ 100 mls/hr 08/14/18 22:00 Dextrose IVPB 08/16/18 22:29 HS SARAHY Protocol Isoniazid 300 mg 08/14/18 10:00 08/14/18 09:41 Inh - PO 300 mg DAILY SARAHY Administration Lactulose 20 gm 08/13/18 21:41 Cephulac (Oral Use) PO Q8H PRN constipation Metoprolol Tartrate 100 mg 08/13/18 22:00 08/14/18 09:43 Lopressor - PO Not Given BID SARAHY Non-Formulary Medication 0.75 mg 08/13/18 21:45 Dulaglutide [Trulicity] SQ WEEKLY SARAHY Pyridoxine HCl 100 mg 08/14/18 10:00 08/14/18 09:40 Vitamin B6 - PO 100 mg DAILY SARAHY Administration Quetiapine Fumarate 25 mg 08/13/18 22:00 08/14/18 06:44 Seroquel - PO Not Given TID SARAHY Ranitidine HCl 150 mg 08/14/18 10:00 08/14/18 09:40 Zantac - PO 150 mg DAILY SARAHY Administration Sevelamer Carbonate 800 mg 08/14/18 08:00 08/14/18 11:16 Renvela - PO 800 mg TIDCM SARAHY Administration Thiamine HCl 100 mg 08/14/18 10:00 08/14/18 09:40 Vitamin B1 - PO 100 mg DAILY SARAHY Administration Laboratory Results - last 24 hr 08/13/18 08/13/18 08/13/18 16:58 16:58 16:58 WBC 8.2 RBC 3.63 Hgb 11.0 Hct 31.9 L MCV 87.7 MCH 30.2 MCHC 34.4 RDW 14.7 Plt Count 346 D MPV 9.1 Absolute Neuts (auto) 5.4 Neutrophils % 65.5 Neutrophils % (Manual) 69.0 Band Neutrophils % Lymphocytes % 24.6 D Lymphocytes % (Manual) 22.0 Monocytes % 5.4 Monocytes % (Manual) 7 Eosinophils % 3.2 Eosinophils % (Manual) 2.0 Basophils % 1.3 Basophils % (Manual) Myelocytes % (Man) Promyelocytes % (Man) Blast Cells % (Manual) Nucleated RBC % 0 Metamyelocytes Hypochromia 1+ Toxic Granulation Dohle Bodies Platelet Estimate Adequate Platelet Comment No clumping noted Polychromasia Poikilocytosis Basophilic Stippling Anisocytosis Microcytosis Macrocytosis Spherocytes Sickle Cells Target Cells Tear Drop Cells Ovalocytes Stomatocytes Helmet Cells Velásquez-Reeves Bodies [place] Rings Rin Cells Acanthocytes (Spur) Rouleaux Fragmented RBCs Schistocytes VBG pH 7.35 POC VBG pCO2 47.0 POC VBG pO2 24.0 L Mixed VBG HCO3 25.2 H Sodium 137 Potassium 5.0 Chloride 95 L Carbon Dioxide 26 Anion Gap 17 H BUN 45 H Creatinine 9.1 H* Creat Clearance w eGFR 4.44 Random Glucose 111 H Lactic Acid Calcium 9.2 Total Bilirubin 0.3 AST 15 ALT < 6 L Alkaline Phosphatase 231 H Ammonia Creatine Kinase 77 Troponin I < 0.02 Total Protein 8.9 H Albumin 3.7 Urine Color Urine Appearance Urine pH Ur Specific Cardinal Urine Protein Urine Glucose (UA) Urine Ketones Urine Blood Urine Nitrite Urine Bilirubin Urine Urobilinogen Ur Leukocyte Esterase Urine WBC (Auto) Urine RBC (Auto) Blood Type Antibody Screen Antibody Identification Antigen Identification 08/13/18 08/13/18 08/13/18 16:58 17:13 17:13 WBC RBC Hgb Hct MCV MCH MCHC RDW Plt Count MPV Absolute Neuts (auto) Neutrophils % Neutrophils % (Manual) Band Neutrophils % Lymphocytes % Lymphocytes % (Manual) Monocytes % Monocytes % (Manual) Eosinophils % Eosinophils % (Manual) Basophils % Basophils % (Manual) Myelocytes % (Man) Promyelocytes % (Man) Blast Cells % (Manual) Nucleated RBC % Metamyelocytes Hypochromia Toxic Granulation Dohle Bodies Platelet Estimate Platelet Comment Polychromasia Poikilocytosis Basophilic Stippling Anisocytosis Microcytosis Macrocytosis Spherocytes Sickle Cells Target Cells Tear Drop Cells Ovalocytes Stomatocytes Helmet Cells Velásquez-Reeves Bodies [place] Cells Acanthocytes (Spur) Rouleaux Fragmented RBCs Schistocytes VBG pH POC VBG pCO2 POC VBG pO2 Mixed VBG HCO3 Sodium Potassium Chloride Carbon Dioxide Anion Gap BUN Creatinine Creat Clearance w eGFR Random Glucose Lactic Acid 3.7 H* Calcium Total Bilirubin AST ALT Alkaline Phosphatase Ammonia 18.47 Creatine Kinase Troponin I Total Protein Albumin Urine Color Urine Appearance Urine pH Ur Specific Cardinal Urine Protein Urine Glucose (UA) Urine Ketones Urine Blood Urine Nitrite Urine Bilirubin Urine Urobilinogen Ur Leukocyte Esterase Urine WBC (Auto) Urine RBC (Auto) Blood Type A NEGATIVE Antibody Screen Positive H Antibody Identification Anti-d Antigen Identification No Result Required. 08/13/18 08/14/18 08/14/18 19:42 01:09 08:37 WBC 6.8 RBC 3.25 L Hgb 10.0 L Hct 28.8 L MCV 88.6 MCH 30.6 MCHC 34.6 RDW 14.7 Plt Count 298 MPV 8.8 Absolute Neuts (auto) 3.7 Neutrophils % 54.7 Neutrophils % (Manual) 46.4 Band Neutrophils % 0.0 Lymphocytes % 32.5 D Lymphocytes % (Manual) 39.2 D Monocytes % 7.3 Monocytes % (Manual) 5 Eosinophils % 4.2 Eosinophils % (Manual) 2.1 Basophils % 1.3 Basophils % (Manual) 3.1 H Myelocytes % (Man) 1 D Promyelocytes % (Man) 0 Blast Cells % (Manual) 0 Nucleated RBC % 0 Metamyelocytes 1 D Hypochromia 0 Toxic Granulation 0 Dohle Bodies 0 Platelet Estimate Normal Platelet Comment Polychromasia 0 Poikilocytosis 0 Basophilic Stippling 0 Anisocytosis 0 Microcytosis 0 Macrocytosis 0 Spherocytes 0 Sickle Cells 0 Target Cells 0 Tear Drop Cells 0 Ovalocytes 0 Stomatocytes 0 Helmet Cells 0 Velásquez-Reeves Bodies 0 [place] 0 [place] Cells 0 Acanthocytes (Spur) 0 Rouleaux 0 Fragmented RBCs 0 Schistocytes 0 VBG pH POC VBG pCO2 POC VBG pO2 Mixed VBG HCO3 Sodium Potassium Chloride Carbon Dioxide Anion Gap BUN Creatinine Creat Clearance w eGFR Random Glucose Lactic Acid 2.8 H* Calcium Total Bilirubin AST ALT Alkaline Phosphatase Ammonia Creatine Kinase Troponin I Total Protein Albumin Urine Color Yellow Urine Appearance Turbid Urine pH 6.0 Ur Specific Cardinal 1.013 Urine Protein 2+ H Urine Glucose (UA) Negative Urine Ketones Negative Urine Blood 1+ H Urine Nitrite Negative Urine Bilirubin Negative Urine Urobilinogen Negative Ur Leukocyte Esterase 2+ H Urine WBC (Auto) 3898 Urine RBC (Auto) 6 Blood Type Antibody Screen Antibody Identification Antigen Identification 08/14/18 09:00 WBC RBC Hgb Hct MCV MCH MCHC RDW Plt Count MPV Absolute Neuts (auto) Neutrophils % Neutrophils % (Manual) Band Neutrophils % Lymphocytes % Lymphocytes % (Manual) Monocytes % Monocytes % (Manual) Eosinophils % Eosinophils % (Manual) Basophils % Basophils % (Manual) Myelocytes % (Man) Promyelocytes % (Man) Blast Cells % (Manual) Nucleated RBC % Metamyelocytes Hypochromia Toxic Granulation Dohle Bodies Platelet Estimate Platelet Comment Polychromasia Poikilocytosis Basophilic Stippling Anisocytosis Microcytosis Macrocytosis Spherocytes Sickle Cells Target Cells Tear Drop Cells Ovalocytes Stomatocytes Helmet Cells Velásquez-Reeves Bodies [place] Cells Acanthocytes (Spur) Rouleaux Fragmented RBCs Schistocytes VBG pH POC VBG pCO2 POC VBG pO2 Mixed VBG HCO3 Sodium Potassium Chloride Carbon Dioxide Anion Gap BUN Creatinine Creat Clearance w eGFR Random Glucose Lactic Acid 2.1 H Calcium Total Bilirubin AST ALT Alkaline Phosphatase Ammonia Creatine Kinase Troponin I Total Protein Albumin Urine Color Urine Appearance Urine pH Ur Specific Cardinal Urine Protein Urine Glucose (UA) Urine Ketones Urine Blood Urine Nitrite Urine Bilirubin Urine Urobilinogen Ur Leukocyte Esterase Urine WBC (Auto) Urine RBC (Auto) Blood Type Antibody Screen Antibody Identification Antigen Identification S1 S2 RRR Lungs clear Abd- soft, NT No edema PLAN Blood culture positive one dose Vanco ordered check urine cultures receiving ceftriaxone ID eval HD per renal Problem List - Problems (1) Bacteremia Code(s): R78.81 - BACTEREMIA (2) Diabetes Code(s): E11.9 - TYPE 2 DIABETES MELLITUS WITHOUT COMPLICATIONS (3) ESRD (end stage renal disease) on dialysis Code(s): N18.6 - END STAGE RENAL DISEASE; Z99.2 - DEPENDENCE ON RENAL DIALYSIS (4) End stage renal disease Code(s): N18.6 - END STAGE RENAL DISEASE (5) HTN (hypertension) Code(s): I10 - ESSENTIAL (PRIMARY) HYPERTENSION
--- NOTE | 2018-08-14 11:57 | EKG ---
Test Reason : Blood Pressure : / mmHG Vent. Rate : 070 BPM Atrial Rate : 070 BPM P-R Int : 156 ms QRS Dur : 080 ms QT Int : 444 ms P-R-T Axes : 035 053 051 degrees QTc Int : 479 ms NORMAL SINUS RHYTHM CANNOT RULE OUT ANTERIOR INFARCT (CITED ON OR BEFORE 26-JUN-2018) ABNORMAL ECG WHEN COMPARED WITH ECG OF 01-AUG-2018 16:18, NO SIGNIFICANT CHANGE WAS FOUND Confirmed by PARAMJIT RASCNO MD ([id number]) on 08/14/2018 11:57:43 AM Referred By: Confirmed By:PARAMJIT RASCON MD
--- NOTE | 2018-08-14 14:10 | PN ---
Progress Note (short form) - Note Progress Note: ID CONSULT DICTATED +BC R/O STREPTOCOCCAL BACTEREMIA/ SEPSIS ? SOURCE TOXIC METABOLIC ENCEPHALOPATHY ESRD REPEAT BC VANCOMYCIN X 1 DOSE CONTINUE CEFTRIAXONE ECHOCARDIOGRAM
--- NOTE | 2018-08-14 15:30 | CONS ---
DATE OF CONSULTATION: DATE OF DICTATION: 08/14/2018 INFECTIOUS DISEASE CONSULTATION The patient is a 57-year-old female evaluated for positive blood culture. She is a 57-year-old female with a history of end-stage renal disease on hemodialysis. She was sent to the hospital from hemodialysis on August 13, 2018, after altered mental status and hypotension. Patient appeared confused and was noted to have a low blood pressure. She was evaluated in the emergency room where she continued to have hypotension. Blood cultures were obtained and are now gram-positive cocci in chains in 1 bottle. At the present time, she is awake and alert. She seems mildly confused. She offers no focal complaint. No reports of high-grade fever or shaking chills. She denies chest pain, shortness of breath, cough, no complaints of abdominal pain, vomiting, diarrhea, or complaints of dysuria. No reports of infection at the dialysis access site. PAST MEDICAL HISTORY: Positive for end-stage renal disease on hemodialysis, insulin-dependent diabetes mellitus, history of neurosyphilis, gastroesophageal reflux. PAST SURGICAL HISTORY: Status post left upper extremity AV fistula. No known allergies. MEDICATIONS: Amlodipine, aspirin, Lexapro, Lasix, Pepcid, Neurontin, Lopid. SOCIAL HISTORY: She resides in a halfway facility, nonsmoker, nondrinker. SYSTEM REVIEW: Neurologic: As per HPI. Cardiac: Negative chest pain or palpitations. Respiratory: Negative cough or sputum production. Gastrointestinal: Negative vomiting or diarrhea. Genitourinary: End-stage renal disease on hemodialysis. LABORATORY DATA: White count 6.8, hematocrit 28.8, platelet count 298. BUN 45, creatinine 9.1, lactic acid 3.7. Urinalysis 3898 white cells. Blood cultures gram-positive cocci in chains in 1 bottle. Chest x-ray: No acute infiltrate. PHYSICAL EXAMINATION: General: The patient is awake, slightly confused. Vital Signs: Temperature 97.3, blood pressure 106/60, pulse 60 regular, respirations 16 per minute. Eyes: Sclerae anicteric. Heart: Sounds S1, S2. No loud murmur. Lungs: Clear. Abdomen: Soft. No tenderness elicited. No mass, rebound, or rigidity. Extremities: Negative for edema. Negative Jaspal sign. IMPRESSION: 1. Positive blood culture, rule out streptococcal bacteremia/sepsis. 2. Toxic metabolic encephalopathy. 3. End-stage renal disease. 4. Urinary tract infection. Potential sources for infection include genitourinary source versus skin source. We will repeat blood cultures. Patient will get a STAT dose of vancomycin and continue with ceftriaxone 1 g IV piggyback daily. Further recommendations pending identification of blood isolate. Echocardiogram. Will follow. Thank you for the kind referral. JUDY MORSE M.D. [id number]
--- NOTE | 2018-08-14 16:41 | CONSULT ---
Consult Consult Specialty:: Nephrology Reason for Consultation:: ESRD - History of Present Illness Chief Complaint: sent in for altered mental status History of Present Illness: Pt is a 57 year old female with pmhx of ESRD who presented with change in mental status. I was called to evaluate her as she is on HD. She says that she was last dialyzed yesterday. SHe is awake and appears comfortable. She does not remember what happened. She denies shortness of breath. 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 History of Recent Travel: No Home Medications - Allergies Allergies/Adverse Reactions: Allergies Allergy/AdvReac Type Severity Reaction Status Date / Time No Known Allergies Allergy Verified 08/01/18 17:37 - Home Medications Home Medications: Ambulatory Orders Amlodipine Besylate 5 mg PO DAILY 06/26/18 Aspirin 81 mg PO DAILY 06/26/18 Donepezil HCl 10 mg PO HS 06/26/18 Dulaglutide [Trulicity] 0.75 mg SQ WEEKLY 06/26/18 Escitalopram Oxalate [Lexapro -] 20 mg PO DAILY 06/26/18 Famotidine 20 mg PO DAILY 06/26/18 Furosemide 80 mg PO DAILY 06/26/18 Gabapentin 100 mg PO HS 06/26/18 Gemfibrozil [Lopid] 600 mg PO BID 06/26/18 Isoniazid 300 mg PO DAILY 06/26/18 Metoprolol Tartrate 100 mg PO BID 06/26/18 Pyridoxine HCl (Vitamin B6) [Vitamin B-6] 100 mg PO DAILY 06/26/18 Quetiapine Fumarate [Seroquel -] 25 mg PO TID 06/26/18 Sevelamer Carbonate 800 mg PO TID 06/26/18 Thiamine Mononitrate [Vitamin B-1] 100 mg PO DAILY 06/26/18 Lactulose (Oral Use) [Cephulac -] 20 gm PO Q8H PRN udc 08/04/18 Family Disease History - Family Disease History Family Disease History: Diabetes: Grandparent Review of Systems - Review of Systems Constitutional: reports: Malaise Eyes: reports: No Symptoms HENT: reports: No Symptoms Neck: reports: No Symptoms Cardiovascular: reports: No Symptoms Respiratory: reports: No Symptoms Gastrointestinal: reports: No Symptoms Genitourinary: reports: No Symptoms Musculoskeletal: reports: No Symptoms Integumentary: reports: No Symptoms Neurological: reports: Change in LOC Endocrine: reports: No Symptoms Physical Exam Vital Signs: Vital Signs Temperature 97.8 F 08/14/18 13:43 Pulse Rate 64 08/14/18 13:43 Respiratory Rate 20 08/14/18 13:43 Blood Pressure 124/59 L 08/14/18 13:43 O2 Sat by Pulse Oximetry (%) 97 08/14/18 09:00 Constitutional: Yes: Calm Eyes: Yes: Conjunctiva Clear HENT: Yes: Atraumatic Cardiovascular: Yes: S1, S2 Respiratory: Yes: CTA Bilaterally Gastrointestinal: Yes: Soft Musculoskeletal: Yes: WNL Edema: No Neurological: Yes: Oriented Labs: CBC, BMP 08/14/18 08:37 08/13/18 16:58 Imaging - Results Cat Scan: Report Reviewed Problem List - Problems (1) Altered mental status Code(s): R41.82 - ALTERED MENTAL STATUS, UNSPECIFIED Qualifiers: Altered mental status type: unspecified Qualified Code(s): R41.82 - Altered mental status, unspecified (2) ESRD (end stage renal disease) on dialysis Code(s): N18.6 - END STAGE RENAL DISEASE; Z99.2 - DEPENDENCE ON RENAL DIALYSIS Assessment/Plan Current Medications Generic Name Dose Route Start Last Admin Trade Name Freq PRN Reason Stop Dose Admin Amlodipine Besylate 5 mg 08/14/18 10:00 08/14/18 09:43 Norvasc - PO Not Given DAILY SARAHY Aspirin 81 mg 08/14/18 10:00 08/14/18 09:41 Asa - PO 81 mg DAILY SARAHY Administration Donepezil HCl 10 mg 08/14/18 22:00 Aricept - PO HS SARAHY Escitalopram Oxalate 20 mg 08/14/18 10:00 08/14/18 09:40 Lexapro - PO 20 mg DAILY SARAHY Administration Furosemide 80 mg 08/14/18 10:00 08/14/18 09:43 Lasix - PO Not Given DAILY SARAHY Gabapentin 100 mg 08/13/18 22:00 08/14/18 00:10 Neurontin - PO 100 mg HS SARAHY Administration Gemfibrozil 600 mg 08/14/18 07:00 08/14/18 16:39 Lopid - PO Not Given BIDAC SARAHY Heparin Sodium (Porcine) 5,000 unit 08/14/18 10:00 08/14/18 09:39 Heparin - SQ 5,000 unit BID SARAHY Administration Ceftriaxone Sodium 1 gm/ 50 mls @ 100 mls/hr 08/14/18 22:00 Dextrose IVPB 08/16/18 22:29 HS [facility] Protocol Sodium Chloride 250 mls @ 3,000 mls/hr 08/14/18 16:34 Normal Saline - IV 08/15/18 16:34 PRN PRN Hypotension during Dialysis Isoniazid 300 mg 08/14/18 10:00 08/14/18 09:41 Inh - PO 300 mg DAILY SARAHY Administration Lactulose 20 gm 08/13/18 21:41 Cephulac (Oral Use) PO Q8H PRN constipation Metoprolol Tartrate 100 mg 08/13/18 22:00 08/14/18 09:43 Lopressor - PO Not Given BID SARAHY Non-Formulary Medication 0.75 mg 08/13/18 21:45 Dulaglutide [Trulicity] SQ WEEKLY [facility] Pyridoxine HCl 100 mg 08/14/18 10:00 08/14/18 09:40 Vitamin B6 - PO 100 mg DAILY SARAHY Administration Quetiapine Fumarate 25 mg 08/13/18 22:00 08/14/18 13:00 Seroquel - PO 25 mg TID SARHAY Administration Ranitidine HCl 150 mg 08/14/18 10:00 08/14/18 09:40 Zantac - PO 150 mg DAILY SARAHY Administration Sevelamer Carbonate 800 mg 08/14/18 08:00 08/14/18 11:16 Renvela - PO 800 mg TIDCM SARAHY Administration Thiamine HCl 100 mg 08/14/18 10:00 08/14/18 09:40 Vitamin B1 - PO 100 mg DAILY SARAHY Administration Impression 1. ESRD 2. change in mental status 3. HTN 4. DM 5. HLD 6. hypocalcemia 7. positive rpr s/p treatment with ceftriaxone 8. hx hyperkalemia Plan - will arrange for HD today - potassium was borderline high yesterday - check bmp - recommend neuro and psych eval as this has been a recurrent problem - AVF, 3:30, 2 k bath, heparin 1000 bolus and 500 maintenance, abf 450 - will follow Dr Marks
[2018-08-14] MEDS ORDERED: SODIUM CHLORIDE 250 ML IV PRN (16:55)
--- NOTE | 2018-08-14 17:05 | PN ---
Progress Note (short form) - Note Progress Note: Pt is refusing HD today. Problem List - Problems (1) Altered mental status Code(s): R41.82 - ALTERED MENTAL STATUS, UNSPECIFIED Qualifiers: Altered mental status type: unspecified Qualified Code(s): R41.82 - Altered mental status, unspecified (2) ESRD (end stage renal disease) on dialysis Code(s): N18.6 - END STAGE RENAL DISEASE; Z99.2 - DEPENDENCE ON RENAL DIALYSIS
[2018-08-14] MEDS ORDERED: cefTRIAXone SODIUM 1 GM VIAL ONE (20:40)
[2018-08-14] MEDS ORDERED: DEXTROSE 5%-WATER - 50 ML IVPB ONE (20:40)
[2018-08-14] MEDS: CEFTRIAXONE 1 GM in DEXTROSE 5%-WATER - 50 ML IVPB SCH (21:18)
[2018-08-14] MEDS: DONEPEZIL HCL 10 MG TABLET (FP) PO SCH (21:18)
[2018-08-15] MEDS ORDERED: PT OWN MED DRAWER 7, Y5N ONE (05:58)
[2018-08-15] MEDS: GEMFIBROZIL 600 MG TABLET (FP) PO SCH ×2 (06:09→16:17)
[2018-08-15] MEDS: QUEtiapine FUMARATE 25 MG TABLET (FP) PO SCH ×3 (06:09→21:22)
[2018-08-15] MEDS: SEVELAMER CARBONATE 800 MG TAB (FP) PO SCH ×3 (07:40→17:21)
[2018-08-15 10:21] LABS: ANION GAP 16 MMOL/L (8-16); BLOOD UREA NITROGEN 68 mg/dL (7-18); CALCIUM 7.8 mg/dL (8.5-10.1); CHLORIDE 99 mmol/L (98-107); CO2 21 mmol/L (21-32); GLUCOSE,RANDOM 158 mg/dL (74-106); POTASSIUM 4.1 mmol/L (3.5-5.1); SODIUM 136 mmol/L (136-145)
[2018-08-15 10:23] LABS: CREATININE 11.1 mg/dL (0.55-1.3)
--- NOTE | 2018-08-15 10:59 | PN ---
Progress Note, Physician History of Present Illness: Pt seen and examined at bedside. She is tolerating HD. She refused HD last night. - Current Medication List Current Medications: Active Medications Amlodipine Besylate (Norvasc -) 5 mg PO DAILY [facility] Last Admin: 08/14/18 09:43 Dose: Not Given Aspirin (Asa -) 81 mg PO DAILY [facility] Last Admin: 08/14/18 09:41 Dose: 81 mg Donepezil HCl (Aricept -) 10 mg PO [facility] Last Admin: 08/14/18 21:18 Dose: 10 mg Escitalopram Oxalate (Lexapro -) 20 mg PO DAILY [facility] Last Admin: 08/14/18 09:40 Dose: 20 mg Furosemide (Lasix -) 80 mg PO DAILY [facility] Last Admin: 08/14/18 09:43 Dose: Not Given Gabapentin (Neurontin -) 100 mg PO [facility] Last Admin: 08/14/18 21:17 Dose: 100 mg Gemfibrozil (Lopid -) 600 mg PO BIDAC [facility] Last Admin: 08/15/18 06:09 Dose: 600 mg Heparin Sodium (Porcine) (Heparin -) 5,000 unit SQ BID [facility] Last Admin: 08/14/18 21:18 Dose: 5,000 unit Ceftriaxone Sodium 1 gm/ (Dextrose) 50 mls @ 100 mls/hr IVPB [facility]; Protocol Stop: 08/16/18 22:29 Last Admin: 08/14/18 21:18 Dose: 100 mls/hr Sodium Chloride (Normal Saline -) 250 mls @ 3,000 mls/hr IV PRN PRN PRN Reason: Hypotension during Dialysis Stop: 08/15/18 16:54 Isoniazid (Inh -) 300 mg PO DAILY [facility] Last Admin: 08/14/18 09:41 Dose: 300 mg Lactulose (Cephulac (Oral Use)) 20 gm PO Q8H PRN PRN Reason: constipation Metoprolol Tartrate (Lopressor -) 100 mg PO BID [facility] Last Admin: 08/14/18 21:17 Dose: 100 mg Non-Formulary Medication (Dulaglutide [Trulicity]) 0.75 mg SQ WEEKLY [facility] Pyridoxine HCl (Vitamin B6 -) 100 mg PO DAILY [facility] Last Admin: 08/14/18 09:40 Dose: 100 mg Quetiapine Fumarate (Seroquel -) 25 mg PO TID [facility] Last Admin: 08/15/18 06:09 Dose: 25 mg Ranitidine HCl (Zantac -) 150 mg PO DAILY [facility] Last Admin: 08/14/18 09:40 Dose: 150 mg Sevelamer Carbonate (Renvela -) 800 mg PO TIDCM [facility] Last Admin: 08/15/18 07:40 Dose: 800 mg Thiamine HCl (Vitamin B1 -) 100 mg PO DAILY [facility] Last Admin: 08/14/18 09:40 Dose: 100 mg - Objective Vital Signs: Vital Signs Temperature 97.4 F L 08/15/18 08:20 Pulse Rate 53 L 08/15/18 09:55 Respiratory Rate 18 08/15/18 09:55 Blood Pressure 99/50 L 08/15/18 09:55 O2 Sat by Pulse Oximetry (%) 99 08/15/18 09:00 Constitutional: Yes: Calm Eyes: Yes: Conjunctiva Clear HENT: Yes: Atraumatic Neck: Yes: Supple Cardiovascular: Yes: S1, S2 Respiratory: Yes: CTA Bilaterally Gastrointestinal: Yes: Soft Genitourinary: Yes: WNL Musculoskeletal: Yes: WNL Edema: No Neurological: Yes: Oriented Labs: CBC, BMP 08/14/18 08:37 08/15/18 09:20 Problem List - Problems (1) Altered mental status Code(s): R41.82 - ALTERED MENTAL STATUS, UNSPECIFIED Qualifiers: Altered mental status type: unspecified Qualified Code(s): R41.82 - Altered mental status, unspecified (2) ESRD (end stage renal disease) on dialysis Code(s): N18.6 - END STAGE RENAL DISEASE; Z99.2 - DEPENDENCE ON RENAL DIALYSIS Assessment/Plan Current Medications Generic Name Dose Route Start Last Admin Trade Name Estevanq PRN Reason Stop Dose Admin Amlodipine Besylate 5 mg 08/14/18 10:00 08/14/18 09:43 Norvasc - PO Not Given DAILY [facility] Aspirin 81 mg 08/14/18 10:00 08/14/18 09:41 Asa - PO 81 mg DAILY [facility] Administration Donepezil HCl 10 mg 08/14/18 22:00 08/14/18 21:18 Aricept - PO 10 mg HS [facility] Administration Escitalopram Oxalate 20 mg 08/14/18 10:00 08/14/18 09:40 Lexapro - PO 20 mg DAILY [facility] Administration Furosemide 80 mg 08/14/18 10:00 08/14/18 09:43 Lasix - PO Not Given DAILY [facility] Gabapentin 100 mg 08/13/18 22:00 08/14/18 21:17 Neurontin - PO 100 mg HS [facility] Administration Gemfibrozil 600 mg 08/14/18 07:00 08/15/18 06:09 Lopid - PO 600 mg BIDAC [facility] Administration Heparin Sodium (Porcine) 5,000 unit 08/14/18 10:00 08/14/18 21:18 Heparin - SQ 5,000 unit BID [facility] Administration Ceftriaxone Sodium 1 gm/ 50 mls @ 100 mls/hr 08/14/18 22:00 08/14/18 21:18 Dextrose IVPB 08/16/18 22:29 100 mls/hr HS [facility] Administration Protocol Sodium Chloride 250 mls @ 3,000 mls/hr 08/14/18 16:55 Normal Saline - IV 08/15/18 16:54 PRN PRN Hypotension during Dialysis Isoniazid 300 mg 08/14/18 10:00 08/14/18 09:41 Inh - PO 300 mg DAILY [facility] Administration Lactulose 20 gm 08/13/18 21:41 Cephulac (Oral Use) PO Q8H PRN constipation Metoprolol Tartrate 100 mg 08/13/18 22:00 08/14/18 21:17 Lopressor - PO 100 mg BID [facility] Administration Non-Formulary Medication 0.75 mg 08/13/18 21:45 Dulaglutide [Trulicity] SQ WEEKLY [facility] Pyridoxine HCl 100 mg 08/14/18 10:00 08/14/18 09:40 Vitamin B6 - PO 100 mg DAILY [facility] Administration Quetiapine Fumarate 25 mg 08/13/18 22:00 08/15/18 06:09 Seroquel - PO 25 mg TID [facility] Administration Ranitidine HCl 150 mg 08/14/18 10:00 08/14/18 09:40 Zantac - PO 150 mg DAILY [facility] Administration Sevelamer Carbonate 800 mg 08/14/18 08:00 08/15/18 07:40 Renvela - PO 800 mg TIDCM [facility] Administration Thiamine HCl 100 mg 08/14/18 10:00 08/14/18 09:40 Vitamin B1 - PO 100 mg DAILY [facility] Administration Impression 1. ESRD 2. change in mental status 3. HTN 4. DM 5. HLD 6. hypocalcemia 7. positive rpr s/p treatment with ceftriaxone 8. hx hyperkalemia Plan - HD today - mental status is improved - recommend neuro and psych eval as this has been a recurrent problem - AVF, 3:30, 2 k bath, heparin 1000 bolus and 500 maintenance, abf 450 - will follow Dr Marks
--- NOTE | 2018-08-15 11:08 | PN ---
Progress Note (short form) - Note Progress Note: pt seen/ examined in dialysis chart reviewed awake/ comfortable. Vital Signs Temp 97.4 F L 08/15/18 08:20 Pulse 53 L 08/15/18 09:55 Resp 18 08/15/18 09:55 BP 99/50 L 08/15/18 09:55 Pulse Ox 99 08/15/18 09:00 Intake & Output 08/14/18 08/14/18 08/15/18 11:59 23:59 11:59 Intake Total 150 770 50 Balance 150 770 50 Intake: IVPB 250 50 Oral 150 520 Other: Voiding Method Toilet Toilet Toilet Bowel Movement No No No Active Medications Amlodipine Besylate (Norvasc -) 5 mg PO DAILY [facility] Last Admin: 08/14/18 09:43 Dose: Not Given Aspirin (Asa -) 81 mg PO DAILY [facility] Last Admin: 08/14/18 09:41 Dose: 81 mg Donepezil HCl (Aricept -) 10 mg PO [facility] Last Admin: 08/14/18 21:18 Dose: 10 mg Escitalopram Oxalate (Lexapro -) 20 mg PO DAILY [facility] Last Admin: 08/14/18 09:40 Dose: 20 mg Furosemide (Lasix -) 80 mg PO DAILY [facility] Last Admin: 08/14/18 09:43 Dose: Not Given Gabapentin (Neurontin -) 100 mg PO [facility] Last Admin: 08/14/18 21:17 Dose: 100 mg Gemfibrozil (Lopid -) 600 mg PO BIDAC [facility] Last Admin: 08/15/18 06:09 Dose: 600 mg Heparin Sodium (Porcine) (Heparin -) 5,000 unit SQ BID [facility] Last Admin: 08/14/18 21:18 Dose: 5,000 unit Ceftriaxone Sodium 1 gm/ (Dextrose) 50 mls @ 100 mls/hr IVPB [facility]; Protocol Stop: 08/16/18 22:29 Last Admin: 08/14/18 21:18 Dose: 100 mls/hr Sodium Chloride (Normal Saline -) 250 mls @ 3,000 mls/hr IV PRN PRN PRN Reason: Hypotension during Dialysis Stop: 08/15/18 16:54 Isoniazid (Inh -) 300 mg PO DAILY [facility] Last Admin: 08/14/18 09:41 Dose: 300 mg Lactulose (Cephulac (Oral Use)) 20 gm PO Q8H PRN PRN Reason: constipation Metoprolol Tartrate (Lopressor -) 100 mg PO BID [facility] Last Admin: 08/14/18 21:17 Dose: 100 mg Non-Formulary Medication (Dulaglutide [Trulicity]) 0.75 mg SQ WEEKLY [facility] Pyridoxine HCl (Vitamin B6 -) 100 mg PO DAILY [facility] Last Admin: 08/14/18 09:40 Dose: 100 mg Quetiapine Fumarate (Seroquel -) 25 mg PO TID [facility] Last Admin: 08/15/18 06:09 Dose: 25 mg Ranitidine HCl (Zantac -) 150 mg PO DAILY [facility] Last Admin: 08/14/18 09:40 Dose: 150 mg Sevelamer Carbonate (Renvela -) 800 mg PO TIDCM [facility] Last Admin: 08/15/18 07:40 Dose: 800 mg Thiamine HCl (Vitamin B1 -) 100 mg PO DAILY [facility] Last Admin: 08/14/18 09:40 Dose: 100 mg CBC, BMP 08/14/18 08:37 08/15/18 09:20 Microbiology 08/13/18 16:58 Blood Culture - Preliminary Blood - Peripheral Venous Pending Organism 08/13/18 19:42 Urine Culture - Preliminary Urine - Urine Clean Catch Lactose Fermenting Neg Bacilli 08/13/18 16:58 Blood Culture - Preliminary Blood - Peripheral Venous Group D Strep Or Entero Coccus Staphylococcus Species Pending Organism physical exam Awake and comfortable S1 S2 RRR Lungs clear Abd- soft, NT No edema PLAN sepsis Positive cultures Antibiotics Vanco level Hemodialysis per renal Discussed with Dr. Andre also Further recommendations per clinical course Will follow Problem List - Problems (1) Bacteremia Code(s): R78.81 - BACTEREMIA (2) Diabetes Code(s): E11.9 - TYPE 2 DIABETES MELLITUS WITHOUT COMPLICATIONS (3) ESRD (end stage renal disease) on dialysis Code(s): N18.6 - END STAGE RENAL DISEASE; Z99.2 - DEPENDENCE ON RENAL DIALYSIS (4) End stage renal disease Code(s): N18.6 - END STAGE RENAL DISEASE (5) HTN (hypertension) Code(s): I10 - ESSENTIAL (PRIMARY) HYPERTENSION
[2018-08-15] MEDS: amLODIPine BESYLATE 5 MG TABLET (FP) PO SCH (11:40)
[2018-08-15] MEDS: FUROSEMIDE 40 MG TABLET (FP) PO SCH (11:40)
[2018-08-15] MEDS: METOPROLOL TARTRATE 50 MG TABLET (FP) PO SCH ×2 (11:40→21:22)
[2018-08-15] MEDS: PYRIDOXINE HCL (B-6) 50 MG TABLET (FP) PO SCH (12:20)
[2018-08-15] MEDS: ASPIRIN 81 MG CHEWABLE TABLETS PO SCH (12:20)
[2018-08-15] MEDS: ISONIAZID 300 MG TABLET (FP) PO SCH (12:20)
[2018-08-15] MEDS: THIAMINE HCL 100 MG TABLET (FP) PO SCH (12:20)
[2018-08-15] MEDS: ESCITALOPRAM OXALATE 20 MG TABLET (FP) PO SCH (12:20)
[2018-08-15] MEDS: RANITIDINE HCL 150 MG TABLET (FP) PO SCH (12:20)
[2018-08-15] MEDS: HEPARIN NA (PORCINE) 5,000 UNITS/ML 1ML VIAL SQ SCH ×2 (12:20→21:25)
--- NOTE | 2018-08-15 15:47 | PN ---
Progress Note, Physician History of Present Illness: SEATED IN BED MILDLY CONFUSED AFEBRILE BLOOD C/S POLYMICROBIAL - Current Medication List Current Medications: Active Medications Amlodipine Besylate (Norvasc -) 5 mg PO DAILY [facility] Last Admin: 08/15/18 11:40 Dose: Not Given Aspirin (Asa -) 81 mg PO DAILY [facility] Last Admin: 08/15/18 12:20 Dose: 81 mg Donepezil HCl (Aricept -) 10 mg PO [facility] Last Admin: 08/14/18 21:18 Dose: 10 mg Escitalopram Oxalate (Lexapro -) 20 mg PO DAILY [facility] Last Admin: 08/15/18 12:20 Dose: 20 mg Furosemide (Lasix -) 80 mg PO DAILY [facility] Last Admin: 08/15/18 11:40 Dose: Not Given Gabapentin (Neurontin -) 100 mg PO [facility] Last Admin: 08/14/18 21:17 Dose: 100 [facility] Admin: 08/15/18 06:09 Dose: 600 mg Heparin Sodium (Porcine) (Heparin -) 5,000 unit SQ BID [facility] Last Admin: 08/15/18 12:20 Dose: 5,000 unit Ceftriaxone Sodium 1 gm/ (Dextrose) 50 mls @ 100 mls/hr IVPB [facility]; Protocol Stop: 08/16/18 22:29 Last Admin: 08/14/18 21:18 Dose: 100 mls/hr Sodium Chloride (Normal Saline -) 250 mls @ 3,000 mls/hr IV PRN PRN PRN Reason: Hypotension during Dialysis Stop: 08/15/18 16:54 Isoniazid (Inh -) 300 mg PO DAILY [facility] Last Admin: 08/15/18 12:20 Dose: 300 mg Lactulose (Cephulac (Oral Use)) 20 gm PO Q8H PRN PRN Reason: constipation Metoprolol Tartrate (Lopressor -) 100 mg PO BID [facility] Last Admin: 08/15/18 11:40 Dose: Not Given Non-Formulary Medication (Dulaglutide [Trulicity]) 0.75 mg SQ WEEKLY [facility] Pyridoxine HCl (Vitamin B6 -) 100 mg PO DAILY [facility] Last Admin: 08/15/18 12:20 Dose: 100 mg Quetiapine Fumarate (Seroquel -) 25 mg PO TID [facility] Last Admin: 08/15/18 13:02 Dose: 25 mg Ranitidine HCl (Zantac -) 150 mg PO DAILY [facility] Last Admin: 08/15/18 12:20 Dose: 150 mg Sevelamer Carbonate (Renvela -) 800 mg PO TIDCM [facility] Last Admin: 08/15/18 12:19 Dose: 800 mg Thiamine HCl (Vitamin B1 -) 100 mg PO DAILY [facility] Last Admin: 08/15/18 12:20 Dose: 100 mg - Objective Vital Signs: Vital Signs Temperature 97.4 F L 08/15/18 13:57 Pulse Rate 56 L 08/15/18 13:57 Respiratory Rate 20 08/15/18 13:57 Blood Pressure 122/71 08/15/18 13:57 O2 Sat by Pulse Oximetry (%) 99 08/15/18 09:00 Constitutional: Yes: No Distress Eyes: Yes: Conjunctiva Clear Cardiovascular: Yes: Regular Rate and Rhythm, S1, S2 Respiratory: Yes: CTA Bilaterally Gastrointestinal: Yes: Normal Bowel Sounds, Soft. No: Tenderness Extremities: Yes: Other (L UE AVF) Integumentary: Yes: Other (R CHEST CATHETER) Labs: CBC, BMP 08/14/18 08:37 08/15/18 09:20 Assessment/Plan POLYMICROBIAL BACTEREMIA ? CATHETER SEPSIS ESRD AWAIT C/S CONTINUE CEFTRIAXONE REDOSE VANCOMYCIN
[2018-08-15] MEDS ORDERED: VANCOMYCIN 1 GRAM (PRE-DOCKED) 1,000 MG/250 ML BAG IVPB ONE (15:48)
[2018-08-15] MEDS ORDERED: cefTRIAXone SODIUM 1 GM VIAL ONE (20:32)
[2018-08-15] MEDS ORDERED: DEXTROSE 5%-WATER - 50 ML IVPB ONE (20:32)
[2018-08-15] MEDS: GABAPENTIN 100 MG CAPSULE (FP) PO SCH (21:22)
[2018-08-15] MEDS: DONEPEZIL HCL 10 MG TABLET (FP) PO SCH (21:25)
[2018-08-15] MEDS: CEFTRIAXONE 1 GM in DEXTROSE 5%-WATER - 50 ML IVPB SCH (21:26)
[2018-08-16] MEDS ORDERED: PT OWN MED DRAWER 7, Y5N ONE (05:51)
[2018-08-16] MEDS: GEMFIBROZIL 600 MG TABLET (FP) PO SCH ×2 (06:06→17:03)
[2018-08-16] MEDS: QUEtiapine FUMARATE 25 MG TABLET (FP) PO SCH ×3 (06:06→22:28)
[2018-08-16] MEDS: HEPARIN NA (PORCINE) 5,000 UNITS/ML 1ML VIAL SQ SCH ×2 (09:16→22:28)
[2018-08-16] MEDS: SEVELAMER CARBONATE 800 MG TAB (FP) PO SCH ×3 (09:16→17:03)
[2018-08-16] MEDS: ASPIRIN 81 MG CHEWABLE TABLETS PO SCH (09:16)
[2018-08-16] MEDS: RANITIDINE HCL 150 MG TABLET (FP) PO SCH (09:17)
[2018-08-16] MEDS: THIAMINE HCL 100 MG TABLET (FP) PO SCH (09:17)
[2018-08-16] MEDS: amLODIPine BESYLATE 5 MG TABLET (FP) PO SCH (09:17)
[2018-08-16] MEDS: ESCITALOPRAM OXALATE 20 MG TABLET (FP) PO SCH (09:17)
[2018-08-16] MEDS: FUROSEMIDE 40 MG TABLET (FP) PO SCH (09:18)
[2018-08-16] MEDS: ISONIAZID 300 MG TABLET (FP) PO SCH (09:18)
[2018-08-16] MEDS: METOPROLOL TARTRATE 50 MG TABLET (FP) PO SCH ×2 (09:18→22:27)
[2018-08-16] MEDS: PYRIDOXINE HCL (B-6) 50 MG TABLET (FP) PO SCH (09:19)
--- NOTE | 2018-08-16 12:32 | PN ---
Progress Note (short form) - Note Progress Note: Feels tired no chest pain , SOB, diarrhea, abd pain No chills rt arm is jerking Vital Signs - 24 hr 08/15/18 08/15/18 08/15/18 13:57 17:42 21:00 Temperature 97.4 F L 97.2 F L Pulse Rate 56 L 62 Respiratory 20 18 Rate Blood Pressure 122/71 113/52 L O2 Sat by Pulse 98 Oximetry (%) 08/15/18 08/16/18 08/16/18 22:00 05:00 09:14 Temperature 98.0 F 97.9 F 97.8 F Pulse Rate 65 76 57 L Respiratory 18 18 18 Rate Blood Pressure 116/60 123/79 107/58 L O2 Sat by Pulse Oximetry (%) Current Medications Generic Name Dose Route Start Last Admin Trade Name Freq PRN Reason Stop Dose Admin Amlodipine Besylate 5 mg 08/14/18 10:00 08/16/18 09:17 Norvasc - PO Not Given DAILY [facility] Aspirin 81 mg 08/14/18 10:00 08/16/18 09:16 Asa - PO 81 mg DAILY [facility] Administration Donepezil HCl 10 mg 08/14/18 22:00 08/15/18 21:25 Aricept - PO 10 mg HS [facility] Administration Escitalopram Oxalate 20 mg 08/14/18 10:00 08/16/18 09:17 Lexapro - PO 20 mg DAILY [facility] Administration Furosemide 80 mg 08/14/18 10:00 08/16/18 09:18 Lasix - PO Not Given DAILY [facility] Gabapentin 100 mg 08/13/18 22:00 08/15/18 21:22 Neurontin - PO 100 mg HS [facility] Administration Gemfibrozil 600 mg 08/14/18 07:00 08/16/18 06:06 Lopid - PO 600 mg BIDAC [facility] Administration Heparin Sodium (Porcine) 5,000 unit 08/14/18 10:00 08/16/18 09:16 Heparin - SQ 5,000 unit BID [facility] Administration Ceftriaxone Sodium 1 gm/ 50 mls @ 100 mls/hr 08/14/18 22:00 08/15/18 21:26 Dextrose IVPB 08/16/18 22:29 100 mls/hr HS [facility] Administration Protocol Isoniazid 300 mg 08/14/18 10:00 01/19/19 09:18 Inh - PO 300 mg DAILY [facility] Administration Lactulose 20 gm 08/13/18 21:41 Cephulac (Oral Use) PO Q8H PRN constipation Metoprolol Tartrate 100 mg 08/13/18 22:00 08/16/18 09:18 Lopressor - PO Not Given BID [facility] Non-Formulary Medication 0.75 mg 08/13/18 21:45 Dulaglutide [Trulicity] SQ WEEKLY [facility] Pyridoxine HCl 100 mg 08/14/18 10:00 08/16/18 09:19 Vitamin B6 - PO 100 mg DAILY [facility] Administration Quetiapine Fumarate 25 mg 08/13/18 22:00 08/16/18 06:06 Seroquel - PO 25 mg TID [facility] Administration Ranitidine HCl 150 mg 08/14/18 10:00 08/16/18 09:17 Zantac - PO 150 mg DAILY [facility] Administration Sevelamer Carbonate 800 mg 08/14/18 08:00 08/16/18 12:02 Renvela - PO 800 mg TIDCM [facility] Administration Thiamine HCl 100 mg 08/14/18 10:00 08/16/18 09:17 Vitamin B1 - PO 100 mg DAILY [facility] Administration Laboratory Results - last 24 hr 08/16/18 06:30 Random Vancomycin 16.2 L S1 S2 RRR Lungs clear Abd- soft, NT No edema PLAN Blood culture positive- repeated receiving antibiotics ID eval noted HD per renal 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
[2018-08-16] MEDS ORDERED: VANCOMYCIN 1 GRAM (PRE-DOCKED) 1,000 MG/250 ML BAG IVPB ONE (14:11)
--- NOTE | 2018-08-16 14:11 | PN ---
Progress Note, Physician History of Present Illness: SUPINE IN BED MILDLY CONFUSED OFFERS NO COMPLAINTS AFEBRILE WBC WNL VANCO T 16.2 BC POLYMICROBIAL - Current Medication List Current Medications: Active Medications Amlodipine Besylate (Norvasc -) 5 mg PO DAILY [facility] Last Admin: 08/16/18 09:17 Dose: Not Given Aspirin (Asa -) 81 mg PO DAILY [facility] Last Admin: 08/16/18 09:16 Dose: 81 mg Donepezil HCl (Aricept -) 10 mg PO [facility] Last Admin: 08/15/18 21:25 Dose: 10 mg Escitalopram Oxalate (Lexapro -) 20 mg PO DAILY [facility] Last Admin: 08/16/18 09:17 Dose: 20 mg Furosemide (Lasix -) 80 mg PO DAILY [facility] Last Admin: 08/16/18 09:18 Dose: Not Given Gabapentin (Neurontin -) 100 mg PO [facility] Last Admin: 08/15/18 21:22 Dose: 100 mg Gemfibrozil (Lopid -) 600 mg PO BIDAC [facility] Last Admin: 08/16/18 06:06 Dose: 600 mg Heparin Sodium (Porcine) (Heparin -) 5,000 unit SQ BID [facility] Last Admin: 08/16/18 09:16 Dose: 5,000 unit Ceftriaxone Sodium 1 gm/ (Dextrose) 50 mls @ 100 mls/hr IVPB [facility]; Protocol Stop: 08/16/18 22:29 Last Admin: 08/15/18 21:26 Dose: 100 mls/hr Isoniazid (Inh -) 300 mg PO DAILY [facility] Last Admin: 08/16/18 09:18 Dose: 300 mg Lactulose (Cephulac (Oral Use)) 20 gm PO Q8H PRN PRN Reason: constipation Metoprolol Tartrate (Lopressor -) 100 mg PO BID [facility] Last Admin: 08/16/18 09:18 Dose: Not Given Non-Formulary Medication (Dulaglutide [Trulicity]) 0.75 mg SQ WEEKLY [facility] Pyridoxine HCl (Vitamin B6 -) 100 mg PO DAILY [facility] Last Admin: 08/16/18 09:19 Dose: 100 mg Quetiapine Fumarate (Seroquel -) 25 mg PO TID [facility] Last Admin: 08/16/18 13:52 Dose: Not Given Ranitidine HCl (Zantac -) 150 mg PO DAILY [facility] Last Admin: 08/16/18 09:17 Dose: 150 mg Sevelamer Carbonate (Renvela -) 800 mg PO TIDCM [facility] Last Admin: 08/16/18 12:02 Dose: 800 mg Thiamine HCl (Vitamin B1 -) 100 mg PO DAILY [facility] Last Admin: 08/16/18 09:17 Dose: 100 mg - Objective Vital Signs: Vital Signs Temperature 97.8 F 08/16/18 09:14 Pulse Rate 57 L 08/16/18 09:14 Respiratory Rate 18 08/16/18 09:14 Blood Pressure 107/58 L 08/16/18 09:14 O2 Sat by Pulse Oximetry (%) 98 08/15/18 21:00 Constitutional: Yes: No Distress Eyes: Yes: Conjunctiva Clear Cardiovascular: Yes: Regular Rate and Rhythm Respiratory: Yes: CTA Bilaterally Gastrointestinal: Yes: Normal Bowel Sounds, Soft. No: Tenderness Edema: No Labs: CBC, BMP 08/14/18 08:37 08/15/18 09:20 Assessment/Plan POLYMICROBIAL BACTEREMIA ? CATHETER SEPSIS ESRD AWAIT C/S CONTINUE CEFTRIAXONE REDOSE VANCOMYCIN
--- NOTE | 2018-08-16 15:08 | PN ---
Progress Note, Physician History of Present Illness: Pt seen and examined at bedside. She is awake and alert. She tolerated HD yesterday. - Current Medication List Current Medications: Active Medications Amlodipine Besylate (Norvasc -) 5 mg PO DAILY [facility] Last Admin: 08/16/18 09:17 Dose: Not Given Aspirin (Asa -) 81 mg PO DAILY [facility] Last Admin: 08/16/18 09:16 Dose: 81 mg Donepezil HCl (Aricept -) 10 mg PO [facility] Last Admin: 08/15/18 21:25 Dose: 10 mg Escitalopram Oxalate (Lexapro -) 20 mg PO DAILY [facility] Last Admin: 08/16/18 09:17 Dose: 20 mg Furosemide (Lasix -) 80 mg PO DAILY [facility] Last Admin: 08/16/18 09:18 Dose: Not Given Gabapentin (Neurontin -) 100 mg PO [facility] Last Admin: 08/15/18 21:22 Dose: 100 mg [facility] Admin: 08/16/18 06:06 Dose: 600 mg Heparin Sodium (Porcine) (Heparin -) 5,000 unit SQ BID [facility] Last Admin: 08/16/18 09:16 Dose: 5,000 unit Ceftriaxone Sodium 1 gm/ (Dextrose) 50 mls @ 100 mls/hr IVPB [facility]; Protocol Stop: 08/16/18 22:29 Last Admin: 08/15/18 21:26 Dose: 100 mls/hr Vancomycin HCl (Vancomycin (Pre-Docked)) 1,000 mg in 250 mls @ 166.667 mls/hr IVPB ONCE ONE; Protocol Stop: 08/16/18 15:40 Isoniazid (Inh -) 300 mg PO DAILY [facility] Last Admin: 08/16/18 09:18 Dose: 300 mg Lactulose (Cephulac (Oral Use)) 20 gm PO Q8H PRN PRN Reason: constipation Metoprolol Tartrate (Lopressor -) 100 mg PO BID [facility] Last Admin: 08/16/18 09:18 Dose: Not Given Non-Formulary Medication (Dulaglutide [Trulicity]) 0.75 mg SQ WEEKLY [facility] Pyridoxine HCl (Vitamin B6 -) 100 mg PO DAILY [facility] Last Admin: 08/16/18 09:19 Dose: 100 mg Quetiapine Fumarate (Seroquel -) 25 mg PO TID [facility] Last Admin: 08/16/18 13:52 Dose: Not Given Ranitidine HCl (Zantac -) 150 mg PO DAILY [facility] Last Admin: 08/16/18 09:17 Dose: 150 mg Sevelamer Carbonate (Renvela -) 800 mg PO TIDCM [facility] Last Admin: 08/16/18 12:02 Dose: 800 mg Thiamine HCl (Vitamin B1 -) 100 mg PO DAILY [facility] Last Admin: 08/16/18 09:17 Dose: 100 mg - Objective Vital Signs: Vital Signs Temperature 97.5 F L 08/16/18 14:56 Pulse Rate 62 08/16/18 14:56 Respiratory Rate 18 08/16/18 14:56 Blood Pressure 116/65 08/16/18 14:56 O2 Sat by Pulse Oximetry (%) 98 08/15/18 21:00 Constitutional: Yes: Calm Eyes: Yes: Conjunctiva Clear HENT: Yes: Atraumatic Neck: Yes: Supple Cardiovascular: Yes: S1, S2 Respiratory: Yes: CTA Bilaterally Gastrointestinal: Yes: Soft Extremities: Yes: WNL Edema: No Neurological: Yes: Oriented Psychiatric: Yes: Oriented Labs: CBC, BMP 08/14/18 08:37 08/15/18 09:20 Problem List - Problems (1) Altered mental status Code(s): R41.82 - ALTERED MENTAL STATUS, UNSPECIFIED Qualifiers: Qualified Code(s): R41.82 - Altered mental status, unspecified (2) ESRD (end stage renal disease) on dialysis Code(s): N18.6 - END STAGE RENAL DISEASE; Z99.2 - DEPENDENCE ON RENAL DIALYSIS Assessment/Plan Current Medications Generic Name Dose Route Start Last Admin Trade Name Freq PRN Reason Stop Dose Admin Amlodipine Besylate 5 mg 08/14/18 10:00 08/16/18 09:17 Norvasc - PO Not Given DAILY [facility] Aspirin 81 mg 08/14/18 10:00 08/16/18 09:16 Asa - PO 81 mg DAILY [facility] Administration Donepezil HCl 10 mg 08/14/18 22:00 08/15/18 21:25 Aricept - PO 10 mg HS [facility] Administration Escitalopram Oxalate 20 mg 08/14/18 10:00 08/16/18 09:17 Lexapro - PO 20 mg DAILY [facility] Administration Furosemide 80 mg 08/14/18 10:00 08/16/18 09:18 Lasix - PO Not Given DAILY [facility] Gabapentin 100 mg 08/13/18 22:00 08/15/18 21:22 Neurontin - PO 100 mg HS [facility] Administration Gemfibrozil 600 mg 08/14/18 07:00 08/16/18 06:06 Lopid - PO 600 mg BIDAC [facility] Administration Heparin Sodium (Porcine) 5,000 unit 08/14/18 10:00 08/16/18 09:16 Heparin - SQ 5,000 unit BID [facility] Administration Ceftriaxone Sodium 1 gm/ 50 mls @ 100 mls/hr 08/14/18 22:00 08/15/18 21:26 Dextrose IVPB 08/16/18 22:29 100 mls/hr HS [facility] Administration Protocol Vancomycin HCl 1,000 mg in 250 mls @ 166.667 mls/hr 08/16/18 14:11 Vancomycin (Pre-Docked) IVPB 08/16/18 15:40 ONCE ONE Protocol Isoniazid 300 mg 08/14/18 10:00 08/16/18 09:18 Inh - PO 300 mg DAILY [facility] Administration Lactulose 20 gm 08/13/18 21:41 Cephulac (Oral Use) PO Q8H PRN constipation Metoprolol Tartrate 100 mg 08/13/18 22:00 08/16/18 09:18 Lopressor - PO Not Given BID [facility] Non-Formulary Medication 0.75 mg 08/13/18 21:45 Dulaglutide [Trulicity] SQ WEEKLY [facility] Pyridoxine HCl 100 mg 08/14/18 10:00 08/16/18 09:19 Vitamin B6 - PO 100 mg DAILY [facility] Administration Quetiapine Fumarate 25 mg 08/13/18 22:00 08/16/18 13:52 Seroquel - PO Not Given TID [facility] Ranitidine HCl 150 mg 08/14/18 10:00 08/16/18 09:17 Zantac - PO 150 mg DAILY [facility] Administration Sevelamer Carbonate 800 mg 08/14/18 08:00 08/16/18 12:02 Renvela - PO 800 mg TIDCM [facility] Administration Thiamine HCl 100 mg 08/14/18 10:00 08/16/18 09:17 Vitamin B1 - PO 100 mg DAILY [facility] Administration Impression 1. ESRD 2. change in mental status 3. HTN 4. DM 5. HLD 6. hypocalcemia 7. positive rpr s/p treatment with ceftriaxone 8. hx hyperkalemia Plan - next HD on Saturday - mental status appears to be at baseline - volume status stable - potassium improved - renal diet - AVF, 3:30, 2 k bath, heparin 1000 bolus and 500 maintenance, abf 450 - will follow Dr Marks
--- NOTE | 2018-08-16 15:10 | CON.NEURO ---
Consult Consult Specialty:: neurology Referred by:: Dr. Mosquera Reason for Consultation:: Jerking Movements of Left Arm - History of Present Illness Chief Complaint: Jerking Movements of Left Arm History of Present Illness: 57 yo F with a hx of IDDM, neurosyphillis (presumably treated) , ESRD (HD on MWF ), and recent admission with elevated ammonia and AMS presents to the emergency department from [facility] for AMS and low potassium. Per the patient, she is unaware as to why she is in the Hospital. She does know that she is in [facility]. She is not bothered by the movements. 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 Cardio/Vascular: Yes: HTN Gastrointestinal: Yes: GERD Hepatobiliary: Yes: Other (hepatic encephalopathy) Renal/: Yes: Renal Failure, Hemodialysis Endocrine: Yes: Diabetes Mellitus - Past Surgical History Past Surgical History: Yes: AV Fistula/Graft - Alcohol/Substance Use Hx Alcohol Use: No History of Substance Use: reports: None - Smoking History Smoking history: Unknown if ever smoked Have you smoked in the past 12 months: No - Social History Usual Living Arrangement: Prison ADL: Support Services Occupation: former [employer] History of Recent Travel: No Home Medications - Allergies Allergies/Adverse Reactions: Allergies Allergy/AdvReac Type Severity Reaction Status Date / Time No Known Allergies Allergy Verified 08/01/18 17:37 - Home Medications Home Medications: Ambulatory Orders Amlodipine Besylate 5 mg PO DAILY 06/26/18 Aspirin 81 mg PO DAILY 06/26/18 Donepezil HCl 10 mg PO HS 06/26/18 Dulaglutide [Trulicity] 0.75 mg SQ WEEKLY 06/26/18 Escitalopram Oxalate [Lexapro -] 20 mg PO DAILY 06/26/18 Famotidine 20 mg PO DAILY 06/26/18 Furosemide 80 mg PO DAILY 06/26/18 Gabapentin 100 mg PO HS 06/26/18 Gemfibrozil [Lopid] 600 mg PO BID 06/26/18 Isoniazid 300 mg PO DAILY 06/26/18 Metoprolol Tartrate 100 mg PO BID 06/26/18 Pyridoxine HCl (Vitamin B6) [Vitamin B-6] 100 mg PO DAILY 06/26/18 Quetiapine Fumarate [Seroquel -] 25 mg PO TID 06/26/18 Sevelamer Carbonate 800 mg PO TID 06/26/18 Thiamine Mononitrate [Vitamin B-1] 100 mg PO DAILY 06/26/18 Lactulose (Oral Use) [Cephulac -] 20 gm PO Q8H PRN udc 08/04/18 Family Disease History - Family Disease History Family Disease History: Diabetes: Grandparent Physical Exam-Neuro Vital Signs: Vital Signs Temperature 97.5 F L 08/16/18 14:56 Pulse Rate 62 08/16/18 14:56 Respiratory Rate 18 08/16/18 14:56 Blood Pressure 116/65 08/16/18 14:56 O2 Sat by Pulse Oximetry (%) 98 08/15/18 21:00 Constitutional: Yes: Thin Labs: CBC, BMP 08/14/18 08:37 08/15/18 09:20 - Neuro Exam Level Of Consciousness: Yes: Alert, Oriented to Person, Oriented to Place (She knows that it is 2018 and that the president is Trump.) Eyes: Yes: FABIÁN Speech: WNL Cranial Nerves II-XII Intact: Yes DTR's: 0 Left Achilles, 0 Right Achilles, 1+ Left Bicep, 1+ Right Bicep, 1+ Left Tricep, 1+ Right Tricep, 1+ Left Brachioradialis, 1+ Right Brachioradialis Babinski: Absent Response to light touch: Normal Movement Disorders: Asterixis, Myoclonus (she has myoclonus in the left arm and bilateral asterixis upon holding out her arms.) Motor Strength: 5/5: Left Arm, Right Arm, Left Leg, Right Leg Gait: Deferred Imaging - Results Cat Scan: Report Reviewed, Image Reviewed (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) Problem List - Problems (1) Encephalopathy Code(s): G93.40 - ENCEPHALOPATHY, UNSPECIFIED (2) Altered mental status Code(s): R41.82 - ALTERED MENTAL STATUS, UNSPECIFIED Qualifiers: Altered mental status type: unspecified Qualified Code(s): R41.82 - Altered mental status, unspecified (3) UTI (urinary tract infection) Code(s): N39.0 - URINARY TRACT INFECTION, SITE NOT SPECIFIED Qualifiers: Urinary tract infection type: site unspecified Hematuria presence: without hematuria Qualified Code(s): N39.0 - Urinary tract infection, site not specified (4) Anxiety and depression Code(s): F41.9 - ANXIETY DISORDER, UNSPECIFIED; F32.9 - MAJOR DEPRESSIVE DISORDER, SINGLE EPISODE, UNSPECIFIED (5) Diabetes Code(s): E11.9 - TYPE 2 DIABETES MELLITUS WITHOUT COMPLICATIONS (6) End stage renal disease Code(s): N18.6 - END STAGE RENAL DISEASE (7) GERD (gastroesophageal reflux disease) Code(s): K21.9 - GASTRO-ESOPHAGEAL REFLUX DISEASE WITHOUT ESOPHAGITIS Assessment/Plan Although her ammonia level is normal now, she is encephalopathic, probably from other metabolic etiologies. Her BUN/Creat is elevated though she suffers ESRD and I don't know what she normally tolerates. She appears to also have infection and this may be contributing. I don't think that this is likely primary brain disorder or seizure and as her acute medical condition improves, hopefully the movements should dissipate. Thanks.
[2018-08-16] MEDS ORDERED: cefTRIAXone SODIUM 1 GM VIAL ONE (21:14)
[2018-08-16] MEDS ORDERED: DEXTROSE 5%-WATER - 50 ML IVPB ONE (21:15)
[2018-08-16] MEDS: GABAPENTIN 100 MG CAPSULE (FP) PO SCH (22:27)
[2018-08-16] MEDS: CEFTRIAXONE 1 GM in DEXTROSE 5%-WATER - 50 ML IVPB SCH (22:28)
[2018-08-16] MEDS: DONEPEZIL HCL 10 MG TABLET (FP) PO SCH (22:29)
[2018-08-17] MEDS: QUEtiapine FUMARATE 25 MG TABLET (FP) PO SCH ×3 (05:55→21:40)
[2018-08-17] MEDS: GEMFIBROZIL 600 MG TABLET (FP) PO SCH ×2 (05:59→17:38)
[2018-08-17] MEDS: SEVELAMER CARBONATE 800 MG TAB (FP) PO SCH ×3 (09:24→17:38)
[2018-08-17] MEDS: ASPIRIN 81 MG CHEWABLE TABLETS PO SCH (09:24)
[2018-08-17] MEDS: ESCITALOPRAM OXALATE 20 MG TABLET (FP) PO SCH (09:24)
[2018-08-17] MEDS: THIAMINE HCL 100 MG TABLET (FP) PO SCH (09:25)
[2018-08-17] MEDS: amLODIPine BESYLATE 5 MG TABLET (FP) PO SCH (09:25)
[2018-08-17] MEDS: FUROSEMIDE 40 MG TABLET (FP) PO SCH (09:25)
[2018-08-17] MEDS: METOPROLOL TARTRATE 50 MG TABLET (FP) PO SCH ×2 (09:25→21:40)
[2018-08-17] MEDS: RANITIDINE HCL 150 MG TABLET (FP) PO SCH (09:25)
[2018-08-17] MEDS: HEPARIN NA (PORCINE) 5,000 UNITS/ML 1ML VIAL SQ SCH ×2 (09:25→21:40)
[2018-08-17] MEDS: ISONIAZID 300 MG TABLET (FP) PO SCH (09:26)
[2018-08-17] MEDS: PYRIDOXINE HCL (B-6) 50 MG TABLET (FP) PO SCH (09:27)
--- NOTE | 2018-08-17 11:31 | PN ---
Progress Note (short form) - Note Progress Note: Feels tired no chest pain , SOB, diarrhea, abd pain No chills Vital Signs - 24 hr 08/17/18 08/17/18 08/18/18 18:00 23:25 00:00 Temperature 98.1 F 99 F Pulse Rate 61 60 Respiratory 18 18 18 Rate Blood Pressure 128/68 139/87 O2 Sat by Pulse 97 Oximetry (%) 08/18/18 08/18/18 08/18/18 06:00 08:15 08:20 Temperature 97.5 F L 98.5 F Pulse Rate 57 L 55 L 61 Respiratory 18 18 18 Rate Blood Pressure 120/65 142/78 128/70 O2 Sat by Pulse Oximetry (%) 08/18/18 08/18/18 08/18/18 08:50 09:20 09:50 Temperature Pulse Rate 54 L 59 L 61 Respiratory 18 18 18 Rate Blood Pressure 117/63 91/54 L 98/63 O2 Sat by Pulse Oximetry (%) 08/18/18 08/18/18 08/18/18 10:20 10:50 11:20 Temperature Pulse Rate 55 L 60 54 L Respiratory 18 18 18 Rate Blood Pressure 114/59 L 86/55 L 122/62 O2 Sat by Pulse Oximetry (%) 08/18/18 08/18/18 08/18/18 11:50 11:55 12:38 Temperature 97.4 F L Pulse Rate 58 L 59 L 62 Respiratory 18 18 18 Rate Blood Pressure 119/63 144/61 133/52 L O2 Sat by Pulse Oximetry (%) 08/18/18 14:22 Temperature 97.5 F L Pulse Rate 62 Respiratory 18 Rate Blood Pressure 133/52 L O2 Sat by Pulse Oximetry (%) Current Medications Generic Name Dose Route Start Last Admin Trade Name Freq PRN Reason Stop Dose Admin Amlodipine Besylate 5 mg 08/14/18 10:00 08/18/18 12:34 Norvasc - PO 5 mg DAILY [facility] Administration Aspirin 81 mg 08/14/18 10:00 08/18/18 12:33 Asa - PO 81 mg DAILY [facility] Administration Donepezil HCl 10 mg 08/14/18 22:00 08/17/18 21:39 Aricept - PO 10 mg HS [facility] Administration Escitalopram Oxalate 20 mg 08/14/18 10:00 08/18/18 12:33 Lexapro - PO 20 mg DAILY [facility] Administration Furosemide 80 mg 08/14/18 10:00 08/18/18 12:33 Lasix - PO 80 mg DAILY [facility] Administration Gabapentin 100 mg 08/13/18 22:00 08/17/18 21:40 Neurontin - PO 100 mg HS [facility] Administration Gemfibrozil 600 mg 08/14/18 07:00 08/18/18 06:06 Lopid - PO 600 mg BIDAC [facility] Administration Heparin Sodium (Porcine) 5,000 unit 08/14/18 10:00 08/18/18 13:57 Heparin - SQ Not Given BID [facility] Sodium Chloride 250 mls @ 3,000 mls/hr 08/18/18 07:11 Normal Saline - IV 08/18/18 18:00 PRN PRN Hypotension during Dialysis Isoniazid 300 mg 08/14/18 10:00 08/18/18 13:57 Inh - PO 300 mg DAILY [facility] Administration Lactulose 20 gm 08/13/18 21:41 Cephulac (Oral Use) PO Q8H PRN constipation Metoprolol Tartrate 100 mg 08/13/18 22:00 08/18/18 12:33 Lopressor - PO 100 mg BID [facility] Administration Non-Formulary Medication 0.75 mg 08/13/18 21:45 Dulaglutide [Trulicity] SQ WEEKLY [facility] Pyridoxine HCl 100 mg 08/14/18 10:00 08/18/18 13:56 Vitamin B6 - PO 100 mg DAILY [facility] Administration Quetiapine Fumarate 25 mg 08/13/18 22:00 08/18/18 13:56 Seroquel - PO 25 mg TID [facility] Administration Ranitidine HCl 150 mg 08/14/18 10:00 08/18/18 12:33 Zantac - PO 150 mg DAILY [facility] Administration Sevelamer Carbonate 800 mg 08/14/18 08:00 08/18/18 12:33 Renvela - PO 800 mg TIDCM [facility] Administration Thiamine HCl 100 mg 08/14/18 10:00 08/18/18 12:33 Vitamin B1 - PO 100 mg DAILY [facility] Administration Laboratory Results - last 24 hr 08/18/18 08/18/18 08:20 08:20 WBC 5.7 RBC 2.91 L Hgb 8.9 L Hct 25.9 L MCV 88.7 MCH 30.5 MCHC 34.4 RDW 14.9 Plt Count 257 MPV 8.9 Sodium 136 Potassium 4.7 Chloride 99 Carbon Dioxide 24 Anion Gap 13 BUN 69 H Creatinine 11.1 H* Creat Clearance w eGFR 3.53 Random Glucose 101 Calcium 8.5 S1 S2 RRR Lungs clear Abd- soft, NT No edema PLAN Blood culture positive- repeat are negative receiving antibiotics ID eval noted HD per renal 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
--- NOTE | 2018-08-17 14:37 | PN ---
Progress Note, Physician Chief Complaint: Jerking of left arm History of Present Illness: 57 yo F with a hx of IDDM, neurosyphillis (presumably treated) , ESRD (HD on MWF ), and recent admission with elevated ammonia and AMS presents to the emergency department from [facility] for AMS and low potassium. Per the patient, she is unaware as to why she is in the Hospital. She does know that she is in [facility]. She is not bothered by the movements. They don't appear to be present this afternoon. - Current Medication List Current Medications: Active Medications Amlodipine Besylate (Norvasc -) 5 mg PO DAILY [facility] Last Admin: 08/17/18 09:25 Dose: 5 mg Aspirin (Asa -) 81 mg PO DAILY [facility] Last Admin: 08/17/18 09:24 Dose: 81 mg Donepezil HCl (Aricept -) 10 mg PO HS [facility] Last Admin: 08/16/18 22:29 Dose: 10 mg Escitalopram Oxalate (Lexapro -) 20 mg PO DAILY [facility] Last Admin: 08/17/18 09:24 Dose: 20 mg Furosemide (Lasix -) 80 mg PO DAILY [facility] Last Admin: 08/17/18 09:25 Dose: 80 mg Gabapentin (Neurontin -) 100 mg PO HS [facility] Last Admin: 08/16/18 22:27 Dose: 100 mg Gemfibrozil (Lopid -) 600 mg PO BIDAC [facility] Last Admin: 08/17/18 05:59 Dose: 600 mg Heparin Sodium (Porcine) (Heparin -) 5,000 unit SQ BID [facility] Last Admin: 08/17/18 09:25 Dose: 5,000 unit Isoniazid (Inh -) 300 mg PO DAILY [facility] Last Admin: 08/17/18 09:26 Dose: 300 mg Lactulose (Cephulac (Oral Use)) 20 gm PO Q8H PRN PRN Reason: constipation Metoprolol Tartrate (Lopressor -) 100 mg PO BID [facility] Last Admin: 08/17/18 09:25 Dose: 100 mg Non-Formulary Medication (Dulaglutide [Trulicity]) 0.75 mg SQ WEEKLY [facility] Pyridoxine HCl (Vitamin B6 -) 100 mg PO DAILY [facility] Last Admin: 08/17/18 09:27 Dose: 100 mg Quetiapine Fumarate (Seroquel -) 25 mg PO TID [facility] Last Admin: 08/17/18 14:16 Dose: Not Given Ranitidine HCl (Zantac -) 150 mg PO DAILY [facility] Last Admin: 08/17/18 09:25 Dose: 150 mg Sevelamer Carbonate (Renvela -) 800 mg PO TIDCM [facility] Last Admin: 08/17/18 13:00 Dose: 800 mg Thiamine HCl (Vitamin B1 -) 100 mg PO DAILY [facility] Last Admin: 08/17/18 09:25 Dose: 100 mg - Objective Vital Signs: Vital Signs Temperature 98.3 F 08/17/18 13:50 Pulse Rate 61 08/17/18 13:50 Respiratory Rate 18 08/17/18 13:50 Blood Pressure 108/52 L 08/17/18 13:50 O2 Sat by Pulse Oximetry (%) 97 08/17/18 09:00 Neurological: Yes: Other (I'm not appreciating any myoclonus this afternoon.) Labs: CBC, BMP 08/14/18 08:37 08/15/18 09:20 Problem List - Problems (1) Encephalopathy Code(s): G93.40 - ENCEPHALOPATHY, UNSPECIFIED (2) Altered mental status Code(s): R41.82 - ALTERED MENTAL STATUS, UNSPECIFIED Qualifiers: Altered mental status type: unspecified Qualified Code(s): R41.82 - Altered mental status, unspecified (3) UTI (urinary tract infection) Code(s): N39.0 - URINARY TRACT INFECTION, SITE NOT SPECIFIED Qualifiers: Urinary tract infection type: site unspecified Hematuria presence: without hematuria Qualified Code(s): N39.0 - Urinary tract infection, site not specified (4) Anxiety and depression Code(s): F41.9 - ANXIETY DISORDER, UNSPECIFIED; F32.9 - MAJOR DEPRESSIVE DISORDER, SINGLE EPISODE, UNSPECIFIED (5) Diabetes Code(s): E11.9 - TYPE 2 DIABETES MELLITUS WITHOUT COMPLICATIONS (6) End stage renal disease Code(s): N18.6 - END STAGE RENAL DISEASE (7) GERD (gastroesophageal reflux disease) Code(s): K21.9 - GASTRO-ESOPHAGEAL REFLUX DISEASE WITHOUT ESOPHAGITIS Assessment/Plan Although her ammonia level is normal now, she is encephalopathic, probably from other metabolic etiologies. Her BUN/Creat is elevated though she suffers ESRD and I don't know what she normally tolerates. She appears to also have infection and this may be contributing. I don't think that this is likely primary brain disorder or seizure and as her acute medical condition improves, hopefully the movements should dissipate. They are better today, and I'll keep an eye on them. Thanks.
--- NOTE | 2018-08-17 17:04 | PN ---
Progress Note, Physician History of Present Illness: Pt seen and examined at bedside. She responds but does not appear to be at her baseline status. - Current Medication List Current Medications: Active Medications Amlodipine Besylate (Norvasc -) 5 mg PO DAILY [facility] Last Admin: 08/17/18 09:25 Dose: 5 mg Aspirin (Asa -) 81 mg PO DAILY [facility] Last Admin: 08/17/18 09:24 Dose: 81 mg Donepezil HCl (Aricept -) 10 mg PO [facility] Last Admin: 08/16/18 22:29 Dose: 10 mg Escitalopram Oxalate (Lexapro -) 20 mg PO DAILY [facility] Last Admin: 08/17/18 09:24 Dose: 20 mg Furosemide (Lasix -) 80 mg PO DAILY [facility] Last Admin: 08/17/18 09:25 Dose: 80 mg Gabapentin (Neurontin -) 100 mg PO HS [facility] Last Admin: 08/16/18 22:27 Dose: 100 mg Gemfibrozil (Lopid -) 600 mg PO BIDAC [facility] Last Admin: 08/17/18 05:59 Dose: 600 mg Heparin Sodium (Porcine) (Heparin -) 5,000 unit SQ BID [facility] Last Admin: 08/17/18 09:25 Dose: 5,000 unit Isoniazid (Inh -) 300 mg PO DAILY [facility] Last Admin: 08/17/18 09:26 Dose: 300 mg Lactulose (Cephulac (Oral Use)) 20 gm PO Q8H PRN PRN Reason: constipation Metoprolol Tartrate (Lopressor -) 100 mg PO BID [facility] Last Admin: 08/17/18 09:25 Dose: 100 mg Non-Formulary Medication (Dulaglutide [Trulicity]) 0.75 mg SQ WEEKLY [facility] Pyridoxine HCl (Vitamin B6 -) 100 mg PO DAILY [facility] Last Admin: 08/17/18 09:27 Dose: 100 mg Quetiapine Fumarate (Seroquel -) 25 mg PO TID [facility] Last Admin: 08/17/18 14:16 Dose: Not Given Ranitidine HCl (Zantac -) 150 mg PO DAILY [facility] Last Admin: 08/17/18 09:25 Dose: 150 mg Sevelamer Carbonate (Renvela -) 800 mg PO TIDCM [facility] Last Admin: 08/17/18 13:00 Dose: 800 mg Thiamine HCl (Vitamin B1 -) 100 mg PO DAILY [facility] Last Admin: 08/17/18 09:25 Dose: 100 mg - Objective Vital Signs: Vital Signs Temperature 98.3 F 08/17/18 13:50 Pulse Rate 61 08/17/18 13:50 Respiratory Rate 18 08/17/18 13:50 Blood Pressure 108/52 L 08/17/18 13:50 O2 Sat by Pulse Oximetry (%) 97 08/17/18 09:00 Constitutional: Yes: Calm Eyes: Yes: Conjunctiva Clear HENT: Yes: Atraumatic Neck: Yes: Supple Cardiovascular: Yes: S1, S2 Respiratory: Yes: CTA Bilaterally Gastrointestinal: Yes: Soft Genitourinary: Yes: WNL Musculoskeletal: Yes: WNL Edema: No Neurological: Yes: Oriented Psychiatric: Yes: Oriented Labs: CBC, BMP 08/14/18 08:37 08/15/18 09:20 Problem List - Problems (1) Altered mental status Code(s): R41.82 - ALTERED MENTAL STATUS, UNSPECIFIED Qualifiers: Altered mental status type: unspecified Qualified Code(s): R41.82 - Altered mental status, unspecified (2) ESRD (end stage renal disease) on dialysis Code(s): N18.6 - END STAGE RENAL DISEASE; Z99.2 - DEPENDENCE ON RENAL DIALYSIS Assessment/Plan Current Medications Generic Name Dose Route Start Last Admin Trade Name Dominique PRN Reason Stop Dose Admin Amlodipine Besylate 5 mg 08/14/18 10:00 08/17/18 09:25 Norvasc - PO 5 mg DAILY [facility] Administration Aspirin 81 mg 08/14/18 10:00 08/17/18 09:24 Asa - PO 81 mg DAILY [facility] Administration Donepezil HCl 10 mg 08/14/18 22:00 08/16/18 22:29 Aricept - PO 10 mg HS [facility] Administration Escitalopram Oxalate 20 mg 08/14/18 10:00 08/17/18 09:24 Lexapro - PO 20 mg DAILY [facility] Administration Furosemide 80 mg 08/14/18 10:00 08/17/18 09:25 Lasix - PO 80 mg DAILY [facility] Administration Gabapentin 100 mg 08/13/18 22:00 08/16/18 22:27 Neurontin - PO 100 mg HS [facility] Administration Gemfibrozil 600 mg 08/14/18 07:00 08/17/18 05:59 Lopid - PO 600 mg BIDAC [facility] Administration Heparin Sodium (Porcine) 5,000 unit 08/14/18 10:00 08/17/18 09:25 Heparin - SQ 5,000 unit BID [facility] Administration Isoniazid 300 mg 08/14/18 10:00 08/17/18 09:26 Inh - PO 300 mg DAILY [facility] Administration Lactulose 20 gm 08/13/18 21:41 Cephulac (Oral Use) PO Q8H PRN constipation Metoprolol Tartrate 100 mg 08/13/18 22:00 08/17/18 09:25 Lopressor - PO 100 mg BID [facility] Administration Non-Formulary Medication 0.75 mg 08/13/18 21:45 Dulaglutide [Trulicity] SQ WEEKLY [facility] Pyridoxine HCl 100 mg 08/14/18 10:00 08/17/18 09:27 Vitamin B6 - PO 100 mg DAILY [facility] Administration Quetiapine Fumarate 25 mg 08/13/18 22:00 08/17/18 14:16 Seroquel - PO Not Given TID [facility] Ranitidine HCl 150 mg 08/14/18 10:00 08/17/18 09:25 Zantac - PO 150 mg DAILY [facility] Administration Sevelamer Carbonate 800 mg 08/14/18 08:00 08/17/18 13:00 Renvela - PO 800 mg TIDCM [facility] Administration Thiamine HCl 100 mg 08/14/18 10:00 08/17/18 09:25 Vitamin B1 - PO 100 mg DAILY [facility] Administration Impression 1. ESRD 2. change in mental status 3. HTN 4. DM 5. HLD 6. hypocalcemia 7. positive rpr s/p treatment with ceftriaxone 8. hx hyperkalemia Plan - HD tomorrow - orders written - neuro input appreciated - volume status stable - renal diet - AVF, 3:30, 2 k bath, heparin 1000 bolus and 500 maintenance, abf 450 - will follow Dr Marks
[2018-08-17] MEDS: DONEPEZIL HCL 10 MG TABLET (FP) PO SCH (21:39)
[2018-08-17] MEDS: GABAPENTIN 100 MG CAPSULE (FP) PO SCH (21:40)
[2018-08-18] MEDS: QUEtiapine FUMARATE 25 MG TABLET (FP) PO SCH ×3 (05:29→23:31)
[2018-08-18] MEDS: GEMFIBROZIL 600 MG TABLET (FP) PO SCH ×2 (06:06→17:23)
[2018-08-18] MEDS ORDERED: SODIUM CHLORIDE 250 ML IV PRN (07:11)
[2018-08-18] MEDS ORDERED: HEPARIN NA (PORCINE) 5,000 UNITS/ML 1ML VIAL IVPUSH ONE (07:15)
[2018-08-18] MEDS: SEVELAMER CARBONATE 800 MG TAB (FP) PO SCH ×3 (08:48→17:23)
[2018-08-18 08:56] LABS: HEMATOCRIT 25.9 % (32.4-45.2); HEMOGLOBIN 8.9 GM/dL (10.7-15.3); MCH 30.5 pg (25.7-33.7); MCHC 34.4 g/dl (32.0-36.0); MEAN CELL VOLUME 88.7 fl (80-96); MEAN PLT VOLUME 8.9 fl (7.5-11.1); PLATELET COUNT 257 K/MM3 (134-434); RBC 2.91 M/mm3 (3.60-5.2); RDW 14.9 % (11.6-15.6); WHITE BLOOD COUNT 5.7 K/mm3 (4.0-10.0)
[2018-08-18] MEDS: HEPARIN NA (PORCINE) 5,000 UNITS/ML 1ML VIAL IVPUSH SCH ×3 (09:20→11:19)
[2018-08-18 09:34] LABS: ANION GAP 13 MMOL/L (8-16); BLOOD UREA NITROGEN 69 mg/dL (7-18); CALCIUM 8.5 mg/dL (8.5-10.1); CHLORIDE 99 mmol/L (98-107); CO2 24 mmol/L (21-32); GLUCOSE,RANDOM 101 mg/dL (74-106); POTASSIUM 4.7 mmol/L (3.5-5.1); SODIUM 136 mmol/L (136-145)
[2018-08-18 09:38] LABS: CREATININE 11.1 mg/dL (0.55-1.3)
--- NOTE | 2018-08-18 11:45 | PN ---
Progress Note (short form) - Note Progress Note: Vital Signs Temp 98.5 F 08/18/18 08:15 Pulse 54 L 08/18/18 11:18 Resp 18 08/18/18 11:18 BP 122/62 08/18/18 11:18 Pulse Ox 97 08/17/18 23:25 Intake & Output 08/17/18 08/17/18 08/18/18 11:59 23:59 11:59 Intake Total 150 200 0 Balance 150 200 0 Intake: IV 0 0 saline lock 0 0 Oral 150 200 Other: Voiding Method Toilet Toilet Toilet # Unmeasured Voids Void 1 Bowel Movement Yes No Active Medications Amlodipine Besylate (Norvasc -) 5 mg PO DAILY [facility] Last Admin: 08/17/18 09:25 Dose: 5 mg Aspirin (Asa -) 81 mg PO DAILY [facility] Last Admin: 08/17/18 09:24 Dose: 81 mg Donepezil HCl (Aricept -) 10 mg PO [facility] Last Admin: 08/17/18 21:39 Dose: 10 mg Escitalopram Oxalate (Lexapro -) 20 mg PO DAILY [facility] Last Admin: 08/17/18 09:24 Dose: 20 mg Furosemide (Lasix -) 80 mg PO DAILY [facility] Last Admin: 08/17/18 09:25 Dose: 80 mg Gabapentin (Neurontin -) 100 mg PO HS [facility] Last Admin: 08/17/18 21:40 Dose: 100 mg Gemfibrozil (Lopid -) 600 mg PO BIDAC [facility] Last Admin: 08/18/18 06:06 Dose: 600 mg Heparin Sodium (Porcine) (Heparin -) 5,000 unit SQ BID [facility] Last Admin: 08/17/18 21:40 Dose: 5,000 unit Sodium Chloride (Normal Saline -) 250 mls @ 3,000 mls/hr IV PRN PRN PRN Reason: Hypotension during Dialysis Stop: 08/18/18 18:00 Isoniazid (Inh -) 300 mg PO DAILY [facility] Last Admin: 08/17/18 09:26 Dose: 300 mg Lactulose (Cephulac (Oral Use)) 20 gm PO Q8H PRN PRN Reason: constipation Metoprolol Tartrate (Lopressor -) 100 mg PO BID [facility] Last Admin: 08/17/18 21:40 Dose: 100 mg Non-Formulary Medication (Dulaglutide [Trulicity]) 0.75 mg SQ WEEKLY [facility] Pyridoxine HCl (Vitamin B6 -) 100 mg PO DAILY [facility] Last Admin: 08/17/18 09:27 Dose: 100 mg Quetiapine Fumarate (Seroquel -) 25 mg PO TID [facility] Last Admin: 08/18/18 05:29 Dose: 25 mg Ranitidine HCl (Zantac -) 150 mg PO DAILY [facility] Last Admin: 08/17/18 09:25 Dose: 150 mg Sevelamer Carbonate (Renvela -) 800 mg PO TIDCM [facility] Last Admin: 08/18/18 08:48 Dose: Not Given Thiamine HCl (Vitamin B1 -) 100 mg PO DAILY [facility] Last Admin: 08/17/18 09:25 Dose: 100 mg CBC, BMP 08/18/18 08:20 08/18/18 08:20 Microbiology 08/13/18 16:58 Blood Culture - Preliminary Blood - Peripheral Venous Gram Positive Bacillus Staphylococcus Haemolyticus 08/13/18 16:58 Blood Culture - Preliminary Blood - Peripheral Venous Streptococcus Salivarius Staphylococcus Simulans Alpha Hemolytic Streptococcus 08/14/18 16:37 Blood Culture - Preliminary Blood - Peripheral Venous NO GROWTH OBTAINED AFTER 72 HOURS, INCUBATION TO CONTINUE FOR 2 DAYS. 08/14/18 15:30 Blood Culture - Preliminary Blood - Peripheral Venous NO GROWTH OBTAINED AFTER 72 HOURS, INCUBATION TO CONTINUE FOR 2 DAYS.
[2018-08-18] MEDS ORDERED: PT OWN MED DRAWER 7, Y5N ONE ×3 (12:23→17:15)
[2018-08-18] MEDS: ASPIRIN 81 MG CHEWABLE TABLETS PO SCH (12:33)
[2018-08-18] MEDS: FUROSEMIDE 40 MG TABLET (FP) PO SCH (12:33)
[2018-08-18] MEDS: THIAMINE HCL 100 MG TABLET (FP) PO SCH (12:33)
[2018-08-18] MEDS: RANITIDINE HCL 150 MG TABLET (FP) PO SCH (12:33)
[2018-08-18] MEDS: ESCITALOPRAM OXALATE 20 MG TABLET (FP) PO SCH (12:33)
[2018-08-18] MEDS: METOPROLOL TARTRATE 50 MG TABLET (FP) PO SCH ×2 (12:33→23:31)
[2018-08-18] MEDS: amLODIPine BESYLATE 5 MG TABLET (FP) PO SCH (12:34)
[2018-08-18] MEDS: PYRIDOXINE HCL (B-6) 50 MG TABLET (FP) PO SCH (13:56)
[2018-08-18] MEDS: ISONIAZID 300 MG TABLET (FP) PO SCH (13:57)
[2018-08-18] MEDS: HEPARIN NA (PORCINE) 5,000 UNITS/ML 1ML VIAL SQ SCH ×2 (13:57→23:01)
--- NOTE | 2018-08-18 13:57 | PN ---
Progress Note, Physician Chief Complaint: Jerking of left arm History of Present Illness: 57 yo F with a hx of IDDM, neurosyphillis (presumably treated) , ESRD (HD on MWF ), and recent admission with elevated ammonia and AMS presents to the emergency department from [facility] for AMS and low potassium. Per the patient, she is unaware as to why she is in the Hospital. She does know that she is in [facility]. She is not bothered by the movements. Today, the movements are present in the right arm. - Current Medication List Current Medications: Active Medications Amlodipine Besylate (Norvasc -) 5 mg PO DAILY [facility] Last Admin: 08/18/18 12:34 Dose: 5 mg Aspirin (Asa -) 81 mg PO DAILY [facility] Last Admin: 08/18/18 12:33 Dose: 81 mg Donepezil HCl (Aricept -) 10 mg PO HS [facility] Last Admin: 08/17/18 21:39 Dose: 10 mg Escitalopram Oxalate (Lexapro -) 20 mg PO DAILY [facility] Last Admin: 08/18/18 12:33 Dose: 20 mg Furosemide (Lasix -) 80 mg PO DAILY [facility] Last Admin: 08/18/18 12:33 Dose: 80 mg Gabapentin (Neurontin -) 100 mg PO HS [facility] Last Admin: 08/17/18 21:40 Dose: 100 mg Gemfibrozil (Lopid -) 600 mg PO BIDAC [facility] Last Admin: 08/18/18 06:06 Dose: 600 mg Heparin Sodium (Porcine) (Heparin -) 5,000 unit SQ BID [facility] Last Admin: 08/17/18 21:40 Dose: 5,000 unit Sodium Chloride (Normal Saline -) 250 mls @ 3,000 mls/hr IV PRN PRN PRN Reason: Hypotension during Dialysis Stop: 08/18/18 18:00 Isoniazid (Inh -) 300 mg PO DAILY [facility] Last Admin: 08/17/18 09:26 Dose: 300 mg Lactulose (Cephulac (Oral Use)) 20 gm PO Q8H PRN PRN Reason: constipation Metoprolol Tartrate (Lopressor -) 100 mg PO BID [facility] Last Admin: 08/18/18 12:33 Dose: 100 mg Non-Formulary Medication (Dulaglutide [Trulicity]) 0.75 mg SQ WEEKLY [facility] Pyridoxine HCl (Vitamin B6 -) 100 mg PO DAILY [facility] Last Admin: 08/17/18 09:27 Dose: 100 mg Quetiapine Fumarate (Seroquel -) 25 mg PO TID [facility] Last Admin: 08/18/18 05:29 Dose: 25 mg Ranitidine HCl (Zantac -) 150 mg PO DAILY [facility] Last Admin: 08/18/18 12:33 Dose: 150 mg Sevelamer Carbonate (Renvela -) 800 mg PO TIDCM [facility] Last Admin: 08/18/18 12:33 Dose: 800 mg Thiamine HCl (Vitamin B1 -) 100 mg PO DAILY [facility] Last Admin: 08/18/18 12:33 Dose: 100 mg - Objective Vital Signs: Vital Signs Temperature 97.4 F L 08/18/18 12:38 Pulse Rate 62 08/18/18 12:38 Respiratory Rate 18 08/18/18 12:38 Blood Pressure 133/52 L 08/18/18 12:38 O2 Sat by Pulse Oximetry (%) 97 08/17/18 23:25 Constitutional: Yes: Thin Neurological: Yes: Confusion, Other (myoclonic jerks,) Labs: CBC, BMP 08/18/18 08:20 08/18/18 08:20 Problem List - Problems (1) Encephalopathy Code(s): G93.40 - ENCEPHALOPATHY, UNSPECIFIED (2) Altered mental status Code(s): R41.82 - ALTERED MENTAL STATUS, UNSPECIFIED Qualifiers: Altered mental status type: unspecified Qualified Code(s): R41.82 - Altered mental status, unspecified (3) UTI (urinary tract infection) Code(s): N39.0 - URINARY TRACT INFECTION, SITE NOT SPECIFIED Qualifiers: Urinary tract infection type: site unspecified Hematuria presence: without hematuria Qualified Code(s): N39.0 - Urinary tract infection, site not specified (4) Anxiety and depression Code(s): F41.9 - ANXIETY DISORDER, UNSPECIFIED; F32.9 - MAJOR DEPRESSIVE DISORDER, SINGLE EPISODE, UNSPECIFIED (5) Diabetes Code(s): E11.9 - TYPE 2 DIABETES MELLITUS WITHOUT COMPLICATIONS (6) End stage renal disease Code(s): N18.6 - END STAGE RENAL DISEASE (7) GERD (gastroesophageal reflux disease) Code(s): K21.9 - GASTRO-ESOPHAGEAL REFLUX DISEASE WITHOUT ESOPHAGITIS Assessment/Plan Although her ammonia level is normal now, she is encephalopathic, probably from other metabolic etiologies. Her BUN/Creat is elevated though she suffers ESRD and I don't know what she normally tolerates. She appears to also have infection and this may be contributing. I don't think that this is likely primary brain disorder or seizure and as her acute medical condition improves, hopefully the movements should dissipate. The movements continue to come and go, and I'm pretty confident of their metabolic origin. I wouldn't treat them as they don't disturb the patient, the treatment would likely aggravate her encephalopathy, and the encephalopathy is of more concern, likely metabolic in origin.
--- NOTE | 2018-08-18 16:14 | PN ---
Progress Note, Physician History of Present Illness: Pt seen and examined at bedside. She is awake and appears comfortable. She tolerated HD. - Current Medication List Current Medications: Active Medications Amlodipine Besylate (Norvasc -) 5 mg PO DAILY [facility] Last Admin: 08/18/18 12:34 Dose: 5 mg Aspirin (Asa -) 81 mg PO DAILY [facility] Last Admin: 08/18/18 12:33 Dose: 81 mg Donepezil HCl (Aricept -) 10 mg PO HS [facility] Last Admin: 08/17/18 21:39 Dose: 10 mg Escitalopram Oxalate (Lexapro -) 20 mg PO DAILY [facility] Last Admin: 08/18/18 12:33 Dose: 20 mg Furosemide (Lasix -) 80 mg PO DAILY [facility] Last Admin: 08/18/18 12:33 Dose: 80 mg Gabapentin (Neurontin -) 100 mg PO HS [facility] Last Admin: 08/17/18 21:40 Dose: 100 mg Gemfibrozil (Lopid -) 600 mg PO BIDAC [facility] Last Admin: 08/18/18 06:06 Dose: 600 mg Heparin Sodium (Porcine) (Heparin -) 5,000 unit SQ BID [facility] Last Admin: 08/18/18 13:57 Dose: Not Given Sodium Chloride (Normal Saline -) 250 mls @ 3,000 mls/hr IV PRN PRN PRN Reason: Hypotension during Dialysis Stop: 08/18/18 18:00 Isoniazid (Inh -) 300 mg PO DAILY [facility] Last Admin: 08/18/18 13:57 Dose: 300 mg Lactulose (Cephulac (Oral Use)) 20 gm PO Q8H PRN PRN Reason: constipation Metoprolol Tartrate (Lopressor -) 100 mg PO BID [facility] Last Admin: 08/18/18 12:33 Dose: 100 mg Non-Formulary Medication (Dulaglutide [Trulicity]) 0.75 mg SQ WEEKLY [facility] Pyridoxine HCl (Vitamin B6 -) 100 mg PO DAILY [facility] Last Admin: 08/18/18 13:56 Dose: 100 mg Quetiapine Fumarate (Seroquel -) 25 mg PO TID [facility] Last Admin: 08/18/18 13:56 Dose: 25 mg Ranitidine HCl (Zantac -) 150 mg PO DAILY [facility] Last Admin: 08/18/18 12:33 Dose: 150 mg Sevelamer Carbonate (Renvela -) 800 mg PO TIDCM [facility] Last Admin: 08/18/18 12:33 Dose: 800 mg Thiamine HCl (Vitamin B1 -) 100 mg PO DAILY [facility] Last Admin: 08/18/18 12:33 Dose: 100 mg - Objective Vital Signs: Vital Signs Temperature 97.5 F L 08/18/18 14:22 Pulse Rate 62 08/18/18 14:22 Respiratory Rate 18 08/18/18 14:22 Blood Pressure 133/52 L 08/18/18 14:22 O2 Sat by Pulse Oximetry (%) 97 08/17/18 23:25 Constitutional: Yes: Calm Eyes: Yes: Conjunctiva Clear HENT: Yes: Atraumatic Cardiovascular: Yes: S1, S2 Respiratory: Yes: CTA Bilaterally Gastrointestinal: Yes: Soft Genitourinary: Yes: WNL Musculoskeletal: Yes: WNL Extremities: Yes: WNL Edema: No Neurological: Yes: Oriented Psychiatric: Yes: Oriented Labs: CBC, BMP 08/18/18 08:20 08/18/18 08:20 Problem List - Problems (1) Altered mental status Code(s): R41.82 - ALTERED MENTAL STATUS, UNSPECIFIED Qualifiers: Altered mental status type: unspecified Qualified Code(s): R41.82 - Altered mental status, unspecified (2) ESRD (end stage renal disease) on dialysis Code(s): N18.6 - END STAGE RENAL DISEASE; Z99.2 - DEPENDENCE ON RENAL DIALYSIS Assessment/Plan Current Medications Generic Name Dose Route Start Last Admin Trade Name Dominique PRN Reason Stop Dose Admin Amlodipine Besylate 5 mg 08/14/18 10:00 08/18/18 12:34 Norvasc - PO 5 mg DAILY [facility] Administration Aspirin 81 mg 08/14/18 10:00 08/18/18 12:33 Asa - PO 81 mg DAILY [facility] Administration Donepezil HCl 10 mg 08/14/18 22:00 08/17/18 21:39 Aricept - PO 10 mg HS [facility] Administration Escitalopram Oxalate 20 mg 08/14/18 10:00 08/18/18 12:33 Lexapro - PO 20 mg DAILY [facility] Administration Furosemide 80 mg 08/14/18 10:00 08/18/18 12:33 Lasix - PO 80 mg DAILY [facility] Administration Gabapentin 100 mg 08/13/18 22:00 08/17/18 21:40 Neurontin - PO 100 mg HS [facility] Administration Gemfibrozil 600 mg 08/14/18 07:00 08/18/18 06:06 Lopid - PO 600 mg BIDAC [facility] Administration Heparin Sodium (Porcine) 5,000 unit 08/14/18 10:00 08/18/18 13:57 Heparin - SQ Not Given BID [facility] Sodium Chloride 250 mls @ 3,000 mls/hr 08/18/18 07:11 Normal Saline - IV 08/18/18 18:00 PRN PRN Hypotension during Dialysis Isoniazid 300 mg 08/14/18 10:00 08/18/18 13:57 Inh - PO 300 mg DAILY [facility] Administration Lactulose 20 gm 08/13/18 21:41 Cephulac (Oral Use) PO Q8H PRN constipation Metoprolol Tartrate 100 mg 08/13/18 22:00 08/18/18 12:33 Lopressor - PO 100 mg BID [facility] Administration Non-Formulary Medication 0.75 mg 08/13/18 21:45 Dulaglutide [Trulicity] SQ WEEKLY [facility] Pyridoxine HCl 100 mg 08/14/18 10:00 08/18/18 13:56 Vitamin B6 - PO 100 mg DAILY [facility] Administration Quetiapine Fumarate 25 mg 08/13/18 22:00 08/18/18 13:56 Seroquel - PO 25 mg TID [facility] Administration Ranitidine HCl 150 mg 08/14/18 10:00 08/18/18 12:33 Zantac - PO 150 mg DAILY [facility] Administration Sevelamer Carbonate 800 mg 08/14/18 08:00 08/18/18 12:33 Renvela - PO 800 mg TIDCM [facility] Administration Thiamine HCl 100 mg 08/14/18 10:00 08/18/18 12:33 Vitamin B1 - PO 100 mg DAILY [facility] Administration Impression 1. ESRD 2. change in mental status 3. HTN 4. DM 5. HLD 6. hypocalcemia 7. positive rpr s/p treatment with ceftriaxone 8. hx hyperkalemia Plan - pt tolerated HD - mental status appears improved - renal diet - AVF, 3:30, 2 k bath, heparin 1000 bolus and 500 maintenance, abf 450 - will follow Dr Marks
[2018-08-18] MEDS: GABAPENTIN 100 MG CAPSULE (FP) PO SCH (23:31)
[2018-08-18] MEDS: DONEPEZIL HCL 10 MG TABLET (FP) PO SCH (23:32)
[2018-08-19] MEDS: QUEtiapine FUMARATE 25 MG TABLET (FP) PO SCH ×2 (06:23→14:35)
[2018-08-19] MEDS: GEMFIBROZIL 600 MG TABLET (FP) PO SCH ×2 (06:23→16:45)
[2018-08-19] MEDS: SEVELAMER CARBONATE 800 MG TAB (FP) PO SCH ×3 (11:05→16:45)
[2018-08-19] MEDS: ASPIRIN 81 MG CHEWABLE TABLETS PO SCH (11:05)
[2018-08-19] MEDS: HEPARIN NA (PORCINE) 5,000 UNITS/ML 1ML VIAL SQ SCH (11:05)
[2018-08-19] MEDS: METOPROLOL TARTRATE 50 MG TABLET (FP) PO SCH (11:06)
[2018-08-19] MEDS: RANITIDINE HCL 150 MG TABLET (FP) PO SCH (11:06)
[2018-08-19] MEDS: THIAMINE HCL 100 MG TABLET (FP) PO SCH (11:06)
[2018-08-19] MEDS: amLODIPine BESYLATE 5 MG TABLET (FP) PO SCH (11:06)
[2018-08-19] MEDS: FUROSEMIDE 40 MG TABLET (FP) PO SCH (11:06)
[2018-08-19] MEDS: ESCITALOPRAM OXALATE 20 MG TABLET (FP) PO SCH (11:06)
[2018-08-19] MEDS: PYRIDOXINE HCL (B-6) 50 MG TABLET (FP) PO SCH (11:07)
[2018-08-19] MEDS: ISONIAZID 300 MG TABLET (FP) PO SCH (11:07)
--- NOTE | 2018-08-19 11:55 | PN ---
Progress Note, Physician Chief Complaint: Jerking of left arm History of Present Illness: 57 yo F with a hx of IDDM, neurosyphillis (presumably treated) , ESRD (HD on MWF ), and recent admission with elevated ammonia and AMS presents to the emergency department from [facility] for AMS and low potassium. Per the patient, she is unaware as to why she is in the Hospital. She does know that she is in [facility]. She is not bothered by the movements. A bit more lethargic and inattentive today, with persistent myoclonus. - Current Medication List Current Medications: Active Medications Amlodipine Besylate (Norvasc -) 5 mg PO DAILY [facility] Last Admin: 08/19/18 11:06 Dose: 5 mg Aspirin (Asa -) 81 mg PO DAILY [facility] Last Admin: 08/19/18 11:05 Dose: 81 mg Donepezil HCl (Aricept -) 10 mg PO HS [facility] Last Admin: 08/18/18 23:32 Dose: 10 mg Escitalopram Oxalate (Lexapro -) 20 mg PO DAILY [facility] Last Admin: 08/19/18 11:06 Dose: 20 mg Furosemide (Lasix -) 80 mg PO DAILY [facility] Last Admin: 08/19/18 11:06 Dose: 80 mg Gabapentin (Neurontin -) 100 mg PO HS [facility] Last Admin: 08/18/18 23:31 Dose: 100 mg Gemfibrozil (Lopid -) 600 mg PO BIDAC [facility] Last Admin: 08/19/18 06:23 Dose: 600 mg Heparin Sodium (Porcine) (Heparin -) 5,000 unit SQ BID [facility] Last Admin: 08/19/18 11:05 Dose: 5,000 unit Isoniazid (Inh -) 300 mg PO DAILY [facility] Last Admin: 08/19/18 11:07 Dose: 300 mg Lactulose (Cephulac (Oral Use)) 20 gm PO Q8H PRN PRN Reason: constipation Metoprolol Tartrate (Lopressor -) 100 mg PO BID [facility] Last Admin: 08/19/18 11:06 Dose: 100 mg Non-Formulary Medication (Dulaglutide [Trulicity]) 0.75 mg SQ WEEKLY [facility] Pyridoxine HCl (Vitamin B6 -) 100 mg PO DAILY [facility] Last Admin: 08/19/18 11:07 Dose: 100 mg Quetiapine Fumarate (Seroquel -) 25 mg PO TID [facility] Last Admin: 08/19/18 06:23 Dose: 25 mg Ranitidine HCl (Zantac -) 150 mg PO DAILY [facility] Last Admin: 08/19/18 11:06 Dose: 150 mg Sevelamer Carbonate (Renvela -) 800 mg PO TIDCM [facility] Last Admin: 08/19/18 11:05 Dose: 800 mg Thiamine HCl (Vitamin B1 -) 100 mg PO DAILY [facility] Last Admin: 08/19/18 11:06 Dose: 100 mg - Objective Vital Signs: Vital Signs Temperature 97.8 F 08/19/18 11:16 Pulse Rate 56 L 08/19/18 11:16 Respiratory Rate 18 08/19/18 11:16 Blood Pressure 111/51 L 08/19/18 11:16 O2 Sat by Pulse Oximetry (%) 97 08/18/18 21:00 Labs: CBC, BMP 08/18/18 08:20 08/18/18 08:20 Problem List - Problems (1) Encephalopathy Code(s): G93.40 - ENCEPHALOPATHY, UNSPECIFIED (2) Altered mental status Code(s): R41.82 - ALTERED MENTAL STATUS, UNSPECIFIED Qualifiers: Altered mental status type: unspecified Qualified Code(s): R41.82 - Altered mental status, unspecified (3) UTI (urinary tract infection) Code(s): N39.0 - URINARY TRACT INFECTION, SITE NOT SPECIFIED Qualifiers: Urinary tract infection type: site unspecified Hematuria presence: without hematuria Qualified Code(s): N39.0 - Urinary tract infection, site not specified (4) Anxiety and depression Code(s): F41.9 - ANXIETY DISORDER, UNSPECIFIED; F32.9 - MAJOR DEPRESSIVE DISORDER, SINGLE EPISODE, UNSPECIFIED (5) Diabetes Code(s): E11.9 - TYPE 2 DIABETES MELLITUS WITHOUT COMPLICATIONS (6) End stage renal disease Code(s): N18.6 - END STAGE RENAL DISEASE (7) GERD (gastroesophageal reflux disease) Code(s): K21.9 - GASTRO-ESOPHAGEAL REFLUX DISEASE WITHOUT ESOPHAGITIS Assessment/Plan Metabolic encephalopathy. Her BUN/Creat is elevated though she suffers ESRD and I don't know what she normally tolerates. She appears to also have infection and this may be contributing. I don't think that this is likely primary brain disorder or seizure and as her acute medical condition improves, hopefully the movements should dissipate. The movements continue to come and go, and I'm pretty confident of their metabolic origin. I wouldn't treat them as they don't disturb the patient, the treatment would likely aggravate her encephalopathy, and the encephalopathy is of more concern, likely metabolic in origin. Her ammonia level, however has most recently been normal.
--- NOTE | 2018-08-19 13:15 | DS ---
Physical Examination Vital Signs: Vital Signs Temperature 97.8 F 08/19/18 11:16 Pulse Rate 56 L 08/19/18 11:16 Respiratory Rate 18 08/19/18 11:16 Blood Pressure 111/51 L 08/19/18 11:16 O2 Sat by Pulse Oximetry (%) 97 08/19/18 09:00 Constitutional: Yes: No Distress, Calm Cardiovascular: Yes: Regular Rate and Rhythm Respiratory: Yes: CTA Bilaterally Gastrointestinal: Yes: Normal Bowel Sounds, Soft. No: Tenderness Edema: No Labs: CBC, BMP 08/18/18 08:20 08/18/18 08:20 Discharge Summary Reason For Visit: URINARY TRACT INFECTION Current Active Problems Altered mental status (Acute) Bacteremia (Acute) ESRD (end stage renal disease) on dialysis (Acute) Encephalopathy (Acute) UTI (urinary tract infection) (Acute) Hospital Course: Pt admitted for UTI, AMS Seen by ID started on iv antibiotics initial blood cultures positive -- now negative urine cultures positive tunneled cath removed stable for dc to NH will need PO Levaquin x 7 doses for UTI Condition: Improved - Instructions Referrals: Yousif Torres MD [Primary Care Provider] - Disposition: [facility]USTODIAL [facility]ACILITY - Home Medications Comprehensive Discharge Medication List: Ambulatory Orders Amlodipine Besylate 5 mg PO DAILY 06/26/18 Aspirin 81 mg PO DAILY 06/26/18 Donepezil HCl 10 mg PO HS 06/26/18 Dulaglutide [Trulicity] 0.75 mg SQ WEEKLY 06/26/18 Escitalopram Oxalate [Lexapro -] 20 mg PO DAILY 06/26/18 Famotidine 20 mg PO DAILY 06/26/18 Furosemide 80 mg PO DAILY 06/26/18 Gabapentin 100 mg PO HS 06/26/18 Gemfibrozil [Lopid] 600 mg PO BID 06/26/18 Isoniazid 300 mg PO DAILY 06/26/18 Metoprolol Tartrate 100 mg PO BID 06/26/18 Pyridoxine HCl (Vitamin B6) [Vitamin B-6] 100 mg PO DAILY 06/26/18 Quetiapine Fumarate [Seroquel -] 25 mg PO TID 06/26/18 Sevelamer Carbonate 800 mg PO TID 06/26/18 Thiamine Mononitrate [Vitamin B-1] 100 mg PO DAILY 06/26/18 Lactulose (Oral Use) [Cephulac -] 20 gm PO Q8H PRN udc 08/04/18
--- NOTE | 2018-08-19 14:11 | PN ---
Progress Note, Physician History of Present Illness: SUPINE IN BED AWAKE BUT CONFUSED OFFERS NO COMPLAINTS AFEBRILE WBC WNL VANCO T 32 BC POLYMICROBIAL 3 DIFFERENT ORGANISMS IN ONE AE BOTTLE, 2 DIFFERENT ORGANISMS IN THE OTHER AE BOTTLE - Current Medication List Current Medications: Active Medications Amlodipine Besylate (Norvasc -) 5 mg PO DAILY [facility] Last Admin: 08/19/18 11:06 Dose: 5 mg Aspirin (Asa -) 81 mg PO DAILY [facility] Last Admin: 08/19/18 11:05 Dose: 81 mg Donepezil HCl (Aricept -) 10 mg PO HS [facility] Last Admin: 08/18/18 23:32 Dose: 10 mg Escitalopram Oxalate (Lexapro -) 20 mg PO DAILY [facility] Last Admin: 08/19/18 11:06 Dose: 20 mg Furosemide (Lasix -) 80 mg PO DAILY [facility] Last Admin: 08/19/18 11:06 Dose: 80 mg Gabapentin (Neurontin -) 100 mg PO HS [facility] Last Admin: 08/18/18 23:31 Dose: 100 mg Gemfibrozil (Lopid -) 600 mg PO BIDAC [facility] Last Admin: 08/19/18 06:23 Dose: 600 mg Heparin Sodium (Porcine) (Heparin -) 5,000 unit SQ BID [facility] Last Admin: 08/19/18 11:05 Dose: 5,000 unit Isoniazid (Inh -) 300 mg PO DAILY [facility] Last Admin: 08/19/18 11:07 Dose: 300 mg Lactulose (Cephulac (Oral Use)) 20 gm PO Q8H PRN PRN Reason: constipation Levofloxacin (Levaquin -) 250 mg PO Q2D@0600 [facility] Metoprolol Tartrate (Lopressor -) 100 mg PO BID [facility] Last Admin: 08/19/18 11:06 Dose: 100 mg Non-Formulary Medication (Dulaglutide [Trulicity]) 0.75 mg SQ WEEKLY [facility] Pyridoxine HCl (Vitamin B6 -) 100 mg PO DAILY [facility] Last Admin: 08/19/18 11:07 Dose: 100 mg Quetiapine Fumarate (Seroquel -) 25 mg PO TID [facility] Last Admin: 08/19/18 06:23 Dose: 25 mg Ranitidine HCl (Zantac -) 150 mg PO DAILY [facility] Last Admin: 08/19/18 11:06 Dose: 150 mg Sevelamer Carbonate (Renvela -) 800 mg PO TIDCM [facility] Last Admin: 08/19/18 13:13 Dose: 800 mg Thiamine HCl (Vitamin B1 -) 100 mg PO DAILY [facility] Last Admin: 08/19/18 11:06 Dose: 100 mg - Objective Vital Signs: Vital Signs Temperature 97.8 F 08/19/18 11:16 Pulse Rate 56 L 08/19/18 11:16 Respiratory Rate 18 08/19/18 11:16 Blood Pressure 111/51 L 08/19/18 11:16 O2 Sat by Pulse Oximetry (%) 97 08/19/18 09:00 Constitutional: Yes: No Distress Eyes: Yes: Conjunctiva Clear Cardiovascular: Yes: Regular Rate and Rhythm, S1, S2. No: Murmur Respiratory: Yes: CTA Bilaterally Gastrointestinal: Yes: Normal Bowel Sounds, Soft. No: Tenderness Edema: No Integumentary: Yes: Other (R CHEST CATHETER) Labs: CBC, BMP 08/18/18 08:20 08/18/18 08:20 Assessment/Plan 5 DIFFERENT ORGANISMS IN TWO AE BOTTLES SPEAKS FOR CONTAMINATION ESRD ? UTI FOR CATHETER REMOVAL NO TREATMENT FOR + BC REPEAT BC , ECHO OUTPATIENT CONTINUE LEVAQUIN PO ADJUSTED FOR ESRD FOR 7 CALENDAR DAYS
[2018-08-19 15:20] VITALS: BP 91/49; PULSE 52; TEMP 97.3
--- NOTE | 2018-08-19 15:31 | PN ---
Progress Note, Physician History of Present Illness: Pt seen and examined at bedside. She is awake and appears comfortable. - Current Medication List Current Medications: Active Medications Amlodipine Besylate (Norvasc -) 5 mg PO DAILY [facility] Last Admin: 08/19/18 11:06 Dose: 5 mg Aspirin (Asa -) 81 mg PO DAILY [facility] Last Admin: 08/19/18 11:05 Dose: 81 mg Donepezil HCl (Aricept -) 10 mg PO HS [facility] Last Admin: 08/18/18 23:32 Dose: 10 mg Escitalopram Oxalate (Lexapro -) 20 mg PO DAILY [facility] Last Admin: 08/19/18 11:06 Dose: 20 mg Furosemide (Lasix -) 80 mg PO DAILY [facility] Last Admin: 08/19/18 11:06 Dose: 80 mg Gabapentin (Neurontin -) 100 mg PO HS [facility] Last Admin: 08/18/18 23:31 Dose: 100 mg Gemfibrozil (Lopid -) 600 mg PO BIDAC [facility] Last Admin: 08/19/18 06:23 Dose: 600 mg Heparin Sodium (Porcine) (Heparin -) 5,000 unit SQ BID [facility] Last Admin: 08/19/18 11:05 Dose: 5,000 unit Isoniazid (Inh -) 300 mg PO DAILY [facility] Last Admin: 08/19/18 11:07 Dose: 300 mg Lactulose (Cephulac (Oral Use)) 20 gm PO Q8H PRN PRN Reason: constipation Levofloxacin (Levaquin -) 250 mg PO Q2D@0600 [facility] Metoprolol Tartrate (Lopressor -) 100 mg PO BID [facility] Last Admin: 08/19/18 11:06 Dose: 100 mg Non-Formulary Medication (Dulaglutide [Trulicity]) 0.75 mg SQ WEEKLY [facility] Pyridoxine HCl (Vitamin B6 -) 100 mg PO DAILY [facility] Last Admin: 08/19/18 11:07 Dose: 100 mg Quetiapine Fumarate (Seroquel -) 25 mg PO TID [facility] Last Admin: 08/19/18 14:35 Dose: Not Given Ranitidine HCl (Zantac -) 150 mg PO DAILY [facility] Last Admin: 08/19/18 11:06 Dose: 150 mg Sevelamer Carbonate (Renvela -) 800 mg PO TIDCM [facility] Last Admin: 08/19/18 13:13 Dose: 800 mg Thiamine HCl (Vitamin B1 -) 100 mg PO DAILY [facility] Last Admin: 08/19/18 11:06 Dose: 100 mg - Objective Vital Signs: Vital Signs Temperature 97.3 F L 08/19/18 15:19 Pulse Rate 52 L 08/19/18 15:19 Respiratory Rate 18 08/19/18 15:19 Blood Pressure 91/49 L 08/19/18 15:19 O2 Sat by Pulse Oximetry (%) 97 08/19/18 09:00 Constitutional: Yes: Calm Eyes: Yes: Conjunctiva Clear HENT: Yes: Atraumatic Neck: Yes: Supple Cardiovascular: Yes: S1, S2 Respiratory: Yes: CTA Bilaterally Gastrointestinal: Yes: Soft Genitourinary: Yes: WNL Musculoskeletal: Yes: WNL Edema: No Neurological: Yes: Oriented Psychiatric: Yes: Oriented Labs: CBC, BMP 08/18/18 08:20 08/18/18 08:20 Problem List - Problems (1) Altered mental status Code(s): R41.82 - ALTERED MENTAL STATUS, UNSPECIFIED Qualifiers: Altered mental status type: unspecified Qualified Code(s): R41.82 - Altered mental status, unspecified (2) ESRD (end stage renal disease) on dialysis Code(s): N18.6 - END STAGE RENAL DISEASE; Z99.2 - DEPENDENCE ON RENAL DIALYSIS Assessment/Plan Current Medications Generic Name Dose Route Start Last Admin Trade Name Dominique PRN Reason Stop Dose Admin Amlodipine Besylate 5 mg 08/14/18 10:00 08/19/18 11:06 Norvasc - PO 5 mg DAILY [facility] Administration Aspirin 81 mg 08/14/18 10:00 08/19/18 11:05 Asa - PO 81 mg DAILY [facility] Administration Donepezil HCl 10 mg 08/14/18 22:00 08/18/18 23:32 Aricept - PO 10 mg HS [facility] Administration Escitalopram Oxalate 20 mg 08/14/18 10:00 08/19/18 11:06 Lexapro - PO 20 mg DAILY [facility] Administration Furosemide 80 mg 08/14/18 10:00 08/19/18 11:06 Lasix - PO 80 mg DAILY [facility] Administration Gabapentin 100 mg 08/13/18 22:00 08/18/18 23:31 Neurontin - PO 100 mg HS [facility] Administration Gemfibrozil 600 mg 08/14/18 07:00 08/19/18 06:23 Lopid - PO 600 mg BIDAC [facility] Administration Heparin Sodium (Porcine) 5,000 unit 08/14/18 10:00 08/19/18 11:05 Heparin - SQ 5,000 unit BID [facility] Administration Isoniazid 300 mg 08/14/18 10:00 08/19/18 11:07 Inh - PO 300 mg DAILY [facility] Administration Lactulose 20 gm 08/13/18 21:41 Cephulac (Oral Use) PO Q8H PRN constipation Levofloxacin 250 mg 08/19/18 13:45 Levaquin - PO Q2D@0600 [facility] Metoprolol Tartrate 100 mg 08/13/18 22:00 08/19/18 11:06 Lopressor - PO 100 mg BID [facility] Administration Non-Formulary Medication 0.75 mg 08/13/18 21:45 Dulaglutide [Trulicity] SQ WEEKLY [facility] Pyridoxine HCl 100 mg 08/14/18 10:00 08/19/18 11:07 Vitamin B6 - PO 100 mg DAILY [facility] Administration Quetiapine Fumarate 25 mg 08/13/18 22:00 08/19/18 14:35 Seroquel - PO Not Given TID [facility] Ranitidine HCl 150 mg 08/14/18 10:00 08/19/18 11:06 Zantac - PO 150 mg DAILY [facility] Administration Sevelamer Carbonate 800 mg 08/14/18 08:00 08/19/18 13:13 Renvela - PO 800 mg TIDCM [facility] Administration Thiamine HCl 100 mg 08/14/18 10:00 08/19/18 11:06 Vitamin B1 - PO 100 mg DAILY [facility] Administration Impression 1. ESRD 2. change in mental status 3. HTN 4. DM 5. HLD 6. hypocalcemia 7. positive rpr s/p treatment with ceftriaxone 8. hx hyperkalemia Plan - pt has HD set up as outpt - mental status stable - renal diet - AVF, 3:30, 2 k bath, heparin 1000 bolus and 500 maintenance, abf 450 - will follow Dr Marks
== END 2018-08-19 18:46 | DRG 689 ==
LOC: JER 15:10 → JERBED 20:39 → J7W 08-14 04:31
PROVIDERS: ADMIT Internal Medicine; ATTEND Internal Medicine
PROC: 5A1D70Z Performance of Urinary Filtration, Intermittent, Less than 6 Hours Per Day (ICD-10-PCS; principal; 2018-08-15)
PROC: 5A1D70Z Performance of Urinary Filtration, Intermittent, Less than 6 Hours Per Day (ICD-10-PCS; 2018-08-18)
DX: N39.0 Urinary tract infection, site not specified (principal); N18.6 End stage renal disease; G93.41 Metabolic encephalopathy; I12.0 Hypertensive chronic kidney disease with stage 5 chronic kidney disease or end stage renal disease; R78.81 Bacteremia; A52.3 Neurosyphilis, unspecified; B96.89 Other specified bacterial agents as the cause of diseases classified elsewhere; I95.9 Hypotension, unspecified; F41.8 Other specified anxiety disorders; F41.9 Anxiety disorder, unspecified; E87.5 Hyperkalemia; E11.22 Type 2 diabetes mellitus with diabetic chronic kidney disease; F03.90 Unspecified dementia, unspecified severity, without behavioral disturbance, psychotic disturbance, mood disturbance, and anxiety; K21.9 Gastro-esophageal reflux disease without esophagitis; E83.51 Hypocalcemia; E78.5 Hyperlipidemia, unspecified; Z99.2 Dependence on renal dialysis; Z79.4 Long term (current) use of insulin
CPT/HCPCS: 36415; 70450-TC; 71045-TC-FY; 80048; 80053; 81003; 81015; 82140; 82550; 82803; 82962; 83605; 84484; 85025; 85027; 86850; 86870; 86900; 86901; 86902; 87040; 87077; 87086; 87186; 93005; 93010; 99285-25; G0480; J1644; J7030